=== PATIENT | male | born 1965 | race African-American/Black ===

== ENCOUNTER 2019-08-13 16:09 | Inpatient (IN) | payer OTHER ==
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
[2019-08-13] MEDS ORDERED: ALBUTEROL SO4 2.5/IPRATROPIUM 0.5 INH SOL 3 ML VIAL.NEB. NEB ONE ×5 (17:01→18:26)
[2019-08-13 17:36] LABS: BASO % 0.9 % (0-2.0); EOS % 3.9 % (0-4.5); HEMATOCRIT 41.4 % (35.4-49); HEMOGLOBIN 13.5 GM/dL (11.7-16.9); LYMPH % 17.2 % (8-40); MCH 30.8 pg (25.7-33.7); MCHC 32.7 g/dl (32.0-35.9); MEAN CELL VOLUME 94.2 fl (80-96); MEAN PLT VOLUME 8.4 fl (7.5-11.1); MONO % 10.1 % (3.8-10.2); NEUT % 67.9 % (42.8-82.8); PLATELET COUNT 250 K/MM3 (134-434); RBC 4.39 M/mm3 (4.00-5.60); RDW 14.5 % (11.9-15.9)
[2019-08-13 17:52] LABS: INR 0.87 (0.83-1.09); PROTHROMBIN TIME (PATIENT) 10.3 SEC (9.7-13.0)
[2019-08-13 17:55] LABS: ACTIVATED PTT 29.4 SECONDS (25.2-36.5)
[2019-08-13 18:14] LABS: URINE APPEARANCE CLEAR; URINE BILIRUBIN NEGATIVE (NEGATIVE); URINE COLOR YELLOW; URINE GLUCOSE (UA) 3+ (NEGATIVE); URINE KETONE NEGATIVE (NEGATIVE); URINE LEUK ESTERASE NEGATIVE (NEGATIVE); URINE NITRITE NEGATIVE (NEGATIVE); URINE PROTEIN NEGATIVE (NEGATIVE)
[2019-08-13 18:16] LABS: ALK PHOS 79 U/L (45-117); ANION GAP 6 MMOL/L (8-16); BILIRUBIN,TOTAL 0.3 mg/dL (0.2-1); BLOOD UREA NITROGEN 13.6 mg/dL (7-18); CALCIUM 8.4 mg/dL (8.5-10.1); CHLORIDE 102 mmol/L (98-107); CO2 30 mmol/L (21-32); GLUCOSE,RANDOM 374 mg/dL (74-106); POTASSIUM 3.8 mmol/L (3.5-5.1); SGOT/AST 64 U/L (15-37); SGPT/ALT 95 U/L (13-61); SODIUM 138 mmol/L (136-145); TOT PROT 5.8 g/dl (6.4-8.2)
[2019-08-13] MEDS ORDERED: SODIUM CHLORIDE 0.9% 500 ML INFUS.BAG IV ONE ×2 (18:25→18:51)
[2019-08-13] MEDS ORDERED: methylPREDNISolone NA SUCC 125 MG/2 ML VIAL IVPUSH ONE (18:30)
[2019-08-13] MEDS ORDERED: methylPREDNISolone NA SUCC 125 MG/2 ML VIAL ONE (19:08)
--- NOTE | 2019-08-13 19:16 | PDOC ---
Documentation entered by Gary Fowler SCRIBE, acting as scribe for Rosa Dominique MD. Rosa Dominique MD: This documentation has been prepared by the Malcolm michaels Nirvannie, SCRIBE, under my direction and personally reviewed by me in its entirety. I confirm that the documentation accurately reflects all work, treatment, procedures, and medical decision making performed by me. Attending Attestation - Resident Resident Name: Rosa Easton - ED Attending Attestation I have performed the following: I have examined & evaluated the patient, The case was reviewed & discussed with the resident, I agree w/resident's findings & plan, Exceptions are as noted - HPI HPI: 08/13/19 18:15 The patient is a 54 year old male, with a significant past medical history of polysubstance abuse and asthma, who presents to the emergency department via EMS from [facility] with shortness of breath, hypoxia, and cough. As per [facility], the patient was discharged from [facility] after a 2 day admission to detox at which time he was found to be wheezing, lethargic, and hypoxic to 90% on room air. Per EMS, given nebulizer treatments en route and found to be hyperglycemic. Patient endorses shortness of breath for the past month and is unaware if todays episode is worse than normal. Patient is a poor historian thus, history is limited. He denies any recent chest pain or palpitations. He denies any recent fevers, chills, headache or dizziness. He denies any recent nausea, vomiting, diarrhea or constipation. He denies any recent dysuria, frequency, urgency or hematuria. Allergies: NKDA - Physicial Exam PE: GENERAL: Somnolent. Awakens to voice then falls back asleep. In no acute distress HEAD: No signs of trauma EYES: PERRLA, EOMI, sclera anicteric, conjunctiva clear ENT: Auricles normal inspection, hearing grossly normal, nares patent, oropharynx clear without exudates. Moist mucosa NECK: Normal ROM, supple, no lymphadenopathy, JVD, or masses LUNGS: Dec air entry B/L with scattered wheezes. HEART: Regular rate and rhythm, normal S1 and S2, no murmurs, rubs or gallops ABDOMEN: Soft, nontender, normoactive bowel sounds. No guarding, no rebound. No masses EXTREMITIES: Normal range of motion, no edema. No clubbing or cyanosis. No cords, erythema, or tenderness NEUROLOGICAL: Cranial nerves II through XII grossly intact. Normal speech, normal gait. Motor and sensation intact SKIN: Warm, dry, normal turgor, no rashes or lesions noted. - Medical Decision Making Pt somnolent on my evaluation, poss intoxication given history of substance abuse. Noted to have rhabdo, hyperglycemia in addition to the respiratory symptoms. Will plan for admission.
[2019-08-13] MEDS ORDERED: LACTATED RINGERS SOLUTION 1000 ML INFUS.BAG IV ONE (19:39)
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
[2019-08-13 20:57] LABS: METHADONE, UR NEGATIVE ng/ml (CUTOFF=300); OPIATES, URI NEGATIVE ng/ml (CUTOFF=300); PHENCYCLIDINE,URINE NEGATIVE ng/ml (CUTOFF=25); URINE AMPHETAMINES NEGATIVE ng/ml (CUTOFF=500); URINE BARBITURATES NEGATIVE ng/ml (CUTOFF=200); URINE BENZODIAZEPINES NEGATIVE ng/ml (CUTOFF=200)
[2019-08-13 20:59] LABS: COCAINE, UR POSITIVE ng/ml (CUTOFF=300)
[2019-08-13 21:21] LABS: MAGNESIUM 2.3 mg/dL (1.8-2.4); PHOSPHOROUS 2.7 mg/dL (2.5-4.9)
[2019-08-13] MEDS ORDERED: SODIUM CHLORIDE 1,000 ML IV SCH (22:45)
[2019-08-13] MEDS ORDERED: ALBUTEROL SO4 0.083% IH SOL 2.5 MG/3 ML VIAL.NEB. NEB PRN (22:59)
[2019-08-13] MEDS ORDERED: ALBUTEROL SO4 2.5/IPRATROPIUM 0.5 INH SOL 3 ML VIAL.NEB. NEB SCH (23:00)
--- NOTE | 2019-08-13 23:55 | PN ---
Teaching Attending Note Name of Resident: Natacha Flores ATTENDING PHYSICIAN STATEMENT I saw and evaluated the patient. I reviewed the resident's note and discussed the case with the resident. I agree with the resident's findings and plan as documented. SUBJECTIVE: 54 year old male, with a significant past medical history of polysubstance abuse , asthma, presents via EMS from [facility] with shortness of breath, hypoxia, and cough. As per [facility], the patient was discharged from [facility] after a 2 day admission to detox at which time he was found to be wheezing, lethargic , and hypoxic to 90% on room air. Given nebs by EMS and was also found to be hyperglycemic. Heroin, etoh, and cocaine Last use this . Patient allegedly drinks up to 1 pint of liquor a day. OBJECTIVE: Last Vital Signs Temp Pulse Resp BP Pulse Ox 97.8 F 94 H 19 148/79 98 08/13/19 16:10 08/13/19 16:10 08/13/19 16:10 08/13/19 16:10 08/13/19 16:10 GENERAL: Well developed, well nourished. Awake and alert. No acute distress. HEENT: Normocephalic, atraumatic. PERRLA, EOMI. No conjunctival pallor. Sclera are non- icteric. Moist mucous membranes. Oropharynx is clear. NECK: Supple. Full ROM. No JVD. Carotid pulses 2+ and symmetric, without bruits. No thyromegaly. No lymphadenopathy. CARDIOVASCULAR: Regular rate and rhythm. No murmurs, rubs, or gallops. Distal pulses are 2+ and symmetric. PULMONARY: No evidence of respiratory distress. Diffuse wheezing appreciated. ABDOMINAL: Soft. Non-tender. Non-distended. No rebound or guarding. No organomegaly. Normoactive bowel sounds. MUSCULOSKELETAL Normal range of motion at all joints. No bony deformities or tenderness. No CVA tenderness. EXTREMITIES: No cyanosis. No clubbing. No edema. No calf tenderness. SKIN: Warm and dry. Normal capillary refill. No rashes. No jaundice. PSYCHIATRIC: Cooperative. Good eye contact. Appropriate mood and affect. Abnormal Lab Results 08/13/19 08/13/19 08/13/19 17:15 17:30 20:30 Anion Gap 6 L Random Glucose 374 H Calcium 8.4 L AST 64 H ALT 95 H Creatine Kinase 1856 H CK-MB (CK-2) 15.9 H Total Protein 5.8 L Albumin 3.0 L Urine Glucose (UA) 3+ H Cocaine Screen Positive A* Imaging studies reviewed ASSESSMENT AND PLAN: Asthma exacerbation, likely precipitated by substance abuse, cocaine positive in urine toxicology screen. Admit to MedSurg DuoNebs every 4 hours Prednisone 40 mg p.o. daily Counseled to quit abusing cocaine and heroin Supplemental oxygen via nasal cannula VBG to ensure patient is not retaining CO2 Peak flow now and trend #Polysubstance abuse including chronic alcoholism CIWA protocol IV fluid hydration Thiamine and folate and multivitamin Librium detox protocol [facility] after discharge #Rhabdomyolysissuspect secondary to cocaine use IV fluid hydration Trend CK level Bedrest and fall precautions Cocaine cessation Send urine myoglobin #Transaminitismay be elevated from rhabdomyolysis. May be elevated secondary to EtOH induced hepatitis Send HIV, hep B, hep C serologies Hepatic panel #DVT prophylaxisheparin subcutaneously
[2019-08-14] MEDS ORDERED: ALBUTEROL SO4 2.5/IPRATROPIUM 0.5 INH SOL 3 ML VIAL.NEB. NEB ONE ×4 (03:52→16:14)
[2019-08-14] MEDS ORDERED: methylPREDNISolone NA SUCC 40 MG/1 ML VIAL IVPUSH ONE (03:54)
[2019-08-14 05:29] LABS: ARTERIAL BLD GAS O2 SATURATION 92.8 % (95-98); ARTERIAL BLOOD GAS BASE EXCESS 1.8 meq/l (-2-2); ARTERIAL BLOOD GAS PCO2 40.5 mmHg (35-45); ARTERIAL BLOOD GAS PO2 67.5 mmHg (80-100); ARTERIAL BLOOD GAS pH 7.42 (7.35-7.45)
[2019-08-14 05:32] LABS: ALLENS TEST POSITIVE
[2019-08-14] MEDS ORDERED: SODIUM CHLORIDE 1,000 ML with SODIUM BICARBONATE 8.4% - 150 MEQ IV SCH (06:15)
[2019-08-14] MEDS ORDERED: INSULIN SLIDING SCALE (NOVOLOG) 1 VIAL SQ SCH ×2 (07:00)
[2019-08-14] MEDS: ALBUTEROL SO4 2.5/IPRATROPIUM 0.5 INH SOL 3 ML VIAL.NEB. NEB SCH ×4 (08:06→20:26)
[2019-08-14] MEDS: INSULIN SLIDING SCALE (NOVOLOG) 1 VIAL SQ SCH ×4 (08:10→23:05)
[2019-08-14] MEDS ORDERED: DEXTROSE 5%-WATER - 1,000 ML with SODIUM BICARBONATE 8.4% - 150 MEQ IV SCH ×2 (08:26→08:30)
[2019-08-14] MEDS: NYSTATIN POWDER 100,000 UNITS/GM - 15 GM TOPICAL POWDER TP SCH ×2 (09:57→23:06)
[2019-08-14] MEDS: HYDROCHLOROTHIAZIDE 25 MG TABLET (FP) PO SCH (09:57)
[2019-08-14] MEDS: amLODIPine BESYLATE 5 MG TABLET (FP) PO SCH (09:57)
[2019-08-14] MEDS: PANTOPRAZOLE 40 MG TABLET (FP) PO SCH (09:57)
[2019-08-14] MEDS: ASPIRIN 81 MG CHEWABLE TABLETS PO SCH (09:57)
[2019-08-14] MEDS: ENOXAPARIN NA (PORCINE) 40 MG/0.4 ML DISP.SYRIN SQ SCH (09:57)
[2019-08-14] MEDS: methylPREDNISolone NA SUCC 40 MG/1 ML VIAL IVPUSH SCH ×2 (09:58→18:24)
--- NOTE | 2019-08-14 09:59 | PN ---
Physical Exam: SUBJECTIVE: Patient seen and examined at at bed side, c/o epigastric pain, denies cp, sob, cough, palpitations, N/V/D or urinary symptoms. OBJECTIVE: Vital Signs Period Temp Pulse Resp BP Sys/Alarcon Pulse Ox Last 24 Hr 97.8 F 94 19 148/79 98 GENERAL: The patient is awake, alert, and fully oriented, in no acute distress. HEAD: Normal with no signs of trauma. EYES: PERRL, extraocular movements intact, sclera anicteric, conjunctiva clear. No ptosis. ENT: Ears normal, nares patent, oropharynx clear without exudates, moist mucous membranes.Swelling left side of the face persist, mild- tenderness, no throat exudate seen NECK: Trachea midline, full range of motion, supple. LUNGS: Breath sounds equal, clear to auscultation bilaterally, no wheezes, no crackles, no accessory muscle use. HEART: Regular rate and rhythm, S1, S2 without murmur, rub or gallop. ABDOMEN: mild epigastric tenderness,Soft, nondistended, normoactive bowel sounds , no guarding, no rebound, no hepatosplenomegaly, no masses. EXTREMITIES: 2+ pulses, warm, well-perfused, no edema. NEUROLOGICAL: Cranial nerves II through XII grossly intact. Normal speech, gait not observed. PSYCH: Normal mood, normal affect. SKIN: Warm, dry, normal turgor, no rashes or lesions noted Laboratory Results - last 24 hr 08/13/19 08/13/19 08/13/19 16:56 17:15 17:15 WBC 8.0 RBC 4.39 Hgb 13.5 Hct 41.4 MCV 94.2 MCH 30.8 MCHC 32.7 RDW 14.5 Plt Count 250 MPV 8.4 Absolute Neuts (auto) 5.4 Neutrophils % 67.9 Lymphocytes % 17.2 Monocytes % 10.1 Eosinophils % 3.9 Basophils % 0.9 Nucleated RBC % 0 PT with INR INR PTT (Actin FS) Puncture Site ABG pH ABG pCO2 at Pt Temp ABG pO2 at Pt Temp ABG HCO3 ABG O2 Sat (Measured) ABG O2 Content ABG Base Excess Anderson Test O2 Delivery Device Oxygen Flow Rate Sodium 138 Potassium 3.8 Chloride 102 Carbon Dioxide 30 Anion Gap 6 L BUN 13.6 Creatinine 1.0 Est GFR (CKD-EPI)AfAm 99.85 Est GFR (CKD-EPI)NonAf 86.15 POC Glucometer 255 Random Glucose 374 H Calcium 8.4 L Phosphorus Magnesium Total Bilirubin 0.3 AST 64 H ALT 95 H Alkaline Phosphatase 79 Creatine Kinase 1856 H Creatine Kinase Index 0.8 CK-MB (CK-2) 15.9 H Troponin I < 0.02 Total Protein 5.8 L Albumin 3.0 L Beta-Hydroxybutyrate 1.1 Urine Color Urine Appearance Urine pH Ur Specific [place] Urine Protein Urine Glucose (UA) Urine Ketones Urine Blood Urine Nitrite Urine Bilirubin Urine Urobilinogen Ur Leukocyte Esterase Opiates Screen Methadone Screen Barbiturate Screen Phencyclidine Screen Ur Amphetamines Screen MDMA (Ecstasy) Screen Benzodiazepines Screen Cocaine Screen U Marijuana (THC) Screen 08/13/19 08/13/19 08/13/19 17:15 17:30 20:30 WBC RBC Hgb Hct MCV MCH MCHC RDW Plt Count MPV Absolute Neuts (auto) Neutrophils % Lymphocytes % Monocytes % Eosinophils % Basophils % Nucleated RBC % PT with INR 10.30 INR 0.87 PTT (Actin FS) 29.4 Puncture Site ABG pH ABG pCO2 at Pt Temp ABG pO2 at Pt Temp ABG HCO3 ABG O2 Sat (Measured) ABG O2 Content ABG Base Excess Anderson Test O2 Delivery Device Oxygen Flow Rate Sodium Potassium Chloride Carbon Dioxide Anion Gap BUN Creatinine Est GFR (CKD-EPI)AfAm Est GFR (CKD-EPI)NonAf POC Glucometer Random Glucose Calcium Phosphorus 2.7 Magnesium 2.3 Total Bilirubin AST ALT Alkaline Phosphatase Creatine Kinase Creatine Kinase Index CK-MB (CK-2) Troponin I Total Protein Albumin Beta-Hydroxybutyrate Urine Color Yellow Urine Appearance Clear Urine pH 6.0 Ur Specific [place] 1.032 Urine Protein Negative Urine Glucose (UA) 3+ H Urine Ketones Negative Urine Blood Negative Urine Nitrite Negative Urine Bilirubin Negative Urine Urobilinogen 1.0 Ur Leukocyte Esterase Negative Opiates Screen Methadone Screen Barbiturate Screen Phencyclidine Screen Ur Amphetamines Screen MDMA (Ecstasy) Screen Benzodiazepines Screen Cocaine Screen U Marijuana (THC) Screen 08/13/19 08/14/19 08/14/19 20:30 04:43 08:03 WBC RBC Hgb Hct MCV MCH MCHC RDW Plt Count MPV Absolute Neuts (auto) Neutrophils % Lymphocytes % Monocytes % Eosinophils % Basophils % Nucleated RBC % PT with INR INR PTT (Actin FS) Puncture Site Right radial ABG pH 7.42 ABG pCO2 at Pt Temp 40.5 ABG pO2 at Pt Temp 67.5 L ABG HCO3 25.8 ABG O2 Sat (Measured) 92.8 L ABG O2 Content 17.1 ABG Base Excess 1.8 Anderson Test Positive O2 Delivery Device Room air Oxygen Flow Rate No Sodium Potassium Chloride Carbon Dioxide Anion Gap BUN Creatinine Est GFR (CKD-EPI)AfAm Est GFR (CKD-EPI)NonAf POC Glucometer 355 Random Glucose Calcium Phosphorus Magnesium Total Bilirubin AST ALT Alkaline Phosphatase Creatine Kinase Creatine Kinase Index CK-MB (CK-2) Troponin I Total Protein Albumin Beta-Hydroxybutyrate Urine Color Urine Appearance Urine pH Ur Specific [place] Urine Protein Urine Glucose (UA) Urine Ketones Urine Blood Urine Nitrite Urine Bilirubin Urine Urobilinogen Ur Leukocyte Esterase Opiates Screen Negative Methadone Screen Negative Barbiturate Screen Negative Phencyclidine Screen Negative Ur Amphetamines Screen Negative MDMA (Ecstasy) Screen Negative Benzodiazepines Screen Negative Cocaine Screen Positive A* U Marijuana (THC) Screen Negative Active Medications Generic Name Dose Route Start Last Admin Trade Name Freq PRN Reason Stop Dose Admin Albuterol Sulfate 1 amp 08/13/19 22:59 Ventolin 0.083% Nebulizer Soln - NEB Q4H PRN SHORT OF BREATH/WHEEZING Albuterol/Ipratropium 1 amp 08/14/19 08:00 08/14/19 08:06 Duoneb - NEB 1 amp RQID [facility] Administration Amlodipine Besylate 5 mg 08/14/19 10:00 Norvasc - PO DAILY [facility] Aspirin 81 mg 08/14/19 10:00 Asa - PO DAILY [facility] Enoxaparin Sodium 40 mg 08/14/19 10:00 Lovenox - SQ DAILY [facility] Hydrochlorothiazide 25 mg 08/14/19 10:00 Hctz - PO DAILY [facility] Sodium Bicarbonate 150 meq/ 1,150 mls @ 83 mls/hr 08/14/19 08:30 Dextrose IV Q13H [facility] Insulin Aspart 1 vial 08/14/19 07:00 08/14/19 08:10 Novolog Vial Sliding Scale - SQ 10 unit ACHS [facility] Administration Protocol Methylprednisolone Sodium Succinate 40 mg 08/14/19 10:00 Solu-Medrol - IVPUSH Q8H-IV [facility] Nystatin 1 applic 08/14/19 10:00 Nystop Powder - TP BID [facility] Pantoprazole Sodium 40 mg 08/14/19 10:00 Protonix - PO DAILY [facility] ASSESSMENT/PLAN: 54y/o male with asthma, HTN, DM, cocaine use disorder, alcohol use disorder, and heroin use disorder who presents with shortness of breath x2 days. #shortness of breath and wheezing 2/2 acute asthma exacerbation- improved -ABG does not show hypercapnia -will cont on solu-medrol 40mg Q8H -duonebs QID -albuterol Q4H PRN -peak flow #Rash-likely fungal -Nystatin powder BID #Rhabdomyolysis -CK 1856 at admission, Rpt >1000 -trend -urine myoglobin -NS with bicarb 75mL/hr - Rpt labs pending #Transaminitis- asymptomatic alcohol use vs rhabdo - LFT's trending down -hep panel -Abdominal US ordered #ETOH use - monitor for DT -alcohol level negative #HTN -amlodipine 5mg daily -HCTZ 25mg daily #DM -BGM 374 on presentation -BGMs -SSI -A1C #Substance abuse - SW consulted for drug rehab placement - drug cessation counselling done -avoid beta blockers - Echo to r/o CM GI Ppx Pantoprazole DVT Ppx: Lovenox FEN IVF monitor CK diabetic diet Visit type - Emergency Visit Emergency Visit: Yes ED Registration Date: 08/13/19 Care time: The patient presented to the Emergency Department on the above date and was hospitalized for further evaluation of their emergent condition. - New Patient This patient is new to me today: Yes Date on this admission: 08/14/19 - Critical Care Critical Care patient: No
--- NOTE | 2019-08-14 13:19 | EKG ---
Test Reason : Blood Pressure : / mmHG Vent. Rate : 089 BPM Atrial Rate : 089 BPM P-R Int : 146 ms QRS Dur : 074 ms QT Int : 388 ms P-R-T Axes : 064 049 059 degrees QTc Int : 472 ms NORMAL SINUS RHYTHM NORMAL ECG NO PREVIOUS ECGS AVAILABLE Confirmed by JOANA STEIN MD ([id number]) on 08/14/2019 1:19:34 PM Referred By: Confirmed By:JOANA STEIN MD
[2019-08-14 13:29] LABS: HEMATOCRIT 42.7 % (35.4-49); HEMOGLOBIN 13.9 GM/dL (11.7-16.9); MCH 30.5 pg (25.7-33.7); MCHC 32.5 g/dl (32.0-35.9); MEAN CELL VOLUME 93.9 fl (80-96); MEAN PLT VOLUME 8.6 fl (7.5-11.1); PLATELET COUNT 275 K/MM3 (134-434); RBC 4.55 M/mm3 (4.00-5.60); RDW 14.4 % (11.9-15.9); WHITE BLOOD COUNT 8.1 K/mm3 (4.0-10.0)
[2019-08-14 13:53] LABS: ALBUMIN 3.2 g/dl (3.4-5.0); BILIRUBIN,TOTAL 0.3 mg/dL (0.2-1); BLOOD UREA NITROGEN 12.2 mg/dL (7-18); CALCIUM 8.5 mg/dL (8.5-10.1); CREATININE 1.1 mg/dL (0.55-1.3); POTASSIUM 4.1 mmol/L (3.5-5.1); TOT PROT 6.5 g/dl (6.4-8.2)
[2019-08-14] MEDS: SODIUM CHLORIDE 1,000 ML IV SCH (14:26)
[2019-08-14 17:52] VITALS: BMI 32.3
[2019-08-14] MEDS ORDERED: PNEUMOC 13-VAL CONJ-DIP CRM/PF 0.5 ML DISP.SYRIN IM ONE (17:55)
[2019-08-14] MEDS ORDERED: INSULIN (NOVOLOG) ASPART 100 UNITS/ML 10ML VIAL ONE (18:11)
[2019-08-14] MEDS ORDERED: PNEUMOCOCCAL 23 VACCINE 0.5 ML VIAL IM ONE (18:30)
[2019-08-14] MEDS ORDERED: INSULIN SLIDING SCALE (NOVOLOG) 1 VIAL SQ ONE ×2 (23:12)
[2019-08-15] MEDS: methylPREDNISolone NA SUCC 40 MG/1 ML VIAL IVPUSH SCH ×3 (02:15→17:30)
[2019-08-15] MEDS: INSULIN SLIDING SCALE (NOVOLOG) 1 VIAL SQ SCH ×4 (07:15→21:28)
[2019-08-15] MEDS: ALBUTEROL SO4 2.5/IPRATROPIUM 0.5 INH SOL 3 ML VIAL.NEB. NEB SCH ×4 (07:22→20:00)
[2019-08-15] MEDS ORDERED: PT OWN MED DRAWER 7, Y5N ONE (10:41)
[2019-08-15] MEDS: ENOXAPARIN NA (PORCINE) 40 MG/0.4 ML DISP.SYRIN SQ SCH (11:00)
[2019-08-15] MEDS: amLODIPine BESYLATE 5 MG TABLET (FP) PO SCH (11:00)
[2019-08-15] MEDS: PANTOPRAZOLE 40 MG TABLET (FP) PO SCH (11:00)
[2019-08-15] MEDS: ASPIRIN 81 MG CHEWABLE TABLETS PO SCH (11:00)
[2019-08-15] MEDS: HYDROCHLOROTHIAZIDE 25 MG TABLET (FP) PO SCH (11:00)
[2019-08-15] MEDS: NYSTATIN POWDER 100,000 UNITS/GM - 15 GM TOPICAL POWDER TP SCH ×2 (11:05→23:01)
--- NOTE | 2019-08-15 12:12 | ECHO ---
Name: SANDHYA WORTHINGTON Exam:Adult Echocardiogram Study Date: 08/15/2019 09:18 AM Age: 54 yrs Height: 71 in Weight: 238 lb BSA: 2.3 m2 MMode/2D Measurements & Calculations IVSd: 1.1 cm Ao root diam: 2.7 cm LVIDd: 4.1 cm LA dimension: 3.7 cm LVIDs: 2.8 cm LVPWd: 1.3 cm LVPWs: 1.3 cm EDV(Teich): 72.8 ml ESV(Teich): 30.3 ml LVOT diam: 1.9 cm RV S Hussain: 15.0 cm/sec Doppler Measurements & Calculations MV E max hussain: 90.8 cm/sec Ao V2 max: 157.5 cm/sec MV A max hussain: 51.3 cm/sec Ao max P.9 mmHg MV E/A: 1.8 MV dec time: 0.16 sec YOON(V,D): 2.7 cm2 LV V1 max P.0 mmHg PA V2 max: 124.2 cm/sec LV V1 max: 150.1 cm/sec PA max P.2 mmHg Med Peak E' Hussain: 9.5 cm/sec Med E/e': 9.6 Lat Peak E' Hussain: 12.3 cm/sec Lat E/e': 7.4 Procedure A complete two-dimensional transthoracic echocardiogram was performed (2D, M-mode, Doppler and color flow Doppler). Left Ventricle The left ventricle is normal in size. Left ventricular systolic function is normal. Ejection Fraction = 55- 60%. No regional wall motion abnormalities noted. Right Ventricle The right ventricle is normal size. The right ventricular systolic function is normal. Atria The left atrial size is normal. Right atrial size is normal. Mitral Valve The mitral valve is normal in structure and function. There is mild mitral regurgitation. Tricuspid Valve The tricuspid valve is normal in structure and function. There is mild tricuspid regurgitation. Aortic Valve There is mild aortic sclerosis.;. No aortic regurgitation is present. Pulmonic Valve The pulmonic valve is not well visualized. Great Vessels The aortic root is normal size. Mildly dilated ascending aorta. Pericardium/Pleura There is no pericardial effusion. Interpretation Summary The left ventricle is normal in size. Left ventricular systolic function is normal. No regional wall motion abnormalities noted. Ejection Fraction = 55-60%. The right ventricular systolic function is normal. The left atrial size is normal. Right atrial size is normal. There is mild mitral regurgitation. There is mild tricuspid regurgitation. There is mild aortic sclerosis. The aortic root is normal size. Mildly dilated ascending aorta. (3.8 cm) There is no pericardial effusion. Anil Dee MD 08/15/2019 12:12 PM
--- NOTE | 2019-08-15 17:26 | PN ---
Physical Exam: 54 AA M h/o poly substance abuse, asthma, presents via EMS from [facility] with shortness of breath, hypoxia, and cough. As per [facility], the patient was discharged from [facility] after a 2 day admission to detox at which time he was found to be wheezing, lethargic, and hypoxic to 90% on room air. Given nebs by EMS and was also found to be hyperglycemic. Heroin, etoh, and cocaine Last use this . Patient feeling slightly better today, still endorses some SOB but denies CP/loc/dizziness. Refusing IV medications prefers PO only. VSS, no fevers. PE VSS GA comfortable, AAox3, speaking in full sentences HEENt NC/AT, EOMI, no JVD, dry MM Chest scattered wheezes bilaterally, adequate air entry b/l, no crackles CVS S1, S2+, RRR, no m/r/g Abd Soft, NT, ND ext No LE edema, no calf tenderness Vital Signs Period Temp Pulse Resp BP Sys/Alarcon Pulse Ox Last 24 Hr 97.6 F-98.2 F 83-84 18-18 136-144/73-80 96-96 Laboratory Results - last 24 hr 08/14/19 08/14/19 08/14/19 12:55 12:55 18:08 POC Glucometer 324 Creatine Kinase Creatine Kinase Index CK-MB (CK-2) Hep A IgM Ab Confirm Negative Hep Bs Antigen Negative Hep B Core IgM Ab Negative Negative Hep C Ab Diagnostic <0.1 Hepatitis C Ab (EIA) <0.1 08/14/19 08/15/19 08/15/19 22:59 11:10 11:41 POC Glucometer 397 298 Creatine Kinase 386 H Creatine Kinase Index 1.3 CK-MB (CK-2) 5.4 H Hep A IgM Ab Confirm Hep Bs Antigen Hep B Core IgM Ab Hep C Ab Diagnostic Hepatitis C Ab (EIA) Active Medications Generic Name Dose Route Start Last Admin Trade Name Freq PRN Reason Stop Dose Admin Albuterol Sulfate 1 amp 08/13/19 22:59 Ventolin 0.083% Nebulizer Soln - NEB Q4H PRN SHORT OF BREATH/WHEEZING Albuterol/Ipratropium 1 amp 08/14/19 08:00 08/15/19 15:21 Duoneb - NEB 1 amp RQID [facility] Administration Amlodipine Besylate 5 mg 08/14/19 10:00 08/15/19 11:00 Norvasc - PO 5 mg DAILY [facility] Administration Aspirin 81 mg 08/14/19 10:00 08/15/19 11:00 Asa - PO 81 mg DAILY [facility] Administration Enoxaparin Sodium 40 mg 08/14/19 10:00 08/15/19 11:00 Lovenox - SQ 40 mg DAILY [facility] Administration Hydrochlorothiazide 25 mg 08/14/19 10:00 08/15/19 11:00 Hctz - PO 25 mg DAILY [facility] Administration Sodium Chloride 1,000 mls @ 100 mls/hr 08/14/19 14:15 08/14/19 14:26 Normal Saline - IV 100 mls/hr ASDIR [facility] Administration Insulin Aspart 1 vial 08/14/19 07:00 08/15/19 11:48 Novolog Vial Sliding Scale - SQ 6 unit ACHS [facility] Administration Protocol Methylprednisolone Sodium Succinate 40 mg 08/14/19 10:00 08/15/19 10:37 Solu-Medrol - IVPUSH Not Given Q8H-IV [facility] Nystatin 1 applic 08/14/19 10:00 08/15/19 11:05 Nystop Powder - TP Not Given BID [facility] Pantoprazole Sodium 40 mg 08/14/19 10:00 08/15/19 11:00 Protonix - PO 40 mg DAILY [facility] Administration ASSESSMENT/PLAN: 54 M h/o asthma, HTN, DM, cocaine use disorder, alcohol use disorder, and heroin use disorder who presents w/ CYNTHIA likely 2/2 underlying substance abuse. Bronchial asthma exacerbation still in acute exacerbation with wheezing b/l, refusing IV steroids switch to prednisone 60mg PO x5 days total cont. duonebs round the clock, supplement NC O2 as needed, advised to refrain from cocaine use Pulmonary evaluation Transaminitis mild, improving, hepatitis panel unremarkable likely 2/2 rhabdo, cont. PO hydration Rhabdomyolysis improving, cont. PO hydration, CK-MB likely due to cocaine use, no signs of ACS monitor CRE PSA counseled on drug abstinence no signs of acute withdrawal, cont. CIWA protocol DC to [facility] once medically stable T2DM not controlled, will add basal coverage cont. ISS DM diet, counseled on DM control DVT ppx: Heparin SC Visit type - Emergency Visit Emergency Visit: Yes ED Registration Date: 08/13/19 Care time: The patient presented to the Emergency Department on the above date and was hospitalized for further evaluation of their emergent condition. - New Patient This patient is new to me today: Yes Date on this admission: 08/15/19 - Critical Care Critical Care patient: No - Discharge Referral Referred to [facility] Med P.C.: No
[2019-08-15] MEDS: SODIUM CHLORIDE 1,000 ML IV SCH (17:32)
[2019-08-15] MEDS ORDERED: INSULIN (NOVOLOG) ASPART 100 UNITS/ML 10ML VIAL ONE (21:07)
[2019-08-15] MEDS: INSULIN (LEVEMIR) 100 UNITS/ML UNITS SQ SCH (21:29)
[2019-08-16] MEDS: INSULIN SLIDING SCALE (NOVOLOG) 1 VIAL SQ SCH ×4 (06:04→21:46)
[2019-08-16] MEDS: INSULIN (LEVEMIR) 100 UNITS/ML UNITS SQ SCH ×2 (06:04→21:47)
--- NOTE | 2019-08-16 08:13 | PN ---
Progress Note, Physician Chief Complaint: c/o productive cough and pleuritic pain on deep inspiration History of Present Illness: Mr. Moya is a 54y/o male with asthma, HTN, DM, cocaine use disorder, alcohol use disorder, and heroin use disorder who presents with shortness of breath x2 days. - Current Medication List Current Medications: Active Medications Albuterol Sulfate (Ventolin 0.083% Nebulizer Soln -) 1 amp NEB Q4H PRN PRN Reason: SHORT OF BREATH/WHEEZING Albuterol/Ipratropium (Duoneb -) 1 amp NEB RQID [facility] Last Admin: 08/15/19 20:00 Dose: 1 amp Amlodipine Besylate (Norvasc -) 5 mg PO DAILY [facility] Last Admin: 08/15/19 11:00 Dose: 5 mg Aspirin (Asa -) 81 mg PO DAILY [facility] Last Admin: 08/15/19 11:00 Dose: 81 mg Enoxaparin Sodium (Lovenox -) 40 mg SQ DAILY [facility] Last Admin: 08/15/19 11:00 Dose: 40 mg Hydrochlorothiazide (Hctz -) 25 mg PO DAILY [facility] Last Admin: 08/15/19 11:00 Dose: 25 mg Sodium Chloride (Normal Saline -) 1,000 mls @ 100 mls/hr IV ASDIR [facility] Last Admin: 08/15/19 17:32 Dose: Not Given Insulin Aspart (Novolog Vial Sliding Scale -) 1 vial SQ ACHS [facility]; Protocol Last Admin: 08/16/19 06:04 Dose: 8 unit Insulin Detemir (Levemir Vial) 5 units SQ BID@0700,2200 [facility] Last Admin: 08/16/19 06:04 Dose: 5 units Nystatin (Nystop Powder -) 1 applic TP BID [facility] Last Admin: 08/15/19 23:01 Dose: Not Given Pantoprazole Sodium (Protonix -) 40 mg PO DAILY [facility] Last Admin: 08/15/19 11:00 Dose: 40 mg Prednisone (Deltasone -) 60 mg PO DAILY [facility] - Objective Vital Signs: Vital Signs Temperature 9709 F H 08/16/19 06:56 Pulse Rate 94 H 08/16/19 06:56 Respiratory Rate 20 08/16/19 06:56 Blood Pressure 125/76 08/16/19 06:56 O2 Sat by Pulse Oximetry (%) 96 08/15/19 21:00 Constitutional: Yes: Well Nourished, No Distress, Calm Eyes: Yes: WNL, Conjunctiva Clear HENT: Yes: WNL, Atraumatic, Normocephalic Neck: Yes: WNL, Supple, Trachea Midline Cardiovascular: Yes: WNL, Regular Rate and Rhythm Respiratory: Yes: Diminished ( R>L) Gastrointestinal: Yes: WNL ...Rectal Exam: Yes: Deferred Genitourinary: Yes: WNL Breast(s): Yes: WNL Musculoskeletal: Yes: WNL Extremities: Yes: WNL Edema: No Peripheral Pulses WNL: Yes Peripheral Pulses: Left Radial: 2+, Right Radial: 2+, Left Doralis Pedis: 2+, Right Dorsalis Pedis: 2+, Left Femoral: 2+, Right Femoral: 2+ Integumentary: Yes: WNL Neurological: Yes: WNL, Alert, Oriented ...Motor Strength: WNL Psychiatric: Yes: WNL Labs: CBC, BMP 08/14/19 12:55 08/14/19 12:55 INR, PTT INR 0.87 (0.83-1.09) 08/13/19 17:15 - ....Imaging Chest X-ray: Report Reviewed (no effusions/infiltrates) Problem List - Problems (1) Asthma exacerbation Assessment/Plan: much improved IV steroids changed to PO c/w duo nebs, singular if continues to improve can be DC home tomorrow on prednisone Code(s): J45.901 - UNSPECIFIED ASTHMA WITH (ACUTE) EXACERBATION (2) Rash Assessment/Plan: resolving likely fungal c/w nystatin Code(s): R21 - RASH AND OTHER NONSPECIFIC SKIN ERUPTION (3) Rhabdomyolysis Assessment/Plan: resolving with IVF Code(s): M62.82 - RHABDOMYOLYSIS (4) Alcohol abuse Assessment/Plan: hx of polysubstance abuse refer pt to [facility] on discharge Code(s): F10.10 - ALCOHOL ABUSE, UNCOMPLICATED (5) HTN (hypertension) Assessment/Plan: c/w norvasc, hctz Code(s): I10 - ESSENTIAL (PRIMARY) HYPERTENSION (6) Diabetes Assessment/Plan: BGM AC/HS with novolog sliding scale c/w levemir restart metformin on dc may need short term insulin while on sterouds Code(s): E11.9 - TYPE 2 DIABETES MELLITUS WITHOUT COMPLICATIONS (7) Heroin abuse Assessment/Plan: [facility] Code(s): F11.10 - OPIOID ABUSE, UNCOMPLICATED (8) Prophylactic measure Assessment/Plan: FEN Fluids: adequate PO intake Electrolytes: replete as indicated Nutrition: low fat/chol diet DVT prophylaxis: oob, ambulation Dispo: continues to require inpatient care. Full code discharge planning-possible dc home tomorrow Code(s): Z29.9 - ENCOUNTER FOR PROPHYLACTIC MEASURES, UNSPECIFIED Visit type - Emergency Visit Emergency Visit: Yes ED Registration Date: 08/13/19 Care time: The patient presented to the Emergency Department on the above date and was hospitalized for further evaluation of their emergent condition. - New Patient This patient is new to me today: Yes Date on this admission: 08/16/19 - Critical Care Critical Care patient: No - Discharge Referral Referred to [facility] Med P.C.: No
[2019-08-16] MEDS: ALBUTEROL SO4 2.5/IPRATROPIUM 0.5 INH SOL 3 ML VIAL.NEB. NEB SCH ×4 (08:57→20:48)
--- NOTE | 2019-08-16 10:13 | CON.PULM ---
Consult Consult Specialty:: PULMONARY Referred by:: Dr Gee Reason for Consultation:: asthma - History of Present Illness Chief Complaint: shortness of breath History of Present Illness: 54yo male with h/o HTN, DM, asthma, polysubstance abuse including cocaine, alcohol, heroin intranasally who was admitted with worsening shortness of breath x 2 days. Was sent from [facility] after noted to be wheezing. Reports symptoms started after using intranasal cocaine. No fevers, chills or sweats. + nonproductive cough and wheezing. Reports having childhood asthma but never intubated or been to the ER. Maintained on albuterol as needed. - History Source History Provided By: Patient, Medical Record Limitations to Obtaining History: No Limitations - Past Medical History Pulmonary: Yes: Asthma - Alcohol/Substance Use Hx Alcohol Use: Yes - Smoking History Smoking history: Never smoked Have you smoked in the past 12 months: Yes Aproximately how many cigarettes per day: 20 Home Medications - Allergies Allergies/Adverse Reactions: Allergies Allergy/AdvReac Type Severity Reaction Status Date / Time No Known Allergies Allergy Verified 08/13/19 15:13 - Home Medications Home Medications: Ambulatory Orders Amlodipine Besylate 5 mg PO DAILY 08/13/19 Aspirin [Aspirin EC] 81 mg PO DAILY 08/13/19 Hydrochlorothiazide [Hctz -] 25 mg PO DAILY 08/13/19 Metformin HCl [Glucophage] 1,000 mg PO BIDAC 08/13/19 Review of Systems - Review of Systems Constitutional: denies: Chills, Fever Eyes: denies: Recent Change in Vision HENT: denies: Nasal Congestion, Throat Pain Neck: denies: Stiffness, Tenderness Cardiovascular: reports: Shortness of Breath. denies: Chest Pain Respiratory: reports: Cough, SOB, Wheezing. denies: Hemoptysis Gastrointestinal: denies: Abdominal Pain, Nausea, Vomiting Genitourinary: denies: Dysuria, Hematuria Neurological: denies: Dizziness, Headache Endocrine: denies: Unexplained Weight Loss Physical Exam Vital Sings: Vital Signs Temperature 9709 F H 08/16/19 06:56 Pulse Rate 94 H 08/16/19 06:56 Respiratory Rate 08/16/19 06:56 Blood Pressure 125/76 08/16/19 06:56 O2 Sat by Pulse Oximetry (%) 96 08/15/19 21:00 Constitutional: Yes: Calm Eyes: Yes: Conjunctiva Clear, EOM Intact HENT: Yes: Atraumatic, Normocephalic Neck: Yes: Supple, Trachea Midline Cardiovascular: Yes: Regular Rate and Rhythm Respiratory: Yes: Poor Air Entry ...Clubbing: No Gastrointestinal: Yes: Normal Bowel Sounds, Soft. No: Tenderness Edema: No Neurological: Yes: Alert, Oriented Labs: CBC, BMP 08/14/19 12:55 08/14/19 12:55 ABG Results ABG pH 7.42 (7.35-7.45) 08/14/19 04:43 ABG pCO2 at Pt Temp 40.5 mmHg (35-45) 08/14/19 04:43 ABG pO2 at Pt Temp 67.5 mmHg (80-100) L 08/14/19 04:43 ABG HCO3 25.8 mmol/L (22-27) 08/14/19 04:43 ABG O2 Sat (Measured) 92.8 % (95-98) L 08/14/19 04:43 ABG O2 Content 17.1 % vol 08/14/19 04:43 ABG Base Excess 1.8 meq/l (-2-2) 08/14/19 04:43 Imaging - Results Chest X-ray: Report Reviewed, Image Reviewed (no infiltrates) Problem List - Problems (1) Asthma exacerbation Code(s): J45.901 - UNSPECIFIED ASTHMA WITH (ACUTE) EXACERBATION Assessment/Plan Acute Asthma Exacerbation HTN DM Polysubstance Abuse - pt refusing IV access, continue prednisone - inhaled bronchodilators - will start LABA - singulair - counseled on smoking and drug cessation - DVT prophylaxis - can likely d/c home in AM on prednisone 40mg daily x 5 days Thank you for this consult Manuel Irwin MD
[2019-08-16] MEDS: PANTOPRAZOLE 40 MG TABLET (FP) PO SCH (10:55)
[2019-08-16] MEDS: ASPIRIN 81 MG CHEWABLE TABLETS PO SCH (10:55)
[2019-08-16] MEDS: predniSONE 20 MG TABLET (UD) PO SCH (10:55)
[2019-08-16] MEDS: amLODIPine BESYLATE 5 MG TABLET (FP) PO SCH (10:55)
[2019-08-16] MEDS: HYDROCHLOROTHIAZIDE 25 MG TABLET (FP) PO SCH (10:55)
[2019-08-16] MEDS: ENOXAPARIN NA (PORCINE) 40 MG/0.4 ML DISP.SYRIN SQ SCH (10:55)
[2019-08-16] MEDS ORDERED: PT OWN MED DRAWER 7, Y5N ONE (14:47)
[2019-08-16] MEDS: NYSTATIN POWDER 100,000 UNITS/GM - 15 GM TOPICAL POWDER TP SCH ×2 (14:50→21:49)
[2019-08-16] MEDS: BUDESONIDE/FORMETEROL FUMARATE 160/4.5 mcg INHALER IH SCH ×2 (14:50→21:49)
[2019-08-16 18:25] LABS: BASO % 0.2 % (0-2.0); EOS % 0.2 % (0-4.5); HEMATOCRIT 43.9 % (35.4-49); HEMOGLOBIN 14.7 GM/dL (11.7-16.9); LYMPH % 12.1 % (8-40); MCH 31.5 pg (25.7-33.7); MCHC 33.5 g/dl (32.0-35.9); MEAN CELL VOLUME 93.9 fl (80-96); MEAN PLT VOLUME 9.3 fl (7.5-11.1); MONO % 3.3 % (3.8-10.2); NEUT % 84.2 % (42.8-82.8); PLATELET COUNT 275 K/MM3 (134-434); RBC 4.67 M/mm3 (4.00-5.60); RDW 15.1 % (11.9-15.9); WHITE BLOOD COUNT 5.9 K/mm3 (4.0-10.0)
[2019-08-16 19:01] LABS: ALBUMIN 3.2 g/dl (3.4-5.0); BILIRUBIN,DIRECT 0.1 mg/dL (0.0-0.2); BILIRUBIN,TOTAL 0.3 mg/dL (0.2-1); BLOOD UREA NITROGEN 16.5 mg/dL (7-18); CALCIUM 8.6 mg/dL (8.5-10.1); CREATININE 1.2 mg/dL (0.55-1.3); POTASSIUM 4.6 mmol/L (3.5-5.1); TOT PROT 6.4 g/dl (6.4-8.2)
[2019-08-16] MEDS ORDERED: ZOLPIDEM TARTRATE 5 MG TABLET PO ONE (21:03)
[2019-08-16] MEDS ORDERED: MONTELUKAST NA 10 MG TABLET PO SCH (22:00)
[2019-08-16] MEDS ORDERED: INSULIN (NOVOLOG) ASPART 100 UNITS/ML 10ML VIAL SQ ONE (23:31)
[2019-08-17] MEDS: INSULIN (LEVEMIR) 100 UNITS/ML UNITS SQ SCH (06:08)
[2019-08-17] MEDS: INSULIN SLIDING SCALE (NOVOLOG) 1 VIAL SQ SCH (06:11)
[2019-08-17] MEDS: ALBUTEROL SO4 2.5/IPRATROPIUM 0.5 INH SOL 3 ML VIAL.NEB. NEB SCH (07:30)
[2019-08-17] MEDS ORDERED: INSULIN SLIDING SCALE (NOVOLOG) 1 VIAL SQ SCH (08:34)
--- NOTE | 2019-08-17 08:35 | PN ---
Progress Note, Physician History of Present Illness: Mr. Moya is a 54y/o male with asthma, HTN, DM, cocaine use disorder, alcohol use disorder, and heroin use disorder who presents with shortness of breath x2 days. - Current Medication List Current Medications: Active Medications Albuterol Sulfate (Ventolin 0.083% Nebulizer Soln -) 1 amp NEB Q4H PRN PRN Reason: SHORT OF BREATH/WHEEZING Albuterol/Ipratropium (Duoneb -) 1 amp NEB RQID [facility] Last Admin: 08/16/19 20:48 Dose: 1 amp Amlodipine Besylate (Norvasc -) 5 mg PO DAILY [facility] Last Admin: 08/16/19 10:55 Dose: 5 mg Aspirin (Asa -) 81 mg PO DAILY [facility] Last Admin: 08/16/19 10:55 Dose: 81 mg Budesonide/Formoterol Fumarate (Symbicort 160/4.5mcg -) 2 puff IH BID [facility] Last Admin: 08/16/19 21:49 Dose: 2 puff Enoxaparin Sodium (Lovenox -) 40 mg SQ DAILY [facility] Last Admin: 08/16/19 10:55 Dose: 40 mg Hydrochlorothiazide (Hctz -) 25 mg PO DAILY [facility] Last Admin: 08/16/19 10:55 Dose: 25 mg Insulin Aspart (Novolog Vial Sliding Scale -) 1 vial SQ ACHS [facility]; Protocol Insulin Detemir (Levemir Vial) 10 units SQ BID@0700,2200 [facility] Last Admin: 08/17/19 06:08 Dose: 10 units Montelukast Sodium (Singulair -) 10 mg PO HS [facility] Last Admin: 08/16/19 21:43 Dose: 10 mg Nystatin (Nystop Powder -) 1 applic TP BID [facility] Last Admin: 08/16/19 21:49 Dose: Not Given Pantoprazole Sodium (Protonix -) 40 mg PO DAILY [facility] Last Admin: 08/16/19 10:55 Dose: 40 mg Prednisone (Deltasone -) 60 mg PO DAILY [facility] Last Admin: 08/16/19 10:55 Dose: 60 mg - Objective Vital Signs: Vital Signs Temperature 98.1 F 08/17/19 06:00 Pulse Rate 86 08/17/19 06:00 Respiratory Rate 20 08/17/19 06:00 Blood Pressure 144/79 08/17/19 06:00 O2 Sat by Pulse Oximetry (%) 96 08/16/19 21:00 Labs: CBC, BMP 08/16/19 16:15 08/16/19 16:15 INR, PTT INR 0.87 (0.83-1.09) 08/13/19 17:15 Problem List - Problems (1) Asthma exacerbation Code(s): J45.901 - UNSPECIFIED ASTHMA WITH (ACUTE) EXACERBATION (2) Rash Code(s): R21 - RASH AND OTHER NONSPECIFIC SKIN ERUPTION (3) Rhabdomyolysis Code(s): M62.82 - RHABDOMYOLYSIS (4) Alcohol abuse Code(s): F10.10 - ALCOHOL ABUSE, UNCOMPLICATED (5) HTN (hypertension) Code(s): I10 - ESSENTIAL (PRIMARY) HYPERTENSION (6) Diabetes Code(s): E11.9 - TYPE 2 DIABETES MELLITUS WITHOUT COMPLICATIONS (7) Heroin abuse Code(s): F11.10 - OPIOID ABUSE, UNCOMPLICATED (8) Prophylactic measure Code(s): Z29.9 - ENCOUNTER FOR PROPHYLACTIC MEASURES, UNSPECIFIED
--- NOTE | 2019-08-17 09:47 | PN ---
Progress Note (short form) - Note Progress Note: PULMONARY Breathing improving, close to baseline. No cough or wheezing. Vital Signs Period Temp Pulse Resp BP Sys/Alarcon Pulse Ox Last 24 Hr 97.8 F-98.1 F 71-86 18-20 144-162/78-85 96-96 Gen: NAD at rest Heart: RRR Lung: no wheezes appreciated Abd: soft, nontender Ext: no edema CBC, BMP 08/16/19 16:15 08/16/19 16:15 Active Medications Albuterol Sulfate (Ventolin 0.083% Nebulizer Soln -) 1 amp NEB Q4H PRN PRN Reason: SHORT OF BREATH/WHEEZING Albuterol/Ipratropium (Duoneb -) 1 amp NEB RQID [facility] Last Admin: 08/17/19 07:30 Dose: Not Given Amlodipine Besylate (Norvasc -) 5 mg PO DAILY [facility] Last Admin: 08/16/19 10:55 Dose: 5 mg Aspirin (Asa -) 81 mg PO DAILY [facility] Last Admin: 08/16/19 10:55 Dose: 81 mg Budesonide/Formoterol Fumarate (Symbicort 160/4.5mcg -) 2 puff IH BID [facility] Last Admin: 08/16/19 21:49 Dose: 2 puff Enoxaparin Sodium (Lovenox -) 40 mg SQ DAILY [facility] Last Admin: 08/16/19 10:55 Dose: 40 mg Hydrochlorothiazide (Hctz -) 25 mg PO DAILY [facility] Last Admin: 08/16/19 10:55 Dose: 25 mg Insulin Aspart (Novolog Vial Sliding Scale -) 1 vial SQ [facility]; Protocol Insulin Detemir (Levemir Vial) 10 units SQ BID@0700,2200 [facility] Last Admin: 08/17/19 06:08 Dose: 10 units Montelukast Sodium (Singulair -) 10 mg PO HS [facility] Last Admin: 08/16/19 21:43 Dose: 10 mg Nystatin (Nystop Powder -) 1 applic TP BID [facility] Last Admin: 08/16/19 21:49 Dose: Not Given Pantoprazole Sodium (Protonix -) 40 mg PO DAILY [facility] Last Admin: 08/16/19 10:55 Dose: 40 mg Prednisone (Deltasone -) 60 mg PO DAILY [facility] Last Admin: 08/16/19 10:55 Dose: 60 mg A/P Acute Asthma Exacerbation HTN DM Polysubstance Abuse - can give 3 more days of prednisone 40mg daily - inhaled bronchodilators - singulair - counseled on smoking and drug cessation - DVT prophylaxis - can d/c home from pulmonary standpoint Problem List - Problems (1) Asthma exacerbation Code(s): J45.901 - UNSPECIFIED ASTHMA WITH (ACUTE) EXACERBATION
[2019-08-17] MEDS: ASPIRIN 81 MG CHEWABLE TABLETS PO SCH (10:28)
[2019-08-17] MEDS: predniSONE 20 MG TABLET (UD) PO SCH (10:28)
[2019-08-17] MEDS: HYDROCHLOROTHIAZIDE 25 MG TABLET (FP) PO SCH (10:28)
[2019-08-17] MEDS: ENOXAPARIN NA (PORCINE) 40 MG/0.4 ML DISP.SYRIN SQ SCH (10:29)
[2019-08-17] MEDS: PANTOPRAZOLE 40 MG TABLET (FP) PO SCH (10:29)
[2019-08-17] MEDS: BUDESONIDE/FORMETEROL FUMARATE 160/4.5 mcg INHALER IH SCH (10:29)
[2019-08-17] MEDS: amLODIPine BESYLATE 5 MG TABLET (FP) PO SCH (10:29)
[2019-08-17] MEDS: NYSTATIN POWDER 100,000 UNITS/GM - 15 GM TOPICAL POWDER TP SCH (10:34)
--- NOTE | 2019-08-17 10:42 | DS ---
Physical Exam: SUBJECTIVE: Patient seen and examined medically stable for discharge to home OBJECTIVE: Vital Signs Period Temp Pulse Resp BP Sys/Alarcon Pulse Ox Last 24 Hr 97.8 F-98.1 F 71-86 18-20 144-162/78-85 96-96 PHYSICAL EXAM Constitutional: Yes: Well Nourished, No Distress, Calm Eyes: Yes: WNL, Conjunctiva Clear HENT: Yes: WNL, Atraumatic, Normocephalic Neck: Yes: WNL, Supple, Trachea Midline Cardiovascular: Yes: WNL, Regular Rate and Rhythm Respiratory: Yes: Diminished ( R>L) Gastrointestinal: Yes: WNL ...Rectal Exam: Yes: Deferred Genitourinary: Yes: WNL Breast(s): Yes: WNL Musculoskeletal: Yes: WNL Extremities: Yes: WNL Edema: No Peripheral Pulses WNL: Yes Peripheral Pulses: Left Radial: 2+, Right Radial: 2+, Left Doralis Pedis: 2+, Right Dorsalis Pedis: 2+, Left Femoral: 2+, Right Femoral: 2+ Integumentary: Yes: WNL Neurological: Yes: WNL, Alert, Oriented ...Motor Strength: WNL Psychiatric: Yes: WNL LABS Laboratory Results - last 24 hr 08/14/19 08/16/19 08/16/19 14:06 15:01 16:15 WBC 5.9 RBC 4.67 Hgb 14.7 Hct 43.9 MCV 93.9 MCH 31.5 MCHC 33.5 RDW 15.1 Plt Count 275 MPV 9.3 Absolute Neuts (auto) 5.0 Neutrophils % 84.2 H D Lymphocytes % 12.1 D Monocytes % 3.3 L Eosinophils % 0.2 D Basophils % 0.2 Nucleated RBC % 0 Sodium Potassium Chloride Carbon Dioxide Anion Gap BUN Creatinine Est GFR (CKD-EPI)AfAm Est GFR (CKD-EPI)NonAf POC Glucometer 472 Random Glucose Calcium Total Bilirubin Direct Bilirubin AST ALT Alkaline Phosphatase Creatine Kinase Creatine Kinase Index CK-MB (CK-2) Total Protein Albumin Triglycerides Cholesterol Total LDL Cholesterol HDL Cholesterol TSH Urine Myoglobin 11 08/16/19 08/16/19 08/16/19 16:15 17:53 21:45 WBC RBC Hgb Hct MCV MCH MCHC RDW Plt Count MPV Absolute Neuts (auto) Neutrophils % Lymphocytes % Monocytes % Eosinophils % Basophils % Nucleated RBC % Sodium 131 L Potassium 4.6 Chloride 97 L Carbon Dioxide 27 Anion Gap 7 L BUN 16.5 Creatinine 1.2 Est GFR (CKD-EPI)AfAm 80.10 Est GFR (CKD-EPI)NonAf 69.11 POC Glucometer 347 503 Random Glucose 394 H Calcium 8.6 Total Bilirubin 0.3 Direct Bilirubin 0.1 AST 53 H ALT 121 H Alkaline Phosphatase 79 Creatine Kinase 223 Creatine Kinase Index 1.7 CK-MB (CK-2) 4.0 H Total Protein 6.4 Albumin 3.2 L Triglycerides 97 Cholesterol 167 Total LDL Cholesterol 66 HDL Cholesterol 84 H TSH 0.56 Urine Myoglobin 08/16/19 08/17/19 23:23 08:31 WBC RBC Hgb Hct MCV MCH MCHC RDW Plt Count MPV Absolute Neuts (auto) Neutrophils % Lymphocytes % Monocytes % Eosinophils % Basophils % Nucleated RBC % Sodium Potassium Chloride Carbon Dioxide Anion Gap BUN Creatinine Est GFR (CKD-EPI)AfAm Est GFR (CKD-EPI)NonAf POC Glucometer 567 172 Random Glucose Calcium Total Bilirubin Direct Bilirubin AST ALT Alkaline Phosphatase Creatine Kinase Creatine Kinase Index CK-MB (CK-2) Total Protein Albumin Triglycerides Cholesterol Total LDL Cholesterol HDL Cholesterol TSH Urine Myoglobin HOSPITAL COURSE: Date of Admission:08/13/19 Date of Discharge: 08/17/19 Problem List - Problems (1) Asthma exacerbation Assessment/Plan: improved with IV steroids changed to PO with continuation for 5 additional days c/w inhaled bronchodilators singular Code(s): J45.901 - UNSPECIFIED ASTHMA WITH (ACUTE) EXACERBATION (2) Rash Assessment/Plan: resolving likely fungal c/w nystatin Code(s): R21 - RASH AND OTHER NONSPECIFIC SKIN ERUPTION (3) Rhabdomyolysis Assessment/Plan: resolved with IVF Code(s): M62.82 - RHABDOMYOLYSIS (4) Alcohol abuse Assessment/Plan: hx of polysubstance abuse refered for OTP Code(s): F10.10 - ALCOHOL ABUSE, UNCOMPLICATED (5) HTN (hypertension) Assessment/Plan: c/w norvasc, hctz Code(s): I10 - ESSENTIAL (PRIMARY) HYPERTENSION (6) Diabetes Assessment/Plan: BGM AC/HS with novolog sliding scale c/w levemir restart metformin on dc will need short term insulin while on steroids to follow with PCP to determine length of insulin Code(s): E11.9 - TYPE 2 DIABETES MELLITUS WITHOUT COMPLICATIONS (7) Heroin abuse Assessment/Plan: refer to OTP Code(s): F11.10 - OPIOID ABUSE, UNCOMPLICATED (8) Prophylactic measure Assessment/Plan: FEN Fluids: adequate PO intake Nutrition: low fat/chol diet DVT prophylaxis: oob, ambulation Dispo: medically stable for discharge to home with referral for OTP for substance abuse Code(s): Z29.9 - ENCOUNTER FOR PROPHYLACTIC MEASURES, UNSPECIFIED Minutes to complete discharge: 45 Discharge Summary Problems reviewed: Yes Reason For Visit: ELEVATED CREATINE KINASE LEVEL, WHEEZING Current Active Problems Alcohol abuse (Acute) Asthma exacerbation (Acute) Diabetes (Acute) Elevated CK (Acute) HTN (hypertension) (Acute) Heroin abuse (Acute) Prophylactic measure (Acute) Rash (Acute) Rhabdomyolysis (Acute) Wheezing (Acute) Hospital Course: HOSPITAL COURSE: Date of Admission:08/13/19 Date of Discharge: 08/17/19 Problem List - Problems (1) Asthma exacerbation Assessment/Plan: improved with IV steroids changed to PO with continuation for 5 additional days c/w inhaled bronchodilators singular Code(s): J45.901 - UNSPECIFIED ASTHMA WITH (ACUTE) EXACERBATION (2) Rash Assessment/Plan: resolving likely fungal c/w nystatin Code(s): R21 - RASH AND OTHER NONSPECIFIC SKIN ERUPTION (3) Rhabdomyolysis Assessment/Plan: resolved with IVF Code(s): M62.82 - RHABDOMYOLYSIS (4) Alcohol abuse Assessment/Plan: hx of polysubstance abuse refered for OTP Code(s): F10.10 - ALCOHOL ABUSE, UNCOMPLICATED (5) HTN (hypertension) Assessment/Plan: c/w norvasc, hctz Code(s): I10 - ESSENTIAL (PRIMARY) HYPERTENSION (6) Diabetes Assessment/Plan: BGM AC/HS with novolog sliding scale c/w levemir restart metformin on dc will need short term insulin while on steroids to follow with PCP to determine length of insulin Code(s): E11.9 - TYPE 2 DIABETES MELLITUS WITHOUT COMPLICATIONS (7) Heroin abuse Assessment/Plan: refer to OTP Code(s): F11.10 - OPIOID ABUSE, UNCOMPLICATED (8) Prophylactic measure Assessment/Plan: FEN Fluids: adequate PO intake Nutrition: low fat/chol diet DVT prophylaxis: oob, ambulation Dispo: medically stable for discharge to home with referral for OTP for substance abuse Code(s): Z29.9 - ENCOUNTER FOR PROPHYLACTIC MEASURES, UNSPECIFIED - Instructions Diet, Activity, Other Instructions: DISCHARGE YOUR VISIT You came to the hospital because you were experiencing shortness of breath. You were started on IV steroids and seen by the hand candy dipper and began to improve. The steroids were changed to oral after 2 days. You will continue predisone for 5 days after discharge. Your blood sugars were also very high. A blood test HgbA1C was sent that revealed that your blood sugars have been poorly controlled over the last few months. We are recommending that you continue to take insulin both a long acting insulin (LEVEMIR) and a short acting (NOVOLOG) and test your blood sugar 4 times a day. You should follow with your primary provider in 2 weeks to determine if you need to continue taking the insulin. MEDICATIONS Please continue to take your home medications as prescribed. There was some changes: NEW MEDICATIONS: ventolin/albuterol inhaler symbicort singular prednisone 40mg x 5 days levemir insulin novolog insulin according to sliding scale Novolog Insulin Sliding Scale Check Blood sugar BEFORE all meals and BEFORE bed If BS is: <60 drink some juice and recheck in an hour 100-150 no insulin 151-200 6u of insulin 201-250 8u of insulin 250-300 10u of insulin 301-350 12u of insulin 351-400 14u of insulin >401 call doctor DIABETIC INFO Levemir (Insulin Detemir) Levemir is a long-acting (basal) insulin analog manufactured by [employer]. Its generic name is insulin detemir. Levemir is designed to provide 24- hour blood sugar control and to lower the A1C in those with type 1 and type 2 diabetes. Insulin detemir is created by recombinant DNA technology and is produced by [employer]. It also contains zinc, mannitol, hydrochloric acid or sodium hydroxide to adjust its pH level, and other chemicals. Levemir was first approved by the FDA in January of 2005. It then received two more approvals in 2011: for use by women and in children 2 to 5 years old with type 1 diabetes. How Does Levemir Work? Levemir starts to work on bringing down your blood sugar levels a few hours after injection. Peak concentration occurs in about six to eight hours after injection. Levemir is designed to keep working for around 24 hours (and to stay at close to peak levels for that amount of time), but some people clear the medication out of their bodies more quickly. As a long-acting insulin, Levemir can be injected either once or twice daily. How quickly your body processes and clears Levemir will determine how often you will need to inject this insulin. When you first start Levemir, youll need to test your blood sugars frequently and work with your doctor to determine your ideal dosage and injection frequency. Some people have even reported on diabetes forums that its necessary to split their Levemir dose into three or four injections a day, in order to get the best blood glucose control. How Should Levemir Be Used? Levemir is administered by injection, with the use of a prefilled pen device called a FlexTouch. This device has been designed to require less force to push the injection button, resulting in less discomfort. Unlike other insulin pens, the FlexTouch can remain unrefrigerated (once opened) for up to 42 days in temperatures 86 degrees Fahrenheit or cooler. Levemir is also available in vials and can be injected using syringes. Once opened, vials must be kept below 86 degrees Fahrenheit for up to 42 days. If your doctor has prescribed a once-daily dose of Levemir, then make your evening meal or your bedtime your regular injection time. If youre on a twice-daily injection regimen, give yourself at least twelve hours between doses. Levemir should not be used in an insulin pump, mixed with other insulins, or injected into a vein or muscle. What Are the Side Effects of Levemir? Hypoglycemia is a common side effect of all types of insulin. Know the signs and how to treat a low blood sugar episode. Also be sure your family, friends, and caretakers understand how to recognize and treat hypoglycemia, in case you are unable to do so yourself. Other common side effects of Levemir include: Itching or a mild skin rash Thickening or hollowing of the skin at your injection site. Always rotate injection sites to prevent tissue damage. Low blood potassium levels Increased heart rate Tiredness Headache Confusion Hunger Nausea Muscle weakness Blurry vision Insulin and Diabetes Types of Insulin For people who need to take external or supplemental insulin (insulin your body did not produce but that was instead made by a pharmaceutical company), there are several different types and kinds of insulin. The insulin you take will depend on your personal needs. Different types of insulin work differently in different people. Heres a chart of how the types of insulin work to replicate the normal pancreatic delivery of insulin and how they are typically used. Rapid-acting insulin analogs (Insulin Aspart, Insulin Lispro, Insulin Glulisine): Usually taken as a bolus before a meal to cover the blood glucose elevation from eating or to correct for high blood glucose. This type of insulin is often used with longer-acting insulin, which is used to cover the bodys metabolic need for insulin. Short-acting synthetic human insulin (Regular): Usually taken as a bolus about 30 minutes before a meal to cover the blood glucose elevation from eating or to correct for high blood glucose. Short-acting insulin is different different from Rapid-acting in its Onset and Peak. This type of insulin is often used with longer-acting insulin, which is used to cover the bodys metabolic need for insulin. Intermediate-acting synthetic human insulin (NPH): Usually taken twice a day as a combination bolus and basal insulin. This type of insulin is often combined with Rapid-acting or Short-acting insulin to cover meals before and/or after its Peak. Long-acting insulin analogs (Insulin Glargine, Insulin Detemir): Usually taken once or twice a day as a basal insulin to cover the bodys metabolic need for insulin. This type of insulin is often combined, when needed, with Rapid- acting or Short-acting insulin as a bolus before meals or to correct for high blood glucose. Bolus Insulin Bolus insulin, or a bolus refers to insulin that is fast acting and is given to cover the carbohydrates in a meal or to bring down high blood glucose. Bolus insulin include Humalog, Novolog and Apidra. Basal Insulin Basal insulin refers to insulin that is long acting and used to to keep blood sugar stable in between meal and correction boluses and at night. The body needs some insulin even when no food is being consumed to fuel your brain and essential organs. As a result, a longer acting insulin is typically combined with a fast acting in order to manage blood sugars throughout all hours of the day and night. Basal insulin include Lantus, Levemir, Tresiba and Toujeo. Inhalable Insulin There is currently one type of inhalable insulin on the market called Afrezza. Inhalable insulin is a man-made insulin with is inhaled through the nostrils by way of a nebulizer device (like asthma medications). The [facility] says it is considered a mealtime insulin and is to be taken at the start of a meal. Buying and Storing Insulin In the [place], Regular and NPH insulin types are available without a prescription (as are syringes). All other types of insulin require a prescription for purchase and can be bought at most any pharmacy. Many insurance plans offer a 3 month mail order service you can purchase a 3 month supply of insulin with. This may amount to a time and financial savings of insulin purchases. Unopened insulin needs to be stored in the refrigerator. Once opened, Regular and NPH insulin last approximately two weeks outside of refrigeration (check drug insert for specifics) and the other insulin types last approximately one month outside of refrigeration. In that time, insulin must not get too hot or cold. The [place] [employer] has tips on storing insulin: Do not store your insulin near extreme heat or extreme cold. Never store insulin in the freezer, direct sunlight, or in the glove compartment of a car. Check the expiration date before using, and dont use any insulin beyond its expiration date. Examine the bottle closely to make sure the insulin looks normal before you draw the insulin into the syringe. Using Insulin In people without diabetes, the body makes and releases insulin in an efficient way with exact doses. In people with diabetes who require the use of external insulin, a person must either administer their own insulin with a syringe, pen, pod, or pump. When carbohydrates are consumed, those carbohydrates are digested and broken down into glucose (sugar) in the blood. Insulin enables that glucose to: enter a cell in the body and be used instantly for energy be converted into glycogen and stored in the muscles or liver be stored as body fat because the body doesnt need it instantly for energy, and the glycogen storages are full Without enough insulin present in the body, you will experience high blood sugars, also known as hyperglycemia. For a person who has not yet been diagnosed with diabetes, a high blood sugar is the number one sign and can be measured easily at the doctors office with a simple blood test. A high blood sugar is considered anything above 130 mg/dL or 7.2 mmol/L. For a person to be diagnosed with diabetes, the duration and timing of high blood sugars are important factors for diagnosis rather than just one random finger stick reading. Too much insulin in the body can lead to low blood sugars, also known as hypoglycemia. Low blood sugars are any measurement on your glucose meter below 70 mg/dL or 3.9 mmol/L, and it should be treated quickly with a form of easy-to- digest carbohydrate like juice or glucose tabs. ADDITIONAL CARE Please make an appointment to see your primary care provider, 2 week from today. ADDITIONAL INFORMATION Please call 911 or come directly to the emergency department if you experience unusual headache, vision change, shortness of breath, chest pain, numbness, tingling, loss of alertness/awareness, loss of function, unusual bleeding or any alarming symptoms. Thank you for allowing me to care for you. Gab Posey, B[facility]NER[facility], [facility] [phone] Referrals: Rian Holbrook MD [Staff Physician] - 2 Weeks (call for appointment) - Home Medications Comprehensive Discharge Medication List: Ambulatory Orders Amlodipine Besylate 5 mg PO DAILY 08/13/19 Aspirin [Aspirin EC] 81 mg PO DAILY 08/13/19 Hydrochlorothiazide [Hctz -] 25 mg PO DAILY 08/13/19 Metformin HCl [Glucophage] 1,000 mg PO BIDAC 08/13/19 Albuterol 0.083% Nebulizer Carina [Ventolin 0.083% Nebulizer Soln -] 1 amp NEB Q4H PRN #1 amp 08/16/19 Aspirin [ASA -] 81 mg PO DAILY tab.chew 08/16/19 Budesonide/Formeterol Fumarate [SYMBICORT 160/4.5mcg -] 2 puff IH BID #1 inhaler 08/16/19 Insulin (Levemir) [Levemir Vial] 10 units SQ BID@0700,2200 #1 vial 08/16/19 Insulin Sliding Scale [Novolog Vial Sliding Scale -] 1 vial SQ ACHS #1 vial Pantoprazole Sodium [Protonix -] 40 mg PO DAILY #30 tablet.ec 08/16/19 Alcohol Antiseptic Pads [Alcohol Prep Pad] 1 each TP ASDIR #1 box 08/17/19 Budesonide/Formeterol Fumarate [SYMBICORT 160/4.5mcg -] 2 inh PO BID #1 cannister 08/17/19 Insulin Sliding Scale [Novolog Vial Sliding Scale -] 1 vial SQ ACHS #1 vial Miscellaneous Medical Supply [Glucometer Device] 1 each ASDIR #1 kit Miscellaneous Medical Supply [Glucometer Test Strips #100] 1 each ASDIR #1 box 08/17/19 Montelukast Na [Singulair -] 10 mg PO HS #0 tablet 08/17/19 Montelukast Sodium [Singulair] 10 mg PO DAILY #30 tablet 08/17/19 Prednisone 10 mg PO DAILY #20 tablet 08/17/19 Syrge-Ndl,Ins 0.3 ml Half Bryan [Insulin Syringe] 1 each MC ASDIR #1 box Prescription Drug Monitoring Program (I-STOP) results: I-STOP reviewed and no issues identified Problem List - Problems (1) Asthma exacerbation Code(s): J45.901 - UNSPECIFIED ASTHMA WITH (ACUTE) EXACERBATION (2) Rash Code(s): R21 - RASH AND OTHER NONSPECIFIC SKIN ERUPTION (3) Rhabdomyolysis Code(s): M62.82 - RHABDOMYOLYSIS (4) Alcohol abuse Code(s): F10.10 - ALCOHOL ABUSE, UNCOMPLICATED (5) HTN (hypertension) Code(s): I10 - ESSENTIAL (PRIMARY) HYPERTENSION (6) Diabetes Code(s): E11.9 - TYPE 2 DIABETES MELLITUS WITHOUT COMPLICATIONS (7) Heroin abuse Code(s): F11.10 - OPIOID ABUSE, UNCOMPLICATED (8) Prophylactic measure Code(s): Z29.9 - ENCOUNTER FOR PROPHYLACTIC MEASURES, UNSPECIFIED This patient is new to me today: No Emergency Visit: Yes ED Registration Date: 08/13/19 Care time: The patient presented to the Emergency Department on the above date and was hospitalized for further evaluation of their emergent condition. Critical Care patient: No - Discharge Referral Referred to [facility] No
[2019-08-17 12:30] VITALS: BP 145/70; PULSE 66; TEMP 99.2
== END 2019-08-17 11:57 | disposition home or self-care (01) | DRG 141 ==
LOC: JER 16:09 → JERBED 18:49 → J8W 08-14 17:40
PROVIDERS: ADMIT Internal Medicine; ATTEND Nurse Practitioner Acute Care
DX: J45.901 Unspecified asthma with (acute) exacerbation (principal); E11.9 Type 2 diabetes mellitus without complications; M62.82 Rhabdomyolysis; I10 Essential (primary) hypertension; F14.10 Cocaine abuse, uncomplicated; F10.10 Alcohol abuse, uncomplicated; R21 Rash and other nonspecific skin eruption; R74.0 Nonspecific elevation of levels of transaminase and lactic acid dehydrogenase [LDH]; F11.10 Opioid abuse, uncomplicated
CPT/HCPCS: 36415; 36600; 71046-TC-FY; 73130-TC-RT-FY; 76705-TC; 80048; 80053; 80061; 80074; 80076; 80307; 81003; 82010; 82550; 82553; 82803; 82962; 83036; 83721; 83735; 83874; 84100; 84443; 84484; 85025; 85027; 85610; 85730; 86705; 86803; 87086; 90732; 93005; 93010; 93306-TC; 94640; 97116-GP; 97161-GP; 99285-25; G0009; J7030

== ENCOUNTER 2019-09-03 21:36 | Emergency (ER) | payer OTHER ==
--- NOTE | 2019-09-03 21:55 | PDOC ---
History of Present Illness - General Chief Complaint: Shortness of Breath Stated Complaint: DIFFICULTY BREATHING Time Seen by Provider: 09/03/19 21:54 History Source: Patient Exam Limitations: No Limitations - History of Present Illness Initial Comments: 09/03/19 21:54 HPI: 54yo M pmh asthma, ?COPD, heroin/cocaine abuse (last use yesterday), DM ( on metformin, noncompliant), HTN, obesity, poor compliance with all home meds, presenting with one day of shortness of breath. Patient denies productive cough , fevers, chill, chest pain, hemoptysis, numbness, tingling, syncope, lightheadedness, palpitations, weakness, bodyaches, nausea, vomiting, leg swelling, recent travel, immobilization, confusion. Endorses hx asthma, no hospitalizations or intubations. Endorses drinking 10 beers at a time when he drinks, smoking "at least 1 ppd," and cocaine (last used yesterday). All: NKDA Meds: Per chart, noncompliant PMH: As above PSH: Per chart SHx: As above Past History - Travel Traveled outside of the country in the last 30 days: No Close contact w/someone who was outside of country & ill: No - Past Medical History Allergies/Adverse Reactions: Allergies Allergy/AdvReac Type Severity Reaction Status Date / Time No Known Allergies Allergy Verified 08/13/19 15:13 Home Medications: Ambulatory Orders Amlodipine Besylate 5 mg PO DAILY 08/13/19 Aspirin [Aspirin EC] 81 mg PO DAILY 08/13/19 Hydrochlorothiazide [Hctz -] 25 mg PO DAILY 08/13/19 Metformin HCl [Glucophage] 1,000 mg PO BIDAC 08/13/19 Albuterol 0.083% Nebulizer Carina [Ventolin 0.083% Nebulizer Soln -] 1 amp NEB Q4H PRN #1 amp 08/16/19 Aspirin [ASA -] 81 mg PO DAILY tab.chew 08/16/19 Budesonide/Formeterol Fumarate [SYMBICORT 160/4.5mcg -] 2 puff IH BID #1 inhaler 08/16/19 Insulin (Levemir) [Levemir Vial] 10 units SQ BID@0700,2200 #1 vial 08/16/19 Insulin Sliding Scale [Novolog Vial Sliding Scale -] 1 vial SQ ACHS #1 vial Pantoprazole Sodium [Protonix -] 40 mg PO DAILY #30 tablet.ec 08/16/19 Alcohol Antiseptic Pads [Alcohol Prep Pad] 1 each TP ASDIR #1 box 08/17/19 Budesonide/Formeterol Fumarate [SYMBICORT 160/4.5mcg -] 2 inh PO BID #1 cannister 08/17/19 Insulin Sliding Scale [Novolog Vial Sliding Scale -] 1 vial SQ ACHS #1 vial Miscellaneous Medical Supply [Glucometer Device] 1 each ASDIR #1 kit Miscellaneous Medical Supply [Glucometer Test Strips #100] 1 each .ROUTE ASDIR # 1 box 08/17/19 Montelukast Na [Singulair -] 10 mg PO HS #0 tablet 08/17/19 Montelukast Sodium [Singulair] 10 mg PO DAILY #30 tablet 08/17/19 Prednisone 10 mg PO DAILY #20 tablet 08/17/19 Syrge-Ndl,Ins 0.3 ml Half Bryan [Insulin Syringe] 1 each MC ASDIR #1 box Asthma: Yes COPD: No Diabetes: Yes HTN: Yes - Psycho Social/Smoking Cessation Hx Smoking History: Current every day smoker Have you smoked in the past 12 months: Yes Number of Cigarettes Smoked Daily: 10 Information on smoking cessation initiated: No 'Breaking Loose' booklet given: 08/14/19 Hx Alcohol Use: No Drug/Substance Use Hx: Yes (marijuana) Substance Use Type: Cocaine, Heroin Hx Substance Use Treatment: No Review of Systems - Review of Systems Able to Perform ROS?: Yes Is the patient limited Russian proficient: Yes Constitutional: No: Chills, Fever HEENTM: No: Nose Congestion, Throat Pain Respiratory: Yes: See HPI, Shortness of Breath. No: Cough, Productive cough Cardiac (ROS): No: Chest Pain, Irregular Heart Rate, Palpitations, Syncope, Chest Tightness ABD/GI: No: Constipated, Diarrhea, Nausea, Vomiting : No: Burning, Dysuria, Frequency Musculoskeletal: No: Muscle Pain, Muscle Weakness Integumentary: No: Pallor, Pruritus, Rash Neurological: No: Headache, Numbness, Tingling, Weakness Psychiatric: No: Stressors, Change in Appetite Endocrine: No: Increased Thirst, Increased Urine Hematologic/Lymphatic: No: Anemia, Blood Clots, Easy Bleeding All Other Systems: Reviewed and Negative *Physical Exam - Vital Signs Last Vital Signs Temp Pulse Resp BP Pulse Ox 98.7 F 98 H 20 146/97 93 L 09/03/19 21:43 09/03/19 21:43 09/03/19 21:43 09/03/19 21:43 09/03/19 21:43 - Physical Exam 09/03/19 21:58 Vitals reviewed, afebrile, notable for saturation of 93% initially, 100% on 3L NC GEN: Well appearing, appears stated age, NAD, comfortable. AAOx3. HEENT: NCAT, EOMI, PERRL. Sclera anicteric, noninjected. No facial asymmetry. Moist mucous membranes. Normal voice. Trachea midline. CV: RRR, S1/S2, no murmurs / rubs / gallops appreciated. LUNG: +Wheezing bilateral lung bases, normal work of breathing. No cough. Speaking full sentences. GI: Soft, NTND, +BS, no guarding, no rebound. No masses. Neg CVAT b/l. EXTREMITIES: 2+ distal pulses. No LE edema. No obvious deformities of all extremities. SKIN: Warm, dry, no rashes appreciated, non-jaundiced. PSYCH: Normal mood and affect. Cooperative and appropriate. NEURO: CN grossly intact. Moving all extremities well. Normal strength and sensation grossly. ED Treatment Course - LABORATORY CBC & Chemistry Diagram: 09/03/19 22:29 09/03/19 22:29 Medical Decision Making - Medical Decision Making 09/03/19 21:58 54yo M pmh asthma, heroin/cocaine abuse (last use ), DM (on metformin, noncompliant), HTN, asthma, obesity, poor compliance with meds, presenting with shortness of breath. History notable for 1 day difficulty breathing. Exam notable for 93% O2 Sat on RA on arrival. Ddx: Asthma/COPD exacerbation, PNA, ACS /[place], metabolic derangement, less likely DKA, occult infection. - CBC, CMP, Cardiac Profile, VBG - CXR, EKG - Oxygen therapy, NC - Pulse Ox Monitoring - IV Access - Duonebs 09/03/19 23:21 - Additional duonebs ordered - 125 solu-medrol ordered - Labs unremarkable, CMP pending - CXR without consolidation, effusion - EKbpm, NSR, normal axis, normal intervals, QTc 445, no ST changes 09/03/19 23:59 - Patient endorsed to overnight resident - F/u CMP, Reassess pulmonary exam, disposition Discharge - Discharge Information Problems reviewed: Yes Clinical Impression/Diagnosis: Wheezing Condition: Improved Disposition: HOME - Admission No - Follow up/Referral - Patient Discharge Instructions - Post Discharge Activity
[2019-09-03 22:10] VITALS: TEMP 98.7; BMI 32.1
[2019-09-03] MEDS ORDERED: ALBUTEROL SO4 2.5/IPRATROPIUM 0.5 INH SOL 3 ML VIAL.NEB. NEB ONE ×4 (22:11→23:33)
[2019-09-03 22:37] LABS: BASO % 0.7 % (0-2.0); HEMOGLOBIN 14.4 GM/dL (11.7-16.9); MCH 31.4 pg (25.7-33.7); MCHC 33.4 g/dl (32.0-35.9); MEAN CELL VOLUME 93.9 fl (80-96); MEAN PLT VOLUME 8.1 fl (7.5-11.1); MONO % 12.8 % (3.8-10.2); NEUT % 48.5 % (42.8-82.8); PLATELET COUNT 266 K/MM3 (134-434); RBC 4.58 M/mm3 (4.00-5.60); RDW 14.7 % (11.9-15.9); WHITE BLOOD COUNT 6.6 K/mm3 (4.0-10.0)
[2019-09-03 22:38] LABS: VENOUS PC02 47.4 mmHg (38-52); VENOUS PH 7.4 (7.31-7.41); VENOUS PO2 82.8 mmHg (28-48)
[2019-09-03 22:49] LABS: INR 0.88 (0.83-1.09); PROTHROMBIN TIME (PATIENT) 10.4 SEC (9.7-13.0)
[2019-09-03] MEDS ORDERED: methylPREDNISolone NA SUCC 125 MG/2 ML VIAL IVPB ONE (23:19)
[2019-09-03] MEDS ORDERED: methylPREDNISolone NA SUCC 125 MG/2 ML VIAL ONE (23:20)
--- NOTE | 2019-09-03 23:23 | PDOC ---
Documentation entered by Shirlene Pal SCRIBE, acting as scribe for Rosa Dominique MD. Rosa Dominique MD: This documentation has been prepared by the jerseyeKae Adrianna, SCRIBE, under my direction and personally reviewed by me in its entirety. I confirm that the documentation accurately reflects all work, treatment, procedures, and medical decision making performed by me. Attending Attestation - Resident Resident Name: AndrewReagan - ED Attending Attestation I have performed the following: I have examined & evaluated the patient, The case was reviewed & discussed with the resident, I agree w/resident's findings & plan, Exceptions are as noted - HPI HPI: The patient is a 54 year old male, with a significant PMH of polysubstance abuse , HTN, DM, asthma (no history of intubations or hospitalizations), obesity, and poor compliance with daily medications, who presents to the ED for evaluation shortness of breath. Patient complains of shortness of breath with dyspnea on exertion. Denies productive cough. Allergies: NKA, NKDA Surgical History: None reported Social History: Polysubstance abuse (cocaine, heroin, marijuana). Drinks 10 beers regularly. Current everyday smoker (1/2 ppd) - Physicial Exam PE: GENERAL: Somnolent, awakens to voice, in no acute distress HEAD: No signs of trauma EYES: PERRLA, EOMI, sclera anicteric, conjunctiva clear ENT: Auricles normal inspection, hearing grossly normal, nares patent, oropharynx clear without exudates. Moist mucosa NECK: Normal ROM, supple, no lymphadenopathy, JVD, or masses LUNGS: Mildly decreased air entry B/L with diffuse exp wheezes. Speaking full sentences HEART: Regular rate and rhythm, normal S1 and S2, no murmurs, rubs or gallops ABDOMEN: Soft, nontender, normoactive bowel sounds. No guarding, no rebound. No masses EXTREMITIES: Normal range of motion, no edema. No clubbing or cyanosis. No cords, erythema, or tenderness NEUROLOGICAL: Cranial nerves II through XII grossly intact. Normal speech. Motor and sensation intact SKIN: Warm, dry, normal turgor, no rashes or lesions noted. - Medical Decision Making Pt presents with COPD exacerbation, history of poor adherence to outpatient regimen. Will give nebs, steroids, and reassess. As he has no change in sputum production and no fever, will not give abx at this time.
[2019-09-03] MEDS: ALBUTEROL SO4 2.5/IPRATROPIUM 0.5 INH SOL 3 ML VIAL.NEB. NEB SCH ×2 (23:25→23:51)
--- NOTE | 2019-09-03 23:58 | PDOC ---
*Physical Exam - Vital Signs Last Vital Signs Temp Pulse Resp BP Pulse Ox 98.7 F 82 18 146/97 100 09/03/19 21:43 09/03/19 23:04 09/03/19 23:04 09/03/19 21:43 09/03/19 23:04 ED Treatment Course - LABORATORY CBC & Chemistry Diagram: 09/03/19 22:29 09/03/19 22:29 - ADDITIONAL ORDERS Additional order review: Laboratory Results 09/03/19 09/03/19 09/03/19 22:29 22:29 22:29 PT with INR 10.40 INR 0.88 VBG pH 7.40 POC VBG pCO2 47.4 POC VBG pO2 82.8 H VBG HCO3 28.4 VBG O2 Sat (Rajendra) 95.4 H VBG Base Excess 3.2 H Creatine Kinase 185 Creatine Kinase Index 1.8 CK-MB (CK-2) 3.5 Troponin I < 0.02 09/03/19 22:29 RBC 4.58 MCV 93.9 MCHC 33.4 RDW 14.7 MPV 8.1 D Neutrophils % 48.5 D Lymphocytes % 30.0 D Monocytes % 12.8 H D Eosinophils % 8.0 H D Basophils % 0.7 D - Medications Given in the ED: ED Medications Discontinued Medications Generic Name Dose Route Start Last Admin Trade Name Nory PRN Reason Stop Dose Admin Albuterol/Ipratropium 1 amp 09/03/19 22:14 09/03/19 22:16 Duoneb - NEB 09/03/19 22:15 1 amp ONCE ONE Administration Albuterol/Ipratropium 1 amp 09/03/19 23:16 09/03/19 23:18 Duoneb - NEB 09/03/19 23:17 1 amp ONCE ONE Administration Albuterol/Ipratropium 1 amp 09/03/19 23:30 09/03/19 23:51 Duoneb - NEB 09/03/19 23:46 1 amp Q15M PRINCESS Administration Methylprednisolone Sodium Succinate 125 mg 09/03/19 23:19 09/03/19 23:25 Solu-Medrol - IVPB 09/03/19 23:20 125 mg ONCE ONE Administration Medical Decision Making - Medical Decision Making 09/03/19 23:57] 54y/o M wheezing and SOB non-compliant with meds to do's cmp pending reassess then dispo 09/04/19 01:09 Pt had significant rhonchi on exam. was advised to stay for continued monitioring. but pt wants to go home because it's the super bowl. Discharge - Discharge Information Problems reviewed: Yes Clinical Impression/Diagnosis: Wheezing Asthma exacerbation Qualifiers: Asthma severity: unspecified severity Asthma persistence: unspecified Qualified Code(s): J45.901 - Unspecified asthma with (acute) exacerbation Condition: Improved Disposition: AGAINST MEDICAL ADVICE - Additional Discharge Information Prescriptions: predniSONE [Deltasone -] 40 mg PO DAILY #8 tablet - Follow up/Referral - Patient Discharge Instructions Patient Printed Discharge Instructions: DI for Asthma -- Adult Additional Instructions: You were advised to stay in the hospital for further treament but you refused to do so. The risk of leaving against medical advice have been explained to you and include but are not limited to -worsening of your condtion, leading to increased and severe difficulty breathing and wheezing -MAKE SURE YOU TAKE MEDICATIONS PRESCRIBED. A PRESCRIPTION HAS BEEN SENT TO YOUR PHARMACY. BE SURE TO PICK IT UP AND USE MEDICATIONS DIRECTED. You should return to the ER you begin to develop worsening shortness of breath/ difficulty breathing despite treatment with your prescribed medications. if you develop fevers for greater than 2 days, worsening cough, or for any other concerns with your breathing or any other problems. - Post Discharge Activity
[2019-09-03 23:59] LABS: ALBUMIN 3.2 g/dl (3.4-5.0); BILIRUBIN,TOTAL 0.3 mg/dL (0.2-1); BLOOD UREA NITROGEN 17.3 mg/dL (7-18); CALCIUM 8.6 mg/dL (8.5-10.1); CREATININE 1.1 mg/dL (0.55-1.3); MAGNESIUM 2.3 mg/dL (1.8-2.4); PHOSPHOROUS 4.3 mg/dL (2.5-4.9); POTASSIUM 4.2 mmol/L (3.5-5.1); TOT PROT 6.5 g/dl (6.4-8.2)
[2019-09-04 00:27] VITALS: BP 124/75; PULSE 76
--- NOTE | 2019-09-04 14:06 | EKG ---
Test Reason : Blood Pressure : / mmHG Vent. Rate : 088 BPM Atrial Rate : 088 BPM P-R Int : 166 ms QRS Dur : 066 ms QT Int : 368 ms P-R-T Axes : 066 056 062 degrees QTc Int : 445 ms NORMAL SINUS RHYTHM WITH SINUS ARRHYTHMIA NORMAL ECG WHEN COMPARED WITH ECG OF 13-AUG-2019 17:07, NO SIGNIFICANT CHANGE WAS FOUND Confirmed by MD KATHLEEN, VON ([id number]) on 09/04/2019 2:05:56 PM Referred By: Confirmed By:VON WANG MD
== END 2019-09-04 02:05 | disposition left against medical advice (07) ==
LOC: JER 21:36
PROC: 3E0 Administration, Physiological Systems and Anatomical Regions, Introduction (ICD-10-PCS; principal; 2019-09-03)
PROC: 3E0F7GC Introduction of Other Therapeutic Substance into Respiratory Tract, Via Natural or Artificial Opening (ICD-10-PCS; 2019-09-03)
PROC: 3E0F7GC Introduction of Other Therapeutic Substance into Respiratory Tract, Via Natural or Artificial Opening (ICD-10-PCS; 2019-09-03)
PROC: 3E0F7GC Introduction of Other Therapeutic Substance into Respiratory Tract, Via Natural or Artificial Opening (ICD-10-PCS; 2019-09-03)
DX: J45.901 Unspecified asthma with (acute) exacerbation (principal); J44.9 Chronic obstructive pulmonary disease, unspecified; I10 Essential (primary) hypertension; E11.9 Type 2 diabetes mellitus without complications; Z79.4 Long term (current) use of insulin; E66.9 Obesity, unspecified; Z68.32 Body mass index [BMI] 32.0-32.9, adult; F10.10 Alcohol abuse, uncomplicated; F11.10 Opioid abuse, uncomplicated; F14.10 Cocaine abuse, uncomplicated; F17.210 Nicotine dependence, cigarettes, uncomplicated; Z91.14 Patient's other noncompliance with medication regimen
CPT/HCPCS: 36415; 71045-TC-FY; 80053; 82550; 82553; 82803; 83735; 84100; 84484; 85025; 85610; 93005; 93010; 94640; 96374; 99284-25

== ENCOUNTER 2020-04-29 20:50 | Emergency (ER) | payer OTHER ==
[2020-04-29 21:00] VITALS: BMI 30.5
--- OUTSIDE RECORDS SUMMARY | 2020-04-29 21:09 | XMS ---
:1965 [facility] Providers Name Role Phone MORGAN DAVID Unavailable Unavailable ED STAFF PHYSICIAN, STAFF Unavailable Unavailable ED STAFF PHYSICIANRONEY Unavailable Unavailable ED STAFF PHYSICIANCHANDAN Unavailable Unavailable Re-disclosure Warning The records that you are about to access may contain information from federally- assisted alcohol or drug abuse programs. If such information is present, then the following federally mandated warning applies: This information has been disclosed to you from records protected by federal confidentiality rules (42 CFR part 2). The federal rules prohibit you from making any further disclosure of this information unless further disclosure is expressly permitted by the written consent of the person to whom it pertains or as otherwise permitted by 42 CFR part 2. A general authorization for the release of medical or other information is NOT sufficient for this purpose. The Federal rules restrict any use of the information to criminally investigate or prosecute any alcohol or drug abuse patient.The records that you are about to access may contain highly sensitive health information, the redisclosure of which is protected by Article 27-F of the [facility] Public Health law. If you continue you may haveaccess to information: Regarding HIV / AIDS; Provided by facilities licensed or operated by the [facility] Office of Mental Health; or Provided by the [facility] Office for People With Developmental Disabilities. If such information is present, then the following [facility] mandated warning applies: This information has been disclosed to you from confidential records which are protected by state law. State law prohibits you from making any further disclosure of this information without the specific written consent of the person to whom it pertains, or as otherwise permitted by law. Any unauthorized further disclosure in violation of state law may result in a fine or fdc sentence or both. A general authorization for the release of medical or other information is NOT sufficient authorization for further disclosure. Encounters Encounter Providers Location Date Indications Data Source(s ) Emergency Attender: RONEY ED H 12/22/2019 [facility] STAFF 03:41:00 PM EDT Medical C enter PHYSICIANAttender: - 12/22/2019 STAFF ED STAFF 11:18:00 PM EDT PHYSICIANAdmitter: [facility] ED STAFF PHYSICIAN Patient discharged. Emergency Attender: CHANDAN ED STAFF H 08/12/2019 07:06:00 AM [facility] PHYSICIANAttender: STAFF ED EST - 08/13/2019 [facility] STAFF PHYSICIANAdmitter: CHANDAN 03:25:00 PM EST ED STAFF PHYSICIAN Patient discharged. Emergency Attender: MORGAN ARMAS 07/31/2019 07:05:00 PM [facility] KISHAEAttender: STAFF ED EST - 07/31/2019 [facility] Center STAFF PHYSICIANAdmitter: 09:45:00 PM EST MORGAN MORA Patient discharged. Medications Medication Brand Start Product Dose Route Administrative Pharmacy [facility] Indications Reaction Description Data Name Date Form Instructions Instructions Source(s) Metformin metFOR 1 complet [facility] hydrochlori MIN [facility] de 500 MG 500 mg Medical Oral Tablet Tablet Center metFORMIN Direct 500 mg ions: TabletDirec 1 tions: 1 tablet tablet oral oral daily daily Hydrochloro hydroc 1 complet [facility] thiazide 25 hlorot [facility] s MG Oral hiazid Medical Tablet e 25 Center hydrochloro mg thiazide 25 Tablet mg Direct TabletDirec ions: tions: 1 1 tablet oral tablet daily oral daily amLODIPine 10 mL complet [facility] benzoate 1 [facility] mg/mL Medical SuspensionD Center irections: 10 mL oral daily albuterol 2 complet [facility] sulfate 90 [facility] mcg HFA Medical Aerosol Center Inhaler, Ordered By: Pancho Fitzgerald s: 2 puff by inhalation every six hours PRN shortness of breath Levofloxaci levofl 1 complet [facility] n 500 MG oxacin ed Leonie Oral Tablet 500 mg Medica l levofloxaci Tablet Center n 500 mg , Tablet, Ordere Ordered By: d By: sarai Sweet MDDirection Steve s: 1 tablet , oral daily MDDire ctions : 1 tablet oral daily Prednisone predni 2 complet Cecilia t 20 MG Oral SONE ed Leonie Tablet 20 mg Medical predniSONE Tablet Center 20 mg , Tablet, Ordere Ordered By: d By: sarai Sweet MDDirection [place] s: 2 tablet , oral daily MDDire ctions : 2 tablet oral daily Insurance Providers Payer name Policy type Policy ID Covered Covered republican's Policy P june / Coverage republican ID relationship to [employer] ormation type robb VALUE [id number] SP [id number] 01 OPTIONS-MEDI 1 CAID HIP HMO [id number] SP [id number] 01 1 HIP MEDICAID [id number] SP [id number] 1 HIP MEDICAID [id number] SP [id number] 1 MEDICAID [id number] SP [id number] VALUE [id number] SP [id number] OPTIONS-MEDI 01 CAID MEDICAID [id number] SP [id number] O O Problems, Conditions, and Diagnoses Code Display Name Description Problem Type Effective Data Sour ce(s) Dates 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 0 [facility] substance abuse, SUBSTANCE ABUSE, 03:41:00 PM [facility] uncomplicated UNCOMPLICATED EDT F12.10 Cannabis abuse, CANNABIS ABUSE, Diagnosis 12/22/2019 [facility] uncomplicated UNCOMPLICATED 03:41:00 PM Medical Center EDT 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 Diagnosis 0 [facility] with intoxication, WITH INTOXICATION, 03:41:00 PM Medical Center unspecified UNSPECIFIED EDT R53.1 Weakness WEAKNESS Diagnosis 12/22/2019 [facility] 03:41:00 PM Medical Cente r EDT Z72.0 Tobacco use TOBACCO USE Diagnosis 07/31/2019 [facility] 07:05:00 PM Medical Cente r EST I10 Essential ESSENTIAL Diagnosis 07/31/2019 [facility] (primary) (PRIMARY) 07:05:00 PM Medical Cente r hypertension HYPERTENSION EST E11.9 Type 2 diabetes TYPE 2 DIABETES Diagnosis 07/31/2019 [facility] mellitus without MELLITUS WITHOUT 07:05:00 PM edical Center complications COMPLICATIONS EST J40 Bronchitis, not BRONCHITIS, NOT Diagnosis 07/31/2019 [facility] specified as acute SPECIFIED ACUTE 07:05:00 PM Medical Center or chronic OR CHRONIC EST J45.909 Unspecified UNSPECIFIED Diagnosis 07/31/2019 [facility] asthma, ASTHMA, 07:05:00 PM Medical Cente r uncomplicated UNCOMPLICATED EST R06.02 Shortness of SHORTNESS OF Diagnosis 07/31/2019 [facility] [place] phs breath BREATH 07:05:00 PM Medical Cente r EST Results ID Date Data Source Urinalysis.[id number] 12/22/2019 04:57:00 PM EDT [facility] 0 Name Value Range Interpretation Description Data Sup porting Code Source(s) Document(s ) UNK CLEAR <content [facility] styleCode="[facility] d">Urine Medical Clarity Center </content>BRADEN R <content styleCode="Beba lics"> (CLEAR )</content> Color of Urine YELLOW <content [facility] styleCode="Lesia Leonie d">Color, Medical Urine Center </content>YELL OW <content styleCode="Beba lics"> (YELLOW )</content> UNK NEGATIVE <content [facility] styleCode="Lesia Leonie d">Urine Medical Bilirubin Center </content>NEGA TIVE <content styleCode="Beba lics"> (NEGATIVE )</content> Glucose NEGATIVE <content [facility] [Mass/volume] styleCode="Lesia Leonie in Urine by d">Urine Medical Test strip Glucose Center </content>>=10 00 MG/DL<content styleCode="Beba lics"> (NEGATIVE MG/DL)</conten t> Ketones NEGATIVE <content [facility] [Mass/volume] styleCode="Lesia Leonie in Urine by d">Urine Medical Test strip Ketone Center </content>NEGA TIVE MG/DL<content styleCode="Beba lics"> (NEGATIVE MG/DL)</conten t> Specific 1.015-1.02 Above high <content [facility] gravity of 5 normal styleCode="Lesia Leonie Urine by Test d">Urine Medical strip Specific Center [place] </content>>= 1.030 H<content styleCode="Beba lics"> (1.015-1.025 )</content> pH of Urine by 4.5-8.0 <content [facility] Test strip styleCode="Lesia Leonie d">Urine pH Medical </content>6.0 Center <content styleCode="Beba lics"> (4.5-8.0 )</content> Protein NEGATIVE <content [facility] [Mass/volume] styleCode="Lesia Zamans in Urine by d">Urine Medical Test strip Protein Center </content>30 MG/DL<content styleCode="Beba lics"> (NEGATIVE MG/DL)</conten t> Hemoglobin NEGATIVE <content [facility] [Presence] in styleCode="Lesia Zamans Urine by Test d">Urine Blood Medical strip </content>TRAC Center E <content styleCode="Beba lics"> (NEGATIVE )</content> Urobilinogen 0.2-1.0 <content [facility] [Units/volume] styleCode="[facility] in Urine by d">Urine Medical Test strip Urobilinogen Center </content>0.2 MG/DL<content styleCode="Beba lics"> (0.2-1.0 MG/DL)</conten t> Nitrite NEGATIVE <content [facility] [Presence] in styleCode="Lesia Zamans Urine by Test d">Urine Medical strip Nitrite Center </content>NEGA TIVE <content styleCode="Beba lics"> (NEGATIVE )</content> Leukocyte NEGATIVE <content [facility] esterase styleCode="Lesia Zamans [Presence] in d">Urine Medical Urine by Test Leukocyte Center strip </content>NEGA TIVE <content styleCode="Beba lics"> (NEGATIVE )</content> UNK 0-3 <content [facility] styleCode="Lesia Loenie d">Urine White Medical Blood Cell Center </content>3-5 HPF<content styleCode="Beba lics"> (0-3 HPF)</content> UNK 0-3 <content [facility] styleCode="Lesia Leonie d">Urine Red Medical Blood Cell Center </content>0-3 HPF<content styleCode="Beba lics"> (0-3 HPF)</content> UNK NEGATIVE <content [facility] styleCode="[facility] d">Urine Medical Bacteria Center </content>FEW HPF<content styleCode="Beba lics"> (NEGATIVE HPF)</content> UNK NONE SEEN <content [facility] styleCode="[facility] d">Epithelial Medical Cell Center </content>2-5 HPF<content styleCode="Beba lics"> (NONE SEEN HPF)</content> ID Date Data Source CHMROUTINECCDA.[id number] 12/22/2019 04:57:00 PM [facility] Name Value Range Interpretation Description Data Sup porting Code Source(s) Document(s ) Cannabinoids <content [facility] [Presence] in styleCode="[facility] Urine by Screen d">Cannabinoid Medical method >50 ng/mL s Center </content>PRES UMPTIVE POSITIVE NG/ML (Reference Range: not available)<br/ > ID Date Data Source Liver 12/22/2019 04:03:00 PM EDT [facility] Profile.[id number] Name Value Range Interpretation Description Data Sup porting Code Source(s) Document(s ) Aspartate 17-59 <content [facility] aminotransferase styleCode="Bold"> Hermann hs [Enzymatic Aspartate Medical activity/volume] Aminotransferase Center in Serum or Plasma (AST) </content>38 IU/L<content styleCode="Italic s"> (17-59 IU/L)</content> Albumin 3.5-5.0 <content [facility] [Mass/volume] in styleCode="Bold"> Hermann hs Serum or Plasma Albumin Medical </content>3.7 Center G/DL<content styleCode="Italic s"> (3.5-5.0 G/DL)</content> Bilirubin.total 0.2-1.3 Above high <content [facility] [Mass/volume] in normal styleCode="Bold"> Herm[facility] hs Serum or Plasma Bilirubin Total Medical </content>1.6 Center MG/DL H<content styleCode="Italic s"> (0.2-1.3 MG/DL)</content> UNK 0.0-0.3 <content [facility] styleCode="Bold"> Leonie Bilirubin, Direct Medical </content>< 0.2 Center MG/DL<content styleCode="Italic s"> (0.0-0.3 MG/DL)</content> Alkaline 38-126 <content [facility] phosphatase styleCode="Bold"> Leonie [Enzymatic Alkaline Medical activity/volume] Phosphatase (ALP) Cente r in Serum or Plasma </content>65 IU/L<content styleCode="Italic s"> (38-126 IU/L)</content> Alanine 7-50 <content [facility] aminotransferase styleCode="Bold"> [facility] hs [Enzymatic Alanine Medical activity/volume] Aminotransferase Center in Serum or Plasma (ALT) </content>23 IU/L<content styleCode="Italic s"> (7-50 IU/L)</content> ID Date Data Source HematologyRou.[id number] 12/22/2019 04:03:00 PM EDT [facility] 0400 Name Value Range Interpretation Description Data Sup porting Code Source(s) Document(s ) Erythrocytes 4.4-5.9 <content [facility] [#/volume] in styleCode="Bold Leonie Blood by ">Red Blood Medical Automated count Cell Count Center </content>5.01 MCUMM<content styleCode="Ital ics"> (4.4-5.9 MCUMM)</content > Leukocytes 4.4-11.0 <content [facility] [#/volume] in styleCode="Bold Leonie Blood by ">White Blood Medical Automated count Cell Count Center </content>7.23 KCUMM<content styleCode="Ital ics"> (4.4-11.0 KCUMM)</content > Erythrocyte mean 32.0-37. <content [facility] corpuscular 0 styleCode="Bold Leonie hemoglobin ">Mean Corpus. Medical concentration Hgb Center [Mass/volume] by Concentration Automated count (MCHC) </content>33.0 G/DL<content styleCode="Ital ics"> (32.0-37.0 G/DL)</content> Hemoglobin 13.5-17. <content [facility] [Mass/volume] in 5 styleCode="Bold Leonie Blood ">Hemoglobin Medical </content>15.1 Center G/DL<content styleCode="Ital ics"> (13.5-17.5 G/DL)</content> Erythrocyte mean 80.0-100 <content [facility] corpuscular .0 styleCode="Bold Leonie volume [Entitic ">Mean Medical volume] by Corpuscular Center Automated count Volume </content>91.4 FL<content styleCode="Ital ics"> (80.0-100.0 FL)</content> Hematocrit 41.0-53. <content [facility] [Volume 0 styleCode="Bold Leonie Fraction] of ">Hematocrit Medical Blood by </content>45.8 Center Automated count %<content styleCode="Ital ics"> (41.0-53.0 %)</content> Erythrocyte mean 26.0-34. <content [facility] corpuscular 0 styleCode="Bold Leoine hemoglobin ">Mean Medical [Entitic mass] Corposcular Center by Automated Hemoglobin count </content>30.1 PG<content styleCode="Ital ics"> (26.0-34.0 PG)</content> Platelets 130-400 <content [facility] [#/volume] in styleCode="Bold Leonie Blood by ">Platelet Medical Automated count Count Center </content>210 KCUMM<content styleCode="Ital ics"> (130-400 KCUMM)</content > Platelet mean 8.0-11.0 <content [facility] volume [Entitic styleCode="Bold Leonie volume] in Blood ">Mean Platelet Medical by Automated Volume Center count </content>10.0 FL<content styleCode="Ital ics"> (8.0-11.0 FL)</content> UNK 0 <content Saint styleCode="Bold Leonie ">Nucleated Red Medical Blood Cell Center </content>0.0 /100<content styleCode="Ital ics"> (0 /100)</content> Erythrocyte 11.5-14. <content [facility] distribution 5 styleCode="Bold Leonie width [Ratio] by ">Red Cell Medical Automated count Distribution Center Width </content>12.7 %<content styleCode="Ital ics"> (11.5-14.5 %)</content> UNK 0.0 <content [facility] styleCode="Bold Leonie ">Nucleated Red Medical Blood Cell Center Count </content>0.00 KCUMM<content styleCode="Ital ics"> (0.0 KCUMM)</content > ID Date Data Source GFR(Creatinine).[id number] 12/22/2019 04:03:00 PM EDT [facility] 0-0400 Name Value Range Interpretation Code Description Data Nieves rce(s) Supporting Document(s ) UNK > 60 <content [facility] styleCode="Bold"> Medical Cent er EGFR </content>101 GFR<content styleCode="Italic s"> (> 60 GFR)</content> ID Date Data Source BMP.[id number] 12/22/2019 04:03:00 PM EDT [facility] Name Value Range Interpretation Description Data Sup porting Code Source(s) Document(s ) Chloride 98-107 <content [facility] [Moles/volume] in styleCode="Bold"> [facility] Serum or Plasma Chloride Medical </content>102 Center MEQ/L<content styleCode="Italic s"> (98-107 MEQ/L)</content> Sodium 137-145 Below low <content [facility] [Moles/volume] in normal styleCode="Bold"> [facility] Serum or Plasma Sodium Medical </content>136 Center MEQ/L L<content styleCode="Italic s"> (137-145 MEQ/L)</content> Potassium 3.5-5.3 <content [facility] [Moles/volume] in styleCode="Bold"> [facility] Serum or Plasma Potassium Medical </content>4.5 Center MEQ/L<content styleCode="Italic s"> (3.5-5.3 MEQ/L)</content> UNK 9-20 <content [facility] styleCode="Bold"> Leonie BUN </content>17 Medical MG/DL<content Center styleCode="Italic s"> (9-20 MG/DL)</content> Creatinine 0.5-1.3 <content [facility] [Mass/volume] in styleCode="Bold"> [facility] hs Serum or Plasma Creatinine Medical </content>1.0 Center MG/DL<content styleCode="Italic s"> (0.5-1.3 MG/DL)</content> Carbon dioxide, 22-30 <content [facility] total styleCode="Bold"> Leonie [Moles/volume] in Carbon Dioxide Medical Serum or Plasma </content>28 Center MEQ/L<content styleCode="Italic s"> (22-30 MEQ/L)</content> Glucose 74-106 Above high <content [facility] [Mass/volume] in normal styleCode="Bold"> [facility] hs Serum or Plasma Glucose Medical </content>282 Center MG/DL H<content styleCode="Italic s"> (74-106 MG/DL)</content> Calcium 8.4-10. <content [facility] [Mass/volume] in 2 styleCode="Bold"> [facility] hs Serum or Plasma Calcium Medical </content>8.8 Center MG/DL<content styleCode="Italic s"> (8.4-10.2 MG/DL)</content> UNK > 60 <content [facility] styleCode="Bold"> Leonie EGFR Medical </content>101 Center GFR<content styleCode="Italic s"> (> 60 GFR)</content> Alanine 7-50 <content [facility] aminotransferase styleCode="Bold"> [facility] hs [Enzymatic Alanine Medical activity/volume] Aminotransferase Center in Serum or Plasma (ALT) </content>23 IU/L<content styleCode="Italic s"> (7-50 IU/L)</content> Aspartate 17-59 <content [facility] aminotransferase styleCode="Bold"> [facility] hs [Enzymatic Aspartate Medical activity/volume] Aminotransferase Center in Serum or Plasma (AST) </content>38 IU/L<content styleCode="Italic s"> (17-59 IU/L)</content> Albumin 3.5-5.0 <content [facility] [Mass/volume] in styleCode="Bold"> Herm[facility] hs Serum or Plasma Albumin Medical </content>3.7 Center G/DL<content styleCode="Italic s"> (3.5-5.0 G/DL)</content> Alkaline 38-126 <content [facility] phosphatase styleCode="Bold"> Leonie [Enzymatic Alkaline Medical activity/volume] Phosphatase (ALP) Cente r in Serum or Plasma </content>65 IU/L<content styleCode="Italic s"> (38-126 IU/L)</content> Bilirubin.total 0.2-1.3 Above high <content [facility] [Mass/volume] in normal styleCode="Bold"> Hermann hs Serum or Plasma Bilirubin Total Medical </content>1.6 Center MG/DL H<content styleCode="Italic s"> (0.2-1.3 MG/DL)</content> ID Date Data Source LIPID.[id number] 08/13/2019 07:01:00 AM JOSE [facility] Center Name Value Range Interpretation Description Data Sup porting Code Source(s) Document(s ) UNK < 100 <content Saint styleCode="Lesia Leonie d">LDL-Cholest Medical padmini Center </content>39 MG/DL<content styleCode="Beba lics"> (< 100 MG/DL)</conten t> UNK > 60 <content Saint styleCode="Lesia Leonie d">HDL- Medical Cholesterol Center </content>68 MG/DL<content styleCode="Beba lics"> (> 60 MG/DL)</conten t> Triglyceride < 150 <content Saint [Mass/volume] in styleCode="Lesia Leonie Serum or Plasma d">Triglycerid Medical es Center </content>70 MG/DL<content styleCode="Beba lics"> (< 150 MG/DL)</conten t> Cholesterol -<200 <content Saint [Mass/volume] in styleCode="Lesia Leonie Serum or Plasma d">Cholesterol Medical </content>121 Center MG/DL<content styleCode="Beba lics"> (-<200 MG/DL)</conten t> ID Date Data Source CHMROUTINECCDA.[id number] 08/13/2019 07:01:00 AM JOSE [facility] -0500 Name Value Range Interpretation Code Description Data Nieves rce(s) Supporting Document(s ) UNK 4.2-5.8 Above high normal <content [place] s styleCode="Bold" Medical Cente r >Hemoglobin A1C </content>7.8 % H<content styleCode="Itali cs"> (4.2-5.8 %)</content> ID Date Data Source Liver 08/12/2019 08:45:[address] [facility] Profile.[id number] Name Value Range Interpretation Description Data Sup porting Code Source(s) Document(s ) Aspartate 17-59 Above high <content [facility] aminotransferase normal styleCode="Bold"> Hermann hs [Enzymatic Aspartate Medical activity/volume] Aminotransferase Center in Serum or Plasma (AST) </content>129 IU/L H<content styleCode="Italic s"> (17-59 IU/L)</content> Alanine 7-50 Above high <content [facility] aminotransferase normal styleCode="Bold"> Hermann hs [Enzymatic Alanine Medical activity/volume] Aminotransferase Center in Serum or Plasma (ALT) </content>105 IU/L H<content styleCode="Italic s"> (7-50 IU/L)</content> Alkaline 38-126 <content [facility] phosphatase styleCode="Bold"> Leonie [Enzymatic Alkaline Medical activity/volume] Phosphatase (ALP) Cente r in Serum or Plasma </content>73 IU/L<content styleCode="Italic s"> (38-126 IU/L)</content> Bilirubin.total 0.2-1.3 <content Saint [Mass/volume] in styleCode="Bold"> Hermann hs Serum or Plasma Bilirubin Total Medical </content>0.9 Center MG/DL<content styleCode="Italic s"> (0.2-1.3 MG/DL)</content> UNK 0.0-0.3 <content Saint styleCode="Bold"> Leonie Bilirubin, Direct Medical </content>< 0.2 Center MG/DL<content styleCode="Italic s"> (0.0-0.3 MG/DL)</content> Albumin 3.5-5.0 <content Saint [Mass/volume] in styleCode="Bold"> Hermann hs Serum or Plasma Albumin Medical </content>3.6 Center G/DL<content styleCode="Italic s"> (3.5-5.0 G/DL)</content> ID Date Data Source HematologyRou.[id number] 08/12/2019 08:45:00 AM JOSE [facility] 0500 Name Value Range Interpretation Description Data Sup porting Code Source(s) Document(s ) Hematocrit 41.0-53. Below low normal <content Saint [Volume 0 styleCode="Bold [facility] Fraction] of ">Hematocrit Medical Blood by </content>38.7 Center Automated count % L<content styleCode="Ital ics"> (41.0-53.0 %)</content> Hemoglobin 13.5-17. Below low normal <content Saint [Mass/volume] in 5 styleCode="Bold Leonie Blood ">Hemoglobin Medical </content>12.7 Center G/DL L<content styleCode="Ital ics"> (13.5-17.5 G/DL)</content> Erythrocyte mean 80.0-100 <content [facility] corpuscular .0 styleCode="Bold Leonie volume [Entitic ">Mean Medical volume] by Corpuscular Center Automated count Volume </content>92.8 FL<content styleCode="Ital ics"> (80.0-100.0 FL)</content> Leukocytes 4.4-11.0 <content Saint [#/volume] in styleCode="Bold Leonie Blood by ">White Blood Medical Automated count Cell Count Center </content>8.80 KCUMM<content styleCode="Ital ics"> (4.4-11.0 KCUMM)</content > Erythrocytes 4.4-5.9 Below low normal <content Saint [#/volume] in styleCode="Bold Leonie Blood by ">Red Blood Medical Automated count Cell Count Center </content>4.17 MCUMM L<content styleCode="Ital ics"> (4.4-5.9 MCUMM)</content > Platelets 130-400 <content Saint [#/volume] in styleCode="Bold Leonie Blood by ">Platelet Medical Automated count Count Center </content>241 KCUMM<content styleCode="Ital ics"> (130-400 KCUMM)</content > Erythrocyte mean 32.0-37. <content [facility] corpuscular 0 styleCode="Bold Leonie hemoglobin ">Mean Corpus. Medical concentration Hgb Center [Mass/volume] by Concentration Automated count (MCHC) </content>32.8 G/DL<content styleCode="Ital ics"> (32.0-37.0 G/DL)</content> Erythrocyte 11.5-14. <content [facility] distribution 5 styleCode="Bold Leonie width [Ratio] by ">Red Cell Medical Automated count Distribution Center Width </content>14.2 %<content styleCode="Ital ics"> (11.5-14.5 %)</content> Erythrocyte mean 26.0-34. <content [facility] corpuscular 0 styleCode="Bold Leonie hemoglobin ">Mean Medical [Entitic mass] Corposcular Center by Automated Hemoglobin count </content>30.5 PG<content styleCode="Ital ics"> (26.0-34.0 PG)</content> UNK 0 <content Saint styleCode="Bold Leonie ">Nucleated Red Medical Blood Cell Center </content>0.0 /100<content styleCode="Ital ics"> (0 /100)</content> UNK 0.0 <content Saint styleCode="Bold Leonie ">Nucleated Red Medical Blood Cell Center Count </content>0.00 KCUMM<content styleCode="Ital ics"> (0.0 KCUMM)</content > Platelet mean 8.0-11.0 <content [facility] volume [Entitic styleCode="Bold Leonie volume] in Blood ">Mean Platelet Medical by Automated Volume Center count </content>9.6 FL<content styleCode="Ital ics"> (8.0-11.0 FL)</content> ID Date Data Source GFR(Creatinine).[id number] 08/12/2019 08:45:00 AM EST [facility] 0-0500 Name Value Range Interpretation Code Description Data Nieves rce(s) Supporting Document(s ) UNK > 60 <content [facility] styleCode="Bold"> Medical Cent er EGFR </content>114 GFR<content styleCode="Italic s"> (> 60 GFR)</content> ID Date Data Source [facility] [id number] 08/12/2019 08:45:00 AM [facility] Name Value Range Interpretation Description Data Sup porting Code Source(s) Document(s ) Potassium 3.5-5.3 <content Saint [Moles/volume] in styleCode="Bold"> [facility] Serum or Plasma Potassium Medical </content>3.8 Center MEQ/L<content styleCode="Italic s"> (3.5-5.3 MEQ/L)</content> Chloride 98-107 <content Saint [Moles/volume] in styleCode="Bold"> [facility] Serum or Plasma Chloride Medical </content>107 Center MEQ/L<content styleCode="Italic s"> (98-107 MEQ/L)</content> Sodium 137-145 <content Saint [Moles/volume] in styleCode="Bold"> [facility] Serum or Plasma Sodium Medical </content>141 Center MEQ/L<content styleCode="Italic s"> (137-145 MEQ/L)</content> Carbon dioxide, 22-30 <content Saint total styleCode="Bold"> [facility] [Moles/volume] in Carbon Dioxide Medical Serum or Plasma </content>27 Center MEQ/L<content styleCode="Italic s"> (22-30 MEQ/L)</content> UNK 9-20 <content Saint styleCode="Bold"> [facility] BUN </content>19 Medical MG/DL<content Center styleCode="Italic s"> (9-20 MG/DL)</content> UNK > 60 <content Saint styleCode="Bold"> [facility] EGFR Medical </content>114 Center GFR<content styleCode="Italic s"> (> 60 GFR)</content> Calcium 8.4-10. <content Saint [Mass/volume] in 2 styleCode="Bold"> [facility] Serum or Plasma Calcium Medical </content>8.7 Center MG/DL<content styleCode="Italic s"> (8.4-10.2 MG/DL)</content> Creatinine 0.5-1.3 <content Saint [Mass/volume] in styleCode="Bold"> [facility] Serum or Plasma Creatinine Medical </content>0.9 Center MG/DL<content styleCode="Italic s"> (0.5-1.3 MG/DL)</content> Glucose 74-106 Above high <content Saint [Mass/volume] in normal styleCode="Bold"> [facility] Serum or Plasma Glucose Medical </content>127 Center MG/DL H<content styleCode="Italic s"> (74-106 MG/DL)</content> Bilirubin.total 0.2-1.3 <content Saint [Mass/volume] in styleCode="Bold"> [facility] Serum or Plasma Bilirubin Total Medical </content>0.9 Center MG/DL<content styleCode="Italic s"> (0.2-1.3 MG/DL)</content> Aspartate 17-59 Above high <content Saint aminotransferase normal styleCode="Bold"> [facility] [Enzymatic Aspartate Medical activity/volume] Aminotransferase Center in Serum or Plasma (AST) </content>129 IU/L H<content styleCode="Italic s"> (17-59 IU/L)</content> Albumin 3.5-5.0 <content Saint [Mass/volume] in styleCode="Bold"> [facility] Serum or Plasma Albumin Medical </content>3.6 Center G/DL<content styleCode="Italic s"> (3.5-5.0 G/DL)</content> Alkaline 38-126 <content Saint phosphatase styleCode="Bold"> [facility]ie [Enzymatic Alkaline Medical activity/volume] Phosphatase (ALP) Cente r in Serum or Plasma </content>73 IU/L<content styleCode="Italic s"> (38-126 IU/L)</content> Alanine 7-50 Above high <content Saint aminotransferase normal styleCode="Bold"> [facility] [Enzymatic Alanine Medical activity/volume] Aminotransferase Center in Serum or Plasma (ALT) </content>105 IU/L H<content styleCode="Italic s"> (7-50 IU/L)</content> ID Date Data Source [id number] 08/12/2019 08:20:00 AM EST [facility] 0 Name Value Range Interpretation Description Data Sup porting Code Source(s) Document(s ) UNK CLEAR <content Saint styleCode="Lesia Leonie d">Urine Medical Clarity Center </content>BRADEN R <content styleCode="Beba lics"> (CLEAR )</content> UNK NEGATIVE <content Saint styleCode="Lesia Zamans d">Urine Medical Bilirubin Center </content>SMAL L <content styleCode="Beba lics"> (NEGATIVE )</content> Glucose NEGATIVE <content Saint [Mass/volume] styleCode="Lesia Hadley in Urine by d">Urine Medical Test strip Glucose Center </content>NEGA TIVE MG/DL<content styleCode="Beba lics"> (NEGATIVE MG/DL)</conten t> Color of Urine YELLOW <content Saint styleCode="Lesia Zamans d">Color, Medical Urine Center </content>YELL OW <content styleCode="Beba lics"> (YELLOW )</content> Specific 1.015-1.02 Above high <content Saint gravity of 5 normal styleCode="Lesia Zamans Urine by Test d">Urine Medical strip Specific Center [place] </content>>= 1.030 H<content styleCode="Beba lics"> (1.015-1.025 )</content> pH of Urine by 4.5-8.0 <content Saint Test strip styleCode="Lesia Leonie d">Urine pH Medical </content>5.5 Center <content styleCode="Beba lics"> (4.5-8.0 )</content> Hemoglobin NEGATIVE <content Saint [Presence] in styleCode="Lesia Zamans Urine by Test d">Urine Blood Medical strip </content>MODE Center RATE <content styleCode="Beba lics"> (NEGATIVE )</content> Ketones NEGATIVE <content Saint [Mass/volume] styleCode="Lesia Zamans in Urine by d">Urine Medical Test strip Ketone Center </content>TRAC E MG/DL<content styleCode="Beba lics"> (NEGATIVE MG/DL)</conten t> UNK 0-3 <content Saint styleCode="Lesia Leonie d">Urine Red Medical Blood Cell Center </content>50 - 100 HPF<content styleCode="Beba lics"> (0-3 HPF)</content> Nitrite NEGATIVE <content Saint [Presence] in styleCode="Lesia Zamans Urine by Test d">Urine Medical strip Nitrite Center </content>NEGA TIVE <content styleCode="Beba lics"> (NEGATIVE )</content> Leukocyte NEGATIVE <content Saint esterase styleCode="Lesia Zamans [Presence] in d">Urine Medical Urine by Test Leukocyte Center strip </content>NEGA TIVE <content styleCode="Beba lics"> (NEGATIVE )</content> Urobilinogen 0.2-1.0 <content Saint [Units/volume] styleCode="Lesia Zamans in Urine by d">Urine Medical Test strip Urobilinogen Center </content>0.2 MG/DL<content styleCode="Beba lics"> (0.2-1.0 MG/DL)</conten t> Protein NEGATIVE <content Saint [Mass/volume] styleCode="Lesia Leonie in Urine by d">Urine Medical Test strip Protein Center </content>30 MG/DL<content styleCode="Beba lics"> (NEGATIVE MG/DL)</conten t> UNK NONE SEEN <content Saint styleCode="Lesia Leonie d">Epithelial Medical Cell Center </content>5 - 10 HPF<content styleCode="Beba lics"> (NONE SEEN HPF)</content> UNK 0-3 <content Saint styleCode="Lesia Elonie d">Urine White Medical Blood Cell Center </content>0-3 HPF<content styleCode="Beba lics"> (0-3 HPF)</content> UNK NEGATIVE <content Saint styleCode="Lesia Leonie d">Urine Medical Bacteria Center </content>MODE RATE HPF<content styleCode="Beba lics"> (NEGATIVE HPF)</content> ID Date Data Source CHELLY.[id number] 08/12/2019 08:20:00 AM EST [facility] -0500 Name Value Range Interpretation Description Data Sup porting Code Source(s) Document(s ) Cannabinoids <content Saint [Presence] in styleCode="Lesia Hadley Urine by Screen d">Cannabinoid Medical method >50 ng/mL s Center </content>PRES UMPTIVE POSITIVE NG/ML (Reference Range: not available)<br/ > Procedure Social History Code Duration Value Status Description Data Source(s ) Smoking 12/22/2019 Denies Ever completed Denies Ever Smoked [facility] 04:09:00 PM EDT Smoked Medical C enter Smoking 12/22/2019 Denies Ever completed Denies Ever Smoked [facility] 04:00:00 PM EDT Smoked Medical C enter Smoking 12/22/2019 Denies Ever completed Denies Ever Smoked [facility] 03:40:00 PM EDT Smoked Medical C enter Smoking 08/13/2019 Denies Ever completed Denies Ever Smoked [facility] 07:00:00 AM EST Smoked Medical C enter Smoking 08/12/2019 Denies Ever completed Denies Ever Smoked [facility] 10:00:00 PM EST Smoked Medical C enter Smoking 08/12/2019 Denies Ever completed Denies Ever Smoked [facility] 05:00:00 PM EST Smoked Medical C enter Smoking 08/12/2019 Denies Ever completed Denies Ever Smoked [facility] 08:03:00 AM EST Smoked Medical C enter Smoking 08/12/2019 Denies Ever completed Denies Ever Smoked [facility] 07:20:00 AM EST Smoked Medical C enter Smoking 07/31/2019 Daily Smoker completed Daily Smoker [facility] 09:05:00 PM EST Medical C enter Smoking 07/31/2019 Daily Smoker completed Daily Smoker [facility] 07:15:00 PM EST Medical C enter Smoking 07/31/2019 Daily Smoker completed Daily Smoker [facility] 07:08:00 PM EST Medical C enter Vital Signs ID Date Data Source UNK Name Value Range Interpretation Code Description Data Source(s) Body temperature 37.594299 37.759456 [facility] Respiratory rate 16 /min 16 /min [facility] Oxygen saturation 98 % 98 % [facility] Arterial blood [facility] by Pulse oximetry Heart rate 75 /min 75 /min [facility] Diastolic blood 96 mm[Hg] 96 mm[Hg] [facility] Systolic blood 162 mm[Hg] 162 mm[Hg] [facility] Body temperature 36.693061 36.478883 [facility] Respiratory rate 19 /min 19 /min [facility] Oxygen saturation 99 % 99 % [facility] Arterial blood [facility] by Pulse oximetry Heart rate 88 /min 88 /min [facility] Diastolic blood 96 mm[Hg] 96 mm[Hg] [facility] Systolic blood 153 mm[Hg] 153 mm[Hg] [facility] Body temperature 37.570656 37.160463 [facility] Respiratory rate 20 /min 20 /min [facility] Oxygen saturation 92 % 92 % [facility] blood [facility] by Pulse oximetry Heart rate 102 /min 102 /min [facility] Diastolic blood 108 mm[Hg] 108 mm[Hg] [facility] Systolic blood 183 mm[Hg] 183 mm[Hg] [facility] Body temperature 36.635039 36.985945 [facility] Respiratory rate 18 /min 18 /min [facility] Oxygen saturation 98 % 98 % [facility] blood [facility] by Pulse oximetry Heart rate 98 /min 98 /min [facility] Diastolic blood 92 mm[Hg] 92 mm[Hg] [facility] Systolic blood 135 mm[Hg] 135 mm[Hg] [facility] Body temperature 37.713245 37.969902 [facility] Respiratory rate 18 /min 18 /min [facility] Oxygen saturation 98 % 98 % [facility] blood [facility] by Pulse oximetry Heart rate 91 /min 91 /min [facility] Diastolic blood 63 mm[Hg] 63 mm[Hg] [facility] Systolic blood 151 mm[Hg] 151 mm[Hg] [facility] Body temperature 36.654574 36.125136 [facility] Respiratory rate 18 /min 18 /min [facility] Oxygen saturation 98 % 98 % [facility] Arterial blood [facility] Center by Pulse oximetry Heart rate 109 /min 109 /min [facility] Diastolic blood 79 mm[Hg] 79 mm[Hg] [facility] Systolic blood 141 mm[Hg] 141 mm[Hg] [facility] Body weight 90.064465 kg 90.989832 kg [facility] Body temperature 36.501174 36.390962 [facility] Respiratory rate 17 /min 17 /min [facility] Oxygen saturation 96 % 96 % [facility] Arterial blood [facility] Center by Pulse oximetry Heart rate 79 /min 79 /min [facility] Body height 180.308442 180.594778 cm [facility] Diastolic blood 79 mm[Hg] 79 mm[Hg] [facility] Systolic blood 131 mm[Hg] 131 mm[Hg] [facility] Body mass index 27.8 kg/m2 27.8 kg/m2 [facility] (BMI) [Ratio] [facility] Body weight 111.434144 111.592273 kg [facility] Measured kg Medical Center Body temperature 37.276787 37.151759 [facility] Respiratory rate 20 /min 20 /min [facility] Oxygen saturation 100 % 100 % [facility] Arterial blood [facility] Center by Pulse oximetry Heart rate 98 /min 98 /min [facility] Diastolic blood 103 mm[Hg] 103 mm[Hg] [facility] Systolic blood 153 mm[Hg] 153 mm[Hg] [facility] Patient Treatment Plan of Care Planned Activity Planned Date Details Description Data Source (s) Prednisone 20 MG Oral Tablet [facility] albuterol sulfate 90 mcg HFA [facility] Aerosol Inhaler, Ordered By: WALLY Santoroirections: 2 puff by inhalation every six hours PRN shortness of breath Levofloxacin 500 MG Oral Tablet [facility] Metformin hydrochloride 500 MG [facility] Oral Tablet Center Hydrochlorothiazide 25 MG Oral [facility] Tablet [place] amLODIPine benzoate 1 mg/mL [facility] SuspensionDirections: 10 mL Center oral daily
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
[2020-04-30 00:15] LABS: BASO % 0.6 % (0-2.0); EOS % 3.1 % (0-4.5); HEMATOCRIT 43.6 % (35.4-49); HEMOGLOBIN 14.3 GM/dL (11.7-16.9); MCH 31.5 pg (25.7-33.7); MCHC 32.7 g/dl (32.0-35.9); MEAN CELL VOLUME 96.1 fl (80-96); MEAN PLT VOLUME 8.1 fl (7.5-11.1); NEUT % 49.3 % (42.8-82.8); PLATELET COUNT 251 K/MM3 (134-434); RBC 4.53 M/mm3 (4.00-5.60); RDW 14.6 % (11.9-15.9); WHITE BLOOD COUNT 7.8 K/mm3 (4.0-10.0)
[2020-04-30 00:23] LABS: INR 0.87 (0.83-1.09); PROTHROMBIN TIME (PATIENT) 10.2 SEC (9.7-13.0)
[2020-04-30 00:45] VITALS: PULSE 84; TEMP 98.7
[2020-04-30 00:45] LABS: ALBUMIN 3.4 g/dl (3.4-5.0); ALK PHOS 75 U/L (45-117); ANION GAP 9 MMOL/L (8-16); BILIRUBIN,TOTAL 0.8 mg/dL (0.2-1); BLOOD UREA NITROGEN 16.2 mg/dL (7-18); CALCIUM 8.1 mg/dL (8.5-10.1); CHLORIDE 104 mmol/L (98-107); CO2 31 mmol/L (21-32); CREATININE 1.3 mg/dL (0.55-1.3); GLUCOSE,RANDOM 243 mg/dL (74-106); POTASSIUM 4.1 mmol/L (3.5-5.1); SGOT/AST 38 U/L (15-37); SGPT/ALT 40 U/L (13-61); SODIUM 144 mmol/L (136-145); TOT PROT 6.6 g/dl (6.4-8.2)
--- NOTE | 2020-04-30 01:36 | PDOC ---
Documentation entered by Kevan Ivan SCRIBE, acting as scribe for Leonor Roque MD. Leonor Roque MD: This documentation has been prepared by the Cosmo michaels Angel, SCRIBE, under my direction and personally reviewed by me in its entirety. I confirm that the documentation accurately reflects all work, treatment, procedures, and medical decision making performed by me. Attending Attestation - Resident Resident Name: Guido Dunlap - ED Attending Attestation I have performed the following: I have examined & evaluated the patient, The case was reviewed & discussed with the resident, I agree w/resident's findings & plan, Exceptions are as noted - HPI HPI: 04/30/20 01:31 this 55 yo male presents stating he drank alcohol took cocaine ,heroin,kevan dust and PCP and marijuana. He is ambulatory but has jerky movements that lessen when staff are not present PMH: HTN,Diabetes,asthma,polysubstance abuse 04/30/20 01:35 - Physicial Exam PE: 04/30/20 01:36 Disheveled 55 yo male states he took numerous drugs of abuse head no trauma neuro able to answer questions,ambulates,when with staff he has jerking movements of his head and limbs that decreases when staff walk away abdomen nontender extremities no deformities - Medical Decision Making 04/30/20 01:[address] scan,labs ,reassess Discharge - Discharge Information Problems reviewed: Yes Clinical Impression/Diagnosis: Intoxication by drug Qualifiers: Complication of substance-induced condition: with delirium Qualified Code(s): F19.921 - Other psychoactive substance use, unspecified with intoxication with delirium Condition: Stable Disposition: HOME - Follow up/Referral - Patient Discharge Instructions Patient Printed Discharge Instructions: DI for Substance Use Disorder Additional Instructions: Today you were seen for drug intoxication and chest pain. Your labs are all normal, and your X-ray does not show any problems. Your CT scan does not show any problems. You are able to stand, walk, and eat without any issues. You have no medical emergency that requires you to stay in the hospital. At home, please stop using drugs as they are contributing to your poor health. Continue to follow up with [facility] for detox. If you experience vomiting, chest pain, shortness of breath, or any other new or concerning symptoms, please return to the emergency room. - Post Discharge Activity
--- NOTE | 2020-04-30 02:37 | PDOC ---
*Physical Exam - Vital Signs Last Vital Signs Temp Pulse Resp BP Pulse Ox 98.7 F 84 20 148/73 96 04/30/20 00:44 04/30/20 00:44 04/30/20 00:44 04/30/20 00:44 04/30/20 00:44 ED Treatment Course - LABORATORY CBC & Chemistry Diagram: 04/29/20 23:14 04/29/20 23:14 - ADDITIONAL ORDERS Additional order review: Laboratory Results 04/29/20 04/29/20 04/29/20 23:14 23:14 23:14 PT with INR 10.20 INR 0.87 PTT (Actin FS) 28.0 Sodium 144 Potassium 4.1 Chloride 104 Carbon Dioxide 31 Anion Gap 9 BUN 16.2 Creatinine 1.3 Est GFR (CKD-EPI)AfAm 72.20 Est GFR (CKD-EPI)NonAf 62.29 POC Glucometer Random Glucose 243 H Calcium 8.1 L Total Bilirubin 0.8 AST 38 H ALT 40 Alkaline Phosphatase 75 Creatine Kinase 596 H Creatine Kinase Index 1.0 CK-MB (CK-2) 6.1 H Troponin I < 0.02 Total Protein 6.6 Albumin 3.4 Lipase 210 Alcohol, Quantitative < 3 04/29/20 23:05 PT with INR INR PTT (Actin FS) Sodium Potassium Chloride Carbon Dioxide Anion Gap BUN Creatinine Est GFR (CKD-EPI)AfAm Est GFR (CKD-EPI)NonAf POC Glucometer 258 Random Glucose Calcium Total Bilirubin AST ALT Alkaline Phosphatase Creatine Kinase Creatine Kinase Index CK-MB (CK-2) Troponin I Total Protein Albumin Lipase Alcohol, Quantitative 04/29/20 04/29/20 23:14 23:05 RBC 4.53 MCV 96.1 H MCHC 32.7 RDW 14.6 MPV 8.1 Neutrophils % 49.3 Lymphocytes % 35.0 D Monocytes % 12.0 H Eosinophils % 3.1 D Basophils % 0.6 POC Glucometer 258 Medical Decision Making - Medical Decision Making 04/30/20 02:37 Patient Name: SANDHYA WORTHINGTON THIS IS A PRELIMINARY REPORT DATE OF SERVICE: 2020-04-30 01:40:42 IMAGES: [id number] EXAM: HEAD CT WITHOUT CONTRAST HISTORY: Fall from bed. COMPARISON: Sagittal and coronal recons of CT head of 03/02/2020. CT head of 01/22/2020. FINDINGS: The ventricles remain normal in size and position. No acute intracranial hemorrhage or any abnormal acute extra-axial fluid collections. No obvious signs of acute infarct. Intact osseous calvarium. Mastoids and middle ear cavities appear clear. Mild mucosal thickening in the anterior to mid ethmoid sinuses. Deformity again seen of the left nasal bone from old trauma. Mucous retention cyst again noted in the left maxillary sinus. IMPRESSION: No acute traumatic intracranial or osseous abnormality. 04/30/20 06:15 Pt is stable and ready for discharge home Discharge - Discharge Information Problems reviewed: Yes Clinical Impression/Diagnosis: Intoxication by drug Qualifiers: Complication of substance-induced condition: with delirium Qualified Code(s): F19.921 - Other psychoactive substance use, unspecified with intoxication with delirium Condition: Stable Disposition: HOME - Follow up/Referral - Patient Discharge Instructions Patient Printed Discharge Instructions: DI for Substance Use Disorder Additional Instructions: Today you were seen for drug intoxication and chest pain. Your labs are all normal, and your X-ray does not show any problems. Your CT scan does not show any problems. You are able to stand, walk, and eat without any issues. You have no medical emergency that requires you to stay in the hospital. At home, please stop using drugs as they are contributing to your poor health. Continue to follow up with [facility] for detox. If you experience vomiting, chest pain, sh ortness of breath, or any other new or concerning symptoms, please return to the emergency room. - Post Discharge Activity
[2020-04-30 06:27] VITALS: BP 138/73
--- NOTE | 2020-04-30 14:03 | EKG ---
Test Reason : Blood Pressure : / mmHG Vent. Rate : 102 BPM Atrial Rate : 102 BPM P-R Int : 150 ms QRS Dur : 084 ms QT Int : 376 ms P-R-T Axes : 070 066 063 degrees QTc Int : 490 ms SINUS TACHYCARDIA OTHERWISE NORMAL ECG WHEN COMPARED WITH ECG OF 02-MAR-2020 08:20, PREMATURE VENTRICULAR COMPLEXES ARE NO LONGER PRESENT Confirmed by ILYA KO MD ([id number]) on 04/30/2020 2:02:53 PM Referred By: Confirmed By:ILYA KO MD
== END 2020-04-30 06:45 | disposition home or self-care (01) ==
LOC: JER 20:50
DX: F19.921 Other psychoactive substance use, unspecified with intoxication with delirium (principal)
CPT/HCPCS: 36415; 70450-TC; 71045-TC-FY; 80053; 80307; 82550; 82553; 82962; 83690; 84484; 85025; 85610; 85730; 93005; 93010; 99285-25

== ENCOUNTER 2020-05-08 03:18 | Emergency (ER) | payer OTHER ==
--- OUTSIDE RECORDS SUMMARY | 2020-05-08 03:44 | XMS ---
:1965 Author Organization [facility] Care Team Providers Name Role Phone ED STAFF PHYSICIAN, STAFF Unavailable Unavailable ED STAFF PHYSICIANRONEY Unavailable Unavailable ED STAFF PHYSICIANMORGAN Unavailable Unavailable ED STAFF PHYSICIANCHANDAN Unavailable Unavailable [...] is protected by Article 27-F of the [facility] Public Health law. If you continue you may haveaccess to information: Regarding HIV / AIDS; Provided by facilities licensed or operated by the [facility] Office of Mental Health; or Provided by the [facility] Office for People With Developmental Disabilities. If such information is present, then the following [facility] mandated warning applies: This information has been [...] law may result in a fine or skilled nursing sentence or both. A general authorization for the release of medical or other information is NOT sufficient authorization for further disclosure. Encounters Encounter Providers Location Date Indications Data Source(s ) Emergency Attender: RONEY ED H 12/22/2019 [facility] STAFF 03:41:00 PM EDT Medical C enter PHYSICIANAttender: - 12/22/2019 STAFF ED STAFF 11:18:00 PM EDT PHYSICIANAdmitter: [facility] ED STAFF PHYSICIAN Patient discharged. Emergency Attender: CHANDAN ED STAFF H 08/12/2019 07:06:00 AM [facility] PHYSICIANAttender: STAFF ED EST - 08/13/2019 Medical Center STAFF PHYSICIANAdmitter: CHANDAN 03:25:00 PM EST ED STAFF PHYSICIAN Patient discharged. Emergency Attender: MORGAN ED STAFF H 07/31/2019 07:05:00 PM [facility] PHYSICIANAttender: STAFF ED EST - 07/31/2019 [facility] Center STAFF PHYSICIANAdmitter: 09:45:00 PM EST [facility] ED STAFF PHYSICIAN Patient discharged. Medications Medication Brand Start Product Dose Route Administrative Pharmacy [facility] Indications Reaction Description Data Name Date Form Instructions Instructions Source(s) Metformin metFOR 1 complet [facility] hydrochlori MIN [facility] de 500 MG 500 mg Medical Oral Tablet Tablet Center metFORMIN Direct 500 mg ions: TabletDirec 1 tions: 1 tablet tablet oral oral daily daily Hydrochloro hydroc 1 complet Sundar nt thiazide 25 hlorot ed [place] s MG Oral hiazid Medical Tablet e 25 Center hydrochloro mg thiazide 25 Tablet mg Direct TabletDirec ions: tions: 1 1 tablet oral tablet daily oral daily amLODIPine 10 mL complet [facility] benzoate 1 [facility] mg/mL Medical SuspensionD Center irections: 10 mL oral daily albuterol 2 complet [facility] sulfate 90 [facility] mcg HFA Medical Aerosol Center Inhaler, Ordered By: Pancho Fitzgerald s: 2 puff by inhalation every six hours PRN shortness of breath Levofloxaci levofl 1 complet Sundar nt n 500 MG oxacin [facility] Oral Tablet 500 mg Medica l levofloxaci [...] d By: sarai Sweet MDDirection Steve s: 2 tablet , oral daily MDDire ctions : 2 tablet oral daily Insurance Providers Payer name Policy type Policy ID Covered Covered constitution party's Policy P june / Coverage constitution party ID relationship to Robb Inf ormation type robb VALUE [id number] SP [id number] 01 OPTIONS-MEDI 1 CAID HIP HMO [id number] SP [id number] 01 1 HIP MEDICAID [id number] SP [id number] HIP MEDICAID [id number] SP [id number] 1 MEDICAID [id number] SP [id number] VALUE [id number] SP [id number] OPTIONS-MEDI 01 CAID MEDICAID [id number] SP [id number] O O Problems, Conditions, and Diagnoses Code Display Name Description Problem Type Effective Data Sour ce(s) Dates 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 0 [facility] substance abuse, SUBSTANCE ABUSE, 03:41:00 PM [facility] uncomplicated UNCOMPLICATED EDT F12.10 [...] r EST Results ID Date Data Source Urinalysis.[id number] 12/22/2019 04:57:00 PM EDT [facility] 0 Name Value Range Interpretation Description Data Sup porting Code Source(s) Document(s ) UNK CLEAR <content Saint styleCode="[facility] d">Urine Medical Clarity Center </content>BRADEN R [...] by Test d">Urine Medical strip Specific Center Pearson </content>>= 1.030 H<content styleCode="Beba lics"> (1.015-1.025 )</content> pH of Urine by 4.5-8.0 <content Saint Test strip styleCode="Lesia Leonie d">Urine pH Medical </content>6.0 Center <content styleCode="Beba lics"> (4.5-8.0 )</content> Protein NEGATIVE <content Saint [Mass/volume] styleCode="Lesia Leonie in Urine by d">Urine Medical Test strip Protein Center </content>30 MG/DL<content styleCode="Beba lics"> (NEGATIVE MG/DL)</conten t> Hemoglobin NEGATIVE <content Saint [Presence] in styleCode="Lesia Zamans Urine by Test d">Urine Blood Medical strip </content>TRAC Center E <content styleCode="Beba lics"> (NEGATIVE )</content> Urobilinogen 0.2-1.0 <content Saint [Units/volume] styleCode="Lesia Leonie in Urine by d">Urine Medical Test strip Urobilinogen Center </content>0.2 MG/DL<content styleCode="Beba lics"> (0.2-1.0 MG/DL)</conten t> Nitrite NEGATIVE <content Saint [Presence] in styleCode="Lesia Zamans Urine by Test d">Urine Medical strip Nitrite Center </content>NEGA TIVE <content styleCode="Beba lics"> (NEGATIVE )</content> Leukocyte NEGATIVE <content Saint esterase styleCode="Lesia Leonie [Presence] in d">Urine Medical Urine by Test Leukocyte Center strip </content>NEGA TIVE <content styleCode="Beba lics"> (NEGATIVE )</content> UNK 0-3 <content Saint styleCode="Lesia Leonie d">Urine White Medical Blood Cell Center </content>3-5 HPF<content styleCode="Beba lics"> (0-3 HPF)</content> UNK 0-3 <content Saint styleCode="Lesia Leonie d">Urine Red Medical Blood Cell Center </content>0-3 HPF<content styleCode="Beba lics"> (0-3 HPF)</content> UNK NEGATIVE <content Saint styleCode="Lesia Leonie d">Urine Medical Bacteria Center </content>FEW HPF<content styleCode="Beba lics"> (NEGATIVE HPF)</content> UNK NONE SEEN <content Saint styleCode="[facility] d">Epithelial Medical Cell Center </content>2-5 HPF<content styleCode="Beba lics"> (NONE SEEN HPF)</content> ID Date Data Source CHMROUTINECCDA.[id number] 12/22/2019 04:57:[address] [facility] -0400 Name Value Range Interpretation Description Data Sup porting Code Source(s) Document(s ) Cannabinoids <content Saint [Presence] in styleCode="[facility] Urine by Screen d">Cannabinoid Medical method >50 ng/mL s Center </content>PRES UMPTIVE POSITIVE NG/ML (Reference Range: not available)<br/ > ID Date Data Source Liver 12/22/2019 04:03:00 PM EDT [facility] Profile.[id number] Name Value Range Interpretation Description Data Sup [...] s"> (7-50 IU/L)</content> ID Date Data Source HematologyRou.[id number] 12/22/2019 04:03:00 PM EDT Sundar nt [facility] 0400 Name Value Range Interpretation Description Data Sup porting Code Source(s) Document(s ) Erythrocytes 4.4-5.9 <content Saint [#/volume] in styleCode="[facility] Blood by ">Red Blood Medical Automated count Cell Count Center </content>5.01 MCUMM<content styleCode="Ital ics"> (4.4-5.9 MCUMM)</content > Leukocytes 4.4-11.0 <content Saint [#/volume] in styleCode="Bold Leonie Blood by ">White Blood Medical Automated count Cell Count Center </content>7.23 KCUMM<content styleCode="Ital ics"> (4.4-11.0 KCUMM)</content > Erythrocyte mean 32.0-37. <content Saint corpuscular 0 styleCode="[facility] hemoglobin ">Mean Corpus. Medical concentration Hgb Center [...] (0.0 KCUMM)</content > ID Date Data Source GFR(Creatinine).[id number] 12/22/2019 04:03:[address] [facility] 0-0400 Name Value Range Interpretation Code Description Data Nieves rce(s) Supporting Document(s ) UNK > 60 <content [facility] styleCode="Bold"> Medical Cent er EGFR </content>101 GFR<content styleCode="Italic s"> (> 60 GFR)</content> ID Date Data Source BMP.[id number] 12/22/2019 04:03:00 PM EDT [facility] Name Value Range Interpretation Description Data Sup porting Code Source(s) Document(s ) Chloride 98-107 <content Saint [Moles/volume] in styleCode="Bold"> [facility] Serum or Plasma Chloride Medical </content>102 Center MEQ/L<content styleCode="Italic s"> (98-107 MEQ/L)</content> Sodium 137-145 Below low <content Saint [Moles/volume] in normal styleCode="Bold"> [facility] Serum or Plasma Sodium Medical </content>136 Center MEQ/L L<content styleCode="Italic s"> (137-145 MEQ/L)</content> Potassium 3.5-5.3 <content Saint [Moles/volume] in styleCode="Bold"> [facility] Serum or Plasma Potassium Medical </content>4.5 Center MEQ/L<content styleCode="Italic s"> (3.5-5.3 MEQ/L)</content> UNK 9-20 <content Saint styleCode="Bold"> Leonie BUN </content>17 Medical MG/DL<content Center [...] s"> (0.2-1.3 MG/DL)</content> ID Date Data Source LIPID.[id number] 08/13/2019 07:01:00 AM JOSE [facility] Name Value Range Interpretation Description [...] (-<200 MG/DL)</conten t> ID Date Data Source SARADA.[id number] 08/13/2019 07:01:00 AM JOSE cortez [facility] -0500 Name Value Range Interpretation Code Description Data Nieves rce(s) Supporting Document(s ) UNK 4.2-5.8 Above high normal <content Stephen s styleCode="Bold" Medical Cente r >Hemoglobin A1C </content>7.8 % H<content styleCode="Itali cs"> (4.2-5.8 %)</content> ID Date Data Source Liver 08/12/2019 08:45:00 AM EST [facility] Profile.[id number] Name Value Range Interpretation Description Data Sup [...] s"> (3.5-5.0 G/DL)</content> ID Date Data Source HematologyRou.[id number] 08/12/2019 08:45:[address] [facility] 0500 Name Value Range Interpretation Description Data Sup porting Code Source(s) Document(s ) Hematocrit 41.0-53. Below low normal <content Saint [Volume 0 styleCode="[facility] Fraction] of ">Hematocrit Medical Blood by </content>38.7 [...] ics"> (8.0-11.0 FL)</content> ID Date Data Source GFR(Creatinine).[id number] 08/12/2019 08:45:00 AM EST Sundar nt [facility] 0-0500 Name Value Range Interpretation Code Description Data Nieves rce(s) Supporting Document(s ) UNK > 60 <content [facility] styleCode="Bold"> Medical Cent er EGFR </content>114 GFR<content styleCode="Italic s"> (> 60 GFR)</content> ID Date Data Source [facility].[id number] 08/12/2019 08:45:00 AM EST [facility] Name Value Range Interpretation Description Data Sup porting Code Source(s) Document(s ) Potassium 3.5-5.3 <content Saint [Moles/volume] in styleCode="Bold"> [facility] Serum or Plasma Potassium Medical </content>3.8 Center MEQ/L<content styleCode="Italic s"> (3.5-5.3 MEQ/L)</content> Chloride 98-107 <content Saint [Moles/volume] in styleCode="Bold"> [facility] Serum or Plasma Chloride Medical </content>107 Center MEQ/L<content styleCode="Italic s"> (98-107 MEQ/L)</content> Sodium 137-145 <content Saint [Moles/volume] in styleCode="Bold"> [facility] Serum or Plasma Sodium Medical </content>141 Center MEQ/L<content styleCode="Italic s"> (137-145 MEQ/L)</content> Carbon dioxide, 22-30 <content Saint total styleCode="Bold"> Leonie [Moles/volume] in Carbon Dioxide Medical Serum or Plasma </content>27 Center MEQ/L<content styleCode="Italic s"> (22-30 MEQ/L)</content> UNK 9-20 <content Saint styleCode="Bold"> [facility] BUN </content>19 Medical MG/DL<content Center styleCode="Italic s"> (9-20 MG/DL)</content> UNK > 60 <content Saint styleCode="Bold"> [facility] EGFR Medical </content>114 Center GFR<content styleCode="Italic s"> [...] Albumin 3.5-5.0 <content Saint [Mass/volume] in styleCode="Bold"> [place] hs Serum or Plasma Albumin Medical </content>3.6 [...] s"> (7-50 IU/L)</content> ID Date Data Source Urinalysis.[id number] 08/12/2019 08:20:[address] [facility] 0 Name Value Range Interpretation Description Data Sup porting Code Source(s) Document(s ) UNK CLEAR <content Saint styleCode="Lesia Leonie d">Urine Medical Clarity Center </content>BRADEN R <content styleCode="Beba lics"> (CLEAR )</content> UNK NEGATIVE <content Saint styleCode="Lesia Leonie d">Urine Medical Bilirubin Center </content>SMAL L <content [...] by Test d">Urine Medical strip Specific Center Pearson </content>>= 1.030 H<content styleCode="Beba lics"> (1.015-1.025 )</content> pH of Urine by 4.5-8.0 <content Saint Test strip styleCode="Lesia Leonie d">Urine pH Medical </content>5.5 Center <content styleCode="Beba lics"> (4.5-8.0 )</content> Hemoglobin NEGATIVE <content Saint [Presence] in styleCode="Lesia Zamans Urine by Test d">Urine Blood Medical strip </content>MODE Center RATE <content styleCode="Beba lics"> (NEGATIVE )</content> Ketones NEGATIVE <content Saint [Mass/volume] styleCode="[facility] [place] in Urine by d">Urine Medical Test strip Ketone Center </content>TRAC E MG/DL<content styleCode="Beba lics"> (NEGATIVE MG/DL)</conten t> UNK 0-3 <content Saint styleCode="Lesia Leonie d">Urine Red Medical Blood Cell Center </content>50 - 100 HPF<content styleCode="Beba lics"> (0-3 HPF)</content> Nitrite NEGATIVE <content Saint [Presence] in styleCode="Lesia Hadley Urine by Test d">Urine Medical strip Nitrite [...] t> Protein NEGATIVE <content Saint [Mass/volume] styleCode="Lesia Zamans in Urine by d">Urine Medical Test strip Protein Center </content>30 MG/DL<content styleCode="Beba lics"> (NEGATIVE MG/DL)</conten t> UNK NONE SEEN <content Saint styleCode="Lesia Leonie d">Epithelial Medical Cell Center </content>5 - 10 HPF<content styleCode="Beba lics"> (NONE SEEN HPF)</content> UNK 0-3 <content Saint styleCode="Lesia Leonie d">Urine White Medical Blood Cell Center </content>0-3 HPF<content styleCode="Beba lics"> (0-3 HPF)</content> UNK NEGATIVE <content Saint styleCode="Lesia Leonie d">Urine Medical Bacteria Center </content>MODE RATE HPF<content styleCode="Beba lics"> (NEGATIVE HPF)</content> ID Date Data Source CHRISTOPHEMROUTDEBO.[id number] 08/12/2019 08:20:00 AM EST Sundar nt [facility] -0500 Name Value Range Interpretation Description Data [...] Interpretation Code Description Data Source(s) Body temperature 37.601581 37.716395 [facility] Respiratory rate 16 /min 16 /min [facility] Oxygen saturation 98 % 98 % [facility] in Arterial blood Medical Center by Pulse oximetry Heart rate 75 /min 75 /min [facility] Diastolic blood 96 mm[Hg] 96 mm[Hg] [facility] Medical [place] Systolic blood 162 mm[Hg] 162 mm[Hg] [facility] Body temperature 36.564845 36.539194 [facility] Respiratory rate 19 /min 19 /min [facility] Oxygen saturation 99 % 99 % [facility] in Arterial blood Medical Center by Pulse oximetry Heart rate 88 /min 88 /min [facility] Diastolic blood 96 mm[Hg] 96 mm[Hg] [facility] Systolic blood 153 mm[Hg] 153 mm[Hg] [facility] Body temperature 37.876983 37.400014 [facility] Respiratory rate 20 /min 20 /min [facility] Oxygen saturation 92 % 92 % [facility] in Arterial blood [facility] Center by Pulse oximetry Heart rate 102 /min 102 /min [facility] Diastolic blood 108 mm[Hg] 108 mm[Hg] [facility] Systolic blood 183 mm[Hg] 183 mm[Hg] [facility] Body temperature 36.138873 36.916392 [facility] Respiratory rate 18 /min 18 /min [facility] Oxygen saturation 98 % 98 % [facility] in Arterial blood Medical Center by Pulse oximetry Heart rate 98 /min 98 /min [facility] Diastolic blood 92 mm[Hg] 92 mm[Hg] [facility] Medical [place] Systolic blood 135 mm[Hg] 135 mm[Hg] [facility] Body temperature 37.276543 37.826504 [facility] Respiratory rate 18 /min 18 /min [facility] Oxygen saturation 98 % 98 % [facility] in Arterial blood [facility] by Pulse oximetry Heart rate 91 /min 91 /min [facility] Diastolic blood 63 mm[Hg] 63 mm[Hg] [facility] Systolic blood 151 mm[Hg] 151 mm[Hg] [facility] Body temperature 36.761556 36.328856 [facility] Respiratory rate 18 /min 18 /min [facility] Oxygen saturation 98 % 98 % [facility] J osephs in Arterial blood [facility] by Pulse oximetry Heart rate 109 /min 109 /min [facility] Diastolic blood 79 mm[Hg] 79 mm[Hg] [facility] Center Systolic blood 141 mm[Hg] 141 mm[Hg] [facility] Body weight 90.883864 kg 90.694543 kg [facility] Measured [facility] Center Body temperature 36.717837 36.870330 [facility] Respiratory rate 17 /min 17 /min [facility] Oxygen saturation 96 % 96 % [facility] J osephs in Arterial blood [facility] Center by Pulse oximetry Heart rate 79 /min 79 /min [facility] Body height 180.263190 180.326450 cm [facility] Diastolic blood 79 mm[Hg] 79 mm[Hg] [facility] Center Systolic blood 131 mm[Hg] 131 mm[Hg] [facility] Body mass index 27.8 kg/m2 27.8 kg/m2 [facility] (BMI) [Ratio] Medical [facility] Body weight 111.190028 111.219014 kg [facility] Measured kg Medical Center Body temperature 37.206721 37.773083 [facility] Respiratory rate 20 /min 20 /min [facility] Oxygen saturation 100 % 100 % [facility] in Arterial blood [facility] by Pulse oximetry Heart rate 98 /min 98 /min [facility] Diastolic blood 103 mm[Hg] 103 mm[Hg] [facility] Systolic blood 153 mm[Hg] 153 mm[Hg] [facility] Patient Treatment Plan of Care Planned Activity Planned Date Details Description Data Source (s) Prednisone 20 MG Oral Tablet [facility] albuterol sulfate 90 mcg HFA [facility] Aerosol Inhaler, Ordered By: WALLY Santoroirections: 2 puff by inhalation every six hours PRN shortness of breath Levofloxacin 500 MG Oral Tablet [facility] Metformin hydrochloride 500 MG [facility] Oral Tablet Center Hydrochlorothiazide 25 MG Oral [facility] Tablet [place] amLODIPine benzoate 1 mg/mL [facility] SuspensionDirections: 10 mL [place] oral daily
[2020-05-08 03:47] VITALS: BP 149/95; PULSE 103; TEMP 98; BMI 30.7
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
[2020-05-08] MEDS ORDERED: AMOX TR/POT CLAV 875MG/125MG TABLETS (FP) PO ONE (03:56)
[2020-05-08] MEDS ORDERED: IBUPROFEN 600 MG TABLET (FP) PO ONE ×2 (03:56→04:03)
[2020-05-08] MEDS ORDERED: AMOX TR/POT CLAV 875MG/125MG TABLETS (FP) ONE (04:02)
== END 2020-05-08 04:10 | disposition home or self-care (01) ==
LOC: JER 03:18
DX: K04.7 Periapical abscess without sinus (principal)
CPT/HCPCS: 99283-25

== ENCOUNTER 2020-05-12 03:44 | Emergency (ER) | payer OTHER ==
--- NOTE | 2020-05-12 04:07 | PDOC ---
Attending Attestation - Resident Resident Name: KatharinaJose Alfredo - ED Attending Attestation I have performed the following: I have examined & evaluated the patient, The case was reviewed & discussed with the resident, I agree w/resident's findings & plan - HPI HPI: 05/12/20 06:21 Pt states that hes smoking too much pot and he lost his voice and has SOB. Afebrile Pt has asthma and wheeze. - Physicial Exam PE: 05/12/20 06:22 Normal exam patchy wheeze in bilat lungs heart RRR abd soft NT ND no flank pain no C/C/E - Medical Decision Making 05/12/20 06:24 home after treatment in the ER Pt feels better sounds better CXR normal 05/12/20 06:35 stable for d/c home Discharge - Discharge Information Problems reviewed: Yes Clinical Impression/Diagnosis: Asthma exacerbation Condition: Stable Disposition: HOME - Follow up/Referral - Patient Discharge Instructions Patient Printed Discharge Instructions: DI for Asthma -- Adult Additional Instructions: You were seen in the ER for an asthma attack. Your breathing improved with medication. Follow up with your primary care provider as soon as possible, in the next 2-3 days. Return to the ER if you develop worsening wheezing, high fevers, chest pain, or difficulty breathing. - Post Discharge Activity
--- OUTSIDE RECORDS SUMMARY | 2020-05-12 04:09 | XMS ---
:1965 Author Organization [facility] Care Team Providers Name Role Phone ED STAFF PHYSICIAN, STAFF Unavailable Unavailable ED STAFF PHYSICIANMORGAN Unavailable Unavailable ED STAFF PHYSICIANCHANDAN Unavailable Unavailable RONEY MILES Unavailable Unavailable Re-disclosure Warning The records that [...] is protected by Article 27-F of the [facility] Public Health law. If you continue you may haveaccess to information: Regarding HIV / AIDS; Provided by facilities licensed or operated by the [facility] Office of Mental Health; or Provided by the [facility] Office for People With Developmental Disabilities. If such information is present, then the following [facility] mandated warning applies: This information has [...] law may result in a fine or longterm sentence or both. A general authorization for the release of medical or other information is NOT sufficient authorization for further disclosure. Encounters Encounter Providers Location Date Indications Data Source(s ) Emergency Attender: RONEY Blanco 12/22/2019 [facility] YAN SIM 03:41:[address] [facility] Center CAttender: STAFF ED - 12/22/2019 STAFF 11:18:00 PM EDT PHYSICIANAdmitter: RONEY Olivares Patient discharged. Emergency Attender: CHANDAN ED STAFF H 08/12/2019 07:06:00 AM [facility] PHYSICIANAttender: STAFF ED EST - 08/13/2019 [facility] STAFF PHYSICIANAdmitter: CHANDAN 03:25:00 PM EST ED STAFF PHYSICIAN Patient discharged. Emergency Attender: MORGAN ED STAFF H 07/31/2019 07:05:00 PM [facility] PHYSICIANAttender: STAFF ED EST - 07/31/2019 [facility] STAFF PHYSICIANAdmitter: 09:45:[address] [facility] ED STAFF PHYSICIAN Patient discharged. Insurance Providers Payer name Policy type Policy ID Covered Covered green party's Policy P june / Coverage green party ID relationship to Roberto Inf ormation type roberto HIP HMO [id number] SP [id number] 01 1 VALUE [id number] SP [id number] OPTIONS-MEDI 1 CAID HIP MEDICAID [id number] SP [id number] HIP MEDICAID [id number] SP [id number] MEDICAID [id number] SP [id number] VALUE [id number] SP [id number] OPTIONS-MEDI 01 CAID MEDICAID [id number] SP [id number] O O Problems, Conditions, and Diagnoses Code Display Name Description Problem Type Effective Data Sour ce(s) Dates 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 0 [facility] substance abuse, SUBSTANCE ABUSE, 03:41:00 PM M edical Center uncomplicated UNCOMPLICATED EDT F12.10 Cannabis abuse, CANNABIS ABUSE, Diagnosis 12/22/2019 [facility] uncomplicated UNCOMPLICATED 03:41:00 PM Medical Center EDT 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 0 Name Value Range Interpretation Description [...] by Test d">Urine Medical strip Specific Center [place] </content>>= 1.030 H<content styleCode="Beba lics"> (1.015-1.025 )</content> pH of Urine by 4.5-8.0 <content Saint Test strip styleCode="Lesia Leonie d">Urine pH Medical </content>6.0 Center <content styleCode="Beba lics"> (4.5-8.0 )</content> Protein NEGATIVE <content [facility] [Mass/volume] styleCode="Lesia Leonie in Urine by d">Urine Medical Test strip Protein Center </content>30 MG/DL<content styleCode="Beba lics"> (NEGATIVE MG/DL)</conten t> Hemoglobin NEGATIVE <content [facility] [Presence] in styleCode="Lesia Leonie Urine by Test d">Urine Blood Medical strip </content>TRAC Center E <content styleCode="Beba lics"> (NEGATIVE )</content> Urobilinogen 0.2-1.0 <content [facility] [Units/volume] styleCode="Lesia Leonie in Urine by d">Urine Medical Test strip Urobilinogen Center </content>0.2 MG/DL<content styleCode="Beba lics"> (0.2-1.0 MG/DL)</conten t> Nitrite NEGATIVE <content Saint [Presence] in styleCode="Lesia Leonie Urine by Test d">Urine Medical strip Nitrite Center </content>NEGA TIVE <content styleCode="Beba lics"> (NEGATIVE )</content> Leukocyte NEGATIVE <content Saint esterase styleCode="[facility] [place] [Presence] in d">Urine Medical Urine by Test Leukocyte Center strip </content>NEGA TIVE <content styleCode="Beba lics"> (NEGATIVE )</content> UNK 0-3 <content Saint styleCode="Lesia Zamans d">Urine White Medical Blood Cell Center </content>3-5 HPF<content styleCode="Beba lics"> (0-3 HPF)</content> UNK 0-3 <content Saint styleCode="Lesia Zamans d">Urine Red Medical Blood Cell Center </content>0-3 HPF<content styleCode="Beba lics"> (0-3 HPF)</content> UNK NEGATIVE <content Saint styleCode="Lesia Zamans d">Urine Medical Bacteria Center </content>FEW HPF<content styleCode="Beba lics"> (NEGATIVE HPF)</content> UNK NONE SEEN <content Saint styleCode="Lesia Zamans d">Epithelial Medical Cell Center </content>2-5 HPF<content styleCode="Beba lics"> (NONE SEEN HPF)</content> ID Date Data Source CHMROUTINECCDA.[id number] 12/22/2019 04:57:[address] [facility] -0400 Name Value Range Interpretation Description Data Sup porting Code Source(s) Document(s ) Cannabinoids <content [facility] [Presence] in styleCode="[facility] [place] Urine by Screen d">Cannabinoid Medical method >50 ng/mL s Center </content>PRES UMPTIVE POSITIVE NG/ML (Reference Range: not available)<br/ > ID Date Data Source Liver 12/22/2019 04:03:00 PM EDT [facility] Profile.[id number] Name Value Range Interpretation Description Data Sup [...] (0.2-1.3 MG/DL)</content> UNK 0.0-0.3 <content Saint styleCode="Bold"> [facility] Bilirubin, Direct Medical </content>< 0.2 Center MG/DL<content styleCode="Italic s"> (0.0-0.3 MG/DL)</content> Alkaline 38-126 <content [facility] phosphatase styleCode="Bold"> [facility] [Enzymatic Alkaline Medical activity/volume] Phosphatase (ALP) Cente r in Serum or Plasma </content>65 IU/L<content styleCode="Italic s"> (38-126 IU/L)</content> Alanine 7-50 <content [facility] aminotransferase styleCode="Bold"> [facility] [Enzymatic Alanine Medical activity/volume] Aminotransferase Center in Serum or Plasma (ALT) </content>23 IU/L<content styleCode="Italic s"> (7-50 IU/L)</content> ID Date Data Source HematologyRou.[id number] 12/22/2019 04:03:00 PM EDT [facility] 0400 Name Value Range Interpretation Description [...] (0.0 KCUMM)</content > ID Date Data Source GFR(Creatinine).[id number] 12/22/2019 04:03:[address] [facility] 0-0400 Name Value Range Interpretation Code Description Data Nieves rce(s) Supporting Document(s ) UNK > 60 <content [facility] styleCode="Bold"> Medical Cent er EGFR </content>101 GFR<content styleCode="Italic s"> (> 60 GFR)</content> ID Date Data Source [facility].[id number] 12/22/2019 04:03:00 PM EDT [facility] Name Value Range Interpretation Description Data Sup porting Code Source(s) Document(s ) Chloride 98-107 <content Saint [Moles/volume] in styleCode="Bold"> [facility] Serum or Plasma Chloride Medical </content>102 Center MEQ/L<content styleCode="Italic s"> (98-107 MEQ/L)</content> Sodium 137-145 Below low <content [facility] [Moles/volume] in normal styleCode="Bold"> Arpan phs Serum or Plasma Sodium Medical </content>136 Center MEQ/L L<content styleCode="Italic s"> (137-145 MEQ/L)</content> Potassium 3.5-5.3 <content [facility] [Moles/volume] in styleCode="Bold"> Arpan phs Serum or Plasma Potassium Medical </content>4.5 Center [...] MG/DL)</content> UNK > 60 <content Saint styleCode="Bold"> [place] EGFR Medical </content>101 Center GFR<content styleCode="Italic s"> [...] s"> (0.2-1.3 MG/DL)</content> ID Date Data Source LIPID.[id number] 08/13/2019 07:01:00 AM EST [facility] Center Name Value Range Interpretation Description Data Sup porting Code Source(s) Document(s ) UNK < 100 <content Saint styleCode="Lesia Leonie d">LDL-Cholest Medical padmini Center </content>39 MG/DL<content styleCode="Beba lics"> (< 100 MG/DL)</conten t> UNK > 60 <content Saint styleCode="Lesia Leonie d">HDL- Medical Cholesterol Center </content>68 MG/DL<content styleCode="Beba lics"> (> 60 MG/DL)</conten t> Triglyceride < 150 <content Saint [Mass/volume] in styleCode="[facility] Serum or Plasma d">Triglycerid Medical es Center </content>70 MG/DL<content styleCode="Beba lics"> (< 150 MG/DL)</conten t> Cholesterol -<200 <content Saint [Mass/volume] in styleCode="[facility] Serum or Plasma d">Cholesterol Medical </content>121 Center MG/DL<content styleCode="Beba lics"> (-<200 MG/DL)</conten t> ID Date Data Source CHMROUTINECCDA.[id number] 08/13/2019 07:01:00 AM [facility] -0500 Name Value Range Interpretation Code Description Data Nieves rce(s) Supporting Document(s ) UNK 4.2-5.8 Above high normal <content Powers s styleCode="Bold" Medical Cente r >Hemoglobin A1C </content>7.8 % H<content styleCode="Itali cs"> (4.2-5.8 %)</content> ID Date Data Source Liver 08/12/2019 08:45:[address] [facility] Profile.[id number] Name Value Range Interpretation Description Data Sup porting Code Source(s) Document(s ) Aspartate 17-59 Above high <content [facility] aminotransferase normal styleCode="Bold"> [facility] [Enzymatic Aspartate Medical activity/volume] Aminotransferase Center in Serum or Plasma (AST) </content>129 IU/L H<content styleCode="Italic s"> (17-59 IU/L)</content> Alanine 7-50 Above high <content [facility] aminotransferase normal styleCode="Bold"> [facility] hs [Enzymatic Alanine Medical activity/volume] Aminotransferase Center in Serum or Plasma (ALT) </content>105 IU/L H<content styleCode="Italic s"> (7-50 IU/L)</content> Alkaline 38-126 <content [facility] phosphatase styleCode="Bold"> Leonie [Enzymatic Alkaline Medical activity/volume] [...] s"> (3.5-5.0 G/DL)</content> ID Date Data Source HematologyRou.[id number] 08/12/2019 08:45:00 AM [facility] 0500 Name Value Range Interpretation Description Data Sup porting Code Source(s) Document(s ) Hematocrit 41.0-53. Below low normal <content [facility] [Volume 0 styleCode="Bold Leonie Fraction] of ">Hematocrit Medical Blood by </content>38.7 [...] ics"> (8.0-11.0 FL)</content> ID Date Data Source GFR(Creatinine).[id number] 08/12/2019 08:45:00 AM [facility] 0-0500 Name Value Range Interpretation Code Description Data Nieves rce(s) Supporting Document(s ) UNK > 60 <content [facility] styleCode="Bold"> Medical Cent er EGFR </content>114 GFR<content styleCode="Italic s"> (> 60 GFR)</content> ID Date Data Source BMP.[id number] 08/12/2019 08:45:00 AM EST [facility] Name Value Range Interpretation Description Data Sup porting Code Source(s) Document(s ) Potassium 3.5-5.3 <content [facility] [Moles/volume] in styleCode="Bold"> [facility] Serum or Plasma Potassium Medical </content>3.8 Center MEQ/L<content styleCode="Italic s"> (3.5-5.3 MEQ/L)</content> Chloride 98-107 <content [facility] [Moles/volume] in styleCode="Bold"> [facility] Serum or Plasma Chloride Medical </content>107 Center MEQ/L<content styleCode="Italic s"> (98-107 MEQ/L)</content> Sodium 137-145 <content [facility] [Moles/volume] in styleCode="Bold"> [facility] Serum or Plasma Sodium Medical </content>141 Center MEQ/L<content styleCode="Italic s"> (137-145 MEQ/L)</content> Carbon dioxide, 22-30 <content Saint total styleCode="Bold"> Leonie [Moles/volume] in Carbon Dioxide Medical Serum or Plasma </content>27 Center MEQ/L<content styleCode="Italic s"> (22-30 MEQ/L)</content> UNK 9-20 <content Saint styleCode="Bold"> Leonie BUN </content>19 Medical MG/DL<content Center styleCode="Italic s"> (9-20 MG/DL)</content> UNK > 60 <content Saint styleCode="Bold"> Leonie EGFR Medical </content>114 Center GFR<content styleCode="Italic s"> [...] s"> (7-50 IU/L)</content> ID Date Data Source Urinalysis.[id number] 08/12/2019 08:20:00 AM EST [facility] 0 Name Value Range Interpretation Description [...] by Test d">Urine Medical strip Specific Center [place] </content>>= 1.030 H<content styleCode="Beba lics"> (1.015-1.025 )</content> [...] t> Protein NEGATIVE <content [facility] [Mass/volume] styleCode="[facility] in [...] lics"> (NEGATIVE HPF)</content> ID Date Data Source CHMROUTINECCDA.[id number] 08/12/2019 08:20:00 AM EST [facility] -0500 Name Value Range Interpretation Description Data [...] Daily Smoker completed Daily Smoker [facility] 09:05:00 PM EST Medical C enter Smoking 07/31/2019 Daily Smoker completed Daily Smoker [facility] 07:15:00 PM EST Medical C enter Smoking 07/31/2019 Daily Smoker completed Daily Smoker [facility] 07:08:00 PM EST Medical C enter Vital Signs ID Date Data Source UNK Name Value Range Interpretation Code Description Data Source(s) Body temperature 37.014444 37.051849 [facility] Respiratory rate 16 /min 16 /min [facility] Oxygen saturation 98 % 98 % [facility] blood [facility] by Pulse oximetry Heart rate 75 /min 75 /min [facility] Diastolic blood 96 mm[Hg] 96 mm[Hg] [facility] Systolic blood 162 mm[Hg] 162 mm[Hg] [facility] Body temperature 36.870934 36.797256 [facility] Respiratory rate 19 /min 19 /min [facility] Oxygen saturation 99 % 99 % [facility] by Pulse oximetry Heart rate 88 /min 88 /min [facility] Diastolic blood 96 mm[Hg] 96 mm[Hg] [facility] Systolic blood 153 mm[Hg] 153 mm[Hg] [facility] Body temperature 37.220328 37.523139 [facility] Respiratory rate 20 /min 20 /min [facility] Oxygen saturation 92 % 92 % [facility] by Pulse oximetry Heart rate 102 /min 102 /min [facility] Diastolic blood 108 mm[Hg] 108 mm[Hg] [facility] Systolic blood 183 mm[Hg] 183 mm[Hg] [facility] Body temperature 36.608425 36.352991 [facility] Respiratory rate 18 /min 18 /min [facility] Oxygen saturation 98 % 98 % [facility] Arterial blood Medical Center by Pulse oximetry Heart rate 98 /min 98 /min [facility] Diastolic blood 92 mm[Hg] 92 mm[Hg] [facility] pressure Medical Center Systolic blood 135 mm[Hg] 135 mm[Hg] [facility] Body temperature 37.401171 37.841385 [facility] Respiratory rate 18 /min 18 /min [facility] Oxygen saturation 98 % 98 % [facility] Arterial blood Medical Center by Pulse oximetry Heart rate 91 /min 91 /min [facility] Diastolic blood 63 mm[Hg] 63 mm[Hg] [facility] pressure Medical Center Systolic blood 151 mm[Hg] 151 mm[Hg] [facility] Body temperature 36.324203 36.715657 [facility] Respiratory rate 18 /min 18 /min [facility] Oxygen saturation 98 % 98 % [facility] Arterial blood [facility] by Pulse oximetry Heart rate 109 /min 109 /min [facility] Diastolic blood 79 mm[Hg] 79 mm[Hg] [facility] pressure Medical Center Systolic blood 141 mm[Hg] 141 mm[Hg] [facility] pressure Medical Center Body weight 90.824469 kg 90.634471 kg [facility] Medical [place] Body temperature 36.427345 36.311099 [facility] Respiratory rate 17 /min 17 /min [facility] Oxygen saturation 96 % 96 % [facility] Arterial blood [facility] Center by Pulse oximetry Heart rate 79 /min 79 /min [facility] Body height 180.258665 180.820622 cm [facility] Medical Center Diastolic blood 79 mm[Hg] 79 mm[Hg] [facility] pressure Medical Center Systolic blood 131 mm[Hg] 131 mm[Hg] [facility] Body mass index 27.8 kg/m2 27.8 kg/m2 [facility] (BMI) [Ratio] Medical [facility] Body weight 111.237813 111.917736 kg [facility] Measured kg Medical Center Body temperature 37.817966 37.907337 [facility] Respiratory rate 20 /min 20 /min [facility] Oxygen saturation 100 % 100 % [facility] [place] in Arterial blood Medical Center by Pulse oximetry Heart rate 98 /min 98 /min [facility] Diastolic blood 103 mm[Hg] 103 mm[Hg] [facility] pressure [facility] Systolic blood 153 mm[Hg] 153 mm[Hg] [facility] pressure [facility]
[2020-05-12 04:11] VITALS: TEMP 98.2; BMI 30.7
[2020-05-12] MEDS ORDERED: ALBUTEROL SO4 2.5/IPRATROPIUM 0.5 INH SOL 3 ML VIAL.NEB. NEB ONE ×2 (04:12→04:16)
[2020-05-12] MEDS ORDERED: DEXAMETHASONE 4 MG TABLET (FP) PO ONE (04:20)
--- NOTE | 2020-05-12 04:20 | PDOC ---
History of Present Illness - General Chief Complaint: Shortness of Breath Stated Complaint: COUGH/DIFF BREATHING Time Seen by Provider: 05/12/20 03:51 - History of Present Illness Initial Comments: 05/12/20 05:38 70M w/hx HTN, HLD, CAD, asthma p/w acute onset sob after smoking marijuana. He reports "smoking a lot" and shortly after developing wheezing similar to prior asthma exacerbations. He reports taking x2 puffs of his rescue inhaler and presenting when the sob did not resolves. He denies prior intubations or ICU admissions due to asthma. He denies any fevers, chills, weakness, confusion, chest pain. Past History - Medical History Allergies/Adverse Reactions: Allergies Allergy/AdvReac Type Severity Reaction Status Date / Time No Known Allergies Allergy Verified 05/12/20 04:11 Home Medications: Ambulatory Orders Amlodipine Besylate 5 mg PO DAILY 08/13/19 Aspirin [Aspirin EC] 81 mg PO DAILY 08/13/19 Hydrochlorothiazide [Hctz -] 25 mg PO DAILY 08/13/19 Metformin HCl [Glucophage] 1,000 mg PO BIDAC 08/13/19 Albuterol 0.083% Nebulizer Carina [Ventolin 0.083% Nebulizer Soln -] 1 amp NEB Q4H PRN #1 amp 08/16/19 Aspirin [ASA -] 81 mg PO DAILY tab.chew 08/16/19 Budesonide/Formeterol Fumarate [SYMBICORT 160/4.5mcg -] 2 puff IH BID #1 inhaler 08/16/19 Insulin (Levemir) [Levemir Vial] 10 units SQ BID@0700,2200 #1 vial 08/16/19 Insulin Sliding Scale [Novolog Vial Sliding Scale -] 1 vial SQ ACHS #1 vial 08/16/19 Pantoprazole Sodium [Protonix -] 40 mg PO DAILY #30 tablet.ec 08/16/19 Alcohol Antiseptic Pads [Alcohol Prep Pad] 1 each TP ASDIR #1 box 08/17/19 Budesonide/Formeterol Fumarate [SYMBICORT 160/4.5mcg -] 2 inh PO BID #1 cannister 08/17/19 Insulin Sliding Scale [Novolog Vial Sliding Scale -] 1 vial SQ ACHS #1 vial 08/17/19 Miscellaneous Medical Supply [Glucometer Device] 1 each ASDIR #1 kit 08/17/19 Miscellaneous Medical Supply [Glucometer Test Strips #100] 1 each .ROUTE ASDIR #1 box 08/17/19 Montelukast Na [Singulair -] 10 mg PO HS #0 tablet 08/17/19 Montelukast Sodium [Singulair] 10 mg PO DAILY #30 tablet 08/17/19 Prednisone 10 mg PO DAILY #20 tablet 08/17/19 Syrge-Ndl,Ins 0.3 ml Half Bryan [Insulin Syringe] 1 each MC ASDIR #1 box 08/17/19 predniSONE [Deltasone -] 40 mg PO DAILY #8 tablet 09/04/19 Metformin HCl [Glucophage] 1,000 mg PO BID 30 Days #60 tablet 03/02/20 Amox-Tr/K Cl [Augmentin - 875Mg Tablet] 1 tab PO BID #20 tablet 05/08/20 Ibuprofen 600 mg PO QID PRN #20 tablet 05/08/20 Asthma: Yes COPD: No Diabetes: Yes HTN: Yes - Immunization History Immunization Up to Date: No - Psycho-Social/Smoking History Smoking History: Current every day smoker Have you smoked in the past 12 months: Yes Number of Cigarettes Smoked Daily: 20 Cigars Per Day: 0 Information on smoking cessation initiated: Yes 'Breaking Loose' booklet given: 08/14/19 - Substance Abuse Hx (Audit-C & DAST Scrn) How often the patient has a drink containing alcohol: Never Score: In Men: 4 or > Positive; In Women: 3 or > Positive: 0 Screen Result (Pos requires Nsg. Audit-10AR): Negative In the last yr the pt used illegal drug/Rx for NonMed reason: Yes Score: Yes response is considered Positive: 1 Screen Result (Positive result requires Nsg. DAST-10): Positive Review of Systems - Review of Systems Able to Perform ROS?: Yes Comments:: 05/12/20 06:00 GENERAL/CONSTITUTIONAL: No fever or chills. No weakness. HEAD, EYES, EARS, NOSE AND THROAT: No change in vision. No ear pain or discharge. No sore throat. CARDIOVASCULAR: No chest pain or shortness of breath RESPIRATORY: Wheezing, cough, sob. No hemoptysis. GASTROINTESTINAL: No nausea, vomiting, diarrhea or constipation. GENITOURINARY: No dysuria, frequency, or change in urination. MUSCULOSKELETAL: No joint or muscle swelling or pain. No neck or back pain. SKIN: No rash NEUROLOGIC: No headache, vertigo, loss of consciousness, or change in strength/sensation. ENDOCRINE: No increased thirst. No abnormal weight change HEMATOLOGIC/LYMPHATIC: No anemia, easy bleeding, or history of blood clots. ALLERGIC/IMMUNOLOGIC: No hives or skin allergy. *Physical Exam - Vital Signs Last Vital Signs Temp Pulse Resp BP Pulse Ox 98.2 F 106 H 20 145/99 91 L 05/12/20 04:09 05/12/20 04:09 05/12/20 04:09 05/12/20 04:09 05/12/20 04:09 - Physical Exam 05/12/20 06:00 GENERAL: Awake, alert, and fully oriented, in no acute distress HEAD: No signs of trauma, normocephalic, atraumatic EYES: PERRLA, EOMI, sclera anicteric, conjunctiva clear ENT: Auricles normal inspection, hearing grossly normal, nares patent, oropharynx clear without exudates. Moist mucosa NECK: Normal ROM, supple, no lymphadenopathy, JVD, or masses LUNGS: Bilateral expiratory wheezing. No distress, speaks full sentences HEART: Regular rate and rhythm, normal S1 and S2, no murmurs, rubs or gallops, peripheral pulses normal and equal bilaterally. ABDOMEN: Soft, nontender, normoactive bowel sounds. No guarding, no rebound. No masses EXTREMITIES : Normal inspection, Normal range of motion, no edema. No clubbing or cyanosis NEUROLOGICAL: Cranial nerves II through XII grossly intact. Normal speech, normal gait, no focal sensorimotor deficits SKIN: Warm, Dry, normal turgor, no rashes or lesions noted ED Treatment Course - RADIOLOGY Radiology Studies Ordered: Category Date Time Status CXR [CHEST PA & LAT] [RAD] Stat Radiology 05/12/20 04:12 Ordered Medical Decision Making - Medical Decision Making 05/12/20 06:00 55M w/hx asthma, HTN, HLD, CAD p/w acute onset wheezing s/p smoking marijuana likely representing uncomplicated asthma exacerbation. Ddx pneumonia, although patient afebrile, no known sick contacts. ACS possible but unlikely given wheezing on exam. Plan: Duoneb x3 Decadron CXR Dispo: Discharge --- On reassessment, bilateral expiratory wheezing present, improved from arrival. He reports feeling significantly better. O2% to 91% at this time. Plan for additional x2 albuterol nebulizers, reassessment. --- On reassessment, patient reports feeling well with normal breathing. Minimal expiratory wheezing on exam, with O2% at rest and ambulatory to 99%. Plan for discharge with close PCP follow up. Discharge - Discharge Information Problems reviewed: Yes Clinical Impression/Diagnosis: Asthma exacerbation Condition: Stable Disposition: HOME - Admission No - Follow up/Referral - Patient Discharge Instructions Patient Printed Discharge Instructions: DI for Asthma -- Adult Additional Instructions: You were seen in the ER for an asthma attack. Your breathing improved with medication. Follow up with your primary care provider as soon as possible, in the next 2-3 days. Return to the ER if you develop worsening wheezing, high fevers, chest pain, or difficulty breathing. - Post Discharge Activity
[2020-05-12] MEDS ORDERED: DEXAMETHASONE SOD PHOSPHATE 10 MG/1 ML VIAL ONE (04:23)
[2020-05-12] MEDS ORDERED: ALBUTEROL SO4 0.042% IH SOL 1.25 MG/3 ML VIAL.NEB NEB ONE (05:40)
[2020-05-12] MEDS ORDERED: ALBUTEROL SO4 0.083% IH SOL 2.5 MG/3 ML VIAL.NEB. NEB ONE (05:40)
[2020-05-12 06:21] VITALS: BP 158/96; PULSE 93
--- NOTE | 2020-05-13 06:57 | EKG ---
Test Reason : Blood Pressure : / mmHG Vent. Rate : 094 BPM Atrial Rate : 094 BPM P-R Int : 154 ms QRS Dur : 080 ms QT Int : 394 ms P-R-T Axes : 062 050 062 degrees QTc Int : 492 ms NORMAL SINUS RHYTHM PROLONGED QT ABNORMAL ECG WHEN COMPARED WITH ECG OF 29-APR-2020 23:36, NO SIGNIFICANT CHANGE WAS FOUND CLINICAL CORRELATION IS RECOMMENDED Confirmed by MARLENE JAIN, CLAUDIA ([id number]) on 05/13/2020 6:57:51 AM Referred By: Confirmed By:CLAUDIA ROSARIO MD
== END 2020-05-12 06:24 | disposition home or self-care (01) ==
LOC: JER 03:44
PROC: 3E0F7GC Introduction of Other Therapeutic Substance into Respiratory Tract, Via Natural or Artificial Opening (ICD-10-PCS; principal; 2020-05-12)
DX: J45.901 Unspecified asthma with (acute) exacerbation (principal)
CPT/HCPCS: 71046-TC-FY; 93005; 93010; 99284-25

== ENCOUNTER 2020-05-16 14:20 | Emergency (ER) | payer OTHER ==
[2020-05-16] MEDS ORDERED: predniSONE 20 MG TABLET (UD) PO ONE (14:40)
--- NOTE | 2020-05-16 14:40 | PDOC ---
Rapid Medical Evaluation Time Seen by Provider: 05/16/20 14:32 Medical Evaluation: Allergies Allergy/AdvReac Type Severity Reaction Status Date / Time No Known Allergies Allergy Verified 05/12/20 04:11 05/16/20 14:36 I performed a brief in-person evaluation of this patient. Pt is a 55 y/o male who presents to the ED with complaint of shortness of breath, wheezing and loss of voice. The patient Pertinent physical exam findings: diffuse wheezing, speaking in short sentences, O2% 94, no retractions I have ordered the following: duonebs, prednisone, cxr Patient to proceed to ED for further evaluation. Discharge Disposition - Diagnosis COPD exacerbation - Referrals - Patient Instructions - Post Discharge Activity
[2020-05-16 14:43] VITALS: BP 138/98; PULSE 71; TEMP 98.4; BMI 30.7
--- OUTSIDE RECORDS SUMMARY | 2020-05-16 14:47 | XMS ---
:1965 [facility] Providers Name Role Phone ED [...] is protected by Article 27-F of the [facility] Public Health law. If you continue you may haveaccess to information: Regarding HIV / AIDS; Provided by facilities licensed or operated by the [facility] Office of Mental Health; or Provided by the [facility] Office for People With Developmental Disabilities. If such information is present, then the following [facility] mandated warning applies: This information has been [...] law may result in a fine or residential sentence or both. A general authorization for the release of medical or other information is NOT sufficient authorization for further disclosure. Encounters Encounter Providers Location Date Indications Data Source(s ) Emergency Attender: RONEY Blanco 12/22/2019 [facility] YAN SIM 03:41:[address] [facility] CAttender: STAFF ED - 12/22/2019 STAFF 11:18:00 PM EDT PHYSICIANAdmitter: RONEY Olivares Patient discharged. Emergency Attender: CHANDAN ED STAFF H 08/12/2019 07:06:00 AM [facility] PHYSICIANAttender: STAFF ED EST - 08/13/2019 [facility] STAFF PHYSICIANAdmitter: CHANDAN 03:25:00 PM EST ED STAFF PHYSICIAN Patient discharged. Emergency Attender: MORGAN ED STAFF H 07/31/2019 07:05:00 PM [facility] PHYSICIANAttender: STAFF ED EST - 07/31/2019 [facility] STAFF PHYSICIANAdmitter: 09:45:00 PM EST [facility] ED STAFF PHYSICIAN Patient discharged. Insurance Providers Payer name Policy type Policy ID Covered Covered alliance party's Policy P june / Coverage alliance party ID relationship to Roberto Inf ormation type roberto HIP MEDICAID [id number] SP [id number] 1 HIP HMO [id number] SP [id number] 1 VALUE [id number] SP [id number] 01 OPTIONS-MEDI 1 CAID HIP MEDICAID [id number] SP [id number] 1 MEDICAID [id number] SP [id number] VALUE [id number] SP [id number] OPTIONS-MEDI 01 CAID MEDICAID [id number] SP [id number] O O Problems, Conditions, and Diagnoses Code Display Name Description Problem Type Effective Data Sour ce(s) Dates 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 0 [facility] substance abuse, SUBSTANCE ABUSE, 03:41:00 PM [...] r EST Results ID Date Data Source Urinalysis.[id number] 12/22/2019 04:57:00 PM EDT [facility] 0 Name Value Range Interpretation Description [...] )</content> Glucose NEGATIVE <content Saint [Mass/volume] styleCode="Lesia Zamans in [...] by Test d">Urine Medical strip Specific [place] </content>>= 1.030 H<content styleCode="Beba lics"> (1.015-1.025 )</content> [...] (NONE SEEN HPF)</content> ID Date Data Source CHMROUTINECCDA.[id number] 12/22/2019 04:57:00 PM EDT [facility] -0400 Name Value Range Interpretation Description Data Sup porting Code Source(s) Document(s ) Cannabinoids <content Saint [Presence] in styleCode="Lesia [place] Urine by Screen d">Cannabinoid Medical method >50 ng/mL s Center </content>PRES UMPTIVE POSITIVE NG/ML (Reference Range: not available)<br/ > ID Date Data Source Liver 12/22/2019 04:03:00 PM EDT [facility] Profile.[id number] Name Value Range Interpretation Description Data Sup [...] (0.2-1.3 MG/DL)</content> UNK 0.0-0.3 <content Saint styleCode="Bold"> [facility] Bilirubin, Direct Medical </content>< 0.2 Center MG/DL<content styleCode="Italic s"> (0.0-0.3 MG/DL)</content> Alkaline 38-126 <content Saint phosphatase styleCode="Bold"> [facility] [Enzymatic Alkaline Medical activity/volume] Phosphatase (ALP) Cente r in Serum or Plasma </content>65 IU/L<content styleCode="Italic s"> (38-126 IU/L)</content> Alanine 7-50 <content [facility] aminotransferase styleCode="Bold"> [facility] [Enzymatic Alanine Medical activity/volume] Aminotransferase Center in Serum or Plasma (ALT) </content>23 IU/L<content styleCode="Italic s"> (7-50 IU/L)</content> ID Date Data Source HematologyRou.[id number] 12/22/2019 04:03:00 PM EDT [facility] 0400 Name Value Range Interpretation Description Data Sup porting Code Source(s) Document(s ) Erythrocytes 4.4-5.9 <content Saint [#/volume] in styleCode="Bold [facility] Blood by ">Red Blood Medical Automated count [...] Platelets 130-400 <content Saint [#/volume] in styleCode="Bold [place] Blood by ">Platelet Medical Automated count Count [...] (0.0 KCUMM)</content > ID Date Data Source GFR(Creatinine).[id number] 12/22/2019 04:03:00 PM EDT [facility] 0-0400 Name Value Range Interpretation Code Description Data Nieves rce(s) Supporting Document(s ) UNK > 60 <content [facility] styleCode="Bold"> Medical Cent er EGFR </content>101 GFR<content styleCode="Italic s"> (> 60 GFR)</content> ID Date Data Source BMP.[id number] 12/22/2019 04:03:00 PM EDT [facility] Name Value Range Interpretation Description Data Sup porting Code Source(s) Document(s ) Chloride 98-107 <content Saint [Moles/volume] in styleCode="Bold"> [facility] Serum or Plasma Chloride Medical [...] s"> (0.2-1.3 MG/DL)</content> ID Date Data Source LIPID.[id number] 08/13/2019 07:01:00 AM EST [facility] Center Name Value Range Interpretation Description Data Sup porting Code Source(s) Document(s ) UNK < 100 <content Saint styleCode="Lesia Leonie d">LDL-Cholest Medical padmini Center </content>39 MG/DL<content styleCode="Beba lics"> (< 100 MG/DL)</conten t> UNK > 60 <content Saint styleCode="Lesia Leonie d">HDL- Medical Cholesterol Center </content>68 MG/DL<content styleCode="Beba lics"> (> 60 MG/DL)</conten t> Triglyceride < 150 <content Saint [Mass/volume] in styleCode="[facility] Serum or Plasma d">Triglycerid Medical Center </content>70 MG/DL<content styleCode="Beba lics"> (< 150 MG/DL)</conten t> Cholesterol -<200 <content Saint [Mass/volume] in styleCode="[facility] Serum or Plasma d">Cholesterol Medical </content>121 Center MG/DL<content styleCode="Beba lics"> (-<200 MG/DL)</conten t> ID Date Data Source CHMROUTINECCDA.[id number] 08/13/2019 07:01:00 AM [facility] -0500 Name Value Range Interpretation Code Description Data Nieves rce(s) Supporting Document(s ) UNK 4.2-5.8 Above high normal <content [place] s styleCode="Bold" Medical Cente r >Hemoglobin A1C </content>7.8 % H<content styleCode="Itali cs"> (4.2-5.8 %)</content> ID Date Data Source Liver 08/12/2019 08:45:[address] [facility] Profile.[id number] Name Value Range Interpretation Description Data Sup porting Code Source(s) Document(s ) Aspartate 17-59 Above high <content [facility] aminotransferase normal styleCode="Bold"> [facility] [Enzymatic Aspartate Medical activity/volume] Aminotransferase Center in Serum or Plasma (AST) </content>129 IU/L H<content styleCode="Italic s"> (17-59 IU/L)</content> Alanine 7-50 Above high <content [facility] aminotransferase normal styleCode="Bold"> [facility] [Enzymatic Alanine Medical activity/volume] Aminotransferase Center in Serum or Plasma (ALT) </content>105 IU/L H<content styleCode="Italic s"> (7-50 IU/L)</content> Alkaline 38-126 <content [facility] phosphatase styleCode="Bold"> Leonie [Enzymatic Alkaline Medical [...] s"> (3.5-5.0 G/DL)</content> ID Date Data Source HematologyRou.[id number] 08/12/2019 08:45:00 AM [facility]SE [facility] 0500 Name Value Range Interpretation Description Data [...] ics"> (8.0-11.0 FL)</content> ID Date Data Source GFR(Creatinine).[id number] 08/12/2019 08:45:00 AM JOSE [facility] 0-0500 Name Value Range Interpretation Code Description Data Nieves rce(s) Supporting Document(s ) UNK > 60 <content [facility] styleCode="Bold"> Medical Cent er EGFR </content>114 GFR<content styleCode="Italic s"> (> 60 GFR)</content> ID Date Data Source [id number] 08/12/2019 08:45:00 AM EST [facility] Name Value Range Interpretation Description Data Sup porting Code Source(s) Document(s ) Potassium 3.5-5.3 <content [facility] [Moles/volume] in styleCode="Bold"> [facility] Serum or Plasma Potassium Medical </content>3.8 Center MEQ/L<content styleCode="Italic s"> (3.5-5.3 MEQ/L)</content> Chloride 98-107 <content Saint [Moles/volume] in styleCode="Bold"> [facility] Serum or Plasma Chloride Medical </content>107 Center MEQ/L<content styleCode="Italic s"> (98-107 MEQ/L)</content> Sodium 137-145 <content Saint [Moles/volume] in styleCode="Bold"> [facility] Serum or Plasma Sodium Medical </content>141 Center [...] s"> (7-50 IU/L)</content> ID Date Data Source Urinalysis.[id number] 08/12/2019 08:20:00 AM EST [facility] 0 Name Value Range Interpretation Description [...] by Test d">Urine Medical strip Specific [facility] [place] </content>>= 1.030 H<content styleCode="Beba lics"> (1.015-1.025 )</content> [...] HPF)</content> Nitrite NEGATIVE <content Saint [Presence] in styleCode="eLsia aZmans Urine by Test d">Urine Medical strip Nitrite [...] lics"> (NEGATIVE HPF)</content> ID Date Data Source CHMROUTINECCDA.[id number] 08/12/2019 08:20:00 AM EST [facility] -0500 Name Value Range Interpretation Description Data [...] Smoker completed Daily Smoker [facility] 09:05:00 PM EST Medical C enter Smoking 07/31/2019 Daily Smoker completed Daily Smoker [facility] 07:15:00 PM EST Medical C enter Smoking 07/31/2019 Daily Smoker completed Daily Smoker [facility] 07:08:00 PM EST Medical C enter Vital Signs ID Date Data Source UNK Name Value Range Interpretation Code Description Data Source(s) Body temperature 37.052158 37.347296 [facility] Respiratory rate 16 /min 16 /min [facility] Oxygen saturation 98 % 98 % [facility] blood [facility] by Pulse oximetry Heart rate 75 /min 75 /min [facility] Diastolic blood 96 mm[Hg] 96 mm[Hg] [facility] Systolic blood 162 mm[Hg] 162 mm[Hg] [facility] Body temperature 36.826145 36.652184 [facility] Respiratory rate 19 /min 19 /min [facility] Oxygen saturation 99 % 99 % [facility] by Pulse oximetry Heart rate 88 /min 88 /min [facility] Diastolic blood 96 mm[Hg] 96 mm[Hg] [facility] Systolic blood 153 mm[Hg] 153 mm[Hg] [facility] Body temperature 37.226987 37.659707 [facility] Respiratory rate 20 /min 20 /min [facility] Oxygen saturation 92 % 92 % [facility] by Pulse oximetry Heart rate 102 /min 102 /min [facility] Diastolic blood 108 mm[Hg] 108 mm[Hg] [facility] Systolic blood 183 mm[Hg] 183 mm[Hg] [facility] Body temperature 36.441657 36.205444 [facility] Respiratory rate 18 /min 18 /min [facility] Oxygen saturation 98 % 98 % [facility] Arterial blood Medical Center by Pulse oximetry Heart rate 98 /min 98 /min [facility] Diastolic blood 92 mm[Hg] 92 mm[Hg] [facility] pressure [facility] Center Systolic blood 135 mm[Hg] 135 mm[Hg] [facility] Medical Center Body temperature 37.589567 37.109695 [facility] Respiratory rate 18 /min 18 /min [facility] Oxygen saturation 98 % 98 % [facility] Arterial blood [facility] Center by Pulse oximetry Heart rate 91 /min 91 /min [facility] Diastolic blood 63 mm[Hg] 63 mm[Hg] [facility] pressure [facility] Center Systolic blood 151 mm[Hg] 151 mm[Hg] [facility] Medical Center Body temperature 36.311380 36.210294 [facility] Respiratory rate 18 /min 18 /min [facility] Oxygen saturation 98 % 98 % [facility] Arterial blood [facility] by Pulse oximetry Heart rate 109 /min 109 /min [facility] Diastolic blood 79 mm[Hg] 79 mm[Hg] [facility] pressure [facility] Center Systolic blood 141 mm[Hg] 141 mm[Hg] [facility] pressure Medical Center Body weight 90.055545 kg 90.143948 kg [facility] Medical Blanket Body temperature 36.999193 36.193361 [facility] Respiratory rate 17 /min 17 /min [facility] Oxygen saturation 96 % 96 % [facility] Arterial blood [facility] by Pulse oximetry Heart rate 79 /min 79 /min [facility] Body height 180.832688 180.584722 cm [facility] Center Diastolic blood 79 mm[Hg] 79 mm[Hg] [facility] pressure [facility] Center Systolic blood 131 mm[Hg] 131 mm[Hg] [facility] Medical Center Body mass index 27.8 kg/m2 27.8 kg/m2 [facility] (BMI) [Ratio] Medical [facility] ter Body weight 111.598086 111.793074 kg [facility] Measured kg Medical Center Body temperature 37.994824 37.934303 [facility] Respiratory rate 20 /min 20 /min [facility] Oxygen saturation 100 % 100 % [facility] osep in Arterial blood Medical Center by Pulse oximetry Heart rate 98 /min 98 /min [facility] Diastolic blood 103 mm[Hg] 103 mm[Hg] [facility] pressure Medical Center Systolic blood 153 mm[Hg] 153 mm[Hg] [facility] pressure [facility]
[2020-05-16] MEDS: ALBUTEROL SO4 2.5/IPRATROPIUM 0.5 INH SOL 3 ML VIAL.NEB. NEB SCH ×6 (15:31→16:46)
--- NOTE | 2020-05-16 15:39 | PDOC ---
History of Present Illness - General Chief Complaint: Shortness of Breath Stated Complaint: SICK Time Seen by Provider: 05/16/20 14:32 - History of Present Illness Initial Comments: This is a 55 YOM h/o asthma and diabetes who presents for acute shortness of breath since one day. Patient reports that he is hoarse and has difficulty speaking given shortness of breath. He denies CP, N/V/D, fever, chills, recent sick contacts or recent travel. ROS Constitutional: No Fever, No Chills ENT/Mouth: No Hearing Changes Eyes: No Vision Changes Cardiovascular: No Chest Pain, No SOB Respiratory: No Cough, No Sputum Gastrointestinal: No Nausea, No Vomiting, No Diarrhea, No Hematochezia, No Melena Genitourinary: No Dysuria, No Urinary Frequency, No Hematuria, No Urinary Incontinence Musculoskeletal: No Arthralgias, No Myalgias Neuro: No Weakness, No Numbness, No Headache, No Recent Falls 05/18/20 21:26 Past History - Medical History Allergies/Adverse Reactions: Allergies Allergy/AdvReac Type Severity Reaction Status Date / Time No Known Allergies Allergy Verified 05/16/20 14:42 Home Medications: Ambulatory Orders Amlodipine Besylate 5 mg PO DAILY 08/13/19 Aspirin [Aspirin EC] 81 mg PO DAILY 08/13/19 Hydrochlorothiazide [Hctz -] 25 mg PO DAILY 08/13/19 Metformin HCl [Glucophage] 1,000 mg PO BIDAC 08/13/19 Albuterol 0.083% Nebulizer Carina [Ventolin 0.083% Nebulizer Soln -] 1 amp NEB Q4H PRN #1 amp 08/16/19 Aspirin [ASA -] 81 mg PO DAILY tab.chew 08/16/19 Budesonide/Formeterol Fumarate [SYMBICORT 160/4.5mcg -] 2 puff IH BID #1 inhaler 08/16/19 Insulin (Levemir) [Levemir Vial] 10 units SQ BID@0700,2200 #1 vial 08/16/19 Insulin Sliding Scale [Novolog Vial Sliding Scale -] 1 vial SQ ACHS #1 vial 08/03 11/20 Pantoprazole Sodium [Protonix -] 40 mg PO DAILY #30 tablet.ec 08/16/19 Alcohol Antiseptic Pads [Alcohol Prep Pad] 1 each TP ASDIR #1 box 08/17/19 Budesonide/Formeterol Fumarate [SYMBICORT 160/4.5mcg -] 2 inh PO BID #1 cannister 08/17/19 Insulin Sliding Scale [Novolog Vial Sliding Scale -] 1 vial SQ ACHS #1 vial 08/17/19 Miscellaneous Medical Supply [Glucometer Device] 1 each ASDIR #1 kit 08/17/19 Miscellaneous Medical Supply [Glucometer Test Strips #100] 1 each .ROUTE ASDIR #1 box 08/17/19 Montelukast Na [Singulair -] 10 mg PO HS #0 tablet 08/17/19 Montelukast Sodium [Singulair] 10 mg PO DAILY #30 tablet 08/17/19 Prednisone 10 mg PO DAILY #20 tablet 08/17/19 Syrge-Ndl,Ins 0.3 ml Half Bryan [Insulin Syringe] 1 each MC ASDIR #1 box 08/17/19 predniSONE [Deltasone -] 40 mg PO DAILY #8 tablet 09/04/19 Metformin HCl [Glucophage] 1,000 mg PO BID 30 Days #60 tablet 03/02/20 Amox-Tr/K Cl [Augmentin - 875Mg Tablet] 1 tab PO BID #20 tablet 05/08/20 Ibuprofen 600 mg PO QID PRN #20 tablet 05/08/20 Asthma: Yes COPD: No Diabetes: Yes HTN: Yes - Immunization History Immunization Up to Date: No - Psycho-Social/Smoking History Smoking History: Never smoked Have you smoked in the past 12 months: Yes Number of Cigarettes Smoked Daily: 20 Cigars Per Day: 0 'Breaking Loose' booklet given: 08/14/19 *Physical Exam - Vital Signs Last Vital Signs Temp Pulse Resp BP Pulse Ox 98.4 F 71 22 H 138/98 95 05/16/20 14:40 05/16/20 14:40 05/16/20 14:40 05/16/20 14:40 05/16/20 14:40 - Physical Exam General Appearance: Yes: Nourished, Appropriately Dressed, Mild Distress HEENT: positive: EOMI, BELEM, Normal ENT Inspection, Symmetrical, TMs Normal, Pharynx Normal, Muffled/Hoarse voice Neck: positive: Trachea midline, Normal Thyroid Respiratory/Chest: positive: Wheezing Cardiovascular: positive: Regular Rhythm, Regular Rate, S1, S2 Gastrointestinal/Abdominal: positive: Normal Bowel Sounds, Flat, Soft Musculoskeletal: positive: Normal Inspection Extremity: positive: Normal Capillary Refill, Normal Inspection ED Treatment Course - LABORATORY CBC & Chemistry Diagram: 05/16/20 16:30 05/16/20 16:30 Medical Decision Making - Medical Decision Making 55 YOM h/o asthma presents with acute asthma exacerbation - RR 22, vitals otherwise wnl - exam reveals hoarse voice and bilateral expiratory wheeze - CBC, CMP, CXR, duoneb, steroids 05/18/20 21:26 Patient has glucose in 300s Labs otherwise wnl CXR unconcerning will DC patient to home with return precautions 05/18/20 21:28 Discharge - Discharge Information Problems reviewed: Yes Clinical Impression/Diagnosis: COPD exacerbation Condition: Improved Disposition: HOME - Admission No - Follow up/Referral Referrals: [facility] – [place] [facility] [Provider Group] - Patient Discharge Instructions Patient Printed Discharge Instructions: Lifestyle Changes as Effective as Drugs in Preventing Progression to Diabet, Complications of Type 2 Diabetes, Asthma -- Adult Additional Instructions: You were seen in the ER for shortness of breath related to your asthma. While in the ER you received breathing treatments, a dose of steroids, labs and chest xr ay. Your labs and chest xray were unconcerning. You did however have a blood sugar in the high 300s which you should seek outpatient medical follow up for. You reported feeling better after receiving your breathing treatments. You were considered medically stable and safe to return home. Please follow up at the [facility] regarding your asthma exacerbation and your diabetes. When you are home please take the medication that we prescribed for you. We prescribed you prednisone which you should take 40 mgs every day for the next four days, starting tomorrow. Also it is important that you take your metformin every day as uncontrolled blood sugar can be incredibly harmful to your health. In regards to your asthma, avoid smoke exposure (this includes cigarettes), avoid cold air, or anything else that irritates your lungs. Please return to the ER if you experience any of the following: You have severe shortness of breath. Your lips or nails turn blue or michelle. The skin around your neck and ribs pulls in with each breath. You have shortness of breath, even after you take your short-term medicine as directed. Your peak flow numbers are in the red zone of your AAP. Call your doctor if: You run out of medicine before your next refill is due. Your symptoms get worse. You need to take more medicine than usual to control your symptoms. You have questions or concerns about your condition or care. - Post Discharge Activity
[2020-05-16] MEDS ORDERED: ALBUTEROL SO4 2.5/IPRATROPIUM 0.5 INH SOL 3 ML VIAL.NEB. NEB ONE (15:57)
[2020-05-16] MEDS ORDERED: predniSONE 20 MG TABLET (UD) ONE (15:58)
--- NOTE | 2020-05-16 16:19 | PDOC ---
Attending Attestation - Resident Resident Name: Fred Jordan - ED Attending Attestation I have performed the following: I have examined & evaluated the patient, The case was reviewed & discussed with the resident, I agree w/resident's findings & plan, Exceptions are as noted - HPI HPI: 05/16/20 16:17 55 M with h/o HTN, HLD, CAD, asthma, presenting to ED with SOB, cough, wheezing. Pt was seen here 4 days ago for similar complaint and treated for asthma flare. Pt was given nebs and steroids and states he felt improved but returns today because he did not have any meds at home. Pt denies F/C. Denies CP. - Physicial Exam PE: 05/16/20 16:18 See resident exam - Medical Decision Making 05/16/20 16:18 55 M with SOB, wheezing. Likely asthma flare. - Labs - Nebs, steroids - CXR Discharge - Discharge Information Clinical Impression/Diagnosis: COPD exacerbation - Follow up/Referral - Patient Discharge Instructions - Post Discharge Activity
[2020-05-16 17:20] LABS: BASO % 0.7 % (0-2.0); EOS % 6.1 % (0-4.5); HEMATOCRIT 46.9 % (35.4-49); HEMOGLOBIN 15.8 GM/dL (11.7-16.9); MCH 32.8 pg (25.7-33.7); MCHC 33.6 g/dl (32.0-35.9); MEAN CELL VOLUME 97.5 fl (80-96); MONO % 11.2 % (3.8-10.2); PLATELET COUNT 288 K/MM3 (134-434); RBC 4.81 M/mm3 (4.00-5.60); RDW 14.6 % (11.9-15.9); WHITE BLOOD COUNT 7.6 K/mm3 (4.0-10.0)
[2020-05-16 18:00] LABS: ALBUMIN 3.2 g/dl (3.4-5.0); BILIRUBIN,TOTAL 0.5 mg/dL (0.2-1); BLOOD UREA NITROGEN 12.1 mg/dL (7-18); CALCIUM 8.3 mg/dL (8.5-10.1); POTASSIUM 5.1 mmol/L (3.5-5.1); TOT PROT 6.5 g/dl (6.4-8.2)
== END 2020-05-16 19:17 | disposition home or self-care (01) ==
LOC: JER 14:20
PROC: 3E0F7GC Introduction of Other Therapeutic Substance into Respiratory Tract, Via Natural or Artificial Opening (ICD-10-PCS; principal; 2020-05-16)
DX: J44.1 Chronic obstructive pulmonary disease with (acute) exacerbation (principal)
CPT/HCPCS: 36415; 71046-TC-FY; 80053; 85025; 99285-25

== ENCOUNTER 2020-06-12 02:57 | Emergency (ER) | payer OTHER ==
[2020-06-12] MEDS ORDERED: DEXAMETHASONE SOD PHOSPHATE 10 MG/1 ML VIAL IVPUSH ONE (04:35)
[2020-06-12] MEDS ORDERED: ALBUTEROL SO4 2.5/IPRATROPIUM 0.5 INH SOL 3 ML VIAL.NEB. NEB ONE ×3 (04:44→06:17)
[2020-06-12 04:45] VITALS: TEMP 97.7; BMI 29.2
[2020-06-12] MEDS ORDERED: DEXAMETHASONE SOD PHOSPHATE 10 MG/1 ML VIAL ONE (04:45)
[2020-06-12] MEDS: ALBUTEROL SO4 2.5/IPRATROPIUM 0.5 INH SOL 3 ML VIAL.NEB. NEB SCH ×4 (05:02→06:58)
[2020-06-12 05:50] LABS: BASO % 0.5 % (0-2.0); EOS % 1.1 % (0-4.5); HEMATOCRIT 52.7 % (35.4-49); HEMOGLOBIN 17.4 GM/dL (11.7-16.9); LYMPH % 19.1 % (8-40); MCH 31.3 pg (25.7-33.7); MEAN PLT VOLUME 8.6 fl (7.5-11.1); MONO % 9.5 % (3.8-10.2); NEUT % 69.8 % (42.8-82.8); PLATELET COUNT 279 K/MM3 (134-434); RBC 5.54 M/mm3 (4.00-5.60); WHITE BLOOD COUNT 11.4 K/mm3 (4.0-10.0)
[2020-06-12 06:13] LABS: POTASSIUM 4.7 mmol/L (3.5-5.1)
[2020-06-12 06:15] LABS: CALCIUM 9.4 mg/dL (8.5-10.1)
[2020-06-12 06:16] LABS: ALBUMIN 3.8 g/dl (3.4-5.0); BLOOD UREA NITROGEN 19.2 mg/dL (7-18)
[2020-06-12 06:20] LABS: BILIRUBIN,TOTAL 0.6 mg/dL (0.2-1)
[2020-06-12 06:24] LABS: N-TERMINAL BNP 97.1 pg/ml (5-125)
[2020-06-12 06:27] LABS: CREATININE 1.4 mg/dL (0.55-1.3)
[2020-06-12] MEDS ORDERED: INSULIN REGULAR HUMAN 100 UNITS/ML *VIAL SQ ONE (06:31)
[2020-06-12] MEDS ORDERED: LACTATED RINGERS SOLUTION 1000 ML INFUS.BAG IV ONE (06:31)
[2020-06-12 07:10] VITALS: BP 128/78; PULSE 108
== END 2020-06-12 07:10 | disposition left against medical advice (07) ==
LOC: JER 02:57
PROC: 3E0F7GC Introduction of Other Therapeutic Substance into Respiratory Tract, Via Natural or Artificial Opening (ICD-10-PCS; principal; 2020-06-12)
PROC: 3E0F7GC Introduction of Other Therapeutic Substance into Respiratory Tract, Via Natural or Artificial Opening (ICD-10-PCS; 2020-06-12)
PROC: 3E033GC Introduction of Other Therapeutic Substance into Peripheral Vein, Percutaneous Approach (ICD-10-PCS; 2020-06-12)
DX: J44.1 Chronic obstructive pulmonary disease with (acute) exacerbation (principal)
CPT/HCPCS: 36415; 80053; 83880; 84484; 85025; 93005; 93010; 99285-25; J1100

== ENCOUNTER 2020-09-12 05:13 | Inpatient (IN) | payer OTHER ==
[2020-09-12] MEDS ORDERED: ALBUTEROL SO4 2.5/IPRATROPIUM 0.5 INH SOL 3 ML VIAL.NEB. NEB ONE (05:42)
[2020-09-12] MEDS ORDERED: DEXAMETHASONE SOD PHOSPHATE 4 MG/1 ML VIAL IVPUSH ONE ×2 (05:46→05:51)
[2020-09-12] MEDS ORDERED: DEXAMETHASONE SOD PHOSPHATE 10 MG/1 ML VIAL ONE ×2 (06:14→09:38)
[2020-09-12 06:18] LABS: BASO % 0.8 % (0-2.0); EOS % 5.7 % (0-4.5); HEMATOCRIT 44.4 % (35.4-49); HEMOGLOBIN 15.1 GM/dL (11.7-16.9); MCH 31.9 pg (25.7-33.7); MEAN CELL VOLUME 93.8 fl (80-96); MONO % 8.5 % (3.8-10.2); PLATELET COUNT 330 K/MM3 (134-434); RBC 4.74 M/mm3 (4.00-5.60); RDW 13.5 % (11.9-15.9); VENOUS BASE EXCESS -3.7 mmol/L (-2-2); VENOUS O2 SATURATION 91.4 % (70-80); VENOUS PCO2 54.8 mmHg (38-52); VENOUS PH 7.263 (7.310-7.410)
[2020-09-12 06:25] LABS: INR 1.03 (0.83-1.09); PROTHROMBIN TIME (PATIENT) 12.4 SEC (9.7-13.0)
[2020-09-12] MEDS: ALBUTEROL SO4 2.5/IPRATROPIUM 0.5 INH SOL 3 ML VIAL.NEB. NEB SCH ×3 (06:27→21:48)
[2020-09-12 06:28] LABS: ACTIVATED PTT 33.2 SECONDS (25.2-36.5)
[2020-09-12 06:47] LABS: CHLORIDE 99 mmol/L (98-107); SODIUM 136 mmol/L (136-145)
[2020-09-12] MEDS ORDERED: chlordiazePOXIDE HCL 25 MG CAPSULE PO ONE (06:47)
[2020-09-12 06:49] LABS: ALBUMIN 3.1 g/dl (3.4-5.0); ANION GAP 10 MMOL/L (8-16); CALCIUM 8.9 mg/dL (8.5-10.1); CO2 27 mmol/L (21-32)
[2020-09-12 06:50] LABS: BLOOD UREA NITROGEN 9.7 mg/dL (7-18); GLUCOSE,RANDOM 267 mg/dL (74-106)
[2020-09-12 06:52] LABS: BILIRUBIN,DIRECT 0.3 mg/dL (0.0-0.2); SGOT/AST 13 U/L (15-37); SGPT/ALT 18 U/L (13-61)
[2020-09-12 06:53] LABS: CREATININE 0.7 mg/dL (0.55-1.3); LDH 239 U/L (87-246)
[2020-09-12 06:54] LABS: BILIRUBIN,TOTAL 0.6 mg/dL (0.2-1); TOT PROT 6.6 g/dl (6.4-8.2)
[2020-09-12 06:55] LABS: ALK PHOS 84 U/L (45-117)
[2020-09-12 06:58] LABS: N-TERMINAL BNP 361.8 pg/ml (5-125)
[2020-09-12] MEDS ORDERED: chlordiazePOXIDE HCL 25 MG CAPSULE ONE (06:58)
[2020-09-12] MEDS ORDERED: MAGNESIUM SULF 50% (8.12 MEQ/2 ML-1 GM VIAL) IVPB ONE (07:15)
[2020-09-12] MEDS ORDERED: MAGNESIUM SULFATE IN WATER 2 GM/50 ML IVPB IVPB ONE (07:28)
[2020-09-12 07:34] LABS: MAGNESIUM 1.8 mg/dL (1.8-2.4)
[2020-09-12] MEDS ORDERED: chlordiazePOXIDE HCL 25 MG CAPSULE PO PRN (08:48)
[2020-09-12] MEDS ORDERED: ENOXAPARIN NA (PORCINE) 40 MG/0.4 ML DISP.SYRIN SQ ONE (09:39)
[2020-09-12] MEDS ORDERED: ALBUTEROL SO4 0.083% IH SOL 2.5 MG/3 ML VIAL.NEB. NEB ONE (09:52)
[2020-09-12] MEDS: ENOXAPARIN NA (PORCINE) 40 MG/0.4 ML DISP.SYRIN SQ SCH (09:57)
[2020-09-12] MEDS: chlordiazePOXIDE HCL 25 MG CAPSULE PO SCH ×3 (10:15→22:28)
[2020-09-12] MEDS: INSULIN SLIDING SCALE (NOVOLOG) 1 VIAL SQ SCH ×3 (10:35→22:28)
[2020-09-12 12:28] LABS: EPI CELLS 18 /uL (0-25.1); HYALINE CASTS 1 /uL (0-3.1); URINE APPEARANCE CLEAR; URINE BACTERIA 235 /uL (0-1359); URINE BILIRUBIN NEGATIVE (NEGATIVE); URINE COLOR YELLOW; URINE GLUCOSE (UA) 3+ (NEGATIVE); URINE KETONE TRACE (NEGATIVE); URINE LEUK ESTERASE NEGATIVE (NEGATIVE); URINE NITRITE NEGATIVE (NEGATIVE); URINE PROTEIN 1+ (NEGATIVE); URINE RBC 2 /uL (0-23.9); URINE UROBILINOGEN 0.2 mg/dL (0.2-1.0); URINE WBC 53 /uL (0-25.8)
[2020-09-12 13:25] VITALS: BMI 24.5
[2020-09-12] MEDS ORDERED: ALBUTEROL SO4 0.042% IH SOL 1.25 MG/3 ML VIAL.NEB NEB PRN (16:34)
[2020-09-12 18:37] LABS: POTASSIUM 5.2 mmol/L (3.5-5.1)
[2020-09-12 18:39] LABS: BLOOD UREA NITROGEN 21.2 mg/dL (7-18); CALCIUM 9.1 mg/dL (8.5-10.1)
[2020-09-12 18:43] LABS: CREATININE 1.3 mg/dL (0.55-1.3)
[2020-09-12] MEDS ORDERED: INSULIN (NOVOLOG) ASPART 100 UNITS/ML 10ML VIAL SQ ONE (19:36)
[2020-09-12] MEDS: BUDESONIDE/FORMETEROL FUMARATE 160/4.5 mcg INHALER IH SCH (22:29)
[2020-09-13] MEDS: chlordiazePOXIDE HCL 25 MG CAPSULE PO SCH ×4 (06:10→23:00)
[2020-09-13] MEDS: INSULIN SLIDING SCALE (NOVOLOG) 1 VIAL SQ SCH ×4 (06:11→21:33)
[2020-09-13] MEDS: ALBUTEROL SO4 2.5/IPRATROPIUM 0.5 INH SOL 3 ML VIAL.NEB. NEB SCH ×4 (08:49→20:12)
[2020-09-13 09:21] LABS: HEMATOCRIT 41.1 % (35.4-49); HEMOGLOBIN 13.7 GM/dL (11.7-16.9); MCH 31.7 pg (25.7-33.7); MCHC 33.4 g/dl (32.0-35.9); MEAN PLT VOLUME 8.5 fl (7.5-11.1); PLATELET COUNT 308 K/MM3 (134-434); RBC 4.33 M/mm3 (4.00-5.60); RDW 13.6 % (11.9-15.9); WHITE BLOOD COUNT 9.3 K/mm3 (4.0-10.0)
[2020-09-13 09:42] LABS: POTASSIUM 3.7 mmol/L (3.5-5.1)
[2020-09-13] MEDS ORDERED: DEXAMETHASONE SOD PHOSPHATE 4 MG/1 ML VIAL IVPB SCH (10:00)
[2020-09-13 10:05] LABS: CALCIUM 8.5 mg/dL (8.5-10.1)
[2020-09-13 10:06] LABS: ALBUMIN 2.5 g/dl (3.4-5.0); BLOOD UREA NITROGEN 17.2 mg/dL (7-18); MAGNESIUM 2.1 mg/dL (1.8-2.4)
[2020-09-13 10:09] LABS: CREATININE 0.9 mg/dL (0.55-1.3); PHOSPHOROUS 2.9 mg/dL (2.5-4.9)
[2020-09-13 10:10] LABS: BILIRUBIN,TOTAL 0.8 mg/dL (0.2-1); TOT PROT 5.7 g/dl (6.4-8.2)
[2020-09-13] MEDS: ENOXAPARIN NA (PORCINE) 40 MG/0.4 ML DISP.SYRIN SQ SCH (10:22)
[2020-09-13] MEDS: BUDESONIDE/FORMETEROL FUMARATE 160/4.5 mcg INHALER IH SCH ×2 (10:22→21:34)
[2020-09-13] MEDS: LISINOPRIL 20 MG TABLET PO SCH (10:22)
[2020-09-14] MEDS: chlordiazePOXIDE HCL 25 MG CAPSULE PO SCH ×2 (05:06→10:52)
[2020-09-14] MEDS: INSULIN SLIDING SCALE (NOVOLOG) 1 VIAL SQ SCH ×2 (06:13→12:08)
[2020-09-14 08:40] LABS: HEMATOCRIT 41.3 % (35.4-49); HEMOGLOBIN 13.9 GM/dL (11.7-16.9); MCH 31.9 pg (25.7-33.7); MCHC 33.5 g/dl (32.0-35.9); MEAN CELL VOLUME 95.2 fl (80-96); PLATELET COUNT 303 K/MM3 (134-434); RBC 4.34 M/mm3 (4.00-5.60); RDW 13.4 % (11.9-15.9); WHITE BLOOD COUNT 6.8 K/mm3 (4.0-10.0)
[2020-09-14] MEDS: ALBUTEROL SO4 2.5/IPRATROPIUM 0.5 INH SOL 3 ML VIAL.NEB. NEB SCH ×3 (08:40→15:35)
[2020-09-14 09:06] LABS: POTASSIUM 4.1 mmol/L (3.5-5.1)
[2020-09-14 09:27] LABS: CALCIUM 8.4 mg/dL (8.5-10.1)
[2020-09-14 09:28] LABS: BLOOD UREA NITROGEN 14.2 mg/dL (7-18)
[2020-09-14 09:31] LABS: CREATININE 0.8 mg/dL (0.55-1.3)
[2020-09-14] MEDS: ENOXAPARIN NA (PORCINE) 40 MG/0.4 ML DISP.SYRIN SQ SCH (10:52)
[2020-09-14] MEDS: BUDESONIDE/FORMETEROL FUMARATE 160/4.5 mcg INHALER IH SCH (10:52)
[2020-09-14] MEDS ORDERED: INSULIN (LEVEMIR) 100 UNITS/ML UNITS SQ SCH (11:30)
[2020-09-14] MEDS: LISINOPRIL 20 MG TABLET PO SCH (12:07)
[2020-09-14 19:05] VITALS: BP 139/93; PULSE 88; TEMP 98
[2020-09-15] MEDS ORDERED: chlordiazePOXIDE HCL 10 MG CAPSULE PO PRN
[2020-09-15] MEDS ORDERED: chlordiazePOXIDE HCL 10 MG CAPSULE PO SCH (05:00)
[2020-09-16] MEDS ORDERED: chlordiazePOXIDE HCL 10 MG CAPSULE PO SCH (05:00)
[2020-09-17] MEDS ORDERED: chlordiazePOXIDE HCL 10 MG CAPSULE PO ONE (05:00)
== END 2020-09-14 16:00 | disposition left against medical advice (07) | DRG 133 ==
LOC: JER 05:13 → JERBED 07:46 → J5WEST-2 11:30
PROVIDERS: ADMIT Internal Medicine; ATTEND Internal Medicine
PROC: HZ2ZZZZ Detoxification Services for Substance Abuse Treatment (ICD-10-PCS; principal; 2020-09-12)
DX: J96.01 Acute respiratory failure with hypoxia (principal); J45.901 Unspecified asthma with (acute) exacerbation; E11.65 Type 2 diabetes mellitus with hyperglycemia; F12.10 Cannabis abuse, uncomplicated; F14.10 Cocaine abuse, uncomplicated; I10 Essential (primary) hypertension; F10.139 Alcohol abuse with withdrawal, unspecified
CPT/HCPCS: 36415; 71045-TC-FY; 80048; 80053; 80307; 81003; 82248; 82550; 82728; 82803; 82962; 83605; 83615; 83735; 83880; 84100; 84484; 85025; 85027; 85379; 85610; 85730; 86140; 86900; 87086; 87804; 93005; 93010; 94640; 99285-25; C9803; U0003

== ENCOUNTER 2020-12-13 22:54 | Inpatient (IN) | payer OTHER ==
[2020-12-13] MEDS ORDERED: LORazepam 2 MG/ML SDV VIAL ONE (23:59)
[2020-12-14] MEDS ORDERED: LORazepam 2 MG/ML SDV VIAL IVPUSH ONE (00:05)
[2020-12-14 00:43] LABS: BASO % 1.1 % (0-2.0); EOS % 8.9 % (0-4.5); HEMATOCRIT 45.6 % (35.4-49); HEMOGLOBIN 15.5 GM/dL (11.7-16.9); LYMPH % 29.6 % (8-40); MCH 31.9 pg (25.7-33.7); MCHC 33.9 g/dl (32.0-35.9); MEAN CELL VOLUME 93.9 fl (80-96); MEAN PLT VOLUME 9.7 fl (7.5-11.1); MONO % 10.6 % (3.8-10.2); NEUT % 49.8 % (42.8-82.8); PLATELET COUNT 215 K/MM3 (134-434); RBC 4.86 M/mm3 (4.00-5.60); RDW 13.5 % (11.9-15.9); WHITE BLOOD COUNT 7.4 K/mm3 (4.0-10.0)
[2020-12-14 00:51] LABS: CHLORIDE 95 mmol/L (98-107)
[2020-12-14 00:55] LABS: ALBUMIN 2.6 g/dl (3.4-5.0); BLOOD UREA NITROGEN 6.9 mg/dL (7-18); CALCIUM 7.5 mg/dL (8.5-10.1); CO2 32 mmol/L (21-32); GLUCOSE,RANDOM 363 mg/dL (74-106); MAGNESIUM 2.6 mg/dL (1.8-2.4)
[2020-12-14 00:58] LABS: CREATININE 0.9 mg/dL (0.55-1.3)
[2020-12-14 01:00] LABS: TOT PROT 8.4 g/dl (6.4-8.2)
[2020-12-14] MEDS ORDERED: diazePAM CARPU-JECT 10 MG/2 ML DISP.SYRIN ONE ×2 (01:47→05:09)
[2020-12-14] MEDS ORDERED: diazePAM CARPU-JECT 10 MG/2 ML DISP.SYRIN IVPUSH ONE (01:48)
[2020-12-14 02:14] LABS: ANION GAP -13 MMOL/L (8-16); SODIUM 114 mmol/L (136-145)
[2020-12-14 02:17] LABS: URINE APPEARANCE CLEAR; URINE BILIRUBIN NEGATIVE (NEGATIVE); URINE COLOR YELLOW
[2020-12-14 02:18] LABS: PH,URINE 5.5 (5.0-8.0); URINE KETONE NEGATIVE (NEGATIVE); URINE LEUK ESTERASE NEGATIVE (NEGATIVE); URINE NITRITE NEGATIVE (NEGATIVE); URINE PROTEIN 30 (NEGATIVE)
[2020-12-14 02:19] LABS: EPI CELLS 4 /uL (0-25.1); HYALINE CASTS 0 /uL (0-3.1); URINE BACTERIA 16 /uL (0-1359); URINE RBC 4 /uL (0-23.9); URINE WBC 15 /uL (0-25.8)
[2020-12-14 02:27] LABS: VENOUS BASE EXCESS 4.9 mmol/L (-2-2); VENOUS O2 SATURATION 89.8 % (70-80); VENOUS PCO2 62.3 mmHg (38-52); VENOUS PH 7.343 (7.310-7.410)
[2020-12-14 02:31] LABS: METHADONE, UR NEGATIVE ng/ml (CUTOFF=300); OPIATES, URI NEGATIVE ng/ml (CUTOFF=300); PHENCYCLIDINE,URINE NEGATIVE ng/ml (CUTOFF=25); URINE AMPHETAMINES NEGATIVE ng/ml (CUTOFF=500); URINE BARBITURATES NEGATIVE ng/ml (CUTOFF=200); URINE BENZODIAZEPINES NEGATIVE ng/ml (CUTOFF=200)
[2020-12-14 02:36] LABS: COCAINE, UR POSITIVE ng/ml (CUTOFF=300)
[2020-12-14 02:43] LABS: BLOOD UREA NITROGEN 6.7 mg/dL (7-18)
[2020-12-14 02:46] LABS: CREATININE 0.8 mg/dL (0.55-1.3)
[2020-12-14 02:47] LABS: BILIRUBIN,TOTAL 0.8 mg/dL (0.2-1)
[2020-12-14 04:37] LABS: CALCIUM 8.7 mg/dL (8.5-10.1); TOT PROT 6.2 g/dl (6.4-8.2)
[2020-12-14] MEDS ORDERED: FOLIC ACID INJECTION - 1 MG, THIAMINE HCL 100 MG, MULTIVIT INJECTION ADULT 10 ML in SOD... IVPB ONE (04:58)
[2020-12-14] MEDS ORDERED: ETOMIDATE 40 MG/20 ML VIAL IVPUSH ONE (05:12)
[2020-12-14] MEDS ORDERED: ROCURONIUM BROMIDE 50 MG/5 ML VIAL IVPUSH ONE (05:13)
[2020-12-14] MEDS ORDERED: RAPID SEQUENCE INTUBATION KIT NR ONE (05:13)
[2020-12-14] MEDS ORDERED: MIDAZOLAM 100 MG/100 ML MG IVPB SCH (05:15)
[2020-12-14] MEDS ORDERED: MIDAZOLAM 100 MG/100 ML MG IVPB ONE (05:30)
[2020-12-14] MEDS ORDERED: PROPOFOL 1,000,000 MCG/100 ML VIAL ONE (05:31)
[2020-12-14] MEDS ORDERED: FENTANYL NS IVPB 500 MCG/100 ML BAG IVPB SCH (05:45)
[2020-12-14] MEDS: PROPOFOL 1,000,000 MCG/100 ML VIAL IVPB SCH (06:10)
[2020-12-14 06:43] LABS: N-TERMINAL BNP 1189.2 pg/ml (5-125)
[2020-12-14] MEDS ORDERED: FENTANYL NS IVPB 500 MCG/100 ML BAG IVPB ONE (06:45)
[2020-12-14 07:02] LABS: ARTERIAL BLOOD GAS BASE EXCESS 2.6 mmol/L (-2-2); ARTERIAL BLOOD GAS PO2 86.4 mmHg (80-100); ARTERIAL BLOOD GAS pH 7.273 (7.350-7.450)
[2020-12-14 07:09] LABS: VENT MODE A/C; VENT RATE 16
[2020-12-14] MEDS ORDERED: THIAMINE HCL 200 MG/2 ML VIAL IVPB SCH (10:00)
[2020-12-14 10:38] LABS: BASO % 0.6 % (0-2.0); HEMATOCRIT 44.8 % (35.4-49); HEMOGLOBIN 14.7 GM/dL (11.7-16.9); LYMPH % 29.5 % (8-40); MCH 31.3 pg (25.7-33.7); MCHC 32.9 g/dl (32.0-35.9); MEAN CELL VOLUME 95.2 fl (80-96); MEAN PLT VOLUME 9.3 fl (7.5-11.1); MONO % 10.2 % (3.8-10.2); NEUT % 49.7 % (42.8-82.8); PLATELET COUNT 196 K/MM3 (134-434); RDW 13.3 % (11.9-15.9); WHITE BLOOD COUNT 5.9 K/mm3 (4.0-10.0)
[2020-12-14 10:44] LABS: INR 0.93 (0.83-1.09); PROTHROMBIN TIME (PATIENT) 11.5 SEC (9.7-13.0)
[2020-12-14 10:46] LABS: ACTIVATED PTT 27.3 SECONDS (25.2-36.5)
[2020-12-14] MEDS: MUPIROCIN 2% TOPICAL OINTMENT FOR DECOLONIZATION NS SCH ×2 (11:00→21:25)
[2020-12-14 11:22] LABS: ALBUMIN 2.5 g/dl (3.4-5.0)
[2020-12-14] MEDS: PANTOPRAZOLE SODIUM 40 MG VIAL IVPUSH SCH (11:22)
[2020-12-14 11:23] LABS: BLOOD UREA NITROGEN 6.9 mg/dL (7-18)
[2020-12-14 11:26] LABS: CREATININE 0.7 mg/dL (0.55-1.3)
[2020-12-14 11:27] LABS: BILIRUBIN,TOTAL 0.9 mg/dL (0.2-1); TOT PROT 5.1 g/dl (6.4-8.2)
[2020-12-14] MEDS: INSULIN SLIDING SCALE (NOVOLOG) 1 VIAL SQ SCH ×4 (11:35→21:30)
[2020-12-14] MEDS: HEPARIN NA (PORCINE) 5,000 UNITS/ML 1ML VIAL SQ SCH ×2 (13:43→21:25)
[2020-12-14 14:12] LABS: EPI CELLS 28 /uL (0-25.1); HYALINE CASTS 12 /uL (0-3.1); PH,URINE 5.5 (5.0-8.0); URINE APPEARANCE TURBID; URINE BACTERIA 66 /uL (0-1359); URINE BILIRUBIN NEGATIVE (NEGATIVE); URINE COLOR DK YELLOW; URINE GLUCOSE (UA) 3+ (NEGATIVE); URINE KETONE TRACE (NEGATIVE); URINE LEUK ESTERASE NEGATIVE (NEGATIVE); URINE NITRITE NEGATIVE (NEGATIVE); URINE PROTEIN 2+ (NEGATIVE); URINE RBC 18 /uL (0-23.9); URINE UROBILINOGEN 0.2 mg/dL (0.2-1.0); URINE WBC 11 /uL (0-25.8)
[2020-12-14 14:34] LABS: URINE CRYSTALS NON SEEN /hpf
[2020-12-14 14:43] LABS: ARTERIAL BLD GAS O2 SATURATION 90.8 mmHg (95-98); ARTERIAL BLOOD GAS BASE EXCESS 6.5 mmol/L (-2-2); ARTERIAL BLOOD GAS PO2 59.7 mmHg (80-100); ARTERIAL BLOOD GAS pH 7.412 (7.350-7.450)
[2020-12-14 14:44] LABS: ALLENS TEST POSITIVE; VENT MODE AC; VENT RATE 16
[2020-12-14] MEDS ORDERED: MIDAZOLAM IN 0.9 % SOD.CHLORID 1 MG/1 ML PLAST..BAG ONE (16:33)
[2020-12-14] MEDS ORDERED: DEXTROSE 50%-WATER - 25 GM/50 ML VIAL IVPUSH ONE (17:09)
[2020-12-14] MEDS ORDERED: DEXTROSE 50%-WATER 25 GM/50 ML DISP.SYRIN ONE (17:10)
[2020-12-14] MEDS: MIDAZOLAM IN 0.9 % SOD.CHLORID 100 MG/100 ML PLAST..BAG IVPB SCH (17:21)
[2020-12-14] MEDS: DEXTROSE 5%-NORMAL SALINE 1,000 ML IV SCH (17:25)
[2020-12-14] MEDS ORDERED: ACETAMINOPHEN 1000 MG/100 ML VIAL (NON FORMULARY) IVPB ONE (20:01)
[2020-12-14] MEDS: THIAMINE HCL 200 MG/2 ML VIAL IVPB SCH (21:25)
[2020-12-14] MEDS: CHLORHEXIDINE GLUCONATE 4% CLEANSER FOR DECOLONIZATION TP SCH (21:26)
[2020-12-14] MEDS ORDERED: LORazepam 2 MG/ML SDV VIAL ONE (23:16)
[2020-12-15] MEDS: THIAMINE HCL 200 MG/2 ML VIAL IVPB SCH ×4 (03:30→20:02)
[2020-12-15 06:08] LABS: ARTERIAL BLD GAS O2 SATURATION 89.8 mmHg (95-98); ARTERIAL BLOOD GAS BASE EXCESS 5.5 mmol/L (-2-2); ARTERIAL BLOOD GAS PO2 54.9 mmHg (80-100); ARTERIAL BLOOD GAS pH 7.453 (7.350-7.450)
[2020-12-15 06:10] LABS: ALLENS TEST POSITIVE
[2020-12-15 06:11] LABS: VENT MODE V-AC; VENT RATE 16
[2020-12-15 06:32] LABS: BASO % 0.3 % (0-2.0); HEMATOCRIT 48.9 % (35.4-49); HEMOGLOBIN 16.6 GM/dL (11.7-16.9); LYMPH % 9.3 % (8-40); MCH 31.7 pg (25.7-33.7); MCHC 33.9 g/dl (32.0-35.9); MEAN CELL VOLUME 93.6 fl (80-96); MEAN PLT VOLUME 9.2 fl (7.5-11.1); MONO % 7.6 % (3.8-10.2); NEUT % 81.8 % (42.8-82.8); PLATELET COUNT 201 K/MM3 (134-434); RBC 5.23 M/mm3 (4.00-5.60); WHITE BLOOD COUNT 16.9 K/mm3 (4.0-10.0)
[2020-12-15 06:52] LABS: ALBUMIN 2.2 g/dl (3.4-5.0)
[2020-12-15 06:53] LABS: BLOOD UREA NITROGEN 10.3 mg/dL (7-18); MAGNESIUM 1.7 mg/dL (1.8-2.4)
[2020-12-15 06:56] LABS: CREATININE 0.7 mg/dL (0.55-1.3); PHOSPHOROUS 3.6 mg/dL (2.5-4.9)
[2020-12-15 06:57] LABS: BILIRUBIN,TOTAL 1.4 mg/dL (0.2-1); TOT PROT 4.9 g/dl (6.4-8.2)
[2020-12-15] MEDS: INSULIN SLIDING SCALE (NOVOLOG) 1 VIAL SQ SCH ×4 (07:49→21:44)
[2020-12-15] MEDS ORDERED: PT OWN MED DRAWER 7, Y5N ONE (09:34)
[2020-12-15] MEDS: MIDAZOLAM IN 0.9 % SOD.CHLORID 100 MG/100 ML PLAST..BAG IVPB SCH ×2 (10:34→21:43)
[2020-12-15] MEDS: MUPIROCIN 2% TOPICAL OINTMENT FOR DECOLONIZATION NS SCH ×2 (10:35→21:44)
[2020-12-15] MEDS: HEPARIN NA (PORCINE) 5,000 UNITS/ML 1ML VIAL SQ SCH ×3 (10:35→21:44)
[2020-12-15] MEDS: PANTOPRAZOLE SODIUM 40 MG VIAL IVPUSH SCH (10:36)
[2020-12-15] MEDS: MULTIVIT INJ. ADULT COMBO WITH VIT K 1 COMBO 10 ML VIAL IV SCH (11:34)
[2020-12-15] MEDS: PROPOFOL 1,000,000 MCG/100 ML VIAL IVPB SCH (11:41)
[2020-12-15] MEDS ORDERED: ACETAMINOPHEN 1000 MG/100 ML VIAL (NON FORMULARY) IVPB STA (12:57)
[2020-12-15] MEDS ORDERED: PIPERACILLIN/TAZOBACTAM 3.375 GM VIAL IVPB ONE (17:12)
[2020-12-15] MEDS ORDERED: DEXTROSE 5%-WATER - 50 ML IVPB ONE (17:12)
[2020-12-15] MEDS: PIPERACILLIN/TAZOB 3.375 GM 3.375 GM in DEXTROSE 5%-WATER - 50 ML IVPB SCH (17:29)
[2020-12-15] MEDS: DEXTROSE 5%-NORMAL SALINE 1,000 ML IV SCH (17:29)
[2020-12-15] MEDS ORDERED: PIPERACILLIN/TAZOB 3.375 GM 3.375 GM in DEXTROSE 5%-WATER - 50 ML IVPB SCH (18:00)
[2020-12-15] MEDS: CHLORHEXIDINE GLUCONATE 4% CLEANSER FOR DECOLONIZATION TP SCH (21:44)
[2020-12-16] MEDS ORDERED: PIPERACILLIN/TAZOBACTAM 3.375 GM VIAL IVPB ONE ×3 (01:18→17:04)
[2020-12-16] MEDS ORDERED: DEXTROSE 5%-WATER - 50 ML IVPB ONE ×3 (01:18→17:04)
[2020-12-16] MEDS: PIPERACILLIN/TAZOB 3.375 GM 3.375 GM in DEXTROSE 5%-WATER - 50 ML IVPB SCH ×3 (01:26→17:10)
[2020-12-16] MEDS: PROPOFOL 1,000,000 MCG/100 ML VIAL IVPB SCH ×2 (01:27→05:55)
[2020-12-16] MEDS: THIAMINE HCL 200 MG/2 ML VIAL IVPB SCH ×3 (03:55→19:26)
[2020-12-16] MEDS: HEPARIN NA (PORCINE) 5,000 UNITS/ML 1ML VIAL SQ SCH ×3 (05:56→22:21)
[2020-12-16] MEDS: INSULIN SLIDING SCALE (NOVOLOG) 1 VIAL SQ SCH ×4 (06:12→22:22)
[2020-12-16] MEDS: MIDAZOLAM IN 0.9 % SOD.CHLORID 100 MG/100 ML PLAST..BAG IVPB SCH ×2 (07:45→17:20)
[2020-12-16] MEDS: MUPIROCIN 2% TOPICAL OINTMENT FOR DECOLONIZATION NS SCH ×2 (10:31→22:21)
[2020-12-16] MEDS: PANTOPRAZOLE SODIUM 40 MG VIAL IVPUSH SCH (10:32)
[2020-12-16] MEDS: MULTIVIT INJ. ADULT COMBO WITH VIT K 1 COMBO 10 ML VIAL IV SCH (11:00)
[2020-12-16] MEDS: hydrALAZINE HCL 20 MG/ML VIAL IVPUSH PRN (12:15)
[2020-12-16] MEDS: LORazepam 2 MG/ML SDV VIAL IVPUSH PRN (12:35)
[2020-12-16] MEDS: LACTATED RINGERS SOLUTION 1,000 ML/1,000 ML INFUS.BAG IV SCH (22:20)
[2020-12-16] MEDS: CHLORHEXIDINE GLUCONATE 4% CLEANSER FOR DECOLONIZATION TP SCH (22:21)
[2020-12-17] MEDS ORDERED: PIPERACILLIN/TAZOBACTAM 3.375 GM VIAL IVPB ONE ×3 (00:48→18:32)
[2020-12-17] MEDS ORDERED: DEXTROSE 5%-WATER - 50 ML IVPB ONE ×3 (00:48→18:32)
[2020-12-17] MEDS: PIPERACILLIN/TAZOB 3.375 GM 3.375 GM in DEXTROSE 5%-WATER - 50 ML IVPB SCH ×3 (01:39→18:30)
[2020-12-17] MEDS: THIAMINE HCL 200 MG/2 ML VIAL IVPB SCH ×3 (02:48→20:56)
[2020-12-17] MEDS: HEPARIN NA (PORCINE) 5,000 UNITS/ML 1ML VIAL SQ SCH ×4 (05:35→21:53)
[2020-12-17] MEDS: INSULIN SLIDING SCALE (NOVOLOG) 1 VIAL SQ SCH ×4 (06:14→22:01)
[2020-12-17 06:51] LABS: HEMATOCRIT 52.2 % (35.4-49); HEMOGLOBIN 17.3 GM/dL (11.7-16.9); MCH 31.7 pg (25.7-33.7); MCHC 33.2 g/dl (32.0-35.9); MEAN CELL VOLUME 95.5 fl (80-96); MEAN PLT VOLUME 9.3 fl (7.5-11.1); PLATELET COUNT 206 K/MM3 (134-434); RBC 5.47 M/mm3 (4.00-5.60); RDW 13.6 % (11.9-15.9); WHITE BLOOD COUNT 12.4 K/mm3 (4.0-10.0)
[2020-12-17 07:27] LABS: BLOOD UREA NITROGEN 21.8 mg/dL (7-18); CALCIUM 8.5 mg/dL (8.5-10.1); MAGNESIUM 2.2 mg/dL (1.8-2.4)
[2020-12-17 07:30] LABS: CREATININE 0.8 mg/dL (0.55-1.3); PHOSPHOROUS 3.9 mg/dL (2.5-4.9)
[2020-12-17] MEDS: MUPIROCIN 2% TOPICAL OINTMENT FOR DECOLONIZATION NS SCH ×2 (09:45→21:53)
[2020-12-17] MEDS: hydrALAZINE HCL 20 MG/ML VIAL IVPUSH PRN ×2 (11:42→20:45)
[2020-12-17] MEDS: LISINOPRIL 20 MG TABLET PO SCH (11:43)
[2020-12-17] MEDS: PANTOPRAZOLE SODIUM 40 MG VIAL IVPUSH SCH (11:43)
[2020-12-17] MEDS: MULTIVIT INJ. ADULT COMBO WITH VIT K 1 COMBO 10 ML VIAL IV SCH (11:43)
[2020-12-17] MEDS: LORazepam 2 MG/ML SDV VIAL IVPUSH PRN ×3 (12:30→23:53)
[2020-12-17] MEDS ORDERED: LORazepam 1 MG TABLET PO PRN (19:09)
[2020-12-17] MEDS ORDERED: ALBUTEROL SO4 2.5/IPRATROPIUM 0.5 INH SOL 3 ML VIAL.NEB. NEB ONE (20:18)
[2020-12-17] MEDS ORDERED: LORazepam 2 MG/ML SDV VIAL IVPUSH ONE (20:50)
[2020-12-17 21:00] LABS: ARTERIAL BLOOD GAS BASE EXCESS 5.2 mmol/L (-2-2); ARTERIAL BLOOD GAS PO2 50.9 mmHg (80-100); ARTERIAL BLOOD GAS pH 7.493 (7.350-7.450)
[2020-12-17 21:06] LABS: ALLENS TEST POSITIVE
[2020-12-17] MEDS: CHLORHEXIDINE GLUCONATE 4% CLEANSER FOR DECOLONIZATION TP SCH (21:53)
[2020-12-18] MEDS: hydrALAZINE HCL 20 MG/ML VIAL IVPUSH PRN (00:21)
[2020-12-18] MEDS ORDERED: DEXMEDETOMIDINE IN 0.9 % NACL 200 MCG/50 ML EACH IVPB SCH (01:00)
[2020-12-18] MEDS ORDERED: DEXMEDETOMIDINE IN 0.9 % NACL 400 MCG/100 ML VIAL IVPB SCH (01:15)
[2020-12-18] MEDS ORDERED: PIPERACILLIN/TAZOBACTAM 3.375 GM VIAL IVPB ONE ×3 (02:32→14:36)
[2020-12-18] MEDS ORDERED: DEXTROSE 5%-WATER - 50 ML IVPB ONE ×3 (02:32→14:36)
[2020-12-18] MEDS: THIAMINE HCL 200 MG/2 ML VIAL IVPB SCH ×3 (02:53→19:12)
[2020-12-18] MEDS: PIPERACILLIN/TAZOB 3.375 GM 3.375 GM in DEXTROSE 5%-WATER - 50 ML IVPB SCH ×2 (02:53→10:12)
[2020-12-18] MEDS: LACTATED RINGERS SOLUTION 1,000 ML/1,000 ML INFUS.BAG IV SCH ×2 (03:28→21:50)
[2020-12-18] MEDS: HEPARIN NA (PORCINE) 5,000 UNITS/ML 1ML VIAL SQ SCH ×3 (05:40→22:18)
[2020-12-18] MEDS: LORazepam 2 MG/ML SDV VIAL IVPUSH PRN ×3 (06:00→17:19)
[2020-12-18] MEDS: INSULIN SLIDING SCALE (NOVOLOG) 1 VIAL SQ SCH ×4 (06:31→22:20)
[2020-12-18] MEDS: MUPIROCIN 2% TOPICAL OINTMENT FOR DECOLONIZATION NS SCH ×2 (10:11→22:15)
[2020-12-18] MEDS: PANTOPRAZOLE SODIUM 40 MG VIAL IVPUSH SCH (10:12)
[2020-12-18] MEDS: LISINOPRIL 20 MG TABLET PO SCH (10:12)
[2020-12-18] MEDS ORDERED: PT OWN MED DRAWER 7, Y5N ONE (10:14)
[2020-12-18] MEDS ORDERED: DEXTROSE 5%-WATER 100 ML IVPB ONE (17:13)
[2020-12-18] MEDS: CEFTRIAXONE 2 GM in DEXTROSE 5%-WATER 2 GM/100 ML BAG IVPB SCH (17:18)
[2020-12-18] MEDS: MULTIVIT INJ. ADULT COMBO WITH VIT K 1 COMBO 10 ML VIAL IV SCH (17:57)
[2020-12-18] MEDS: CHLORHEXIDINE GLUCONATE 4% CLEANSER FOR DECOLONIZATION TP SCH (22:19)
[2020-12-19] MEDS: LORazepam 2 MG/ML SDV VIAL IVPUSH PRN (03:48)
[2020-12-19] MEDS: THIAMINE HCL 200 MG/2 ML VIAL IVPB SCH ×2 (04:22→11:47)
[2020-12-19] MEDS ORDERED: LORazepam 2 MG/ML SDV VIAL IVPUSH PRN (05:00)
[2020-12-19] MEDS: INSULIN SLIDING SCALE (NOVOLOG) 1 VIAL SQ SCH ×4 (06:22→22:15)
[2020-12-19] MEDS: HEPARIN NA (PORCINE) 5,000 UNITS/ML 1ML VIAL SQ SCH ×3 (06:22→23:25)
[2020-12-19 06:47] LABS: BASO % 0.6 % (0-2.0); EOS % 2.4 % (0-4.5); HEMATOCRIT 49.6 % (35.4-49); HEMOGLOBIN 16.5 GM/dL (11.7-16.9); LYMPH % 18.9 % (8-40); MCH 31.7 pg (25.7-33.7); MCHC 33.2 g/dl (32.0-35.9); MEAN CELL VOLUME 95.5 fl (80-96); MEAN PLT VOLUME 8.3 fl (7.5-11.1); MONO % 12.8 % (3.8-10.2); NEUT % 65.3 % (42.8-82.8); PLATELET COUNT 232 K/MM3 (134-434); RBC 5.19 M/mm3 (4.00-5.60); RDW 13.5 % (11.9-15.9); WHITE BLOOD COUNT 7.7 K/mm3 (4.0-10.0)
[2020-12-19 06:58] LABS: ALBUMIN 2.1 g/dl (3.4-5.0); BLOOD UREA NITROGEN 13.2 mg/dL (7-18); CALCIUM 8.3 mg/dL (8.5-10.1)
[2020-12-19] MEDS: DEXMEDETOMIDINE IN 0.9 % NACL 400 MCG/100 ML VIAL IVPB SCH ×2 (07:00→10:38)
[2020-12-19 07:03] LABS: BILIRUBIN,TOTAL 0.6 mg/dL (0.2-1); TOT PROT 5.5 g/dl (6.4-8.2)
[2020-12-19 07:14] LABS: CREATININE 0.6 mg/dL (0.55-1.3)
[2020-12-19] MEDS ORDERED: DEXTROSE 5%-WATER 100 ML IVPB ONE (09:11)
[2020-12-19] MEDS: LISINOPRIL 20 MG TABLET PO SCH (10:37)
[2020-12-19] MEDS: PANTOPRAZOLE SODIUM 40 MG VIAL IVPUSH SCH (10:37)
[2020-12-19] MEDS: CEFTRIAXONE 2 GM in DEXTROSE 5%-WATER 2 GM/100 ML BAG IVPB SCH (10:37)
[2020-12-19 12:18] LABS: ARTERIAL BLD GAS O2 SATURATION 98.4 mmHg (95-98); ARTERIAL BLOOD GAS BASE EXCESS 4.5 mmol/L (-2-2); ARTERIAL BLOOD GAS PO2 142.6 mmHg (80-100); ARTERIAL BLOOD GAS pH 7.273 (7.350-7.450)
[2020-12-19 12:19] LABS: ALLENS TEST POSITIVE
[2020-12-19] MEDS ORDERED: MULTIVIT INJECTION ADULT 10 ML in AMINO ACIDS 4.25%/D5W 1,000 ML IV SCH (15:15)
[2020-12-19 15:29] VITALS: BMI 23.8
[2020-12-19] MEDS: MULTIVIT INJ. ADULT COMBO WITH VIT K 1 COMBO 10 ML VIAL IV SCH (18:20)
[2020-12-19] MEDS: AMINO ACIDS 4.25%/D5W 1,000 ML IV SCH (18:20)
[2020-12-19] MEDS ORDERED: LORazepam 2 MG/ML SDV VIAL IVPUSH ONE (19:03)
[2020-12-19] MEDS ORDERED: MIDAZOLAM IN 0.9 % SOD.CHLORID 100 MG/100 ML PLAST..BAG IVPB SCH ×2 (20:30→20:45)
[2020-12-19] MEDS ORDERED: LACTATED RINGERS SOLUTION 1000 ML INFUS.BAG IV ONE (20:34)
[2020-12-19] MEDS ORDERED: SODIUM CHLORIDE 0.9% 500 ML INFUS.BAG IV ONE (20:34)
[2020-12-19] MEDS ORDERED: FOLIC ACID INJECTION - 1 MG, THIAMINE HCL 100 MG, MULTIVIT INJECTION ADULT 10 ML in SOD... IVPB ONE (20:38)
[2020-12-19] MEDS ORDERED: FAT EMULSIONS 20% 250 ML PREMIX INFUS.BAG IV SCH (22:00)
[2020-12-19] MEDS ORDERED: FAT EMULSIONS 250 ML IV SCH (22:00)
[2020-12-19] MEDS: CHLORHEXIDINE GLUCONATE 4% CLEANSER FOR DECOLONIZATION TP SCH (22:24)
[2020-12-20 00:43] LABS: ARTERIAL BLOOD GAS BASE EXCESS 4.2 mmol/L (-2-2); ARTERIAL BLOOD GAS PO2 129.2 mmHg (80-100); ARTERIAL BLOOD GAS pH 7.267 (7.350-7.450)
[2020-12-20 00:44] LABS: ALLENS TEST POSITIVE; VENT RATE 16
[2020-12-20 03:38] LABS: ARTERIAL BLOOD GAS BASE EXCESS 6.6 mmol/L (-2-2); ARTERIAL BLOOD GAS PO2 81.6 mmHg (80-100); ARTERIAL BLOOD GAS pH 7.339 (7.350-7.450)
[2020-12-20 04:05] LABS: ALLENS TEST POSITIVE
[2020-12-20 04:06] LABS: VENT MODE S/T; VENT RATE 20
[2020-12-20] MEDS ORDERED: LORazepam 2 MG/ML SDV VIAL IVPUSH PRN ×3 (05:00→10:34)
[2020-12-20 06:04] LABS: BASO % 0.7 % (0-2.0); EOS % 3.8 % (0-4.5); HEMATOCRIT 52.8 % (35.4-49); HEMOGLOBIN 17.5 GM/dL (11.7-16.9); LYMPH % 20.2 % (8-40); MCH 31.6 pg (25.7-33.7); MCHC 33.1 g/dl (32.0-35.9); MEAN CELL VOLUME 95.7 fl (80-96); MEAN PLT VOLUME 8.2 fl (7.5-11.1); MONO % 13.7 % (3.8-10.2); NEUT % 61.6 % (42.8-82.8); PLATELET COUNT 205 K/MM3 (134-434); RBC 5.52 M/mm3 (4.00-5.60); RDW 13.3 % (11.9-15.9); WHITE BLOOD COUNT 6.4 K/mm3 (4.0-10.0)
[2020-12-20 06:38] LABS: CALCIUM 8.3 mg/dL (8.5-10.1)
[2020-12-20 06:39] LABS: ALBUMIN 2.2 g/dl (3.4-5.0); BLOOD UREA NITROGEN 17.4 mg/dL (7-18); MAGNESIUM 1.9 mg/dL (1.8-2.4)
[2020-12-20 06:42] LABS: CREATININE 0.6 mg/dL (0.55-1.3); PHOSPHOROUS 2.5 mg/dL (2.5-4.9)
[2020-12-20 06:43] LABS: BILIRUBIN,TOTAL 0.6 mg/dL (0.2-1); TOT PROT 5.6 g/dl (6.4-8.2)
[2020-12-20] MEDS: HEPARIN NA (PORCINE) 5,000 UNITS/ML 1ML VIAL SQ SCH ×3 (07:09→21:06)
[2020-12-20] MEDS: INSULIN SLIDING SCALE (NOVOLOG) 1 VIAL SQ SCH ×4 (07:12→21:43)
[2020-12-20] MEDS ORDERED: DEXTROSE 5%-WATER 100 ML IVPB ONE (09:01)
[2020-12-20] MEDS: PANTOPRAZOLE SODIUM 40 MG VIAL IVPUSH SCH (09:02)
[2020-12-20] MEDS: CEFTRIAXONE 2 GM in DEXTROSE 5%-WATER 2 GM/100 ML BAG IVPB SCH (09:02)
[2020-12-20] MEDS: LISINOPRIL 20 MG TABLET PO SCH (09:02)
[2020-12-20] MEDS ORDERED: THIAMINE HCL 200 MG/2 ML VIAL IVPB SCH (10:00)
[2020-12-20] MEDS: AMINO ACIDS 4.25%/D5W 1,000 ML IV SCH (10:24)
[2020-12-20] MEDS: THIAMINE HCL 200 MG/2 ML VIAL IVPB SCH ×2 (10:26→18:06)
[2020-12-20] MEDS: MULTIVIT INJ. ADULT COMBO WITH VIT K 1 COMBO 10 ML VIAL IV SCH (11:29)
[2020-12-20 12:13] LABS: HIV INTERPRETATION NEGATIVE (NEGATIVE)
[2020-12-20] MEDS ORDERED: HALOPERIDOL LACTATE 5 MG/ML IM ONE (14:38)
[2020-12-20] MEDS ORDERED: LORazepam 2 MG/ML SDV VIAL IVPUSH ONE (14:45)
[2020-12-20] MEDS: hydrALAZINE HCL 20 MG/ML VIAL IVPUSH PRN (18:30)
[2020-12-20] MEDS: LORazepam 2 MG/ML SDV VIAL IVPUSH PRN (19:30)
[2020-12-20] MEDS ORDERED: DEXMEDETOMIDINE IN 0.9 % NACL 400 MCG/100 ML VIAL IVPB SCH (20:00)
[2020-12-20] MEDS: CHLORHEXIDINE GLUCONATE 4% CLEANSER FOR DECOLONIZATION TP SCH (21:05)
[2020-12-21] MEDS: THIAMINE HCL 200 MG/2 ML VIAL IVPB SCH ×3 (02:09→17:37)
[2020-12-21] MEDS ORDERED: LORazepam 2 MG/ML SDV VIAL IVPUSH ONE (05:00)
[2020-12-21] MEDS: HEPARIN NA (PORCINE) 5,000 UNITS/ML 1ML VIAL SQ SCH ×3 (06:42→21:37)
[2020-12-21] MEDS: INSULIN SLIDING SCALE (NOVOLOG) 1 VIAL SQ SCH ×4 (06:42→21:38)
[2020-12-21] MEDS ORDERED: DEXTROSE 5%-WATER 100 ML IVPB ONE (08:58)
[2020-12-21] MEDS: PANTOPRAZOLE SODIUM 40 MG VIAL IVPUSH SCH (09:09)
[2020-12-21] MEDS: LISINOPRIL 20 MG TABLET PO SCH (09:09)
[2020-12-21] MEDS: CEFTRIAXONE 2 GM in DEXTROSE 5%-WATER 2 GM/100 ML BAG IVPB SCH (09:09)
[2020-12-21] MEDS: MULTIVIT INJ. ADULT COMBO WITH VIT K 1 COMBO 10 ML VIAL IV SCH (10:00)
[2020-12-21 11:54] LABS: BASO % 0.7 % (0-2.0); EOS % 5.7 % (0-4.5); HEMATOCRIT 48.8 % (35.4-49); HEMOGLOBIN 16.2 GM/dL (11.7-16.9); LYMPH % 25.2 % (8-40); MCH 31.2 pg (25.7-33.7); MCHC 33.1 g/dl (32.0-35.9); MEAN CELL VOLUME 94.3 fl (80-96); MEAN PLT VOLUME 8.7 fl (7.5-11.1); MONO % 12.2 % (3.8-10.2); NEUT % 56.2 % (42.8-82.8); PLATELET COUNT 250 K/MM3 (134-434); RBC 5.18 M/mm3 (4.00-5.60); WHITE BLOOD COUNT 6.8 K/mm3 (4.0-10.0)
[2020-12-21 12:22] LABS: ALBUMIN 2.3 g/dl (3.4-5.0); BLOOD UREA NITROGEN 7.1 mg/dL (7-18); MAGNESIUM 1.8 mg/dL (1.8-2.4)
[2020-12-21 12:25] LABS: CREATININE 0.4 mg/dL (0.55-1.3); PHOSPHOROUS 2.1 mg/dL (2.5-4.9)
[2020-12-21 12:27] LABS: BILIRUBIN,TOTAL 0.5 mg/dL (0.2-1); TOT PROT 5.8 g/dl (6.4-8.2)
[2020-12-21] MEDS ORDERED: ACETAMINOPHEN 325 MG TABLET (FP) PO ONE (13:30)
[2020-12-21] MEDS ORDERED: POTASSIUM PHOSPHATE 30 MM in DEXTROSE 5%-WATER - 250 ML IVPB ONE (15:30)
[2020-12-21] MEDS: LORazepam 2 MG/ML SDV VIAL IVPUSH PRN (17:05)
[2020-12-21] MEDS ORDERED: PT OWN MED DRAWER 7, Y5N ONE (20:36)
[2020-12-21] MEDS: DEXMEDETOMIDINE IN 0.9 % NACL 400 MCG/100 ML VIAL IVPB SCH (20:54)
[2020-12-21] MEDS: CHLORHEXIDINE GLUCONATE 4% CLEANSER FOR DECOLONIZATION TP SCH (21:37)
[2020-12-21] MEDS: BUDESONIDE/FORMETEROL FUMARATE 160/4.5 mcg INHALER IH SCH (21:59)
[2020-12-22] MEDS: THIAMINE HCL 200 MG/2 ML VIAL IVPB SCH ×2 (01:45→09:06)
[2020-12-22] MEDS: LORazepam 2 MG/ML SDV VIAL IVPUSH PRN ×2 (01:46→09:06)
[2020-12-22] MEDS: HEPARIN NA (PORCINE) 5,000 UNITS/ML 1ML VIAL SQ SCH (06:27)
[2020-12-22] MEDS: INSULIN SLIDING SCALE (NOVOLOG) 1 VIAL SQ SCH ×2 (06:27→12:16)
[2020-12-22 08:11] LABS: BASO % 0.6 % (0-2.0); EOS % 7.1 % (0-4.5); HEMATOCRIT 41.6 % (35.4-49); HEMOGLOBIN 14.3 GM/dL (11.7-16.9); LYMPH % 33.6 % (8-40); MCH 31.7 pg (25.7-33.7); MCHC 34.4 g/dl (32.0-35.9); MEAN CELL VOLUME 92.3 fl (80-96); MEAN PLT VOLUME 8.3 fl (7.5-11.1); MONO % 14.4 % (3.8-10.2); NEUT % 44.3 % (42.8-82.8); PLATELET COUNT 286 K/MM3 (134-434); RBC 4.51 M/mm3 (4.00-5.60); WHITE BLOOD COUNT 5.8 K/mm3 (4.0-10.0)
[2020-12-22] MEDS ORDERED: DEXTROSE 5%-WATER 100 ML IVPB ONE (08:16)
[2020-12-22 08:23] LABS: BLOOD UREA NITROGEN 5.7 mg/dL (7-18); CALCIUM 7.5 mg/dL (8.5-10.1)
[2020-12-22 08:24] LABS: ALBUMIN 2.3 g/dl (3.4-5.0); MAGNESIUM 1.9 mg/dL (1.8-2.4)
[2020-12-22 08:27] LABS: CREATININE 0.4 mg/dL (0.55-1.3); PHOSPHOROUS 2.2 mg/dL (2.5-4.9)
[2020-12-22 08:28] LABS: BILIRUBIN,TOTAL 0.5 mg/dL (0.2-1); TOT PROT 5.3 g/dl (6.4-8.2)
[2020-12-22] MEDS: BUDESONIDE/FORMETEROL FUMARATE 160/4.5 mcg INHALER IH SCH (09:06)
[2020-12-22] MEDS: CEFTRIAXONE 2 GM in DEXTROSE 5%-WATER 2 GM/100 ML BAG IVPB SCH (09:06)
[2020-12-22] MEDS: PANTOPRAZOLE SODIUM 40 MG VIAL IVPUSH SCH (09:07)
[2020-12-22] MEDS: LISINOPRIL 20 MG TABLET PO SCH (09:07)
[2020-12-22] MEDS: MULTIVIT INJ. ADULT COMBO WITH VIT K 1 COMBO 10 ML VIAL IV SCH (09:08)
[2020-12-22] MEDS ORDERED: SODIUM PHOSPHATE - 30 MM in SODIUM CHLORIDE 500 ML IVPB ONE (12:15)
[2020-12-22 13:52] VITALS: BP 152/77; PULSE 88; TEMP 98.6
[2020-12-22] MEDS ORDERED: INSULIN (LEVEMIR) 100 UNITS/ML UNITS SQ SCH ×2 (22:00)
[2020-12-23] MEDS ORDERED: LISINOPRIL 20 MG TABLET PO SCH (10:00)
== END 2020-12-22 14:15 | disposition left against medical advice (07) | DRG 137 ==
LOC: JER 22:54 → JERBED 12-14 03:15 → JICU 12-14 08:06 → J4W 12-21 23:12
PROVIDERS: ADMIT Internal Medicine Pulmonary Disease; ATTEND Internal Medicine
PROC: 5A1945Z Respiratory Ventilation, 24-96 Consecutive Hours (ICD-10-PCS; principal; 2020-12-14)
PROC: 0BH17EZ Insertion of Endotracheal Airway into Trachea, Via Natural or Artificial Opening (ICD-10-PCS; 2020-12-14)
DX: J69.0 Pneumonitis due to inhalation of food and vomit (principal); J96.01 Acute respiratory failure with hypoxia; I24.8 Other forms of acute ischemic heart disease; G92 Toxic encephalopathy; F10.231 Alcohol dependence with withdrawal delirium; F10.20 Alcohol dependence, uncomplicated; J98.11 Atelectasis; I16.0 Hypertensive urgency; F14.220 Cocaine dependence with intoxication, uncomplicated; F11.20 Opioid dependence, uncomplicated; J45.909 Unspecified asthma, uncomplicated; F12.20 Cannabis dependence, uncomplicated; E11.9 Type 2 diabetes mellitus without complications
CPT/HCPCS: 36415; 36600; 70450-TC; 71045-TC-FY; 80048; 80053; 80307; 81003; 82140; 82550; 82553; 82803; 82962; 83605; 83690; 83735; 83880; 84100; 84439; 84443; 84484; 85025; 85027; 85610; 85730; 86140; 86780; 87040; 87070; 87077; 87086; 87186; 87205; 87389; 87899; 93005; 93010; 93971; 94002; 94640; 94660; 99285-25; C9803; J0131; J1644; U0003; U0005

== ENCOUNTER 2020-12-29 19:47 | Emergency (ER) | payer OTHER ==
[2020-12-29 19:57] VITALS: BP 164/116; PULSE 95; TEMP 98.6; BMI 24.4
[2020-12-29] MEDS ORDERED: MAG HYDROX/AL HYDROX/SIMETH 30 ML UNIT-DOSE CUP PO ONE (20:40)
[2020-12-29] MEDS ORDERED: MAG HYDROX/AL HYDROX/SIMETH 30 ML UNIT-DOSE CUP ONE (20:51)
[2020-12-29 20:53] LABS: BASO % 1.1 % (0-2.0); EOS % 6.5 % (0-4.5); HEMATOCRIT 38.1 % (35.4-49); HEMOGLOBIN 12.8 GM/dL (11.7-16.9); LYMPH % 31.1 % (8-40); MCH 31.7 pg (25.7-33.7); MCHC 33.7 g/dl (32.0-35.9); MEAN CELL VOLUME 94.1 fl (80-96); MEAN PLT VOLUME 7.5 fl (7.5-11.1); MONO % 13.6 % (3.8-10.2); NEUT % 47.7 % (42.8-82.8); PLATELET COUNT 392 K/MM3 (134-434); RBC 4.05 M/mm3 (4.00-5.60); RDW 13.6 % (11.9-15.9); WHITE BLOOD COUNT 8.2 K/mm3 (4.0-10.0)
[2020-12-29 21:19] LABS: METHADONE, UR NEGATIVE ng/ml (CUTOFF=300); OPIATES, URI NEGATIVE ng/ml (CUTOFF=300); URINE AMPHETAMINES NEGATIVE ng/ml (CUTOFF=500); URINE BARBITURATES NEGATIVE ng/ml (CUTOFF=200)
[2020-12-29 21:20] LABS: PHENCYCLIDINE,URINE NEGATIVE ng/ml (CUTOFF=25)
[2020-12-29 21:22] LABS: CALCIUM 7.9 mg/dL (8.5-10.1)
[2020-12-29 21:26] LABS: CREATININE 0.7 mg/dL (0.55-1.3)
[2020-12-29 21:27] LABS: BILIRUBIN,TOTAL 0.4 mg/dL (0.2-1); TOT PROT 6.1 g/dl (6.4-8.2)
[2020-12-29 21:30] LABS: COCAINE, UR POSITIVE ng/ml (CUTOFF=300); URINE BENZODIAZEPINES POSITIVE ng/ml (CUTOFF=200)
[2020-12-29 21:36] LABS: ALBUMIN 2.9 g/dl (3.4-5.0)
== END 2020-12-29 22:48 | disposition home or self-care (01) ==
LOC: JER 19:47
DX: R07.9 Chest pain, unspecified (principal); F19.929 Other psychoactive substance use, unspecified with intoxication, unspecified
CPT/HCPCS: 36415; 71045-TC-FY; 80053; 80307; 82550; 84484; 85025; 93005; 93010; 99285-25

== ENCOUNTER 2020-12-30 20:04 | Emergency (ER) | payer OTHER ==
[2020-12-30 20:11] VITALS: BP 152/124; PULSE 100; TEMP 98.2; BMI 24.4
[2020-12-30] MEDS ORDERED: IBUPROFEN 600 MG TABLET (FP) PO ONE ×2 (20:31→20:35)
[2020-12-30] MEDS ORDERED: ACETAMINOPHEN 325 MG TABLET (FP) PO ONE (20:32)
[2020-12-30] MEDS ORDERED: ACETAMINOPHEN 325 MG TABLET (FP) ONE (20:34)
[2020-12-30 20:49] LABS: PH,URINE 7.5 (5.0-8.0); URINE APPEARANCE CLEAR; URINE BILIRUBIN NEGATIVE (NEGATIVE); URINE COLOR YELLOW; URINE GLUCOSE (UA) 3+ (NEGATIVE); URINE KETONE NEGATIVE (NEGATIVE); URINE LEUK ESTERASE NEGATIVE (NEGATIVE); URINE NITRITE NEGATIVE (NEGATIVE); URINE PROTEIN NEGATIVE (NEGATIVE)
== END 2020-12-30 22:12 | disposition home or self-care (01) ==
LOC: JER 20:04
DX: R10.9 Unspecified abdominal pain (principal)
CPT/HCPCS: 81003; 87086; 99283-25; C9803; U0003; U0005

== ENCOUNTER 2020-12-30 22:42 | Inpatient (IN) | payer OTHER ==
[2020-12-30 23:27] VITALS: BMI 22.6
[2020-12-30] MEDS ORDERED: MAGNESIUM HYDROX 2400MG/30ML ORAL SUSPENSION 30 ML CUP PO PRN (23:28)
[2020-12-30] MEDS ORDERED: ACETAMINOPHEN 325 MG TABLET (FP) PO PRN (23:28)
[2020-12-30] MEDS ORDERED: LOPERAMIDE HCL 2 MG CAPSULE PO PRN (23:28)
[2020-12-30] MEDS ORDERED: P-EPHED 60MG/TRIPROLIDI 2.5MG TABLET PO PRN (23:28)
[2020-12-30] MEDS ORDERED: guaiFENesin 200 MG/10 ML 10 ML UNIT-DOSE CUPS PO PRN (23:28)
[2020-12-30] MEDS ORDERED: NICOTINE POLACRILEX 2 MG GUM BC PRN (23:28)
[2020-12-30] MEDS ORDERED: MAGNESIUM CITRATE 300 ML BOTTLE PO PRN (23:28)
[2020-12-30] MEDS ORDERED: IBUPROFEN 400 MG TABLET (FP) PO PRN (23:28)
[2020-12-31] MEDS ORDERED: INSULIN (NOVOLOG) ASPART 100 UNITS/ML 10ML VIAL ONE ×4 (00:30→17:24)
[2020-12-31] MEDS: ALBUTEROL SO4 HFA INHALER IH PRN ×2 (00:40→10:27)
[2020-12-31] MEDS: MELATONIN 5 MG TABLETS PO SCH ×2 (00:40→21:35)
[2020-12-31] MEDS: INSULIN SLIDING SCALE (NOVOLOG) 1 VIAL SQ SCH ×5 (00:41→21:36)
[2020-12-31] MEDS ORDERED: INSULIN SLIDING SCALE (NOVOLOG) 1 VIAL SQ SCH (07:00)
[2020-12-31] MEDS: metFORMIN HCL 500 MG TABLET (FP) PO SCH ×2 (07:29→17:20)
[2020-12-31] MEDS ORDERED: LISINOPRIL 20 MG TABLET PO SCH (10:00)
[2020-12-31] MEDS: PRENATAL VITAMINS W/ FOLIC ACID TABLET (FP) PO SCH (10:27)
[2020-12-31] MEDS: LISINOPRIL 20 MG TABLET PO SCH (10:29)
[2020-12-31] MEDS: BUDESONIDE/FORMETEROL FUMARATE 160/4.5 mcg INHALER IH SCH ×2 (10:29→21:36)
[2020-12-31 11:03] LABS: HIV INTERPRETATION NEGATIVE (NEGATIVE)
[2020-12-31] MEDS ORDERED: NICOTINE 14 MG/24 HOURS TOPICAL PATCH TD PRN (11:24)
[2020-12-31] MEDS ORDERED: NICOTINE 14 MG/24 HOURS TOPICAL PATCH TD SCH (11:30)
[2020-12-31] MEDS: hydrOXYzine PAMOATE 25 MG CAPSULE (FP) PO PRN (17:41)
[2020-12-31] MEDS: THIAMINE HCL 100 MG TABLET (FP) PO SCH (21:35)
[2020-12-31] MEDS ORDERED: SUVOREXANT 10 MG TABLET PO PRN (22:00)
[2021-01-01] MEDS: metFORMIN HCL 500 MG TABLET (FP) PO SCH ×2 (06:31→16:38)
[2021-01-01] MEDS ORDERED: INSULIN (NOVOLOG) ASPART 100 UNITS/ML 10ML VIAL ONE ×4 (06:53→21:19)
[2021-01-01] MEDS: INSULIN SLIDING SCALE (NOVOLOG) 1 VIAL SQ SCH ×4 (07:06→21:20)
[2021-01-01] MEDS: LISINOPRIL 20 MG TABLET PO SCH (10:42)
[2021-01-01] MEDS: PRENATAL VITAMINS W/ FOLIC ACID TABLET (FP) PO SCH (10:42)
[2021-01-01] MEDS: BUDESONIDE/FORMETEROL FUMARATE 160/4.5 mcg INHALER IH SCH ×2 (10:43→21:20)
[2021-01-01] MEDS: hydrOXYzine PAMOATE 25 MG CAPSULE (FP) PO PRN (16:38)
[2021-01-01] MEDS: THIAMINE HCL 100 MG TABLET (FP) PO SCH (21:15)
[2021-01-01] MEDS: MELATONIN 5 MG TABLETS PO SCH (21:15)
[2021-01-02] MEDS: metFORMIN HCL 500 MG TABLET (FP) PO SCH ×2 (06:58→16:43)
[2021-01-02] MEDS: INSULIN SLIDING SCALE (NOVOLOG) 1 VIAL SQ SCH ×4 (06:59→21:05)
[2021-01-02] MEDS ORDERED: cloNIDine HCL 0.1 MG TABLET PO ONE (07:30)
[2021-01-02] MEDS: LISINOPRIL 20 MG TABLET PO SCH (10:02)
[2021-01-02] MEDS: PRENATAL VITAMINS W/ FOLIC ACID TABLET (FP) PO SCH (10:02)
[2021-01-02] MEDS: BUDESONIDE/FORMETEROL FUMARATE 160/4.5 mcg INHALER IH SCH ×2 (10:02→21:05)
[2021-01-02 10:04] LABS: HEMATOCRIT 45.3 % (35.4-49); MCH 31.6 pg (25.7-33.7); MCHC 33.2 g/dl (32.0-35.9); MEAN CELL VOLUME 95.2 fl (80-96); MEAN PLT VOLUME 8.6 fl (7.5-11.1); PLATELET COUNT 416 K/MM3 (134-434); RBC 4.76 M/mm3 (4.00-5.60); RDW 13.6 % (11.9-15.9); WHITE BLOOD COUNT 4.9 K/mm3 (4.0-10.0)
[2021-01-02 10:12] LABS: CALCIUM 8.6 mg/dL (8.5-10.1)
[2021-01-02 10:13] LABS: ALBUMIN 2.8 g/dl (3.4-5.0); BLOOD UREA NITROGEN 10.7 mg/dL (7-18)
[2021-01-02 10:16] LABS: CREATININE 0.7 mg/dL (0.55-1.3)
[2021-01-02 10:17] LABS: BILIRUBIN,TOTAL 0.5 mg/dL (0.2-1)
[2021-01-02 10:18] LABS: TOT PROT 5.9 g/dl (6.4-8.2)
[2021-01-02] MEDS: MAG HYDROX/AL HYDROX/SIMETH 30 ML UNIT-DOSE CUP PO PRN ×2 (11:53→19:45)
[2021-01-02] MEDS ORDERED: INSULIN (NOVOLOG) ASPART 100 UNITS/ML 10ML VIAL ONE ×3 (11:53→21:02)
[2021-01-02] MEDS: hydrOXYzine PAMOATE 25 MG CAPSULE (FP) PO PRN ×3 (11:54→21:04)
[2021-01-02] MEDS: THIAMINE HCL 100 MG TABLET (FP) PO SCH (21:03)
[2021-01-02] MEDS: MELATONIN 5 MG TABLETS PO SCH (21:03)
[2021-01-03] MEDS: MAG HYDROX/AL HYDROX/SIMETH 30 ML UNIT-DOSE CUP PO PRN ×4 (02:56→23:01)
[2021-01-03] MEDS: metFORMIN HCL 500 MG TABLET (FP) PO SCH ×2 (07:22→16:41)
[2021-01-03] MEDS: INSULIN SLIDING SCALE (NOVOLOG) 1 VIAL SQ SCH ×4 (07:22→21:21)
[2021-01-03] MEDS ORDERED: LISINOPRIL 20 MG TABLET PO ONE (07:41)
[2021-01-03] MEDS: PRENATAL VITAMINS W/ FOLIC ACID TABLET (FP) PO SCH (10:26)
[2021-01-03] MEDS: hydrOXYzine PAMOATE 25 MG CAPSULE (FP) PO PRN ×2 (10:27→16:43)
[2021-01-03] MEDS: BUDESONIDE/FORMETEROL FUMARATE 160/4.5 mcg INHALER IH SCH ×2 (10:27→21:22)
[2021-01-03] MEDS ORDERED: INSULIN (NOVOLOG) ASPART 100 UNITS/ML 10ML VIAL ONE ×3 (11:22→21:20)
[2021-01-03 14:12] LABS: SARS-CoV-2 NAA Not Detected (Not Detected)
[2021-01-03] MEDS ORDERED: PANTOPRAZOLE 40 MG TABLET PO ONE (19:21)
[2021-01-03] MEDS: THIAMINE HCL 100 MG TABLET (FP) PO SCH (21:21)
[2021-01-03] MEDS: MELATONIN 5 MG TABLETS PO SCH (21:21)
[2021-01-03] MEDS ORDERED: SUVOREXANT 10 MG TABLET PO PRN (22:00)
[2021-01-04] MEDS: metFORMIN HCL 500 MG TABLET (FP) PO SCH ×2 (06:13→16:37)
[2021-01-04] MEDS ORDERED: INSULIN (NOVOLOG) ASPART 100 UNITS/ML 10ML VIAL ONE ×3 (06:15→16:40)
[2021-01-04] MEDS: INSULIN SLIDING SCALE (NOVOLOG) 1 VIAL SQ SCH ×4 (06:17→21:31)
[2021-01-04] MEDS ORDERED: LISINOPRIL 20 MG TABLET PO SCH ×2 (06:45→14:18)
[2021-01-04] MEDS: PRENATAL VITAMINS W/ FOLIC ACID TABLET (FP) PO SCH (10:03)
[2021-01-04] MEDS: hydrOXYzine PAMOATE 25 MG CAPSULE (FP) PO PRN ×2 (10:03→21:31)
[2021-01-04] MEDS: BUDESONIDE/FORMETEROL FUMARATE 160/4.5 mcg INHALER IH SCH ×2 (10:03→21:31)
[2021-01-04] MEDS: PANTOPRAZOLE 40 MG TABLET PO SCH (10:03)
[2021-01-04] MEDS ORDERED: LISINOPRIL 10 MG TABLET PO ONE (14:18)
[2021-01-04] MEDS: BACITRACIN/POLYMYXIN B SULFATE 15 GM TUBE TP SCH ×2 (20:34→21:38)
[2021-01-04] MEDS: MELATONIN 5 MG TABLETS PO SCH (21:30)
[2021-01-04] MEDS: THIAMINE HCL 100 MG TABLET (FP) PO SCH (21:32)
[2021-01-04] MEDS: MAG HYDROX/AL HYDROX/SIMETH 30 ML UNIT-DOSE CUP PO PRN (21:34)
[2021-01-05] MEDS ORDERED: LISINOPRIL 20 MG TABLET ONE (04:24)
[2021-01-05] MEDS ORDERED: LISINOPRIL 10 MG TABLET ONE (04:25)
[2021-01-05] MEDS: metFORMIN HCL 500 MG TABLET (FP) PO SCH ×2 (06:59→17:01)
[2021-01-05] MEDS: LISINOPRIL 10 MG, LISINOPRIL 20 MG PO SCH (06:59)
[2021-01-05] MEDS: INSULIN SLIDING SCALE (NOVOLOG) 1 VIAL SQ SCH ×4 (07:02→21:27)
[2021-01-05] MEDS: PRENATAL VITAMINS W/ FOLIC ACID TABLET (FP) PO SCH (09:18)
[2021-01-05] MEDS: PANTOPRAZOLE 40 MG TABLET PO SCH (09:18)
[2021-01-05] MEDS: BUDESONIDE/FORMETEROL FUMARATE 160/4.5 mcg INHALER IH SCH ×2 (09:18→21:27)
[2021-01-05] MEDS: BACITRACIN/POLYMYXIN B SULFATE 15 GM TUBE TP SCH ×2 (09:20→21:27)
[2021-01-05] MEDS: hydrOXYzine PAMOATE 25 MG CAPSULE (FP) PO PRN ×2 (09:20→21:27)
[2021-01-05] MEDS ORDERED: cloNIDine HCL 0.1 MG TABLET PO ONE (10:00)
[2021-01-05] MEDS ORDERED: INSULIN (NOVOLOG) ASPART 100 UNITS/ML 10ML VIAL ONE ×3 (11:55→21:26)
[2021-01-05] MEDS: THIAMINE HCL 100 MG TABLET (FP) PO SCH (21:24)
[2021-01-05] MEDS: MELATONIN 5 MG TABLETS PO SCH (21:24)
[2021-01-06] MEDS ORDERED: LISINOPRIL 20 MG TABLET ONE (04:10)
[2021-01-06] MEDS ORDERED: LISINOPRIL 10 MG TABLET ONE (04:11)
[2021-01-06] MEDS: metFORMIN HCL 500 MG TABLET (FP) PO SCH ×2 (06:27→16:57)
[2021-01-06] MEDS: LISINOPRIL 10 MG, LISINOPRIL 20 MG PO SCH (06:28)
[2021-01-06] MEDS: INSULIN SLIDING SCALE (NOVOLOG) 1 VIAL SQ SCH ×4 (06:33→21:28)
[2021-01-06] MEDS: PRENATAL VITAMINS W/ FOLIC ACID TABLET (FP) PO SCH (09:57)
[2021-01-06] MEDS: PANTOPRAZOLE 40 MG TABLET PO SCH (09:57)
[2021-01-06] MEDS: BACITRACIN/POLYMYXIN B SULFATE 15 GM TUBE TP SCH ×2 (09:59→21:28)
[2021-01-06] MEDS: BUDESONIDE/FORMETEROL FUMARATE 160/4.5 mcg INHALER IH SCH ×2 (09:59→21:27)
[2021-01-06] MEDS: HYDROCHLOROTHIAZIDE 25 MG TABLET (FP) PO SCH (11:54)
[2021-01-06] MEDS ORDERED: INSULIN (NOVOLOG) ASPART 100 UNITS/ML 10ML VIAL ONE ×2 (11:57→16:59)
[2021-01-06] MEDS: hydrOXYzine PAMOATE 25 MG CAPSULE (FP) PO PRN (21:26)
[2021-01-06] MEDS: THIAMINE HCL 100 MG TABLET (FP) PO SCH (21:26)
[2021-01-06] MEDS: MELATONIN 5 MG TABLETS PO SCH (21:26)
[2021-01-06] MEDS ORDERED: SUVOREXANT 10 MG TABLET PO PRN (22:00)
[2021-01-07] MEDS ORDERED: LISINOPRIL 20 MG TABLET ONE (03:12)
[2021-01-07] MEDS ORDERED: LISINOPRIL 10 MG TABLET ONE (03:13)
[2021-01-07] MEDS: LISINOPRIL 10 MG, LISINOPRIL 20 MG PO SCH (06:35)
[2021-01-07] MEDS: metFORMIN HCL 500 MG TABLET (FP) PO SCH ×2 (06:35→16:45)
[2021-01-07] MEDS: INSULIN SLIDING SCALE (NOVOLOG) 1 VIAL SQ SCH ×4 (06:36→21:45)
[2021-01-07] MEDS ORDERED: COVID-19 VAC,AD26(JANSSEN)/PF 0.5 ML IM ONE (10:00)
[2021-01-07] MEDS: BUDESONIDE/FORMETEROL FUMARATE 160/4.5 mcg INHALER IH SCH ×2 (10:02→21:05)
[2021-01-07] MEDS: PANTOPRAZOLE 40 MG TABLET PO SCH (10:02)
[2021-01-07] MEDS: HYDROCHLOROTHIAZIDE 25 MG TABLET (FP) PO SCH (10:02)
[2021-01-07] MEDS: PRENATAL VITAMINS W/ FOLIC ACID TABLET (FP) PO SCH (10:02)
[2021-01-07] MEDS: BACITRACIN/POLYMYXIN B SULFATE 15 GM TUBE TP SCH ×2 (10:03→21:45)
[2021-01-07] MEDS ORDERED: INSULIN (NOVOLOG) ASPART 100 UNITS/ML 10ML VIAL ONE ×2 (11:53→16:45)
[2021-01-07] MEDS: THIAMINE HCL 100 MG TABLET (FP) PO SCH (21:03)
[2021-01-07] MEDS: MELATONIN 5 MG TABLETS PO SCH (21:03)
[2021-01-07] MEDS ORDERED: SUVOREXANT 10 MG TABLET PO PRN (22:00)
[2021-01-08] MEDS ORDERED: LISINOPRIL 20 MG TABLET ONE (03:35)
[2021-01-08] MEDS ORDERED: LISINOPRIL 10 MG TABLET ONE (03:36)
[2021-01-08] MEDS: LISINOPRIL 10 MG, LISINOPRIL 20 MG PO SCH (06:37)
[2021-01-08] MEDS: metFORMIN HCL 500 MG TABLET (FP) PO SCH ×2 (06:38→16:38)
[2021-01-08] MEDS: INSULIN SLIDING SCALE (NOVOLOG) 1 VIAL SQ SCH ×4 (06:39→21:01)
[2021-01-08] MEDS: PANTOPRAZOLE 40 MG TABLET PO SCH (09:57)
[2021-01-08] MEDS: PRENATAL VITAMINS W/ FOLIC ACID TABLET (FP) PO SCH (09:57)
[2021-01-08] MEDS: HYDROCHLOROTHIAZIDE 25 MG TABLET (FP) PO SCH (09:57)
[2021-01-08] MEDS: BACITRACIN/POLYMYXIN B SULFATE 15 GM TUBE TP SCH ×2 (09:57→21:01)
[2021-01-08] MEDS: BUDESONIDE/FORMETEROL FUMARATE 160/4.5 mcg INHALER IH SCH ×2 (09:58→21:00)
[2021-01-08] MEDS ORDERED: INSULIN (NOVOLOG) ASPART 100 UNITS/ML 10ML VIAL ONE ×3 (11:22→21:42)
[2021-01-08] MEDS: MELATONIN 5 MG TABLETS PO SCH (20:59)
[2021-01-08] MEDS: THIAMINE HCL 100 MG TABLET (FP) PO SCH (20:59)
[2021-01-08] MEDS: QUEtiapine FUMARATE 100 MG TABLET (FP) PO SCH (21:00)
[2021-01-09] MEDS ORDERED: LISINOPRIL 10 MG TABLET ONE (03:16)
[2021-01-09] MEDS ORDERED: LISINOPRIL 20 MG TABLET ONE (03:16)
[2021-01-09] MEDS: LISINOPRIL 10 MG, LISINOPRIL 20 MG PO SCH (07:00)
[2021-01-09] MEDS: metFORMIN HCL 500 MG TABLET (FP) PO SCH ×2 (07:00→16:34)
[2021-01-09] MEDS: INSULIN SLIDING SCALE (NOVOLOG) 1 VIAL SQ SCH ×4 (07:01→21:04)
[2021-01-09] MEDS: HYDROCHLOROTHIAZIDE 25 MG TABLET (FP) PO SCH (10:24)
[2021-01-09] MEDS: PRENATAL VITAMINS W/ FOLIC ACID TABLET (FP) PO SCH (10:24)
[2021-01-09] MEDS: PANTOPRAZOLE 40 MG TABLET PO SCH (10:24)
[2021-01-09] MEDS: BUDESONIDE/FORMETEROL FUMARATE 160/4.5 mcg INHALER IH SCH ×2 (10:25→21:04)
[2021-01-09] MEDS: BACITRACIN/POLYMYXIN B SULFATE 15 GM TUBE TP SCH ×2 (10:45→21:03)
[2021-01-09] MEDS: NICOTINE 21 MG/24 HOURS TOPICAL PATCH TD SCH (14:36)
[2021-01-09] MEDS ORDERED: INSULIN (NOVOLOG) ASPART 100 UNITS/ML 10ML VIAL ONE (16:33)
[2021-01-09] MEDS: QUEtiapine FUMARATE 100 MG TABLET (FP) PO SCH (21:02)
[2021-01-09] MEDS: MELATONIN 5 MG TABLETS PO SCH (21:02)
[2021-01-09] MEDS: THIAMINE HCL 100 MG TABLET (FP) PO SCH (21:02)
[2021-01-10] MEDS ORDERED: LISINOPRIL 20 MG TABLET ONE (03:20)
[2021-01-10] MEDS ORDERED: LISINOPRIL 10 MG TABLET ONE (03:20)
[2021-01-10] MEDS: metFORMIN HCL 500 MG TABLET (FP) PO SCH ×2 (06:41→16:49)
[2021-01-10] MEDS: LISINOPRIL 10 MG, LISINOPRIL 20 MG PO SCH (06:41)
[2021-01-10] MEDS: INSULIN SLIDING SCALE (NOVOLOG) 1 VIAL SQ SCH ×4 (06:57→21:32)
[2021-01-10] MEDS: PANTOPRAZOLE 40 MG TABLET PO SCH (10:45)
[2021-01-10] MEDS: NICOTINE 21 MG/24 HOURS TOPICAL PATCH TD SCH (10:45)
[2021-01-10] MEDS: HYDROCHLOROTHIAZIDE 25 MG TABLET (FP) PO SCH (10:45)
[2021-01-10] MEDS: BACITRACIN/POLYMYXIN B SULFATE 15 GM TUBE TP SCH ×2 (10:45→21:32)
[2021-01-10] MEDS: PRENATAL VITAMINS W/ FOLIC ACID TABLET (FP) PO SCH (10:45)
[2021-01-10] MEDS: BUDESONIDE/FORMETEROL FUMARATE 160/4.5 mcg INHALER IH SCH ×2 (10:47→21:32)
[2021-01-10] MEDS ORDERED: INSULIN (NOVOLOG) ASPART 100 UNITS/ML 10ML VIAL ONE ×3 (11:55→21:31)
[2021-01-10] MEDS: THIAMINE HCL 100 MG TABLET (FP) PO SCH (21:31)
[2021-01-10] MEDS: MELATONIN 5 MG TABLETS PO SCH (21:31)
[2021-01-10] MEDS: QUEtiapine FUMARATE 100 MG TABLET (FP) PO SCH (21:32)
[2021-01-11] MEDS ORDERED: LISINOPRIL 20 MG TABLET ONE (03:15)
[2021-01-11] MEDS ORDERED: LISINOPRIL 10 MG TABLET ONE (03:16)
[2021-01-11] MEDS: metFORMIN HCL 500 MG TABLET (FP) PO SCH (06:31)
[2021-01-11] MEDS: LISINOPRIL 10 MG, LISINOPRIL 20 MG PO SCH (06:31)
[2021-01-11] MEDS: INSULIN SLIDING SCALE (NOVOLOG) 1 VIAL SQ SCH (06:35)
[2021-01-11 09:24] VITALS: BP 152/96; PULSE 101; TEMP 97.3
[2021-01-11] MEDS: BUDESONIDE/FORMETEROL FUMARATE 160/4.5 mcg INHALER IH SCH (09:25)
[2021-01-11] MEDS: HYDROCHLOROTHIAZIDE 25 MG TABLET (FP) PO SCH (09:26)
[2021-01-11] MEDS: PRENATAL VITAMINS W/ FOLIC ACID TABLET (FP) PO SCH (09:26)
[2021-01-11] MEDS: PANTOPRAZOLE 40 MG TABLET PO SCH (09:26)
[2021-01-11] MEDS: NICOTINE 21 MG/24 HOURS TOPICAL PATCH TD SCH (09:27)
[2021-01-11] MEDS: BACITRACIN/POLYMYXIN B SULFATE 15 GM TUBE TP SCH (10:09)
== END 2021-01-11 09:30 | disposition home or self-care (01) | DRG 772 ==
LOC: YASAS 22:42 → Y3W 12-31 08:54
PROVIDERS: ADMIT Allergy & Immunology; ATTEND Allergy & Immunology
PROC: HZ42ZZZ Group Counseling for Substance Abuse Treatment, Cognitive-Behavioral (ICD-10-PCS; principal; 2020-12-31)
DX: F10.20 Alcohol dependence, uncomplicated (principal); F14.20 Cocaine dependence, uncomplicated; F12.20 Cannabis dependence, uncomplicated; F17.210 Nicotine dependence, cigarettes, uncomplicated; F19.280 Other psychoactive substance dependence with psychoactive substance-induced anxiety disorder; F19.282 Other psychoactive substance dependence with psychoactive substance-induced sleep disorder; I10 Essential (primary) hypertension; J44.9 Chronic obstructive pulmonary disease, unspecified; E11.9 Type 2 diabetes mellitus without complications; Z79.84 Long term (current) use of oral hypoglycemic drugs; M54.5 Low back pain; G89.29 Other chronic pain; Z62.810 Personal history of physical and sexual abuse in childhood
CPT/HCPCS: 0031A; 36415; 80053; 82962; 85027; 86780; 87389; 91303; C9803; J0735; U0003; U0005

== ENCOUNTER 2021-09-12 23:39 | Inpatient (IN) | payer OTHER ==
[2021-09-12] MEDS ORDERED: LORazepam 2 MG/ML SDV VIAL IVPUSH ONE (23:45)
[2021-09-13] MEDS ORDERED: LORazepam 2 MG/ML SDV VIAL IVPUSH ONE (00:15)
[2021-09-13 00:51] LABS: BASO % 0.8 % (0-2.0); EOS % 3.3 % (0-4.5); HEMATOCRIT 38.9 % (35.4-49); MCH 30.5 pg (25.7-33.7); MCHC 33.4 g/dl (32.0-35.9); MEAN CELL VOLUME 91.3 fl (80-96); MEAN PLT VOLUME 8.2 fl (7.5-11.1); MONO % 10.1 % (3.8-10.2); NEUT % 58.8 % (42.8-82.8); PLATELET COUNT 282 10^3/uL (134-434); RBC 4.26 M/mm3 (4.00-5.60); RDW 13.5 % (11.9-15.9); WHITE BLOOD COUNT 8.8 K/mm3 (4.0-10.0)
[2021-09-13 01:11] LABS: CHLORIDE 107 mmol/L (98-107); SODIUM 140 mmol/L (136-145)
[2021-09-13 01:13] LABS: ALBUMIN 3.6 g/dl (3.4-5.0); CALCIUM 8.5 mg/dL (8.5-10.1)
[2021-09-13 01:14] LABS: ANION GAP 4 MMOL/L (8-16); BLOOD UREA NITROGEN 16.4 mg/dL (7-18); CO2 29 mmol/L (21-32); GLUCOSE,RANDOM 213 mg/dL (74-106)
[2021-09-13 01:17] LABS: SGOT/AST 41 U/L (15-37); SGPT/ALT 45 U/L (13-61)
[2021-09-13 01:18] LABS: BILIRUBIN,TOTAL 0.8 mg/dL (0.2-1); TOT PROT 6.6 g/dl (6.4-8.2)
[2021-09-13 01:19] LABS: ALK PHOS 82 U/L (45-117)
[2021-09-13] MEDS ORDERED: diazePAM CARPU-JECT 10 MG/2 ML DISP.SYRIN ONE ×3 (03:38→06:08)
[2021-09-13] MEDS ORDERED: ALBUTEROL SO4 2.5/IPRATROPIUM 0.5 INH SOL 3 ML VIAL.NEB. NEB ONE ×2 (03:49→03:53)
[2021-09-13] MEDS ORDERED: diazePAM CARPU-JECT 10 MG/2 ML DISP.SYRIN IVPUSH ONE ×3 (03:53→06:09)
[2021-09-13] MEDS ORDERED: LORazepam 2 MG/ML SDV VIAL IVPUSH STA (03:58)
[2021-09-13] MEDS ORDERED: KETAMINE HCL 200 MG/20 ML VIAL ONE (04:17)
[2021-09-13] MEDS ORDERED: MIDAZOLAM IN 0.9 % SOD.CHLORID 1 MG/1 ML PLAST..BAG ONE (04:28)
[2021-09-13] MEDS: MIDAZOLAM IN 0.9 % SOD.CHLORID 100 MG/100 ML PLAST..BAG IVPB SCH ×2 (05:08→21:37)
[2021-09-13 05:32] LABS: EPI CELLS 15 /uL (0-25.1); HYALINE CASTS 3 /uL (0-3.1); URINE APPEARANCE CLEAR; URINE BACTERIA 6 /uL (0-1359); URINE BILIRUBIN NEGATIVE (NEGATIVE); URINE COLOR YELLOW; URINE GLUCOSE (UA) 3+ (NEGATIVE); URINE KETONE TRACE (NEGATIVE); URINE LEUK ESTERASE NEGATIVE (NEGATIVE); URINE NITRITE NEGATIVE (NEGATIVE); URINE PROTEIN 1+ (NEGATIVE); URINE RBC 24 /uL (0-23.9); URINE WBC 5 /uL (0-25.8)
[2021-09-13 05:36] LABS: METHADONE, UR NEGATIVE (NEGATIVE); PHENCYCLIDINE,URINE NEGATIVE (NEGATIVE); URINE BENZODIAZEPINES NEGATIVE (NEGATIVE)
[2021-09-13 05:37] LABS: OPIATES, URI NEGATIVE (NEGATIVE); URINE AMPHETAMINES NEGATIVE (NEGATIVE); URINE BARBITURATES NEGATIVE (NEGATIVE)
[2021-09-13] MEDS ORDERED: SODIUM CHLORIDE 1,000 ML IV SCH (05:45)
[2021-09-13] MEDS: FENTANYL NS IVPB 500 MCG/100 ML BAG IVPB SCH ×4 (05:47→22:30)
[2021-09-13 05:49] LABS: COCAINE, UR POSITIVE (NEGATIVE)
[2021-09-13] MEDS ORDERED: ROCURONIUM BROMIDE 50 MG/5 ML VIAL IV ONE (06:10)
[2021-09-13] MEDS ORDERED: KETAMINE HCL 200 MG/20 ML VIAL IVPUSH ONE (06:11)
[2021-09-13] MEDS: INSULIN SLIDING SCALE (NOVOLOG) 1 VIAL SQ SCH ×4 (07:00→22:30)
[2021-09-13] MEDS ORDERED: LACTATED RINGERS SOLUTION 1,000 ML/1,000 ML INFUS.BAG IV SCH (07:30)
[2021-09-13 08:59] LABS: ARTERIAL BLD GAS O2 SATURATION 99.6 % (95-98); ARTERIAL BLOOD GAS BASE EXCESS 0.7 mmol/L (-2-2); ARTERIAL BLOOD GAS PO2 294.9 mmHg (80-100); ARTERIAL BLOOD GAS pH 7.311 (7.350-7.450)
[2021-09-13 09:00] LABS: ALLENS TEST POSITIVE
[2021-09-13 09:01] LABS: VENT MODE VENT
[2021-09-13 09:02] LABS: VENT RATE 16
[2021-09-13] MEDS: ENOXAPARIN NA (PORCINE) 40 MG/0.4 ML DISP.SYRIN SQ SCH (09:24)
[2021-09-13] MEDS: MUPIROCIN 2% TOPICAL OINTMENT FOR DECOLONIZATION NS SCH ×2 (09:34→22:30)
[2021-09-13] MEDS: LISINOPRIL 20 MG TABLET PO SCH (10:46)
[2021-09-13] MEDS: THIAMINE HCL 200 MG/2 ML VIAL IVPB SCH (10:46)
[2021-09-13] MEDS: PROPOFOL 1,000,000 MCG/100 ML VIAL IVPB SCH (15:50)
[2021-09-13] MEDS: DEXTROSE 5%-LACTATED RINGERS 1,000 ML IV SCH (16:30)
[2021-09-13] MEDS: CHLORHEXIDINE GLUCONATE 4% CLEANSER FOR DECOLONIZATION TP SCH (22:30)
[2021-09-14] MEDS: DEXTROSE 5%-LACTATED RINGERS 1,000 ML IV SCH ×2 (02:00→16:02)
[2021-09-14] MEDS: FENTANYL NS IVPB 500 MCG/100 ML BAG IVPB SCH (05:28)
[2021-09-14] MEDS: INSULIN SLIDING SCALE (NOVOLOG) 1 VIAL SQ SCH ×4 (06:08→21:40)
[2021-09-14 07:15] LABS: BASO % 0.2 % (0-2.0); EOS % 2.6 % (0-4.5); HEMATOCRIT 40.6 % (35.4-49); HEMOGLOBIN 13.1 GM/dL (11.7-16.9); LYMPH % 11.6 % (8-40); MCH 30.1 pg (25.7-33.7); MCHC 32.3 g/dl (32.0-35.9); MEAN CELL VOLUME 93.2 fl (80-96); MEAN PLT VOLUME 8.6 fl (7.5-11.1); MONO % 8.6 % (3.8-10.2); PLATELET COUNT 262 10^3/uL (134-434); RBC 4.35 M/mm3 (4.00-5.60); RDW 13.7 % (11.9-15.9); WHITE BLOOD COUNT 11.1 K/mm3 (4.0-10.0)
[2021-09-14 07:24] LABS: BLOOD UREA NITROGEN 7.8 mg/dL (7-18); CALCIUM 8.1 mg/dL (8.5-10.1)
[2021-09-14 07:28] LABS: CREATININE 0.9 mg/dL (0.55-1.3)
[2021-09-14] MEDS ORDERED: MIDAZOLAM IN 0.9 % SOD.CHLORID 1 MG/1 ML PLAST..BAG ONE (08:54)
[2021-09-14] MEDS: ENOXAPARIN NA (PORCINE) 40 MG/0.4 ML DISP.SYRIN SQ SCH (09:20)
[2021-09-14] MEDS: THIAMINE HCL 200 MG/2 ML VIAL IVPB SCH (09:21)
[2021-09-14] MEDS: MUPIROCIN 2% TOPICAL OINTMENT FOR DECOLONIZATION NS SCH ×2 (09:21→21:40)
[2021-09-14] MEDS: LISINOPRIL 20 MG TABLET PO SCH (09:21)
[2021-09-14] MEDS: DEXMEDETOMIDINE IN 0.9 % NACL 400 MCG/100 ML VIAL IVPB SCH ×2 (09:31→21:40)
[2021-09-14] MEDS: PROPOFOL 1,000,000 MCG/100 ML VIAL IVPB SCH (15:15)
[2021-09-14] MEDS: CHLORHEXIDINE GLUCONATE 4% CLEANSER FOR DECOLONIZATION TP SCH (21:40)
[2021-09-15] MEDS: INSULIN SLIDING SCALE (NOVOLOG) 1 VIAL SQ SCH ×4 (06:25→21:25)
[2021-09-15] MEDS: DEXMEDETOMIDINE IN 0.9 % NACL 400 MCG/100 ML VIAL IVPB SCH ×2 (06:25→19:45)
[2021-09-15 07:30] LABS: BASO % 0.3 % (0-2.0); EOS % 1.4 % (0-4.5); HEMATOCRIT 40.8 % (35.4-49); HEMOGLOBIN 13.7 GM/dL (11.7-16.9); MCH 31.1 pg (25.7-33.7); MCHC 33.6 g/dl (32.0-35.9); MEAN CELL VOLUME 92.8 fl (80-96); MEAN PLT VOLUME 8.4 fl (7.5-11.1); NEUT % 77.3 % (42.8-82.8); PLATELET COUNT 253 10^3/uL (134-434); RDW 13.8 % (11.9-15.9); WHITE BLOOD COUNT 10.7 K/mm3 (4.0-10.0)
[2021-09-15 07:50] LABS: CALCIUM 8.1 mg/dL (8.5-10.1)
[2021-09-15 07:54] LABS: CREATININE 0.9 mg/dL (0.55-1.3)
[2021-09-15] MEDS: LACTATED RINGERS SOLUTION 1,000 ML/1,000 ML INFUS.BAG IV SCH ×3 (09:58→21:21)
[2021-09-15] MEDS: MUPIROCIN 2% TOPICAL OINTMENT FOR DECOLONIZATION NS SCH ×2 (09:58→21:21)
[2021-09-15] MEDS: ENOXAPARIN NA (PORCINE) 40 MG/0.4 ML DISP.SYRIN SQ SCH (09:58)
[2021-09-15] MEDS: LISINOPRIL 20 MG TABLET PO SCH (09:59)
[2021-09-15] MEDS: THIAMINE HCL 200 MG/2 ML VIAL IVPB SCH (09:59)
[2021-09-15] MEDS ORDERED: cefTRIAXone SODIUM 1 GM VIAL ONE (17:52)
[2021-09-15] MEDS ORDERED: DEXTROSE 5%-WATER - 50 ML IVPB ONE (17:52)
[2021-09-15] MEDS: CEFTRIAXONE 1 GM in DEXTROSE 5%-WATER - 50 ML IVPB SCH (18:00)
[2021-09-15] MEDS: PROPOFOL 1,000,000 MCG/100 ML VIAL IVPB SCH ×2 (18:22→21:20)
[2021-09-15] MEDS: FENTANYL NS IVPB 500 MCG/100 ML BAG IVPB SCH ×2 (21:20→21:21)
[2021-09-15] MEDS: CHLORHEXIDINE GLUCONATE 4% CLEANSER FOR DECOLONIZATION TP SCH (21:20)
[2021-09-16] MEDS: FENTANYL NS IVPB 500 MCG/100 ML BAG IVPB SCH (02:00)
[2021-09-16] MEDS: LACTATED RINGERS SOLUTION 1,000 ML/1,000 ML INFUS.BAG IV SCH (06:21)
[2021-09-16] MEDS: INSULIN SLIDING SCALE (NOVOLOG) 1 VIAL SQ SCH ×4 (06:25→22:12)
[2021-09-16 07:35] LABS: BASO % 0.5 % (0-2.0); EOS % 3.7 % (0-4.5); HEMATOCRIT 38.6 % (35.4-49); HEMOGLOBIN 12.3 GM/dL (11.7-16.9); LYMPH % 26.1 % (8-40); MCHC 31.9 g/dl (32.0-35.9); MEAN PLT VOLUME 8.6 fl (7.5-11.1); MONO % 12.7 % (3.8-10.2); PLATELET COUNT 246 10^3/uL (134-434); RBC 4.11 M/mm3 (4.00-5.60); RDW 13.8 % (11.9-15.9); WHITE BLOOD COUNT 7.8 K/mm3 (4.0-10.0)
[2021-09-16 07:44] LABS: CALCIUM 8.2 mg/dL (8.5-10.1)
[2021-09-16 07:45] LABS: BLOOD UREA NITROGEN 13.8 mg/dL (7-18)
[2021-09-16 07:49] LABS: CREATININE 0.8 mg/dL (0.55-1.3)
[2021-09-16] MEDS ORDERED: cefTRIAXone SODIUM 1 GM VIAL ONE (09:37)
[2021-09-16] MEDS ORDERED: DEXTROSE 5%-WATER - 50 ML IVPB ONE (09:38)
[2021-09-16] MEDS: CEFTRIAXONE 1 GM in DEXTROSE 5%-WATER - 50 ML IVPB SCH (09:44)
[2021-09-16] MEDS: THIAMINE HCL 200 MG/2 ML VIAL IVPB SCH (09:44)
[2021-09-16] MEDS: ENOXAPARIN NA (PORCINE) 40 MG/0.4 ML DISP.SYRIN SQ SCH (09:44)
[2021-09-16] MEDS: MUPIROCIN 2% TOPICAL OINTMENT FOR DECOLONIZATION NS SCH ×2 (09:53→22:11)
[2021-09-16] MEDS: LISINOPRIL 20 MG TABLET PO SCH (10:38)
[2021-09-16] MEDS: DEXMEDETOMIDINE IN 0.9 % NACL 400 MCG/100 ML VIAL IVPB SCH (11:00)
[2021-09-16] MEDS ORDERED: MIDODRINE HCL 5 MG TABLET PO SCH (14:00)
[2021-09-16] MEDS ORDERED: HALOPERIDOL LACTATE 5 MG/ML ONE (14:30)
[2021-09-16] MEDS ORDERED: LORazepam 2 MG/ML SDV VIAL IVPUSH ONE ×2 (14:30→14:45)
[2021-09-16] MEDS ORDERED: HALOPERIDOL LACTATE 5 MG/ML IM ONE (14:31)
[2021-09-16] MEDS ORDERED: PROPOFOL 200 MG/20 ML VIAL IVPUSH ONE (14:45)
[2021-09-16 15:01] VITALS: BMI 29.8
[2021-09-16] MEDS ORDERED: LORazepam 2 MG/ML SDV VIAL IVPUSH PRN (18:26)
[2021-09-16] MEDS: CHLORHEXIDINE GLUCONATE 4% CLEANSER FOR DECOLONIZATION TP SCH (22:11)
[2021-09-17 02:30] VITALS: TEMP 98
[2021-09-17] MEDS: INSULIN SLIDING SCALE (NOVOLOG) 1 VIAL SQ SCH ×2 (06:42→12:13)
[2021-09-17] MEDS ORDERED: cefTRIAXone SODIUM 1 GM VIAL ONE (09:41)
[2021-09-17] MEDS ORDERED: DEXTROSE 5%-WATER - 50 ML IVPB ONE (09:41)
[2021-09-17] MEDS: MUPIROCIN 2% TOPICAL OINTMENT FOR DECOLONIZATION NS SCH (10:01)
[2021-09-17] MEDS: ENOXAPARIN NA (PORCINE) 40 MG/0.4 ML DISP.SYRIN SQ SCH (10:01)
[2021-09-17] MEDS: THIAMINE HCL 200 MG/2 ML VIAL IVPB SCH (10:01)
[2021-09-17] MEDS: LISINOPRIL 20 MG TABLET PO SCH (10:01)
[2021-09-17] MEDS: CEFTRIAXONE 1 GM in DEXTROSE 5%-WATER - 50 ML IVPB SCH (10:03)
[2021-09-17] MEDS ORDERED: PIPERACILLIN/TAZOB 4.5 GM 4.5 GM in DEXTROSE 5%-WATER 100 ML IVPB SCH (12:00)
[2021-09-17 12:32] VITALS: PULSE 97
[2021-09-17] MEDS ORDERED: PIPERACILLIN/TAZOBACTAM 4.5 GM VIAL IVPB ONE (12:36)
[2021-09-17] MEDS ORDERED: DEXTROSE 5%-WATER 100 ML IVPB ONE (12:36)
[2021-09-17] MEDS ORDERED: HYDROCHLOROTHIAZIDE 25 MG TABLET (FP) PO SCH (13:15)
[2021-09-17] MEDS ORDERED: ALBUTEROL SO4 HFA INHALER IH PRN (13:15)
[2021-09-17 13:36] VITALS: BP 142/119
[2021-09-17] MEDS ORDERED: HALOPERIDOL LACTATE 5 MG/ML ONE (15:25)
[2021-09-17] MEDS ORDERED: BUDESONIDE/FORMETEROL FUMARATE 160/4.5 mcg INHALER IH SCH (22:00)
[2021-09-18] MEDS ORDERED: PIPERACILLIN/TAZOB 4.5 GM 4.5 GM in DEXTROSE 5%-WATER 100 ML IVPB SCH (03:00)
== END 2021-09-17 16:51 | disposition left against medical advice (07) | DRG 816 ==
LOC: JER 23:39 → JERBED 09-13 05:28 → JICU 09-13 06:55
PROVIDERS: ADMIT Internal Medicine Pulmonary Disease; ATTEND Internal Medicine Pulmonary Disease
PROC: 0CHY7BZ Insertion of Airway into Mouth and Throat, Via Natural or Artificial Opening (ICD-10-PCS; principal; 2021-09-13)
PROC: 5A1945Z Respiratory Ventilation, 24-96 Consecutive Hours (ICD-10-PCS; 2021-09-13)
PROC: HZ2ZZZZ Detoxification Services for Substance Abuse Treatment (ICD-10-PCS; 2021-09-16)
DX: T40.5X1A Poisoning by cocaine, accidental (unintentional), initial encounter (principal); J44.9 Chronic obstructive pulmonary disease, unspecified; J18.9 Pneumonia, unspecified organism; J96.00 Acute respiratory failure, unspecified whether with hypoxia or hypercapnia; I10 Essential (primary) hypertension; E11.65 Type 2 diabetes mellitus with hyperglycemia; F14.10 Cocaine abuse, uncomplicated; F10.10 Alcohol abuse, uncomplicated; R00.0 Tachycardia, unspecified; F11.20 Opioid dependence, uncomplicated; Y92.89 Other specified places as the place of occurrence of the external cause; R94.31 Abnormal electrocardiogram [ECG] [EKG]
CPT/HCPCS: 36415; 36600; 70450-TC; 71045-TC-FY; 74018-TC-FY; 80048; 80053; 80307; 81003; 82550; 82553; 82803; 82962; 84484; 85025; 87070; 87086; 87186; 87205; 93005; 93010; 94002; 97116-GP; 97161-GP; 99285-25; C9803; U0003; U0005

== ENCOUNTER 2021-09-17 21:14 | Emergency (ER) | payer OTHER ==
[2021-09-17 21:20] VITALS: BP 132/81; PULSE 118; TEMP 97.3; BMI 29.9
[2021-09-17] MEDS ORDERED: KETOROLAC TROMETHAMINE 15 MG/ML VIAL IVPUSH ONE (22:59)
[2021-09-17] MEDS ORDERED: PIPERACILLIN/TAZOB 4.5 GM 4.5 GM in DEXTROSE 5%-WATER 100 ML IVPB ONE (22:59)
[2021-09-17] MEDS ORDERED: VANCOMYCIN 1,000 MG in DEXTROSE 5%-WATER - 250 ML IVPB ONE (23:00)
[2021-09-17] MEDS ORDERED: ACETAMINOPHEN 1000 MG/100 ML BAG IVPB ONE (23:00)
[2021-09-17] MEDS ORDERED: KETOROLAC TROMETHAMINE 15 MG/ML VIAL ONE (23:04)
[2021-09-17] MEDS ORDERED: PIPERACILLIN/TAZOB 4.5 GM 4.5 GM/100 ML BAG IVPB ONE (23:04)
[2021-09-17] MEDS ORDERED: ACETAMINOPHEN INJECTION 100 ML IVPB ONE (23:04)
[2021-09-17 23:20] LABS: WHITE BLOOD COUNT 8.4 K/mm3 (4.0-10.0)
[2021-09-17 23:21] LABS: BASO % 0.6 % (0-2.0); EOS % 0.5 % (0-4.5); HEMATOCRIT 36.6 % (35.4-49); HEMOGLOBIN 12.7 GM/dL (11.7-16.9); MCHC 34.8 g/dl (32.0-35.9); MEAN CELL VOLUME 89.3 fl (80-96); MEAN PLT VOLUME 8.5 fl (7.5-11.1); MONO % 13.4 % (3.8-10.2); NEUT % 72.5 % (42.8-82.8); PLATELET COUNT 289 10^3/uL (134-434); RDW 15.4 % (11.9-15.9)
[2021-09-17 23:28] LABS: INR 1.14 (0.83-1.09); PROTHROMBIN TIME (PATIENT) 13.1 SEC (9.7-13.0)
[2021-09-17 23:31] LABS: ACTIVATED PTT 35.5 SECONDS (25.2-36.5)
[2021-09-17 23:39] LABS: CHLORIDE 96 mmol/L (98-107)
[2021-09-18 00:51] LABS: ALBUMIN 1.8 g/dl (3.4-5.0); CALCIUM 7.5 mg/dL (8.5-10.1); GLUCOSE,RANDOM 233 mg/dL (74-106); SODIUM 111 mmol/L (136-145); TOT PROT 9.8 g/dl (6.4-8.2)
== END 2021-09-17 23:42 | disposition left against medical advice (07) ==
LOC: JER 21:14
PROC: 3E033GC Introduction of Other Therapeutic Substance into Peripheral Vein, Percutaneous Approach (ICD-10-PCS; principal; 2021-09-17)
DX: M79.89 Other specified soft tissue disorders (principal)
CPT/HCPCS: 36415; 71045-TC-FY; 73130-TC-LT-FY; 80053; 83605; 85025; 85610; 85730; 87040; 96365; 96375; 99285-25

== ENCOUNTER 2022-10-12 17:10 | Inpatient (IN) | payer OTHER ==
[2022-10-12 18:21] VITALS: BMI 27.3
[2022-10-12] MEDS ORDERED: IBUPROFEN 600 MG TABLET (FP) PO PRN (19:39)
[2022-10-12] MEDS ORDERED: chlordiazePOXIDE HCL 25 MG CAPSULE PO PRN (19:39)
[2022-10-12] MEDS ORDERED: IBUPROFEN 400 MG TABLET (FP) PO PRN (19:39)
[2022-10-12] MEDS ORDERED: MAG HYDROX/AL HYDROX/SIMETH 30 ML UNIT-DOSE CUP PO PRN (19:39)
[2022-10-12] MEDS ORDERED: BENZOCAINE/MENTHOL (CHLORASEPTIC ) LOZENGE MM PRN (19:39)
[2022-10-12] MEDS ORDERED: METHOCARBAMOL 500 MG TABLET PO PRN (19:39)
[2022-10-12] MEDS ORDERED: hydrOXYzine PAMOATE 25 MG CAPSULE (FP) PO PRN (19:39)
[2022-10-12] MEDS ORDERED: MAGNESIUM HYDROX 2400MG/30ML ORAL SUSPENSION 30 ML CUP PO PRN (19:39)
[2022-10-12] MEDS ORDERED: NALOXONE HCL (KLOXXADO) 8 MG SPRAY NS PRN (19:39)
[2022-10-12] MEDS ORDERED: LOPERAMIDE HCL 2 MG CAPSULE PO PRN (19:39)
[2022-10-12] MEDS ORDERED: ACETAMINOPHEN 325 MG TABLET (FP) PO PRN ×2 (19:39)
[2022-10-12] MEDS ORDERED: POLYETHYLENE GLYCOL (HEALTHYLAX) 3350 17 GM PACKET PO PRN (19:39)
[2022-10-12] MEDS ORDERED: ONDANSETRON *ODT* 4 MG TABLET SL PRN (19:39)
[2022-10-12] MEDS ORDERED: NICOTINE POLACRILEX 2 MG GUM BUC PRN (19:39)
[2022-10-12] MEDS ORDERED: BISMUTH SUBSALICYLATE 524 MG/30 ML PO PRN (19:39)
[2022-10-12] MEDS ORDERED: NICOTINE 10 MG CARTRIDGE (INHALER) IH PRN (19:39)
[2022-10-12] MEDS ORDERED: DICYCLOMINE HCL 10 MG CAPSULE PO PRN (19:39)
[2022-10-12] MEDS ORDERED: ALBUTEROL SO4 HFA INHALER IH PRN (20:03)
[2022-10-12] MEDS: THIAMINE HCL 100 MG TABLET (FP) PO SCH (22:18)
[2022-10-12] MEDS: BUDESONIDE/FORMETEROL FUMARATE 160/4.5 mcg INHALER IH SCH (22:19)
[2022-10-12] MEDS: INSULIN SLIDING SCALE (NOVOLOG) 1 VIAL SQ SCH (22:19)
[2022-10-12] MEDS: chlordiazePOXIDE HCL 25 MG CAPSULE PO SCH (22:21)
[2022-10-12] MEDS: MELATONIN 5 MG TABLETS PO SCH (22:25)
[2022-10-13] MEDS: chlordiazePOXIDE HCL 25 MG CAPSULE PO SCH ×4 (05:50→22:45)
[2022-10-13] MEDS: metFORMIN HCL 500 MG TABLET (FP) PO SCH ×2 (06:19→17:19)
[2022-10-13] MEDS: INSULIN SLIDING SCALE (NOVOLOG) 1 VIAL SQ SCH ×4 (06:24→22:46)
[2022-10-13 10:24] LABS: HEMATOCRIT 38.2 % (35.4-49); HEMOGLOBIN 12.4 GM/dL (11.7-16.9); MCH 29.6 pg (25.7-33.7); MCHC 32.4 g/dl (32.0-35.9); MEAN CELL VOLUME 91.2 fl (80-96); MEAN PLT VOLUME 8.3 fl (7.5-11.1); PLATELET COUNT 317 10^3/uL (134-434); RBC 4.18 M/mm3 (4.00-5.60); RDW 13.8 % (11.9-15.9); WHITE BLOOD COUNT 9.1 K/mm3 (4.0-10.0)
[2022-10-13] MEDS: PRENATAL VITAMINS W/ FOLIC ACID TABLET (FP) PO SCH (10:27)
[2022-10-13] MEDS: HYDROCHLOROTHIAZIDE 25 MG TABLET (FP) PO SCH (10:27)
[2022-10-13] MEDS: BUDESONIDE/FORMETEROL FUMARATE 160/4.5 mcg INHALER IH SCH ×2 (10:28→22:46)
[2022-10-13] MEDS: PANTOPRAZOLE 40 MG TABLET PO SCH (10:28)
[2022-10-13] MEDS: LISINOPRIL 20 MG TABLET PO SCH (10:29)
[2022-10-13 10:46] LABS: ALBUMIN 2.8 g/dl (3.4-5.0); BLOOD UREA NITROGEN 16.3 mg/dL (7-18); CALCIUM 8.4 mg/dL (8.5-10.1)
[2022-10-13 10:49] LABS: CREATININE 0.8 mg/dL (0.55-1.3)
[2022-10-13 10:50] LABS: BILIRUBIN,TOTAL 0.3 mg/dL (0.2-1); TOT PROT 5.9 g/dl (6.4-8.2)
[2022-10-13] MEDS ORDERED: cloNIDine HCL 0.1 MG TABLET PO ONE (17:32)
[2022-10-13] MEDS: MELATONIN 5 MG TABLETS PO SCH (22:45)
[2022-10-13] MEDS: THIAMINE HCL 100 MG TABLET (FP) PO SCH (22:46)
[2022-10-14] MEDS: chlordiazePOXIDE HCL 25 MG CAPSULE PO SCH ×4 (05:36→22:39)
[2022-10-14] MEDS: INSULIN SLIDING SCALE (NOVOLOG) 1 VIAL SQ SCH ×4 (06:06→21:53)
[2022-10-14] MEDS: metFORMIN HCL 500 MG TABLET (FP) PO SCH ×2 (06:07→17:30)
[2022-10-14] MEDS: HYDROCHLOROTHIAZIDE 25 MG TABLET (FP) PO SCH (10:29)
[2022-10-14] MEDS: PRENATAL VITAMINS W/ FOLIC ACID TABLET (FP) PO SCH (10:29)
[2022-10-14] MEDS: LISINOPRIL 20 MG TABLET PO SCH (10:29)
[2022-10-14] MEDS: PANTOPRAZOLE 40 MG TABLET PO SCH (10:29)
[2022-10-14] MEDS: BUDESONIDE/FORMETEROL FUMARATE 160/4.5 mcg INHALER IH SCH ×2 (10:31→22:39)
[2022-10-14] MEDS: INSULIN (LEVEMIR) 100 UNITS/ML UNITS SQ SCH (22:39)
[2022-10-14] MEDS: QUEtiapine FUMARATE 50 MG TABLET PO SCH (22:40)
[2022-10-14] MEDS: THIAMINE HCL 100 MG TABLET (FP) PO SCH (22:40)
[2022-10-15] MEDS ORDERED: chlordiazePOXIDE HCL 10 MG CAPSULE PO PRN
[2022-10-15] MEDS: chlordiazePOXIDE HCL 10 MG CAPSULE PO SCH ×4 (05:45→22:16)
[2022-10-15] MEDS: INSULIN SLIDING SCALE (NOVOLOG) 1 VIAL SQ SCH ×4 (06:19→22:17)
[2022-10-15] MEDS: metFORMIN HCL 500 MG TABLET (FP) PO SCH ×2 (06:19→18:34)
[2022-10-15] MEDS: BUDESONIDE/FORMETEROL FUMARATE 160/4.5 mcg INHALER IH SCH ×2 (10:32→22:20)
[2022-10-15] MEDS: HYDROCHLOROTHIAZIDE 25 MG TABLET (FP) PO SCH (10:32)
[2022-10-15] MEDS: PANTOPRAZOLE 40 MG TABLET PO SCH (10:32)
[2022-10-15] MEDS: PRENATAL VITAMINS W/ FOLIC ACID TABLET (FP) PO SCH (10:32)
[2022-10-15] MEDS: LISINOPRIL 20 MG TABLET PO SCH (10:32)
[2022-10-15] MEDS: QUEtiapine FUMARATE 50 MG TABLET PO SCH (22:17)
[2022-10-15] MEDS: THIAMINE HCL 100 MG TABLET (FP) PO SCH (22:17)
[2022-10-15] MEDS: INSULIN (LEVEMIR) 100 UNITS/ML UNITS SQ SCH (22:20)
[2022-10-16] MEDS: chlordiazePOXIDE HCL 10 MG CAPSULE PO SCH ×2 (05:39→17:51)
[2022-10-16] MEDS: metFORMIN HCL 500 MG TABLET (FP) PO SCH ×2 (06:01→16:49)
[2022-10-16] MEDS: INSULIN SLIDING SCALE (NOVOLOG) 1 VIAL SQ SCH ×4 (06:07→22:21)
[2022-10-16 06:40] VITALS: RESP 18
[2022-10-16] MEDS: BUDESONIDE/FORMETEROL FUMARATE 160/4.5 mcg INHALER IH SCH ×2 (10:29→22:22)
[2022-10-16] MEDS: LISINOPRIL 20 MG TABLET PO SCH (10:30)
[2022-10-16] MEDS: PRENATAL VITAMINS W/ FOLIC ACID TABLET (FP) PO SCH (10:30)
[2022-10-16] MEDS: PANTOPRAZOLE 40 MG TABLET PO SCH (10:30)
[2022-10-16] MEDS: HYDROCHLOROTHIAZIDE 25 MG TABLET (FP) PO SCH (10:30)
[2022-10-16] MEDS ORDERED: METOPROLOL TARTRATE 25 MG TABLET (FP) PO ONE (17:32)
[2022-10-16] MEDS ORDERED: INSULIN (LEVEMIR) 100 UNITS/ML UNITS SQ SCH (22:00)
[2022-10-16] MEDS: QUEtiapine FUMARATE 50 MG TABLET PO SCH (22:19)
[2022-10-16] MEDS: THIAMINE HCL 100 MG TABLET (FP) PO SCH (22:19)
[2022-10-17] MEDS ORDERED: chlordiazePOXIDE HCL 10 MG CAPSULE PO ONE (05:00)
[2022-10-17] MEDS: metFORMIN HCL 500 MG TABLET (FP) PO SCH (06:08)
[2022-10-17] MEDS: INSULIN SLIDING SCALE (NOVOLOG) 1 VIAL SQ SCH ×2 (06:08→10:33)
[2022-10-17] MEDS: HYDROCHLOROTHIAZIDE 25 MG TABLET (FP) PO SCH (10:18)
[2022-10-17] MEDS: BUDESONIDE/FORMETEROL FUMARATE 160/4.5 mcg INHALER IH SCH (10:18)
[2022-10-17] MEDS: PANTOPRAZOLE 40 MG TABLET PO SCH (10:18)
[2022-10-17] MEDS: LISINOPRIL 20 MG TABLET PO SCH (10:18)
[2022-10-17] MEDS: PRENATAL VITAMINS W/ FOLIC ACID TABLET (FP) PO SCH (10:18)
[2022-10-17 10:26] VITALS: BP 142/92; PULSE 108; TEMP 97.5
== END 2022-10-17 12:40 | disposition other institution (70) | DRG 774 ==
LOC: YASAS 17:10 → Y3N 21:26
PROVIDERS: ADMIT Allergy & Immunology; ATTEND Surgery
PROC: HZ2ZZZZ Detoxification Services for Substance Abuse Treatment (ICD-10-PCS; principal; 2022-10-11)
DX: F10.230 Alcohol dependence with withdrawal, uncomplicated (principal); F14.20 Cocaine dependence, uncomplicated; F12.20 Cannabis dependence, uncomplicated; F17.210 Nicotine dependence, cigarettes, uncomplicated; F19.282 Other psychoactive substance dependence with psychoactive substance-induced sleep disorder; F31.9 Bipolar disorder, unspecified; J42 Unspecified chronic bronchitis; J45.20 Mild intermittent asthma, uncomplicated; E11.9 Type 2 diabetes mellitus without complications; Z79.84 Long term (current) use of oral hypoglycemic drugs; Z59.01 Sheltered homelessness
CPT/HCPCS: 36415; 80053; 82962; 85027; 86780; C9803-CS; U0003; U0005

== ENCOUNTER 2022-10-17 12:40 | Inpatient (IN) | payer OTHER ==
[2022-10-17] MEDS ORDERED: LOPERAMIDE HCL 2 MG CAPSULE PO PRN (13:50)
[2022-10-17] MEDS ORDERED: IBUPROFEN 400 MG TABLET (FP) PO PRN (13:50)
[2022-10-17] MEDS ORDERED: BENZOCAINE/MENTHOL (CHLORASEPTIC ) LOZENGE MM PRN (13:50)
[2022-10-17] MEDS ORDERED: NALOXONE HCL (KLOXXADO) 8 MG SPRAY NS PRN (13:50)
[2022-10-17] MEDS ORDERED: IBUPROFEN 600 MG TABLET (FP) PO PRN (13:50)
[2022-10-17] MEDS ORDERED: BENZONATATE 200 MG CAPSULE PO PRN (13:50)
[2022-10-17] MEDS ORDERED: COLLOIDAL OATMEAL 1 BAR EACH TP PRN (13:50)
[2022-10-17] MEDS ORDERED: METHOCARBAMOL 500 MG TABLET PO PRN (13:50)
[2022-10-17] MEDS ORDERED: POLYETHYLENE GLYCOL (HEALTHYLAX) 3350 17 GM PACKET PO PRN (13:50)
[2022-10-17] MEDS ORDERED: guaiFENesin 600 MG TABLET.ER (FP) PO PRN (13:50)
[2022-10-17] MEDS ORDERED: ACETAMINOPHEN 325 MG TABLET (FP) PO PRN (13:50)
[2022-10-17] MEDS ORDERED: MAG HYDROX/AL HYDROX/SIMETH 30 ML UNIT-DOSE CUP PO PRN (13:50)
[2022-10-17] MEDS ORDERED: NALOXONE HCL 0.4 MG/ML VIAL IVPUSH PRN (13:50)
[2022-10-17] MEDS ORDERED: AMMONIUM LACTATE 12% LOTION 225 GM BOTTLE TP PRN (13:50)
[2022-10-17] MEDS ORDERED: MAGNESIUM HYDROX 2400MG/30ML ORAL SUSPENSION 30 ML CUP PO PRN (13:50)
[2022-10-17] MEDS ORDERED: ALBUTEROL SO4 HFA INHALER IH PRN (13:55)
[2022-10-17] MEDS: metFORMIN HCL 500 MG TABLET (FP) PO SCH (18:15)
[2022-10-17] MEDS: QUEtiapine FUMARATE 100 MG TABLET (FP) PO SCH (21:31)
[2022-10-17] MEDS: THIAMINE HCL 100 MG TABLET (FP) PO SCH (21:32)
[2022-10-17] MEDS: MELATONIN 5 MG TABLETS PO SCH (21:32)
[2022-10-17] MEDS: BUDESONIDE/FORMETEROL FUMARATE 160/4.5 mcg INHALER IH SCH (21:32)
[2022-10-17] MEDS ORDERED: QUEtiapine FUMARATE 50 MG TABLET PO SCH (22:00)
[2022-10-18] MEDS: metFORMIN HCL 500 MG TABLET (FP) PO SCH ×2 (06:10→16:47)
[2022-10-18] MEDS: hydrOXYzine PAMOATE 25 MG CAPSULE (FP) PO PRN (06:11)
[2022-10-18] MEDS ORDERED: LISINOPRIL 20 MG TABLET PO SCH (10:00)
[2022-10-18] MEDS ORDERED: HYDROCHLOROTHIAZIDE 25 MG TABLET (FP) PO SCH (10:00)
[2022-10-18] MEDS: BUDESONIDE/FORMETEROL FUMARATE 160/4.5 mcg INHALER IH SCH ×2 (10:13→21:06)
[2022-10-18] MEDS: PRENATAL VITAMINS W/ FOLIC ACID TABLET (FP) PO SCH (10:13)
[2022-10-18] MEDS: PANTOPRAZOLE 40 MG TABLET PO SCH (10:14)
[2022-10-18] MEDS ORDERED: cloNIDine HCL 0.1 MG TABLET PO ONE (14:56)
[2022-10-18] MEDS: INSULIN SLIDING SCALE (NOVOLOG) 1 VIAL SQ SCH (17:13)
[2022-10-18] MEDS: MELATONIN 5 MG TABLETS PO SCH (21:05)
[2022-10-18] MEDS: QUEtiapine FUMARATE 100 MG TABLET (FP) PO SCH (21:05)
[2022-10-18] MEDS: THIAMINE HCL 100 MG TABLET (FP) PO SCH (21:05)
[2022-10-19] MEDS: INSULIN SLIDING SCALE (NOVOLOG) 1 VIAL SQ SCH ×3 (06:30→16:36)
[2022-10-19] MEDS: metFORMIN HCL 500 MG TABLET (FP) PO SCH ×2 (06:32→16:34)
[2022-10-19] MEDS: PRENATAL VITAMINS W/ FOLIC ACID TABLET (FP) PO SCH (09:47)
[2022-10-19] MEDS: PANTOPRAZOLE 40 MG TABLET PO SCH (09:47)
[2022-10-19] MEDS: HYDROCHLOROTHIAZIDE 25 MG TABLET (FP) PO SCH (09:47)
[2022-10-19] MEDS: LISINOPRIL 20 MG TABLET PO SCH (09:48)
[2022-10-19] MEDS: BUDESONIDE/FORMETEROL FUMARATE 160/4.5 mcg INHALER IH SCH ×2 (09:48→21:05)
[2022-10-19] MEDS: hydrOXYzine PAMOATE 25 MG CAPSULE (FP) PO PRN (09:49)
[2022-10-19] MEDS: NICOTINE 10 MG CARTRIDGE (INHALER) IH PRN (15:44)
[2022-10-19] MEDS: MELATONIN 5 MG TABLETS PO SCH (21:05)
[2022-10-19] MEDS: QUEtiapine FUMARATE 100 MG TABLET (FP) PO SCH (21:05)
[2022-10-19] MEDS: THIAMINE HCL 100 MG TABLET (FP) PO SCH (21:05)
[2022-10-20] MEDS: INSULIN SLIDING SCALE (NOVOLOG) 1 VIAL SQ SCH ×3 (06:52→16:49)
[2022-10-20] MEDS: metFORMIN HCL 500 MG TABLET (FP) PO SCH ×2 (06:54→16:48)
[2022-10-20] MEDS: PRENATAL VITAMINS W/ FOLIC ACID TABLET (FP) PO SCH (09:41)
[2022-10-20] MEDS: PANTOPRAZOLE 40 MG TABLET PO SCH (09:42)
[2022-10-20] MEDS: HYDROCHLOROTHIAZIDE 25 MG TABLET (FP) PO SCH (09:42)
[2022-10-20] MEDS: LISINOPRIL 20 MG TABLET PO SCH (09:42)
[2022-10-20] MEDS: BUDESONIDE/FORMETEROL FUMARATE 160/4.5 mcg INHALER IH SCH ×2 (09:44→21:48)
[2022-10-20] MEDS: LACTULOSE 20 GM/30 ML UDC (FOR ORAL USE ONLY) PO SCH ×2 (11:11→21:48)
[2022-10-20] MEDS: NICOTINE 10 MG CARTRIDGE (INHALER) IH PRN (18:21)
[2022-10-20] MEDS: MELATONIN 5 MG TABLETS PO SCH (21:48)
[2022-10-20] MEDS: THIAMINE HCL 100 MG TABLET (FP) PO SCH (21:48)
[2022-10-20] MEDS: QUEtiapine FUMARATE 100 MG TABLET (FP) PO SCH (21:48)
[2022-10-21] MEDS: metFORMIN HCL 500 MG TABLET (FP) PO SCH ×2 (06:12→16:44)
[2022-10-21] MEDS: INSULIN SLIDING SCALE (NOVOLOG) 1 VIAL SQ SCH ×3 (06:41→16:46)
[2022-10-21] MEDS: PRENATAL VITAMINS W/ FOLIC ACID TABLET (FP) PO SCH (10:40)
[2022-10-21] MEDS: LACTULOSE 20 GM/30 ML UDC (FOR ORAL USE ONLY) PO SCH ×3 (10:40→21:08)
[2022-10-21] MEDS: LISINOPRIL 20 MG TABLET PO SCH (10:40)
[2022-10-21] MEDS: PANTOPRAZOLE 40 MG TABLET PO SCH (10:40)
[2022-10-21] MEDS: HYDROCHLOROTHIAZIDE 25 MG TABLET (FP) PO SCH (10:41)
[2022-10-21] MEDS: BUDESONIDE/FORMETEROL FUMARATE 160/4.5 mcg INHALER IH SCH ×2 (10:42→21:08)
[2022-10-21] MEDS ORDERED: MINERAL OIL/PETROLAT/WATER TOPICAL CREAM 113 GM JAR TP PRN (11:53)
[2022-10-21] MEDS ORDERED: HYDROCHLOROTHIAZIDE 25 MG TABLET (FP) PO SCH (12:45)
[2022-10-21] MEDS ORDERED: HYDROCHLOROTHIAZIDE 25 MG TABLET (FP) PO ONE (13:00)
[2022-10-21] MEDS: NICOTINE 10 MG CARTRIDGE (INHALER) IH PRN (14:29)
[2022-10-21] MEDS: QUEtiapine FUMARATE 100 MG TABLET (FP) PO SCH (21:08)
[2022-10-21] MEDS: MELATONIN 5 MG TABLETS PO SCH (21:08)
[2022-10-21] MEDS: THIAMINE HCL 100 MG TABLET (FP) PO SCH (21:08)
[2022-10-22] MEDS: metFORMIN HCL 500 MG TABLET (FP) PO SCH ×2 (06:32→16:31)
[2022-10-22] MEDS: LACTULOSE 20 GM/30 ML UDC (FOR ORAL USE ONLY) PO SCH ×3 (06:32→21:30)
[2022-10-22] MEDS: NICOTINE 10 MG CARTRIDGE (INHALER) IH PRN ×3 (06:39→16:44)
[2022-10-22] MEDS: INSULIN SLIDING SCALE (NOVOLOG) 1 VIAL SQ SCH ×3 (07:03→16:32)
[2022-10-22] MEDS: PRENATAL VITAMINS W/ FOLIC ACID TABLET (FP) PO SCH (09:40)
[2022-10-22] MEDS: PANTOPRAZOLE 40 MG TABLET PO SCH (09:40)
[2022-10-22] MEDS: LISINOPRIL 20 MG TABLET PO SCH (09:41)
[2022-10-22] MEDS: HYDROCHLOROTHIAZIDE 25 MG TABLET (FP) PO SCH (09:41)
[2022-10-22] MEDS: BUDESONIDE/FORMETEROL FUMARATE 160/4.5 mcg INHALER IH SCH ×2 (09:42→21:31)
[2022-10-22] MEDS: NICOTINE POLACRILEX 4 MG GUM BUC PRN (19:02)
[2022-10-22] MEDS: QUEtiapine FUMARATE 100 MG TABLET (FP) PO SCH (21:30)
[2022-10-22] MEDS: THIAMINE HCL 100 MG TABLET (FP) PO SCH (21:30)
[2022-10-22] MEDS: MELATONIN 5 MG TABLETS PO SCH (21:31)
[2022-10-23] MEDS: LACTULOSE 20 GM/30 ML UDC (FOR ORAL USE ONLY) PO SCH ×3 (06:51→21:00)
[2022-10-23] MEDS: INSULIN SLIDING SCALE (NOVOLOG) 1 VIAL SQ SCH ×3 (06:52→16:32)
[2022-10-23] MEDS: metFORMIN HCL 500 MG TABLET (FP) PO SCH ×2 (06:53→16:31)
[2022-10-23] MEDS: BUDESONIDE/FORMETEROL FUMARATE 160/4.5 mcg INHALER IH SCH ×2 (09:49→21:00)
[2022-10-23] MEDS: LISINOPRIL 20 MG TABLET PO SCH (09:50)
[2022-10-23] MEDS: PRENATAL VITAMINS W/ FOLIC ACID TABLET (FP) PO SCH (09:50)
[2022-10-23] MEDS: HYDROCHLOROTHIAZIDE 25 MG TABLET (FP) PO SCH (09:50)
[2022-10-23] MEDS: PANTOPRAZOLE 40 MG TABLET PO SCH (09:50)
[2022-10-23] MEDS: NICOTINE POLACRILEX 4 MG GUM BUC PRN (11:01)
[2022-10-23] MEDS: NICOTINE 10 MG CARTRIDGE (INHALER) IH PRN ×2 (17:21→20:59)
[2022-10-23] MEDS: MELATONIN 5 MG TABLETS PO SCH (21:00)
[2022-10-23] MEDS: QUEtiapine FUMARATE 100 MG TABLET (FP) PO SCH (21:00)
[2022-10-23] MEDS: THIAMINE HCL 100 MG TABLET (FP) PO SCH (21:00)
[2022-10-24] MEDS: metFORMIN HCL 500 MG TABLET (FP) PO SCH ×2 (06:34→18:13)
[2022-10-24] MEDS: LACTULOSE 20 GM/30 ML UDC (FOR ORAL USE ONLY) PO SCH ×3 (06:34→21:17)
[2022-10-24] MEDS: INSULIN SLIDING SCALE (NOVOLOG) 1 VIAL SQ SCH ×3 (06:36→18:16)
[2022-10-24] MEDS: BUDESONIDE/FORMETEROL FUMARATE 160/4.5 mcg INHALER IH SCH ×2 (10:08→21:18)
[2022-10-24] MEDS: PRENATAL VITAMINS W/ FOLIC ACID TABLET (FP) PO SCH (10:08)
[2022-10-24] MEDS: HYDROCHLOROTHIAZIDE 25 MG TABLET (FP) PO SCH (10:09)
[2022-10-24] MEDS: PANTOPRAZOLE 40 MG TABLET PO SCH (10:09)
[2022-10-24] MEDS: LISINOPRIL 20 MG TABLET PO SCH (10:09)
[2022-10-24] MEDS: NICOTINE 10 MG CARTRIDGE (INHALER) IH PRN ×2 (13:43→21:40)
[2022-10-24] MEDS: THIAMINE HCL 100 MG TABLET (FP) PO SCH (21:17)
[2022-10-24] MEDS: MELATONIN 5 MG TABLETS PO SCH (21:17)
[2022-10-24] MEDS: QUEtiapine FUMARATE 100 MG TABLET (FP) PO SCH (21:18)
[2022-10-25] MEDS: LACTULOSE 20 GM/30 ML UDC (FOR ORAL USE ONLY) PO SCH ×3 (06:10→21:26)
[2022-10-25] MEDS: metFORMIN HCL 500 MG TABLET (FP) PO SCH ×2 (06:11→17:12)
[2022-10-25] MEDS: INSULIN SLIDING SCALE (NOVOLOG) 1 VIAL SQ SCH ×3 (06:12→17:13)
[2022-10-25] MEDS: NICOTINE 10 MG CARTRIDGE (INHALER) IH PRN ×2 (06:14→20:35)
[2022-10-25] MEDS: LISINOPRIL 20 MG TABLET PO SCH (10:01)
[2022-10-25] MEDS: BUDESONIDE/FORMETEROL FUMARATE 160/4.5 mcg INHALER IH SCH ×2 (10:01→21:27)
[2022-10-25] MEDS: PRENATAL VITAMINS W/ FOLIC ACID TABLET (FP) PO SCH (10:02)
[2022-10-25] MEDS: PANTOPRAZOLE 40 MG TABLET PO SCH (10:02)
[2022-10-25] MEDS: HYDROCHLOROTHIAZIDE 25 MG TABLET (FP) PO SCH (10:02)
[2022-10-25] MEDS: THIAMINE HCL 100 MG TABLET (FP) PO SCH (21:26)
[2022-10-25] MEDS: QUEtiapine FUMARATE 100 MG TABLET (FP) PO SCH (21:26)
[2022-10-25] MEDS: MELATONIN 5 MG TABLETS PO SCH (21:27)
[2022-10-26] MEDS: INSULIN SLIDING SCALE (NOVOLOG) 1 VIAL SQ SCH ×3 (06:32→17:06)
[2022-10-26] MEDS: metFORMIN HCL 500 MG TABLET (FP) PO SCH ×2 (06:34→17:04)
[2022-10-26] MEDS: LACTULOSE 20 GM/30 ML UDC (FOR ORAL USE ONLY) PO SCH ×3 (06:34→21:02)
[2022-10-26] MEDS: NICOTINE 10 MG CARTRIDGE (INHALER) IH PRN ×2 (06:35→17:04)
[2022-10-26] MEDS: BUDESONIDE/FORMETEROL FUMARATE 160/4.5 mcg INHALER IH SCH ×2 (09:31→21:03)
[2022-10-26] MEDS: HYDROCHLOROTHIAZIDE 25 MG TABLET (FP) PO SCH (09:32)
[2022-10-26] MEDS: PRENATAL VITAMINS W/ FOLIC ACID TABLET (FP) PO SCH (09:32)
[2022-10-26] MEDS: LISINOPRIL 20 MG TABLET PO SCH (09:32)
[2022-10-26] MEDS: PANTOPRAZOLE 40 MG TABLET PO SCH (09:32)
[2022-10-26] MEDS: MELATONIN 5 MG TABLETS PO SCH (21:02)
[2022-10-26] MEDS: THIAMINE HCL 100 MG TABLET (FP) PO SCH (21:03)
[2022-10-26] MEDS: QUEtiapine FUMARATE 100 MG TABLET (FP) PO SCH (21:03)
[2022-10-27] MEDS: INSULIN SLIDING SCALE (NOVOLOG) 1 VIAL SQ SCH ×3 (06:08→16:45)
[2022-10-27] MEDS: LACTULOSE 20 GM/30 ML UDC (FOR ORAL USE ONLY) PO SCH ×3 (06:09→21:16)
[2022-10-27] MEDS: metFORMIN HCL 500 MG TABLET (FP) PO SCH ×2 (06:10→16:51)
[2022-10-27] MEDS: BUDESONIDE/FORMETEROL FUMARATE 160/4.5 mcg INHALER IH SCH ×2 (10:05→21:48)
[2022-10-27] MEDS: PRENATAL VITAMINS W/ FOLIC ACID TABLET (FP) PO SCH (10:06)
[2022-10-27] MEDS: HYDROCHLOROTHIAZIDE 25 MG TABLET (FP) PO SCH (10:06)
[2022-10-27] MEDS: PANTOPRAZOLE 40 MG TABLET PO SCH (10:06)
[2022-10-27] MEDS: LISINOPRIL 20 MG TABLET PO SCH (10:06)
[2022-10-27] MEDS: NICOTINE 10 MG CARTRIDGE (INHALER) IH PRN (13:30)
[2022-10-27] MEDS: THIAMINE HCL 100 MG TABLET (FP) PO SCH (21:15)
[2022-10-27] MEDS: QUEtiapine FUMARATE 100 MG TABLET (FP) PO SCH (21:15)
[2022-10-27] MEDS: MELATONIN 5 MG TABLETS PO SCH (21:15)
[2022-10-28] MEDS: LACTULOSE 20 GM/30 ML UDC (FOR ORAL USE ONLY) PO SCH ×3 (06:13→21:22)
[2022-10-28] MEDS: metFORMIN HCL 500 MG TABLET (FP) PO SCH ×2 (06:14→16:29)
[2022-10-28] MEDS: INSULIN SLIDING SCALE (NOVOLOG) 1 VIAL SQ SCH ×3 (06:16→16:31)
[2022-10-28] MEDS: LISINOPRIL 20 MG TABLET PO SCH (09:42)
[2022-10-28] MEDS: HYDROCHLOROTHIAZIDE 25 MG TABLET (FP) PO SCH (09:42)
[2022-10-28] MEDS: PRENATAL VITAMINS W/ FOLIC ACID TABLET (FP) PO SCH (09:42)
[2022-10-28] MEDS: PANTOPRAZOLE 40 MG TABLET PO SCH (09:42)
[2022-10-28] MEDS: NICOTINE 10 MG CARTRIDGE (INHALER) IH PRN (09:43)
[2022-10-28] MEDS: BUDESONIDE/FORMETEROL FUMARATE 160/4.5 mcg INHALER IH SCH ×2 (09:43→21:22)
[2022-10-28] MEDS: amLODIPine BESYLATE 2.5 MG TABLET (FP) PO SCH (11:59)
[2022-10-28] MEDS: THIAMINE HCL 100 MG TABLET (FP) PO SCH (21:22)
[2022-10-28] MEDS: QUEtiapine FUMARATE 100 MG TABLET (FP) PO SCH (21:22)
[2022-10-28] MEDS: MELATONIN 5 MG TABLETS PO SCH (21:22)
[2022-10-29] MEDS: LACTULOSE 20 GM/30 ML UDC (FOR ORAL USE ONLY) PO SCH ×3 (06:02→21:15)
[2022-10-29] MEDS: INSULIN SLIDING SCALE (NOVOLOG) 1 VIAL SQ SCH ×3 (06:04→16:42)
[2022-10-29] MEDS: metFORMIN HCL 500 MG TABLET (FP) PO SCH ×2 (06:06→16:41)
[2022-10-29] MEDS: PRENATAL VITAMINS W/ FOLIC ACID TABLET (FP) PO SCH (09:47)
[2022-10-29] MEDS: amLODIPine BESYLATE 2.5 MG TABLET (FP) PO SCH (09:47)
[2022-10-29] MEDS: PANTOPRAZOLE 40 MG TABLET PO SCH (09:48)
[2022-10-29] MEDS: LISINOPRIL 20 MG TABLET PO SCH (09:48)
[2022-10-29] MEDS: HYDROCHLOROTHIAZIDE 25 MG TABLET (FP) PO SCH (09:48)
[2022-10-29] MEDS: BUDESONIDE/FORMETEROL FUMARATE 160/4.5 mcg INHALER IH SCH ×2 (09:49→21:16)
[2022-10-29] MEDS: NICOTINE 10 MG CARTRIDGE (INHALER) IH PRN (16:00)
[2022-10-29] MEDS: MELATONIN 5 MG TABLETS PO SCH (21:15)
[2022-10-29] MEDS: THIAMINE HCL 100 MG TABLET (FP) PO SCH (21:15)
[2022-10-29] MEDS: QUEtiapine FUMARATE 100 MG TABLET (FP) PO SCH (21:15)
[2022-10-30] MEDS: metFORMIN HCL 500 MG TABLET (FP) PO SCH ×2 (06:12→16:27)
[2022-10-30] MEDS: LACTULOSE 20 GM/30 ML UDC (FOR ORAL USE ONLY) PO SCH ×2 (06:12→13:27)
[2022-10-30] MEDS: INSULIN SLIDING SCALE (NOVOLOG) 1 VIAL SQ SCH ×3 (06:15→16:27)
[2022-10-30] MEDS: HYDROCHLOROTHIAZIDE 25 MG TABLET (FP) PO SCH (10:28)
[2022-10-30] MEDS: BUDESONIDE/FORMETEROL FUMARATE 160/4.5 mcg INHALER IH SCH ×2 (10:28→21:02)
[2022-10-30] MEDS: amLODIPine BESYLATE 2.5 MG TABLET (FP) PO SCH (10:28)
[2022-10-30] MEDS: LISINOPRIL 20 MG TABLET PO SCH (10:28)
[2022-10-30] MEDS: NICOTINE 10 MG CARTRIDGE (INHALER) IH PRN ×2 (10:29→19:01)
[2022-10-30] MEDS: PRENATAL VITAMINS W/ FOLIC ACID TABLET (FP) PO SCH (10:29)
[2022-10-30] MEDS: PANTOPRAZOLE 40 MG TABLET PO SCH (10:29)
[2022-10-30] MEDS: THIAMINE HCL 100 MG TABLET (FP) PO SCH (21:01)
[2022-10-30] MEDS: MELATONIN 5 MG TABLETS PO SCH (21:01)
[2022-10-30] MEDS: QUEtiapine FUMARATE 100 MG TABLET (FP) PO SCH (21:02)
[2022-10-31] MEDS: INSULIN SLIDING SCALE (NOVOLOG) 1 VIAL SQ SCH ×3 (06:07→16:43)
[2022-10-31] MEDS: metFORMIN HCL 500 MG TABLET (FP) PO SCH ×2 (06:07→16:43)
[2022-10-31] MEDS: PRENATAL VITAMINS W/ FOLIC ACID TABLET (FP) PO SCH (09:38)
[2022-10-31] MEDS: PANTOPRAZOLE 40 MG TABLET PO SCH (09:39)
[2022-10-31] MEDS: HYDROCHLOROTHIAZIDE 25 MG TABLET (FP) PO SCH (09:39)
[2022-10-31] MEDS: amLODIPine BESYLATE 2.5 MG TABLET (FP) PO SCH (09:40)
[2022-10-31] MEDS: BUDESONIDE/FORMETEROL FUMARATE 160/4.5 mcg INHALER IH SCH ×2 (09:40→21:21)
[2022-10-31] MEDS: LISINOPRIL 20 MG TABLET PO SCH (10:39)
[2022-10-31] MEDS: NICOTINE 10 MG CARTRIDGE (INHALER) IH PRN (16:51)
[2022-10-31] MEDS: QUEtiapine FUMARATE 100 MG TABLET (FP) PO SCH (21:21)
[2022-10-31] MEDS: MELATONIN 5 MG TABLETS PO SCH (21:21)
[2022-10-31] MEDS: THIAMINE HCL 100 MG TABLET (FP) PO SCH (21:21)
[2022-11-01] MEDS: metFORMIN HCL 500 MG TABLET (FP) PO SCH ×2 (06:00→16:27)
[2022-11-01] MEDS: INSULIN SLIDING SCALE (NOVOLOG) 1 VIAL SQ SCH ×3 (06:34→16:29)
[2022-11-01] MEDS: PRENATAL VITAMINS W/ FOLIC ACID TABLET (FP) PO SCH (10:16)
[2022-11-01] MEDS: HYDROCHLOROTHIAZIDE 25 MG TABLET (FP) PO SCH (10:16)
[2022-11-01] MEDS: BUDESONIDE/FORMETEROL FUMARATE 160/4.5 mcg INHALER IH SCH ×2 (10:16→21:18)
[2022-11-01] MEDS: amLODIPine BESYLATE 2.5 MG TABLET (FP) PO SCH (10:17)
[2022-11-01] MEDS: LISINOPRIL 20 MG TABLET PO SCH (10:17)
[2022-11-01] MEDS: PANTOPRAZOLE 40 MG TABLET PO SCH (10:17)
[2022-11-01] MEDS: NICOTINE 10 MG CARTRIDGE (INHALER) IH PRN (11:53)
[2022-11-01] MEDS: THIAMINE HCL 100 MG TABLET (FP) PO SCH (21:18)
[2022-11-01] MEDS: QUEtiapine FUMARATE 100 MG TABLET (FP) PO SCH (21:18)
[2022-11-01] MEDS: MELATONIN 5 MG TABLETS PO SCH (21:18)
[2022-11-02] MEDS: metFORMIN HCL 500 MG TABLET (FP) PO SCH ×2 (06:12→16:31)
[2022-11-02] MEDS: INSULIN SLIDING SCALE (NOVOLOG) 1 VIAL SQ SCH ×3 (06:14→16:32)
[2022-11-02 07:05] VITALS: RESP 18
[2022-11-02] MEDS: PANTOPRAZOLE 40 MG TABLET PO SCH (09:46)
[2022-11-02] MEDS: amLODIPine BESYLATE 2.5 MG TABLET (FP) PO SCH (09:46)
[2022-11-02] MEDS: HYDROCHLOROTHIAZIDE 25 MG TABLET (FP) PO SCH (09:46)
[2022-11-02] MEDS: LISINOPRIL 20 MG TABLET PO SCH (09:46)
[2022-11-02] MEDS: BUDESONIDE/FORMETEROL FUMARATE 160/4.5 mcg INHALER IH SCH ×2 (09:46→21:15)
[2022-11-02] MEDS: PRENATAL VITAMINS W/ FOLIC ACID TABLET (FP) PO SCH (09:46)
[2022-11-02] MEDS: NICOTINE 10 MG CARTRIDGE (INHALER) IH PRN (16:49)
[2022-11-02] MEDS: MELATONIN 5 MG TABLETS PO SCH (21:15)
[2022-11-02] MEDS: THIAMINE HCL 100 MG TABLET (FP) PO SCH (21:15)
[2022-11-02] MEDS: QUEtiapine FUMARATE 100 MG TABLET (FP) PO SCH (21:15)
[2022-11-03] MEDS: metFORMIN HCL 500 MG TABLET (FP) PO SCH ×2 (06:04→17:06)
[2022-11-03] MEDS: PRENATAL VITAMINS W/ FOLIC ACID TABLET (FP) PO SCH (10:43)
[2022-11-03] MEDS: PANTOPRAZOLE 40 MG TABLET PO SCH (10:43)
[2022-11-03] MEDS: amLODIPine BESYLATE 2.5 MG TABLET (FP) PO SCH (10:43)
[2022-11-03] MEDS: LISINOPRIL 20 MG TABLET PO SCH (10:43)
[2022-11-03] MEDS: HYDROCHLOROTHIAZIDE 25 MG TABLET (FP) PO SCH (10:43)
[2022-11-03] MEDS: BUDESONIDE/FORMETEROL FUMARATE 160/4.5 mcg INHALER IH SCH ×2 (10:45→21:42)
[2022-11-03] MEDS: INSULIN SLIDING SCALE (NOVOLOG) 1 VIAL SQ SCH ×3 (11:12→17:07)
[2022-11-03] MEDS: NICOTINE 10 MG CARTRIDGE (INHALER) IH PRN (11:55)
[2022-11-03] MEDS: MELATONIN 5 MG TABLETS PO SCH (21:41)
[2022-11-03] MEDS: QUEtiapine FUMARATE 100 MG TABLET (FP) PO SCH (21:41)
[2022-11-03] MEDS: THIAMINE HCL 100 MG TABLET (FP) PO SCH (21:41)
[2022-11-04] MEDS: metFORMIN HCL 500 MG TABLET (FP) PO SCH ×2 (06:00→16:57)
[2022-11-04] MEDS: INSULIN SLIDING SCALE (NOVOLOG) 1 VIAL SQ SCH ×3 (07:36→16:57)
[2022-11-04] MEDS: amLODIPine BESYLATE 2.5 MG TABLET (FP) PO SCH (09:44)
[2022-11-04] MEDS: BUDESONIDE/FORMETEROL FUMARATE 160/4.5 mcg INHALER IH SCH ×2 (09:44→21:18)
[2022-11-04] MEDS: HYDROCHLOROTHIAZIDE 25 MG TABLET (FP) PO SCH (09:44)
[2022-11-04] MEDS: PANTOPRAZOLE 40 MG TABLET PO SCH (09:44)
[2022-11-04] MEDS: LISINOPRIL 20 MG TABLET PO SCH (09:44)
[2022-11-04] MEDS: PRENATAL VITAMINS W/ FOLIC ACID TABLET (FP) PO SCH (09:44)
[2022-11-04] MEDS: NICOTINE 10 MG CARTRIDGE (INHALER) IH PRN (09:46)
[2022-11-04] MEDS: QUEtiapine FUMARATE 100 MG TABLET (FP) PO SCH (21:17)
[2022-11-04] MEDS: MELATONIN 5 MG TABLETS PO SCH (21:17)
[2022-11-04] MEDS: THIAMINE HCL 100 MG TABLET (FP) PO SCH (21:17)
[2022-11-05] MEDS: metFORMIN HCL 500 MG TABLET (FP) PO SCH ×2 (06:03→16:32)
[2022-11-05] MEDS: INSULIN SLIDING SCALE (NOVOLOG) 1 VIAL SQ SCH ×3 (06:03→16:32)
[2022-11-05] MEDS: PRENATAL VITAMINS W/ FOLIC ACID TABLET (FP) PO SCH (09:56)
[2022-11-05] MEDS: BUDESONIDE/FORMETEROL FUMARATE 160/4.5 mcg INHALER IH SCH ×2 (09:57→21:09)
[2022-11-05] MEDS: LISINOPRIL 20 MG TABLET PO SCH (09:57)
[2022-11-05] MEDS: PANTOPRAZOLE 40 MG TABLET PO SCH (09:57)
[2022-11-05] MEDS: HYDROCHLOROTHIAZIDE 25 MG TABLET (FP) PO SCH (09:57)
[2022-11-05] MEDS: amLODIPine BESYLATE 2.5 MG TABLET (FP) PO SCH (09:57)
[2022-11-05] MEDS: NICOTINE 10 MG CARTRIDGE (INHALER) IH PRN (18:09)
[2022-11-05] MEDS: MELATONIN 5 MG TABLETS PO SCH (21:09)
[2022-11-05] MEDS: THIAMINE HCL 100 MG TABLET (FP) PO SCH (21:09)
[2022-11-05] MEDS: QUEtiapine FUMARATE 100 MG TABLET (FP) PO SCH (21:09)
[2022-11-06] MEDS: INSULIN SLIDING SCALE (NOVOLOG) 1 VIAL SQ SCH ×3 (06:33→16:34)
[2022-11-06] MEDS: metFORMIN HCL 500 MG TABLET (FP) PO SCH ×2 (06:34→16:33)
[2022-11-06] MEDS: LISINOPRIL 20 MG TABLET PO SCH (09:30)
[2022-11-06] MEDS: PANTOPRAZOLE 40 MG TABLET PO SCH (09:30)
[2022-11-06] MEDS: PRENATAL VITAMINS W/ FOLIC ACID TABLET (FP) PO SCH (09:30)
[2022-11-06] MEDS: BUDESONIDE/FORMETEROL FUMARATE 160/4.5 mcg INHALER IH SCH ×2 (09:30→21:33)
[2022-11-06] MEDS: HYDROCHLOROTHIAZIDE 25 MG TABLET (FP) PO SCH (09:30)
[2022-11-06] MEDS: amLODIPine BESYLATE 2.5 MG TABLET (FP) PO SCH (09:30)
[2022-11-06] MEDS ORDERED: FLU VACC QS2022-23(6MOS UP)/PF 60 MCG/0.5 ML SYRINGE IM ONE (12:00)
[2022-11-06] MEDS: MELATONIN 5 MG TABLETS PO SCH (21:33)
[2022-11-06] MEDS: QUEtiapine FUMARATE 100 MG TABLET (FP) PO SCH (21:33)
[2022-11-06] MEDS: THIAMINE HCL 100 MG TABLET (FP) PO SCH (21:33)
[2022-11-07] MEDS: metFORMIN HCL 500 MG TABLET (FP) PO SCH (06:07)
[2022-11-07] MEDS: INSULIN SLIDING SCALE (NOVOLOG) 1 VIAL SQ SCH (06:07)
[2022-11-07 06:51] VITALS: BP 141/97; PULSE 100; TEMP 97.5
[2022-11-07] MEDS: BUDESONIDE/FORMETEROL FUMARATE 160/4.5 mcg INHALER IH SCH (09:00)
[2022-11-07] MEDS: LISINOPRIL 20 MG TABLET PO SCH (09:00)
[2022-11-07] MEDS: PRENATAL VITAMINS W/ FOLIC ACID TABLET (FP) PO SCH (09:00)
[2022-11-07] MEDS: HYDROCHLOROTHIAZIDE 25 MG TABLET (FP) PO SCH (09:00)
[2022-11-07] MEDS: PANTOPRAZOLE 40 MG TABLET PO SCH (09:00)
[2022-11-07] MEDS: NICOTINE 10 MG CARTRIDGE (INHALER) IH PRN (09:01)
[2022-11-07] MEDS ORDERED: amLODIPine BESYLATE 5 MG TABLET (FP) PO SCH (10:00)
== END 2022-11-07 09:18 | disposition home or self-care (01) | DRG 772 ==
LOC: YASAS 12:40 → Y3W 12:41
PROVIDERS: ADMIT Allergy & Immunology; ATTEND Psychiatry & Neurology Pain Medicine
PROC: HZ42ZZZ Group Counseling for Substance Abuse Treatment, Cognitive-Behavioral (ICD-10-PCS; principal; 2022-10-17)
DX: F10.20 Alcohol dependence, uncomplicated (principal); F14.20 Cocaine dependence, uncomplicated; F12.20 Cannabis dependence, uncomplicated; F17.210 Nicotine dependence, cigarettes, uncomplicated; F19.282 Other psychoactive substance dependence with psychoactive substance-induced sleep disorder; F19.280 Other psychoactive substance dependence with psychoactive substance-induced anxiety disorder; F31.9 Bipolar disorder, unspecified; F41.9 Anxiety disorder, unspecified; E72.20 Disorder of urea cycle metabolism, unspecified; I10 Essential (primary) hypertension; J44.9 Chronic obstructive pulmonary disease, unspecified; E11.9 Type 2 diabetes mellitus without complications; Z79.84 Long term (current) use of oral hypoglycemic drugs; Z59.01 Sheltered homelessness
CPT/HCPCS: 36415; 82140; 82962; 86803; Q2036

== ENCOUNTER 2022-12-11 17:52 | Inpatient (IN) | payer OTHER ==
[2022-12-11 19:03] VITALS: BMI 27.8
[2022-12-11] MEDS ORDERED: IBUPROFEN 600 MG TABLET (FP) PO PRN (21:02)
[2022-12-11] MEDS ORDERED: ACETAMINOPHEN 325 MG TABLET (FP) PO PRN ×2 (21:02)
[2022-12-11] MEDS ORDERED: guaiFENesin 600 MG TABLET.ER (FP) PO PRN (21:02)
[2022-12-11] MEDS ORDERED: NICOTINE POLACRILEX 2 MG GUM BUC PRN (21:02)
[2022-12-11] MEDS ORDERED: ONDANSETRON *ODT* 4 MG TABLET SL PRN (21:02)
[2022-12-11] MEDS ORDERED: DICYCLOMINE HCL 10 MG CAPSULE PO PRN (21:02)
[2022-12-11] MEDS ORDERED: NALOXONE HCL 0.4 MG/ML VIAL IM PRN (21:02)
[2022-12-11] MEDS ORDERED: IBUPROFEN 400 MG TABLET (FP) PO PRN (21:02)
[2022-12-11] MEDS ORDERED: LOPERAMIDE HCL 2 MG CAPSULE PO PRN (21:02)
[2022-12-11] MEDS ORDERED: NALOXONE HCL (KLOXXADO) 8 MG SPRAY NS PRN (21:02)
[2022-12-11] MEDS ORDERED: BISMUTH SUBSALICYLATE 524 MG/30 ML PO PRN (21:02)
[2022-12-11] MEDS ORDERED: MELATONIN 5 MG TABLETS PO PRN (21:02)
[2022-12-11] MEDS ORDERED: BENZOCAINE/MENTHOL (CHLORASEPTIC ) LOZENGE MM PRN (21:02)
[2022-12-11] MEDS ORDERED: MAGNESIUM HYDROX 2400MG/30ML ORAL SUSPENSION 30 ML CUP PO PRN (21:02)
[2022-12-11] MEDS ORDERED: POLYETHYLENE GLYCOL (HEALTHYLAX) 3350 17 GM PACKET PO PRN (21:02)
[2022-12-11] MEDS ORDERED: METHOCARBAMOL 500 MG TABLET PO PRN (21:02)
[2022-12-11] MEDS ORDERED: P-EPHED 60MG/TRIPROLIDI 2.5MG TABLET PO PRN (21:02)
[2022-12-11] MEDS ORDERED: MAG HYDROX/AL HYDROX/SIMETH 30 ML UNIT-DOSE CUP PO PRN (21:02)
[2022-12-11] MEDS ORDERED: BENZONATATE 200 MG CAPSULE PO PRN (21:02)
[2022-12-11] MEDS ORDERED: chlordiazePOXIDE HCL 25 MG CAPSULE PO PRN (21:05)
[2022-12-11] MEDS ORDERED: LISINOPRIL 10 MG TABLET ONE (23:18)
[2022-12-11] MEDS ORDERED: chlordiazePOXIDE HCL 25 MG CAPSULE ONE (23:18)
[2022-12-11] MEDS: THIAMINE HCL 100 MG TABLET (FP) PO SCH (23:22)
[2022-12-11] MEDS: chlordiazePOXIDE HCL 25 MG CAPSULE PO SCH (23:22)
[2022-12-11] MEDS: LISINOPRIL 20 MG TABLET PO SCH (23:25)
[2022-12-11] MEDS ORDERED: INSULIN (NOVOLOG) ASPART 100 UNITS/ML 10ML VIAL ONE (23:32)
[2022-12-11] MEDS: INSULIN SLIDING SCALE (NOVOLOG) 1 VIAL SQ SCH (23:38)
[2022-12-11] MEDS: BUDESONIDE/FORMETEROL FUMARATE 160/4.5 mcg INHALER IH SCH (23:54)
[2022-12-12] MEDS: chlordiazePOXIDE HCL 25 MG CAPSULE PO SCH ×4 (05:38→22:09)
[2022-12-12] MEDS: INSULIN SLIDING SCALE (NOVOLOG) 1 VIAL SQ SCH ×4 (06:18→22:12)
[2022-12-12] MEDS: metFORMIN HCL 500 MG TABLET (FP) PO SCH ×2 (06:18→17:38)
[2022-12-12] MEDS: PRENATAL VITAMINS W/ FOLIC ACID TABLET (FP) PO SCH (10:34)
[2022-12-12] MEDS: LISINOPRIL 20 MG TABLET PO SCH (10:35)
[2022-12-12] MEDS: BUDESONIDE/FORMETEROL FUMARATE 160/4.5 mcg INHALER IH SCH ×2 (10:35→22:12)
[2022-12-12] MEDS: PANTOPRAZOLE 40 MG TABLET PO SCH (10:35)
[2022-12-12] MEDS ORDERED: PATIENT'S OWN MEDICATION (NON-FORMULARY) (Mometasone/Formoterol [Dulera 100 Mcg-5 Mcg Inha IH SCH (11:30)
[2022-12-12] MEDS: amLODIPine BESYLATE 10 MG TABLET (FP) PO SCH (12:07)
[2022-12-12 13:56] LABS: HEMATOCRIT 37.3 % (35.4-49); HEMOGLOBIN 12.6 GM/dL (11.7-16.9); MCH 29.8 pg (25.7-33.7); MCHC 33.6 g/dl (32.0-35.9); MEAN CELL VOLUME 88.6 fl (80-96); MEAN PLT VOLUME 9.4 fl (7.5-11.1); PLATELET COUNT 218 10^3/uL (134-434); RBC 4.21 M/mm3 (4.00-5.60); RDW 14.4 % (11.9-15.9); WHITE BLOOD COUNT 8.8 K/mm3 (4.0-10.0)
[2022-12-12 14:05] LABS: POTASSIUM 3.7 mmol/L (3.5-5.1)
[2022-12-12 14:09] LABS: CALCIUM 8.6 mg/dL (8.5-10.1)
[2022-12-12 14:10] LABS: ALBUMIN 2.8 g/dl (3.4-5.0); BLOOD UREA NITROGEN 13.8 mg/dL (7-18)
[2022-12-12 14:13] LABS: CREATININE 0.8 mg/dL (0.55-1.3)
[2022-12-12 14:15] LABS: BILIRUBIN,TOTAL 0.7 mg/dL (0.2-1); TOT PROT 5.6 g/dl (6.4-8.2)
[2022-12-12] MEDS: ALBUTEROL SO4 HFA INHALER IH PRN (17:43)
[2022-12-12] MEDS: ATORVASTATIN CA 10 MG TABLET (FP) PO SCH (22:08)
[2022-12-12] MEDS: QUEtiapine FUMARATE 100 MG TABLET (FP) PO SCH (22:09)
[2022-12-12] MEDS: THIAMINE HCL 100 MG TABLET (FP) PO SCH (22:09)
[2022-12-12] MEDS: INSULIN (LEVEMIR) 100 UNITS/ML UNITS SQ SCH (22:12)
[2022-12-13] MEDS: chlordiazePOXIDE HCL 25 MG CAPSULE PO SCH ×4 (05:59→22:45)
[2022-12-13] MEDS: metFORMIN HCL 500 MG TABLET (FP) PO SCH ×2 (06:00→17:34)
[2022-12-13] MEDS: INSULIN SLIDING SCALE (NOVOLOG) 1 VIAL SQ SCH ×4 (06:32→22:58)
[2022-12-13] MEDS: PANTOPRAZOLE 40 MG TABLET PO SCH (10:26)
[2022-12-13] MEDS: PRENATAL VITAMINS W/ FOLIC ACID TABLET (FP) PO SCH (10:26)
[2022-12-13] MEDS: amLODIPine BESYLATE 10 MG TABLET (FP) PO SCH (10:26)
[2022-12-13] MEDS: LISINOPRIL 20 MG TABLET PO SCH (10:26)
[2022-12-13] MEDS: BUDESONIDE/FORMETEROL FUMARATE 160/4.5 mcg INHALER IH SCH ×2 (10:48→22:46)
[2022-12-13] MEDS: THIAMINE HCL 100 MG TABLET (FP) PO SCH (22:45)
[2022-12-13] MEDS: ATORVASTATIN CA 10 MG TABLET (FP) PO SCH (22:45)
[2022-12-13] MEDS: QUEtiapine FUMARATE 100 MG TABLET (FP) PO SCH (22:45)
[2022-12-13] MEDS: INSULIN (LEVEMIR) 100 UNITS/ML UNITS SQ SCH (22:58)
[2022-12-14] MEDS ORDERED: chlordiazePOXIDE HCL 10 MG CAPSULE PO PRN
[2022-12-14] MEDS: chlordiazePOXIDE HCL 10 MG CAPSULE PO SCH ×4 (05:55→22:31)
[2022-12-14] MEDS: metFORMIN HCL 500 MG TABLET (FP) PO SCH ×2 (06:04→17:30)
[2022-12-14] MEDS: INSULIN SLIDING SCALE (NOVOLOG) 1 VIAL SQ SCH ×4 (06:30→22:30)
[2022-12-14] MEDS: PRENATAL VITAMINS W/ FOLIC ACID TABLET (FP) PO SCH (10:58)
[2022-12-14] MEDS: LISINOPRIL 20 MG TABLET PO SCH (11:00)
[2022-12-14] MEDS: BUDESONIDE/FORMETEROL FUMARATE 160/4.5 mcg INHALER IH SCH ×2 (11:01→22:31)
[2022-12-14] MEDS: PANTOPRAZOLE 40 MG TABLET PO SCH (11:01)
[2022-12-14] MEDS: amLODIPine BESYLATE 10 MG TABLET (FP) PO SCH (11:02)
[2022-12-14] MEDS: ATORVASTATIN CA 10 MG TABLET (FP) PO SCH (22:30)
[2022-12-14] MEDS: INSULIN (LEVEMIR) 100 UNITS/ML UNITS SQ SCH (22:30)
[2022-12-14] MEDS: THIAMINE HCL 100 MG TABLET (FP) PO SCH (22:31)
[2022-12-14] MEDS: QUEtiapine FUMARATE 100 MG TABLET (FP) PO SCH (22:31)
[2022-12-15] MEDS: metFORMIN HCL 500 MG TABLET (FP) PO SCH ×2 (06:00→17:28)
[2022-12-15] MEDS: chlordiazePOXIDE HCL 10 MG CAPSULE PO SCH ×2 (06:00→17:35)
[2022-12-15] MEDS: INSULIN SLIDING SCALE (NOVOLOG) 1 VIAL SQ SCH ×4 (07:40→22:58)
[2022-12-15] MEDS: amLODIPine BESYLATE 10 MG TABLET (FP) PO SCH (10:29)
[2022-12-15] MEDS: LISINOPRIL 20 MG TABLET PO SCH (10:29)
[2022-12-15] MEDS: PANTOPRAZOLE 40 MG TABLET PO SCH (10:29)
[2022-12-15] MEDS: PRENATAL VITAMINS W/ FOLIC ACID TABLET (FP) PO SCH (10:29)
[2022-12-15] MEDS: BUDESONIDE/FORMETEROL FUMARATE 160/4.5 mcg INHALER IH SCH ×2 (10:30→22:58)
[2022-12-15] MEDS ORDERED: INSULIN (NOVOLOG) ASPART 100 UNITS/ML 10ML VIAL SQ ONE (11:21)
[2022-12-15 13:27] VITALS: TEMP 98.7
[2022-12-15] MEDS: ALBUTEROL SO4 HFA INHALER IH PRN (16:25)
[2022-12-15] MEDS ORDERED: ALBUTEROL SO4 2.5/IPRATROPIUM 0.5 INH SOL 3 ML VIAL.NEB. NEB ONE ×2 (16:42→16:43)
[2022-12-15] MEDS ORDERED: INSULIN (NOVOLOG) ASPART 100 UNITS/ML 10ML VIAL ONE (17:16)
[2022-12-15 17:44] VITALS: BP 152/95; RESP 17
[2022-12-15 17:45] VITALS: PULSE 110
[2022-12-15] MEDS: INSULIN (LEVEMIR) 100 UNITS/ML UNITS SQ SCH (22:57)
[2022-12-15] MEDS: ATORVASTATIN CA 10 MG TABLET (FP) PO SCH (22:57)
[2022-12-15] MEDS: THIAMINE HCL 100 MG TABLET (FP) PO SCH (22:58)
[2022-12-15] MEDS: QUEtiapine FUMARATE 100 MG TABLET (FP) PO SCH (22:58)
[2022-12-16] MEDS ORDERED: chlordiazePOXIDE HCL 10 MG CAPSULE PO ONE (05:00)
== END 2022-12-15 23:23 | disposition short-term general hospital (02) | DRG 774 ==
LOC: YASAS 17:52 → Y6N 23:06
PROVIDERS: ADMIT Allergy & Immunology; ATTEND Surgery
PROC: HZ2ZZZZ Detoxification Services for Substance Abuse Treatment (ICD-10-PCS; principal; 2022-12-11)
DX: F10.230 Alcohol dependence with withdrawal, uncomplicated (principal); F14.20 Cocaine dependence, uncomplicated; F17.210 Nicotine dependence, cigarettes, uncomplicated; F19.282 Other psychoactive substance dependence with psychoactive substance-induced sleep disorder; F19.24 Other psychoactive substance dependence with psychoactive substance-induced mood disorder; F41.9 Anxiety disorder, unspecified; I10 Essential (primary) hypertension; J44.9 Chronic obstructive pulmonary disease, unspecified; J45.909 Unspecified asthma, uncomplicated; E11.9 Type 2 diabetes mellitus without complications; Z79.4 Long term (current) use of insulin; Z62.810 Personal history of physical and sexual abuse in childhood; Z56.0 Unemployment, unspecified; Z59.00 Homelessness unspecified
CPT/HCPCS: 36415; 80053; 82962; 85027; 86780; 87811; 93005; 93010; 94640; C9803-CS; U0003; U0005

== ENCOUNTER 2022-12-16 16:46 | Inpatient (IN) | payer OTHER ==
[2022-12-16 17:56] VITALS: BMI 30.7
[2022-12-16] MEDS ORDERED: BENZONATATE 200 MG CAPSULE PO PRN (18:00)
[2022-12-16] MEDS ORDERED: ACETAMINOPHEN 325 MG TABLET (FP) PO PRN (18:00)
[2022-12-16] MEDS ORDERED: MAGNESIUM HYDROX 2400MG/30ML ORAL SUSPENSION 30 ML CUP PO PRN (18:00)
[2022-12-16] MEDS ORDERED: AMMONIUM LACTATE 12% LOTION 225 GM BOTTLE TP PRN (18:00)
[2022-12-16] MEDS ORDERED: POLYETHYLENE GLYCOL (HEALTHYLAX) 3350 17 GM PACKET PO PRN (18:00)
[2022-12-16] MEDS ORDERED: IBUPROFEN 400 MG TABLET (FP) PO PRN (18:00)
[2022-12-16] MEDS ORDERED: COLLOIDAL OATMEAL 1 BAR EACH TP PRN (18:00)
[2022-12-16] MEDS ORDERED: LOPERAMIDE HCL 2 MG CAPSULE PO PRN (18:00)
[2022-12-16] MEDS ORDERED: MAG HYDROX/AL HYDROX/SIMETH 30 ML UNIT-DOSE CUP PO PRN (18:00)
[2022-12-16] MEDS ORDERED: P-EPHED 60MG/TRIPROLIDI 2.5MG TABLET PO PRN (18:00)
[2022-12-16] MEDS ORDERED: guaiFENesin 600 MG TABLET.ER (FP) PO PRN (18:00)
[2022-12-16] MEDS ORDERED: NICOTINE POLACRILEX 2 MG GUM BUC PRN (18:00)
[2022-12-16] MEDS ORDERED: BENZOCAINE/MENTHOL (CHLORASEPTIC ) LOZENGE MM PRN (18:00)
[2022-12-16] MEDS ORDERED: IBUPROFEN 600 MG TABLET (FP) PO PRN (18:00)
[2022-12-16] MEDS ORDERED: ALBUTEROL SO4 HFA INHALER IH PRN (18:22)
[2022-12-16] MEDS: MELATONIN 5 MG TABLETS PO SCH (21:05)
[2022-12-16] MEDS: THIAMINE HCL 100 MG TABLET (FP) PO SCH (21:05)
[2022-12-16] MEDS: INSULIN (LEVEMIR) 100 UNITS/ML UNITS SQ SCH (21:07)
[2022-12-16] MEDS: INSULIN SLIDING SCALE (NOVOLOG) 1 VIAL SQ SCH (21:07)
[2022-12-16] MEDS: BUDESONIDE/FORMETEROL FUMARATE 160/4.5 mcg INHALER IH SCH (21:07)
[2022-12-17] MEDS: INSULIN SLIDING SCALE (NOVOLOG) 1 VIAL SQ SCH ×4 (06:03→21:05)
[2022-12-17] MEDS: metFORMIN HCL 500 MG TABLET (FP) PO SCH ×2 (06:06→16:24)
[2022-12-17] MEDS: BUDESONIDE/FORMETEROL FUMARATE 160/4.5 mcg INHALER IH SCH ×2 (10:21→21:06)
[2022-12-17] MEDS: PRENATAL VITAMINS W/ FOLIC ACID TABLET (FP) PO SCH (10:21)
[2022-12-17] MEDS: ASPIRIN 81 MG CHEWABLE TABLETS PO SCH (10:21)
[2022-12-17] MEDS: LOSARTAN POTASSIUM 25 MG TABLET PO SCH (10:21)
[2022-12-17] MEDS: amLODIPine BESYLATE 10 MG TABLET (FP) PO SCH (12:19)
[2022-12-17] MEDS: THIAMINE HCL 100 MG TABLET (FP) PO SCH (21:04)
[2022-12-17] MEDS: QUEtiapine FUMARATE 100 MG TABLET (FP) PO SCH (21:04)
[2022-12-17] MEDS: MELATONIN 5 MG TABLETS PO SCH (21:04)
[2022-12-17] MEDS: INSULIN (LEVEMIR) 100 UNITS/ML UNITS SQ SCH (21:05)
[2022-12-18] MEDS: INSULIN SLIDING SCALE (NOVOLOG) 1 VIAL SQ SCH ×4 (06:28→21:01)
[2022-12-18] MEDS: metFORMIN HCL 500 MG TABLET (FP) PO SCH ×2 (06:28→16:29)
[2022-12-18] MEDS: amLODIPine BESYLATE 10 MG TABLET (FP) PO SCH (10:38)
[2022-12-18] MEDS: BUDESONIDE/FORMETEROL FUMARATE 160/4.5 mcg INHALER IH SCH ×2 (10:38→21:02)
[2022-12-18] MEDS: LOSARTAN POTASSIUM 25 MG TABLET PO SCH (10:38)
[2022-12-18] MEDS: ASPIRIN 81 MG CHEWABLE TABLETS PO SCH (10:39)
[2022-12-18] MEDS: PRENATAL VITAMINS W/ FOLIC ACID TABLET (FP) PO SCH (10:39)
[2022-12-18] MEDS ORDERED: INSULIN SLIDING SCALE (NOVOLOG) 1 VIAL SQ ONE (11:39)
[2022-12-18] MEDS: THIAMINE HCL 100 MG TABLET (FP) PO SCH (21:01)
[2022-12-18] MEDS: QUEtiapine FUMARATE 100 MG TABLET (FP) PO SCH (21:01)
[2022-12-18] MEDS: MELATONIN 5 MG TABLETS PO SCH (21:01)
[2022-12-18] MEDS: INSULIN (LEVEMIR) 100 UNITS/ML UNITS SQ SCH (21:02)
[2022-12-19] MEDS: metFORMIN HCL 500 MG TABLET (FP) PO SCH ×2 (06:00→16:32)
[2022-12-19] MEDS: INSULIN SLIDING SCALE (NOVOLOG) 1 VIAL SQ SCH ×4 (06:00→21:07)
[2022-12-19] MEDS: PRENATAL VITAMINS W/ FOLIC ACID TABLET (FP) PO SCH (09:49)
[2022-12-19] MEDS: BUDESONIDE/FORMETEROL FUMARATE 160/4.5 mcg INHALER IH SCH ×2 (09:50→21:09)
[2022-12-19] MEDS: ASPIRIN 81 MG CHEWABLE TABLETS PO SCH (09:50)
[2022-12-19] MEDS: amLODIPine BESYLATE 10 MG TABLET (FP) PO SCH (09:50)
[2022-12-19] MEDS: LOSARTAN POTASSIUM 25 MG TABLET PO SCH (09:50)
[2022-12-19] MEDS: THIAMINE HCL 100 MG TABLET (FP) PO SCH (21:05)
[2022-12-19] MEDS: QUEtiapine FUMARATE 100 MG TABLET (FP) PO SCH (21:05)
[2022-12-19] MEDS: MELATONIN 5 MG TABLETS PO SCH (21:05)
[2022-12-19] MEDS: INSULIN (LEVEMIR) 100 UNITS/ML UNITS SQ SCH (21:07)
[2022-12-20] MEDS: INSULIN SLIDING SCALE (NOVOLOG) 1 VIAL SQ SCH ×4 (06:12→21:06)
[2022-12-20] MEDS: metFORMIN HCL 500 MG TABLET (FP) PO SCH ×2 (06:31→17:29)
[2022-12-20] MEDS: PRENATAL VITAMINS W/ FOLIC ACID TABLET (FP) PO SCH (09:33)
[2022-12-20] MEDS: ASPIRIN 81 MG CHEWABLE TABLETS PO SCH (09:33)
[2022-12-20] MEDS: amLODIPine BESYLATE 10 MG TABLET (FP) PO SCH (09:33)
[2022-12-20] MEDS: BUDESONIDE/FORMETEROL FUMARATE 160/4.5 mcg INHALER IH SCH ×2 (09:33→21:07)
[2022-12-20] MEDS: LOSARTAN POTASSIUM 25 MG TABLET PO SCH (09:33)
[2022-12-20] MEDS: INSULIN (LEVEMIR) 100 UNITS/ML UNITS SQ SCH (21:06)
[2022-12-20] MEDS: QUEtiapine FUMARATE 100 MG TABLET (FP) PO SCH (21:07)
[2022-12-20] MEDS: THIAMINE HCL 100 MG TABLET (FP) PO SCH (21:07)
[2022-12-20] MEDS: MELATONIN 5 MG TABLETS PO SCH (21:07)
[2022-12-21] MEDS: metFORMIN HCL 500 MG TABLET (FP) PO SCH ×2 (06:29→16:36)
[2022-12-21] MEDS: INSULIN SLIDING SCALE (NOVOLOG) 1 VIAL SQ SCH ×4 (06:57→21:12)
[2022-12-21] MEDS: BUDESONIDE/FORMETEROL FUMARATE 160/4.5 mcg INHALER IH SCH ×2 (10:04→21:13)
[2022-12-21] MEDS: PRENATAL VITAMINS W/ FOLIC ACID TABLET (FP) PO SCH (10:04)
[2022-12-21] MEDS: amLODIPine BESYLATE 10 MG TABLET (FP) PO SCH (10:05)
[2022-12-21] MEDS: LOSARTAN POTASSIUM 25 MG TABLET PO SCH (10:05)
[2022-12-21] MEDS: ASPIRIN 81 MG CHEWABLE TABLETS PO SCH (10:05)
[2022-12-21] MEDS: THIAMINE HCL 100 MG TABLET (FP) PO SCH (21:11)
[2022-12-21] MEDS: MELATONIN 5 MG TABLETS PO SCH (21:11)
[2022-12-21] MEDS: QUEtiapine FUMARATE 100 MG TABLET (FP) PO SCH (21:12)
[2022-12-21] MEDS: INSULIN (LEVEMIR) 100 UNITS/ML UNITS SQ SCH (21:12)
[2022-12-22] MEDS: metFORMIN HCL 500 MG TABLET (FP) PO SCH ×2 (06:04→16:35)
[2022-12-22] MEDS: INSULIN SLIDING SCALE (NOVOLOG) 1 VIAL SQ SCH ×3 (06:04→16:36)
[2022-12-22 06:51] VITALS: TEMP 97.1
[2022-12-22] MEDS: BUDESONIDE/FORMETEROL FUMARATE 160/4.5 mcg INHALER IH SCH (09:39)
[2022-12-22] MEDS: PRENATAL VITAMINS W/ FOLIC ACID TABLET (FP) PO SCH (09:39)
[2022-12-22] MEDS: amLODIPine BESYLATE 10 MG TABLET (FP) PO SCH (09:39)
[2022-12-22] MEDS: LOSARTAN POTASSIUM 25 MG TABLET PO SCH (09:39)
[2022-12-22] MEDS: ASPIRIN 81 MG CHEWABLE TABLETS PO SCH (09:39)
[2022-12-22 18:18] VITALS: BP 139/85; PULSE 100; RESP 20
== END 2022-12-22 18:40 | disposition home or self-care (01) | DRG 774 ==
LOC: YASAS 16:46 → Y3W 18:20
PROVIDERS: ADMIT Allergy & Immunology; ATTEND Psychiatry & Neurology Pain Medicine
PROC: HZ2ZZZZ Detoxification Services for Substance Abuse Treatment (ICD-10-PCS; principal; 2022-12-16)
DX: F10.20 Alcohol dependence, uncomplicated (principal); F14.20 Cocaine dependence, uncomplicated; F17.210 Nicotine dependence, cigarettes, uncomplicated; G47.00 Insomnia, unspecified; I10 Essential (primary) hypertension; E11.9 Type 2 diabetes mellitus without complications; Z79.4 Long term (current) use of insulin; R07.9 Chest pain, unspecified; Z87.09 Personal history of other diseases of the respiratory system
CPT/HCPCS: 0241U-QW; 36415; 71045-TC-FY; 80053; 82550; 82962; 83036; 83735; 84100; 84484; 85025; 85610; 85730; 93005; 93010; 93306-TC; G0378

== ENCOUNTER 2023-02-28 10:55 | Inpatient (IN) | payer OTHER ==
[2023-02-28 11:28] VITALS: BMI 26.4
[2023-02-28] MEDS ORDERED: MAG HYDROX/AL HYDROX/SIMETH 30 ML UNIT-DOSE CUP PO PRN (14:00)
[2023-02-28] MEDS ORDERED: guaiFENesin 600 MG TABLET.ER (FP) PO PRN (14:00)
[2023-02-28] MEDS ORDERED: NICOTINE POLACRILEX 2 MG GUM BUC PRN (14:00)
[2023-02-28] MEDS ORDERED: IBUPROFEN 400 MG TABLET (FP) PO PRN (14:00)
[2023-02-28] MEDS ORDERED: chlordiazePOXIDE HCL 25 MG CAPSULE PO PRN (14:00)
[2023-02-28] MEDS ORDERED: NALOXONE HCL (KLOXXADO) 8 MG SPRAY NS PRN (14:00)
[2023-02-28] MEDS ORDERED: POLYETHYLENE GLYCOL (HEALTHYLAX) 3350 17 GM PACKET PO PRN (14:00)
[2023-02-28] MEDS ORDERED: BENZOCAINE/MENTHOL (CHLORASEPTIC ) LOZENGE MM PRN (14:00)
[2023-02-28] MEDS ORDERED: BISMUTH SUBSALICYLATE 524 MG/30 ML PO PRN (14:00)
[2023-02-28] MEDS ORDERED: LOPERAMIDE HCL 2 MG CAPSULE PO PRN (14:00)
[2023-02-28] MEDS ORDERED: BENZONATATE 200 MG CAPSULE PO PRN (14:00)
[2023-02-28] MEDS ORDERED: ACETAMINOPHEN 325 MG TABLET (FP) PO PRN (14:00)
[2023-02-28] MEDS ORDERED: IBUPROFEN 600 MG TABLET (FP) PO PRN (14:00)
[2023-02-28] MEDS ORDERED: MAGNESIUM HYDROX 2400MG/30ML ORAL SUSPENSION 30 ML CUP PO PRN (14:00)
[2023-02-28] MEDS ORDERED: ONDANSETRON *ODT* 4 MG TABLET SL PRN (14:00)
[2023-02-28] MEDS ORDERED: NALOXONE HCL 0.4 MG/ML VIAL IM PRN (14:00)
[2023-02-28] MEDS ORDERED: DICYCLOMINE HCL 10 MG CAPSULE PO PRN (14:00)
[2023-02-28] MEDS ORDERED: predniSONE 20 MG TABLET (UD) PO ONE (14:17)
[2023-02-28] MEDS ORDERED: ALBUTEROL SO4 HFA INHALER IH PRN (14:27)
[2023-02-28] MEDS ORDERED: ASPIRIN 81 MG CHEWABLE TABLETS ONE (15:00)
[2023-02-28] MEDS: ASPIRIN 81 MG CHEWABLE TABLETS PO SCH (15:03)
[2023-02-28] MEDS: LOSARTAN POTASSIUM 25 MG TABLET PO SCH (15:30)
[2023-02-28] MEDS: metFORMIN HCL 500 MG TABLET (FP) PO SCH (17:09)
[2023-02-28] MEDS: chlordiazePOXIDE HCL 25 MG CAPSULE PO SCH ×2 (17:09→22:13)
[2023-02-28] MEDS: INSULIN (NOVOLOG) ASPART 100 UNITS/ML 10ML VIAL SQ SCH ×2 (17:10→22:08)
[2023-02-28] MEDS ORDERED: MELATONIN 5 MG TABLETS PO SCH (22:00)
[2023-02-28] MEDS: INSULIN (LEVEMIR) 100 UNITS/ML UNITS SQ SCH (22:05)
[2023-02-28] MEDS: BUDESONIDE/FORMETEROL FUMARATE 80/4.5 mcg INHALER IH SCH (22:10)
[2023-02-28] MEDS: QUEtiapine FUMARATE 100 MG TABLET (FP) PO PRN (22:12)
[2023-02-28] MEDS: hydrOXYzine PAMOATE 25 MG CAPSULE (FP) PO PRN (22:12)
[2023-02-28] MEDS: THIAMINE HCL 100 MG TABLET (FP) PO SCH (22:13)
[2023-02-28] MEDS: METHOCARBAMOL 500 MG TABLET PO PRN (22:13)
[2023-03-01] MEDS: chlordiazePOXIDE HCL 25 MG CAPSULE PO SCH ×4 (05:24→22:04)
[2023-03-01] MEDS: metFORMIN HCL 500 MG TABLET (FP) PO SCH ×2 (06:19→16:32)
[2023-03-01] MEDS: INSULIN (NOVOLOG) ASPART 100 UNITS/ML 10ML VIAL SQ SCH ×4 (06:20→21:39)
[2023-03-01] MEDS ORDERED: predniSONE 10 MG TABLET (UD) PO ONE (10:00)
[2023-03-01] MEDS: ASPIRIN 81 MG CHEWABLE TABLETS PO SCH (10:13)
[2023-03-01] MEDS: NICOTINE 14 MG/24 HOURS TOPICAL PATCH TD SCH (10:13)
[2023-03-01] MEDS: LOSARTAN POTASSIUM 25 MG TABLET PO SCH (10:13)
[2023-03-01] MEDS: PRENATAL VITAMINS W/ FOLIC ACID TABLET (FP) PO SCH (10:13)
[2023-03-01] MEDS: BUDESONIDE/FORMETEROL FUMARATE 80/4.5 mcg INHALER IH SCH ×2 (10:14→22:02)
[2023-03-01 11:00] LABS: HEMATOCRIT 36.7 % (35.4-49); HEMOGLOBIN 11.8 GM/dL (11.7-16.9); MCH 28.9 pg (25.7-33.7); MCHC 32.2 g/dl (32.0-35.9); MEAN CELL VOLUME 89.9 fl (80-96); MEAN PLT VOLUME 8.6 fl (7.5-11.1); PLATELET COUNT 210 10^3/uL (134-434); RBC 4.09 M/mm3 (4.00-5.60); WHITE BLOOD COUNT 9.7 K/mm3 (4.0-10.0)
[2023-03-01 11:05] LABS: POTASSIUM 4.3 mmol/L (3.5-5.1)
[2023-03-01 11:10] LABS: ALBUMIN 3.2 g/dl (3.4-5.0); CALCIUM 8.7 mg/dL (8.5-10.1)
[2023-03-01 11:11] LABS: BLOOD UREA NITROGEN 21.3 mg/dL (7-18)
[2023-03-01 11:13] LABS: CREATININE 0.8 mg/dL (0.55-1.3)
[2023-03-01 11:15] LABS: BILIRUBIN,TOTAL 0.7 mg/dL (0.2-1); TOT PROT 6.3 g/dl (6.4-8.2)
[2023-03-01] MEDS: INSULIN (LEVEMIR) 100 UNITS/ML UNITS SQ SCH (21:43)
[2023-03-01] MEDS: QUEtiapine FUMARATE 100 MG TABLET (FP) PO PRN (22:02)
[2023-03-01] MEDS: THIAMINE HCL 100 MG TABLET (FP) PO SCH (22:03)
[2023-03-02] MEDS: chlordiazePOXIDE HCL 25 MG CAPSULE PO SCH ×4 (05:38→22:03)
[2023-03-02] MEDS: metFORMIN HCL 500 MG TABLET (FP) PO SCH ×2 (06:13→17:08)
[2023-03-02] MEDS ORDERED: INSULIN SLIDING SCALE (NOVOLOG) 1 VIAL SQ ONE ×2 (06:14→11:19)
[2023-03-02] MEDS: INSULIN (NOVOLOG) ASPART 100 UNITS/ML 10ML VIAL SQ SCH ×4 (06:14→23:15)
[2023-03-02] MEDS: PRENATAL VITAMINS W/ FOLIC ACID TABLET (FP) PO SCH (09:49)
[2023-03-02] MEDS: LOSARTAN POTASSIUM 25 MG TABLET PO SCH (09:50)
[2023-03-02] MEDS: ASPIRIN 81 MG CHEWABLE TABLETS PO SCH (09:50)
[2023-03-02] MEDS: BUDESONIDE/FORMETEROL FUMARATE 80/4.5 mcg INHALER IH SCH ×2 (09:50→21:59)
[2023-03-02] MEDS: NICOTINE 14 MG/24 HOURS TOPICAL PATCH TD SCH (09:52)
[2023-03-02] MEDS ORDERED: predniSONE 20 MG TABLET (UD) PO ONE (10:00)
[2023-03-02] MEDS: METHOCARBAMOL 500 MG TABLET PO PRN (22:02)
[2023-03-02] MEDS: THIAMINE HCL 100 MG TABLET (FP) PO SCH (22:02)
[2023-03-02] MEDS: hydrOXYzine PAMOATE 25 MG CAPSULE (FP) PO PRN (22:02)
[2023-03-02] MEDS: QUEtiapine FUMARATE 100 MG TABLET (FP) PO PRN (22:03)
[2023-03-02] MEDS: INSULIN (LEVEMIR) 100 UNITS/ML UNITS SQ SCH (22:05)
[2023-03-03] MEDS ORDERED: chlordiazePOXIDE HCL 10 MG CAPSULE PO PRN
[2023-03-03] MEDS: chlordiazePOXIDE HCL 10 MG CAPSULE PO SCH ×4 (05:29→22:27)
[2023-03-03] MEDS: metFORMIN HCL 500 MG TABLET (FP) PO SCH ×2 (06:15→17:25)
[2023-03-03] MEDS ORDERED: INSULIN SLIDING SCALE (NOVOLOG) 1 VIAL SQ ONE ×2 (07:45→11:47)
[2023-03-03] MEDS: INSULIN (NOVOLOG) ASPART 100 UNITS/ML 10ML VIAL SQ SCH ×4 (07:50→22:22)
[2023-03-03] MEDS ORDERED: predniSONE 10 MG TABLET (UD) PO ONE (10:00)
[2023-03-03] MEDS: BUDESONIDE/FORMETEROL FUMARATE 80/4.5 mcg INHALER IH SCH ×2 (10:22→22:28)
[2023-03-03] MEDS: ASPIRIN 81 MG CHEWABLE TABLETS PO SCH (10:23)
[2023-03-03] MEDS: PRENATAL VITAMINS W/ FOLIC ACID TABLET (FP) PO SCH (10:23)
[2023-03-03] MEDS: LOSARTAN POTASSIUM 25 MG TABLET PO SCH (10:23)
[2023-03-03] MEDS: NICOTINE 14 MG/24 HOURS TOPICAL PATCH TD SCH (11:09)
[2023-03-03] MEDS: INSULIN (LEVEMIR) 100 UNITS/ML UNITS SQ SCH (22:22)
[2023-03-03] MEDS: THIAMINE HCL 100 MG TABLET (FP) PO SCH (22:27)
[2023-03-03] MEDS: QUEtiapine FUMARATE 100 MG TABLET (FP) PO PRN (22:27)
[2023-03-04] MEDS: chlordiazePOXIDE HCL 10 MG CAPSULE PO SCH ×2 (05:41→17:47)
[2023-03-04] MEDS ORDERED: predniSONE 5 MG TABLET (UD) PO ONE (06:00)
[2023-03-04] MEDS ORDERED: INSULIN SLIDING SCALE (NOVOLOG) 1 VIAL SQ ONE ×4 (06:07→19:51)
[2023-03-04] MEDS: metFORMIN HCL 500 MG TABLET (FP) PO SCH ×2 (06:17→17:00)
[2023-03-04] MEDS: INSULIN (NOVOLOG) ASPART 100 UNITS/ML 10ML VIAL SQ SCH ×4 (06:21→21:48)
[2023-03-04] MEDS ORDERED: INSULIN (LEVEMIR) 100 UNITS/ML UNITS SQ SCH (09:06)
[2023-03-04] MEDS: LOSARTAN POTASSIUM 25 MG TABLET PO SCH (10:05)
[2023-03-04] MEDS: BUDESONIDE/FORMETEROL FUMARATE 80/4.5 mcg INHALER IH SCH ×2 (10:05→21:43)
[2023-03-04] MEDS: ASPIRIN 81 MG CHEWABLE TABLETS PO SCH (10:05)
[2023-03-04] MEDS: PRENATAL VITAMINS W/ FOLIC ACID TABLET (FP) PO SCH (10:05)
[2023-03-04] MEDS: NICOTINE 14 MG/24 HOURS TOPICAL PATCH TD SCH (10:06)
[2023-03-04] MEDS: hydrOXYzine PAMOATE 25 MG CAPSULE (FP) PO PRN (21:39)
[2023-03-04] MEDS: THIAMINE HCL 100 MG TABLET (FP) PO SCH (21:40)
[2023-03-04] MEDS: QUEtiapine FUMARATE 100 MG TABLET (FP) PO PRN (21:49)
[2023-03-05] MEDS ORDERED: chlordiazePOXIDE HCL 10 MG CAPSULE PO ONE (05:00)
[2023-03-05] MEDS: metFORMIN HCL 500 MG TABLET (FP) PO SCH (06:04)
[2023-03-05] MEDS ORDERED: INSULIN SLIDING SCALE (NOVOLOG) 1 VIAL SQ ONE ×2 (06:06→11:38)
[2023-03-05] MEDS: INSULIN (NOVOLOG) ASPART 100 UNITS/ML 10ML VIAL SQ SCH ×2 (06:06→11:39)
[2023-03-05] MEDS: LOSARTAN POTASSIUM 25 MG TABLET PO SCH (09:48)
[2023-03-05] MEDS: ASPIRIN 81 MG CHEWABLE TABLETS PO SCH (09:49)
[2023-03-05] MEDS: BUDESONIDE/FORMETEROL FUMARATE 80/4.5 mcg INHALER IH SCH (09:49)
[2023-03-05] MEDS: NICOTINE 14 MG/24 HOURS TOPICAL PATCH TD SCH (09:49)
[2023-03-05] MEDS: PRENATAL VITAMINS W/ FOLIC ACID TABLET (FP) PO SCH (09:49)
[2023-03-05 12:51] VITALS: TEMP 97.1
[2023-03-05 13:26] VITALS: BP 157/100; PULSE 99; RESP 13
[2023-03-05] MEDS ORDERED: cloNIDine HCL 0.1 MG TABLET PO ONE (13:27)
== END 2023-03-05 13:50 | disposition other institution (70) | DRG 774 ==
LOC: YASAS 10:55 → Y3N 14:52
PROVIDERS: ADMIT Allergy & Immunology; ATTEND Surgery
PROC: HZ2ZZZZ Detoxification Services for Substance Abuse Treatment (ICD-10-PCS; principal; 2023-02-28)
DX: F10.230 Alcohol dependence with withdrawal, uncomplicated (principal); F14.20 Cocaine dependence, uncomplicated; F17.210 Nicotine dependence, cigarettes, uncomplicated; F19.94 Other psychoactive substance use, unspecified with psychoactive substance-induced mood disorder; F19.982 Other psychoactive substance use, unspecified with psychoactive substance-induced sleep disorder; I10 Essential (primary) hypertension; J44.9 Chronic obstructive pulmonary disease, unspecified; E11.65 Type 2 diabetes mellitus with hyperglycemia; Z62.810 Personal history of physical and sexual abuse in childhood; Z79.4 Long term (current) use of insulin; Z79.84 Long term (current) use of oral hypoglycemic drugs; Z56.0 Unemployment, unspecified; Z59.00 Homelessness unspecified
CPT/HCPCS: 36415; 80053; 82962; 83036; 85027; 86780; 87635; 87811

== ENCOUNTER 2023-03-05 13:52 | Inpatient (IN) | payer OTHER ==
[2023-03-05] MEDS ORDERED: COLLOIDAL OATMEAL 1 BAR EACH TP PRN (14:19)
[2023-03-05] MEDS ORDERED: MAGNESIUM HYDROX 2400MG/30ML ORAL SUSPENSION 30 ML CUP PO PRN (14:19)
[2023-03-05] MEDS ORDERED: IBUPROFEN 400 MG TABLET (FP) PO PRN (14:19)
[2023-03-05] MEDS ORDERED: NALOXONE HCL 0.4 MG/ML VIAL IVPUSH PRN (14:19)
[2023-03-05] MEDS ORDERED: POLYETHYLENE GLYCOL (HEALTHYLAX) 3350 17 GM PACKET PO PRN (14:19)
[2023-03-05] MEDS ORDERED: NICOTINE 10 MG CARTRIDGE (INHALER) IH PRN (14:19)
[2023-03-05] MEDS ORDERED: BENZOCAINE/MENTHOL (CHLORASEPTIC ) LOZENGE MM PRN (14:19)
[2023-03-05] MEDS ORDERED: IBUPROFEN 600 MG TABLET (FP) PO PRN (14:19)
[2023-03-05] MEDS ORDERED: BENZONATATE 200 MG CAPSULE PO PRN (14:19)
[2023-03-05] MEDS ORDERED: ACETAMINOPHEN 325 MG TABLET (FP) PO PRN (14:19)
[2023-03-05] MEDS ORDERED: NICOTINE 7 MG/24 HOURS TOPICAL PATCH TD PRN (14:19)
[2023-03-05] MEDS ORDERED: METHOCARBAMOL 500 MG TABLET PO PRN (14:19)
[2023-03-05] MEDS ORDERED: MAG HYDROX/AL HYDROX/SIMETH 30 ML UNIT-DOSE CUP PO PRN (14:19)
[2023-03-05] MEDS ORDERED: LOPERAMIDE HCL 2 MG CAPSULE PO PRN (14:19)
[2023-03-05] MEDS ORDERED: NALOXONE HCL (KLOXXADO) 8 MG SPRAY NS PRN (14:19)
[2023-03-05] MEDS ORDERED: AMMONIUM LACTATE 12% LOTION 225 GM BOTTLE TP PRN (14:19)
[2023-03-05] MEDS ORDERED: guaiFENesin 600 MG TABLET.ER (FP) PO PRN (14:19)
[2023-03-05] MEDS ORDERED: ALBUTEROL SO4 HFA INHALER IH PRN (14:22)
[2023-03-05] MEDS ORDERED: ALBUTEROL SO4 0.083% IH SOL 2.5 MG/3 ML VIAL.NEB. NEB PRN (14:24)
[2023-03-05] MEDS: metFORMIN HCL 500 MG TABLET (FP) PO SCH (16:15)
[2023-03-05] MEDS: MELATONIN 5 MG TABLETS PO SCH (21:07)
[2023-03-05] MEDS: INSULIN (LEVEMIR) 100 UNITS/ML UNITS SQ SCH (21:08)
[2023-03-05] MEDS: QUEtiapine FUMARATE 100 MG TABLET (FP) PO PRN (21:09)
[2023-03-05] MEDS: THIAMINE HCL 100 MG TABLET (FP) PO SCH (21:09)
[2023-03-05] MEDS: BUDESONIDE/FORMETEROL FUMARATE 80/4.5 mcg INHALER IH SCH (21:09)
[2023-03-06] MEDS: metFORMIN HCL 500 MG TABLET (FP) PO SCH ×2 (06:03→16:58)
[2023-03-06] MEDS: hydrOXYzine PAMOATE 25 MG CAPSULE (FP) PO PRN (06:03)
[2023-03-06] MEDS: ASPIRIN 81 MG CHEWABLE TABLETS PO SCH (10:02)
[2023-03-06] MEDS: BUDESONIDE/FORMETEROL FUMARATE 80/4.5 mcg INHALER IH SCH ×2 (10:02→21:18)
[2023-03-06] MEDS: LOSARTAN POTASSIUM 25 MG TABLET PO SCH (10:02)
[2023-03-06] MEDS: PRENATAL VITAMINS W/ FOLIC ACID TABLET (FP) PO SCH (10:02)
[2023-03-06] MEDS: amLODIPine BESYLATE 5 MG TABLET (FP) PO SCH (10:43)
[2023-03-06] MEDS: INSULIN SLIDING SCALE (NOVOLOG) 1 VIAL SQ SCH (17:01)
[2023-03-06] MEDS: MELATONIN 5 MG TABLETS PO SCH (21:18)
[2023-03-06] MEDS: THIAMINE HCL 100 MG TABLET (FP) PO SCH (21:18)
[2023-03-06] MEDS: INSULIN (LEVEMIR) 100 UNITS/ML UNITS SQ SCH (21:19)
[2023-03-06] MEDS: QUEtiapine FUMARATE 100 MG TABLET (FP) PO PRN (21:20)
[2023-03-07] MEDS: metFORMIN HCL 500 MG TABLET (FP) PO SCH ×2 (06:54→16:28)
[2023-03-07] MEDS: INSULIN SLIDING SCALE (NOVOLOG) 1 VIAL SQ SCH ×3 (06:55→16:29)
[2023-03-07] MEDS: BUDESONIDE/FORMETEROL FUMARATE 80/4.5 mcg INHALER IH SCH ×2 (09:35→21:26)
[2023-03-07] MEDS: ASPIRIN 81 MG CHEWABLE TABLETS PO SCH (09:35)
[2023-03-07] MEDS: LOSARTAN POTASSIUM 25 MG TABLET PO SCH (09:35)
[2023-03-07] MEDS: PRENATAL VITAMINS W/ FOLIC ACID TABLET (FP) PO SCH (09:35)
[2023-03-07] MEDS: amLODIPine BESYLATE 5 MG TABLET (FP) PO SCH (09:36)
[2023-03-07] MEDS ORDERED: INSULIN SLIDING SCALE (NOVOLOG) 1 VIAL SQ ONE (11:48)
[2023-03-07] MEDS: MELATONIN 5 MG TABLETS PO SCH (21:26)
[2023-03-07] MEDS: THIAMINE HCL 100 MG TABLET (FP) PO SCH (21:26)
[2023-03-07] MEDS: QUEtiapine FUMARATE 100 MG TABLET (FP) PO PRN (21:26)
[2023-03-07] MEDS: INSULIN (LEVEMIR) 100 UNITS/ML UNITS SQ SCH (21:29)
[2023-03-08] MEDS: metFORMIN HCL 500 MG TABLET (FP) PO SCH ×2 (06:15→16:23)
[2023-03-08] MEDS: INSULIN SLIDING SCALE (NOVOLOG) 1 VIAL SQ SCH ×3 (06:15→16:24)
[2023-03-08] MEDS: LOSARTAN POTASSIUM 25 MG TABLET PO SCH (09:54)
[2023-03-08] MEDS: amLODIPine BESYLATE 5 MG TABLET (FP) PO SCH (09:54)
[2023-03-08] MEDS: PRENATAL VITAMINS W/ FOLIC ACID TABLET (FP) PO SCH (09:54)
[2023-03-08] MEDS: ASPIRIN 81 MG CHEWABLE TABLETS PO SCH (09:54)
[2023-03-08] MEDS: BUDESONIDE/FORMETEROL FUMARATE 80/4.5 mcg INHALER IH SCH ×2 (09:54→21:10)
[2023-03-08] MEDS: NICOTINE POLACRILEX 4 MG GUM BUC PRN (09:55)
[2023-03-08] MEDS: QUEtiapine FUMARATE 100 MG TABLET (FP) PO PRN (21:10)
[2023-03-08] MEDS: MELATONIN 5 MG TABLETS PO SCH (21:10)
[2023-03-08] MEDS: THIAMINE HCL 100 MG TABLET (FP) PO SCH (21:10)
[2023-03-08] MEDS: INSULIN (LEVEMIR) 100 UNITS/ML UNITS SQ SCH (21:12)
[2023-03-09] MEDS: INSULIN SLIDING SCALE (NOVOLOG) 1 VIAL SQ SCH ×3 (06:03→17:47)
[2023-03-09] MEDS: metFORMIN HCL 500 MG TABLET (FP) PO SCH ×2 (06:04→17:42)
[2023-03-09] MEDS: hydrOXYzine PAMOATE 25 MG CAPSULE (FP) PO PRN (06:05)
[2023-03-09] MEDS: ASPIRIN 81 MG CHEWABLE TABLETS PO SCH (09:37)
[2023-03-09] MEDS: PRENATAL VITAMINS W/ FOLIC ACID TABLET (FP) PO SCH (09:37)
[2023-03-09] MEDS: amLODIPine BESYLATE 5 MG TABLET (FP) PO SCH (09:37)
[2023-03-09] MEDS: LOSARTAN POTASSIUM 25 MG TABLET PO SCH (09:37)
[2023-03-09] MEDS: BUDESONIDE/FORMETEROL FUMARATE 80/4.5 mcg INHALER IH SCH ×2 (09:37→21:14)
[2023-03-09] MEDS ORDERED: INSULIN SLIDING SCALE (NOVOLOG) 1 VIAL SQ ONE ×2 (11:38→12:26)
[2023-03-09] MEDS: THIAMINE HCL 100 MG TABLET (FP) PO SCH (21:13)
[2023-03-09] MEDS: QUEtiapine FUMARATE 100 MG TABLET (FP) PO PRN (21:13)
[2023-03-09] MEDS: MELATONIN 5 MG TABLETS PO SCH (21:14)
[2023-03-09] MEDS: INSULIN (LEVEMIR) 100 UNITS/ML UNITS SQ SCH (21:14)
[2023-03-10] MEDS: INSULIN SLIDING SCALE (NOVOLOG) 1 VIAL SQ SCH ×3 (06:44→16:23)
[2023-03-10] MEDS: metFORMIN HCL 500 MG TABLET (FP) PO SCH ×2 (06:45→16:22)
[2023-03-10] MEDS: hydrOXYzine PAMOATE 25 MG CAPSULE (FP) PO PRN (06:45)
[2023-03-10] MEDS: PRENATAL VITAMINS W/ FOLIC ACID TABLET (FP) PO SCH (09:50)
[2023-03-10] MEDS: LOSARTAN POTASSIUM 25 MG TABLET PO SCH (09:50)
[2023-03-10] MEDS: ASPIRIN 81 MG CHEWABLE TABLETS PO SCH (09:50)
[2023-03-10] MEDS: amLODIPine BESYLATE 5 MG TABLET (FP) PO SCH (09:50)
[2023-03-10] MEDS: BUDESONIDE/FORMETEROL FUMARATE 80/4.5 mcg INHALER IH SCH ×2 (09:50→21:28)
[2023-03-10] MEDS ORDERED: INSULIN SLIDING SCALE (NOVOLOG) 1 VIAL SQ ONE (16:22)
[2023-03-10] MEDS: MELATONIN 5 MG TABLETS PO SCH (21:27)
[2023-03-10] MEDS: THIAMINE HCL 100 MG TABLET (FP) PO SCH (21:27)
[2023-03-10] MEDS: QUEtiapine FUMARATE 100 MG TABLET (FP) PO PRN (21:28)
[2023-03-10] MEDS: INSULIN (LEVEMIR) 100 UNITS/ML UNITS SQ SCH (21:30)
[2023-03-11] MEDS: metFORMIN HCL 500 MG TABLET (FP) PO SCH ×2 (06:38→16:30)
[2023-03-11] MEDS: INSULIN SLIDING SCALE (NOVOLOG) 1 VIAL SQ SCH ×3 (06:40→16:32)
[2023-03-11] MEDS: LOSARTAN POTASSIUM 25 MG TABLET PO SCH (09:57)
[2023-03-11] MEDS: amLODIPine BESYLATE 2.5 MG TABLET (FP) PO SCH (09:57)
[2023-03-11] MEDS: ASPIRIN 81 MG CHEWABLE TABLETS PO SCH (09:57)
[2023-03-11] MEDS: BUDESONIDE/FORMETEROL FUMARATE 80/4.5 mcg INHALER IH SCH ×2 (09:57→21:01)
[2023-03-11] MEDS: PRENATAL VITAMINS W/ FOLIC ACID TABLET (FP) PO SCH (09:57)
[2023-03-11] MEDS ORDERED: INSULIN SLIDING SCALE (NOVOLOG) 1 VIAL SQ ONE (11:26)
[2023-03-11] MEDS: NICOTINE POLACRILEX 4 MG GUM BUC PRN (19:00)
[2023-03-11] MEDS: QUEtiapine FUMARATE 100 MG TABLET (FP) PO PRN (21:01)
[2023-03-11] MEDS: THIAMINE HCL 100 MG TABLET (FP) PO SCH (21:01)
[2023-03-11] MEDS: MELATONIN 5 MG TABLETS PO SCH (21:01)
[2023-03-11] MEDS: INSULIN (LEVEMIR) 100 UNITS/ML UNITS SQ SCH (21:02)
[2023-03-12] MEDS: metFORMIN HCL 500 MG TABLET (FP) PO SCH ×2 (06:35→16:25)
[2023-03-12] MEDS: INSULIN SLIDING SCALE (NOVOLOG) 1 VIAL SQ SCH ×3 (06:37→16:26)
[2023-03-12] MEDS: BUDESONIDE/FORMETEROL FUMARATE 80/4.5 mcg INHALER IH SCH ×2 (09:39→21:22)
[2023-03-12] MEDS: ASPIRIN 81 MG CHEWABLE TABLETS PO SCH (09:39)
[2023-03-12] MEDS: PRENATAL VITAMINS W/ FOLIC ACID TABLET (FP) PO SCH (09:39)
[2023-03-12] MEDS: LOSARTAN POTASSIUM 25 MG TABLET PO SCH (09:40)
[2023-03-12] MEDS: amLODIPine BESYLATE 2.5 MG TABLET (FP) PO SCH (09:40)
[2023-03-12] MEDS: QUEtiapine FUMARATE 100 MG TABLET (FP) PO PRN (21:22)
[2023-03-12] MEDS: THIAMINE HCL 100 MG TABLET (FP) PO SCH (21:22)
[2023-03-12] MEDS: MELATONIN 5 MG TABLETS PO SCH (21:22)
[2023-03-12] MEDS: INSULIN (LEVEMIR) 100 UNITS/ML UNITS SQ SCH (21:24)
[2023-03-13] MEDS: INSULIN SLIDING SCALE (NOVOLOG) 1 VIAL SQ SCH ×3 (06:42→16:18)
[2023-03-13] MEDS: metFORMIN HCL 500 MG TABLET (FP) PO SCH ×2 (06:42→16:18)
[2023-03-13] MEDS: ASPIRIN 81 MG CHEWABLE TABLETS PO SCH (10:23)
[2023-03-13] MEDS: LOSARTAN POTASSIUM 25 MG TABLET PO SCH (10:24)
[2023-03-13] MEDS: amLODIPine BESYLATE 2.5 MG TABLET (FP) PO SCH (10:25)
[2023-03-13] MEDS: BUDESONIDE/FORMETEROL FUMARATE 80/4.5 mcg INHALER IH SCH ×2 (10:26→21:47)
[2023-03-13] MEDS: PRENATAL VITAMINS W/ FOLIC ACID TABLET (FP) PO SCH (10:27)
[2023-03-13] MEDS: MELATONIN 5 MG TABLETS PO SCH (21:47)
[2023-03-13] MEDS: THIAMINE HCL 100 MG TABLET (FP) PO SCH (21:47)
[2023-03-13] MEDS: QUEtiapine FUMARATE 100 MG TABLET (FP) PO PRN (21:47)
[2023-03-13] MEDS: INSULIN (LEVEMIR) 100 UNITS/ML UNITS SQ SCH (21:50)
[2023-03-14] MEDS: metFORMIN HCL 500 MG TABLET (FP) PO SCH ×2 (06:37→16:44)
[2023-03-14] MEDS: INSULIN SLIDING SCALE (NOVOLOG) 1 VIAL SQ SCH ×3 (06:37→16:45)
[2023-03-14] MEDS: PRENATAL VITAMINS W/ FOLIC ACID TABLET (FP) PO SCH (09:59)
[2023-03-14] MEDS: ASPIRIN 81 MG CHEWABLE TABLETS PO SCH (09:59)
[2023-03-14] MEDS: amLODIPine BESYLATE 10 MG TABLET (FP) PO SCH (09:59)
[2023-03-14] MEDS: LOSARTAN POTASSIUM 25 MG TABLET PO SCH (10:00)
[2023-03-14] MEDS: BUDESONIDE/FORMETEROL FUMARATE 80/4.5 mcg INHALER IH SCH ×2 (10:00→21:32)
[2023-03-14] MEDS ORDERED: INSULIN SLIDING SCALE (NOVOLOG) 1 VIAL SQ ONE (12:10)
[2023-03-14] MEDS: MELATONIN 5 MG TABLETS PO SCH (21:32)
[2023-03-14] MEDS: QUEtiapine FUMARATE 100 MG TABLET (FP) PO PRN (21:32)
[2023-03-14] MEDS: INSULIN (LEVEMIR) 100 UNITS/ML UNITS SQ SCH (21:32)
[2023-03-14] MEDS: THIAMINE HCL 100 MG TABLET (FP) PO SCH (21:32)
[2023-03-15] MEDS: metFORMIN HCL 500 MG TABLET (FP) PO SCH ×2 (06:37→16:45)
[2023-03-15] MEDS: INSULIN SLIDING SCALE (NOVOLOG) 1 VIAL SQ SCH ×3 (06:38→17:50)
[2023-03-15] MEDS: PRENATAL VITAMINS W/ FOLIC ACID TABLET (FP) PO SCH (09:46)
[2023-03-15] MEDS: BUDESONIDE/FORMETEROL FUMARATE 80/4.5 mcg INHALER IH SCH ×2 (09:47→21:16)
[2023-03-15] MEDS: LOSARTAN POTASSIUM 25 MG TABLET PO SCH (09:47)
[2023-03-15] MEDS: ASPIRIN 81 MG CHEWABLE TABLETS PO SCH (09:47)
[2023-03-15] MEDS: amLODIPine BESYLATE 10 MG TABLET (FP) PO SCH (09:47)
[2023-03-15] MEDS ORDERED: INSULIN SLIDING SCALE (NOVOLOG) 1 VIAL SQ ONE (12:05)
[2023-03-15] MEDS: INSULIN (LEVEMIR) 100 UNITS/ML UNITS SQ SCH (21:16)
[2023-03-15] MEDS: QUEtiapine FUMARATE 100 MG TABLET (FP) PO PRN (21:16)
[2023-03-15] MEDS: THIAMINE HCL 100 MG TABLET (FP) PO SCH (21:17)
[2023-03-15] MEDS: MELATONIN 5 MG TABLETS PO SCH (21:17)
[2023-03-16] MEDS: INSULIN SLIDING SCALE (NOVOLOG) 1 VIAL SQ SCH ×3 (07:01→16:16)
[2023-03-16] MEDS: metFORMIN HCL 500 MG TABLET (FP) PO SCH ×2 (07:02→16:11)
[2023-03-16] MEDS: PRENATAL VITAMINS W/ FOLIC ACID TABLET (FP) PO SCH (10:00)
[2023-03-16] MEDS: ASPIRIN 81 MG CHEWABLE TABLETS PO SCH (10:00)
[2023-03-16] MEDS: BUDESONIDE/FORMETEROL FUMARATE 80/4.5 mcg INHALER IH SCH ×2 (10:00→21:01)
[2023-03-16] MEDS: amLODIPine BESYLATE 10 MG TABLET (FP) PO SCH (10:00)
[2023-03-16] MEDS: LOSARTAN POTASSIUM 25 MG TABLET PO SCH (10:00)
[2023-03-16] MEDS ORDERED: INSULIN SLIDING SCALE (NOVOLOG) 1 VIAL SQ ONE (16:11)
[2023-03-16] MEDS: INSULIN (LEVEMIR) 100 UNITS/ML UNITS SQ SCH (21:01)
[2023-03-16] MEDS: QUEtiapine FUMARATE 100 MG TABLET (FP) PO PRN (21:01)
[2023-03-16] MEDS: THIAMINE HCL 100 MG TABLET (FP) PO SCH (21:01)
[2023-03-16] MEDS: MELATONIN 5 MG TABLETS PO SCH (21:01)
[2023-03-17] MEDS: INSULIN SLIDING SCALE (NOVOLOG) 1 VIAL SQ SCH ×3 (06:43→16:19)
[2023-03-17] MEDS: metFORMIN HCL 500 MG TABLET (FP) PO SCH ×2 (06:44→16:19)
[2023-03-17] MEDS: PRENATAL VITAMINS W/ FOLIC ACID TABLET (FP) PO SCH (09:39)
[2023-03-17] MEDS: LOSARTAN POTASSIUM 25 MG TABLET PO SCH (09:40)
[2023-03-17] MEDS: ASPIRIN 81 MG CHEWABLE TABLETS PO SCH (09:40)
[2023-03-17] MEDS: BUDESONIDE/FORMETEROL FUMARATE 80/4.5 mcg INHALER IH SCH ×2 (09:40→21:32)
[2023-03-17] MEDS: amLODIPine BESYLATE 10 MG TABLET (FP) PO SCH (09:40)
[2023-03-17] MEDS ORDERED: INSULIN SLIDING SCALE (NOVOLOG) 1 VIAL SQ ONE (16:18)
[2023-03-17] MEDS: THIAMINE HCL 100 MG TABLET (FP) PO SCH (21:32)
[2023-03-17] MEDS: MELATONIN 5 MG TABLETS PO SCH (21:32)
[2023-03-17] MEDS: QUEtiapine FUMARATE 100 MG TABLET (FP) PO PRN (21:32)
[2023-03-17] MEDS: INSULIN (LEVEMIR) 100 UNITS/ML UNITS SQ SCH (21:34)
[2023-03-18] MEDS: INSULIN SLIDING SCALE (NOVOLOG) 1 VIAL SQ SCH ×3 (06:39→16:24)
[2023-03-18] MEDS: metFORMIN HCL 500 MG TABLET (FP) PO SCH ×2 (06:39→16:23)
[2023-03-18 07:16] VITALS: RESP 18
[2023-03-18] MEDS: LOSARTAN POTASSIUM 25 MG TABLET PO SCH (09:53)
[2023-03-18] MEDS: ASPIRIN 81 MG CHEWABLE TABLETS PO SCH (09:53)
[2023-03-18] MEDS: BUDESONIDE/FORMETEROL FUMARATE 80/4.5 mcg INHALER IH SCH ×2 (09:53→21:14)
[2023-03-18] MEDS: PRENATAL VITAMINS W/ FOLIC ACID TABLET (FP) PO SCH (09:53)
[2023-03-18] MEDS: amLODIPine BESYLATE 10 MG TABLET (FP) PO SCH (09:53)
[2023-03-18] MEDS: INSULIN (LEVEMIR) 100 UNITS/ML UNITS SQ SCH (21:14)
[2023-03-18] MEDS: QUEtiapine FUMARATE 100 MG TABLET (FP) PO PRN (21:14)
[2023-03-18] MEDS: MELATONIN 5 MG TABLETS PO SCH (21:14)
[2023-03-18] MEDS: THIAMINE HCL 100 MG TABLET (FP) PO SCH (21:14)
[2023-03-19] MEDS: metFORMIN HCL 500 MG TABLET (FP) PO SCH (06:33)
[2023-03-19] MEDS: INSULIN SLIDING SCALE (NOVOLOG) 1 VIAL SQ SCH (06:34)
[2023-03-19 07:07] VITALS: TEMP 98
[2023-03-19 09:04] VITALS: BP 143/87; PULSE 95
[2023-03-19] MEDS: PRENATAL VITAMINS W/ FOLIC ACID TABLET (FP) PO SCH (09:04)
[2023-03-19] MEDS: LOSARTAN POTASSIUM 25 MG TABLET PO SCH (09:04)
[2023-03-19] MEDS: ASPIRIN 81 MG CHEWABLE TABLETS PO SCH (09:04)
[2023-03-19] MEDS: amLODIPine BESYLATE 10 MG TABLET (FP) PO SCH (09:04)
[2023-03-19] MEDS: BUDESONIDE/FORMETEROL FUMARATE 80/4.5 mcg INHALER IH SCH (09:04)
== END 2023-03-19 09:15 | disposition home or self-care (01) | DRG 772 ==
LOC: YASAS 13:52 → Y3W 13:53
PROVIDERS: ADMIT Allergy & Immunology; ATTEND Psychiatry & Neurology Pain Medicine
PROC: HZ42ZZZ Group Counseling for Substance Abuse Treatment, Cognitive-Behavioral (ICD-10-PCS; principal; 2023-03-15)
DX: F10.20 Alcohol dependence, uncomplicated (principal); F14.20 Cocaine dependence, uncomplicated; F12.20 Cannabis dependence, uncomplicated; F17.210 Nicotine dependence, cigarettes, uncomplicated; F31.9 Bipolar disorder, unspecified; F19.282 Other psychoactive substance dependence with psychoactive substance-induced sleep disorder; F19.280 Other psychoactive substance dependence with psychoactive substance-induced anxiety disorder; F19.24 Other psychoactive substance dependence with psychoactive substance-induced mood disorder; F41.9 Anxiety disorder, unspecified; I10 Essential (primary) hypertension; J44.9 Chronic obstructive pulmonary disease, unspecified; J45.20 Mild intermittent asthma, uncomplicated; E11.59 Type 2 diabetes mellitus with other circulatory complications; Z79.4 Long term (current) use of insulin; Z56.0 Unemployment, unspecified; Z59.00 Homelessness unspecified
CPT/HCPCS: 36415; 82140; 82962; 86803